=== PATIENT | male | born 1935 | race Caucasian/White ===

== ENCOUNTER → 2016-10-04 | Outpatient (CLI) | payer MEDICARE, BC ==
[~2016-10-04] MED LIST: ALDACTONE25 MG PO; AMARYL1 MG PO; AMARYL2 MG PO; AMITRIPTYLINE H25 MG PO; BICALUTAMIDE50 MG PO; CARDIZEM CD (T120 MG PO; CARDIZEM CD)(T180 MG PO; CHERATUSSIN AC236 ML PO; CLEOCIN HCL300 MG PO; COUMADIN ** IA3 MG PO; CPAP INH; DECADRON4 MG PO; DELTASONE20 MG; DULCOLAX10 MG R; ELAVIL25 MG PO; ELIQUIS5 MG PO; FLAGYL500 MG PO; FLOMAX0.4 MG PO; FLONASE 50 MCG/16 GM NOSE; GLUCERNA237 ML PO; HYZAAR 100-12.1 EACH PO; IPRAT-ALBUT 0.5-3 ML INH; KEPPRA500 MG PO; LASIX20 MG PO; LEVEMIR FL100 UNIT/1 SUB-Q; LEVEMIR100 UNIT/1 SUB-Q; LIPITOR40 MG PO; MAXIPIME2 G1 IV; MILK OF MA400 MG/5 M PO; MIRALAX17 GM PO; MULTAQ400 MG PO; NEURONTIN300 MG PO; NOVOLOG100 UNIT/M SUB-Q; OCEAN NASAL) (A44 ML NS; OXYGEN M-15 INH; PROAIR HFA8.5 GM INH; PROTONIX40 MG PO; SINGULAIR10 MG PO; SYMBICORT 16010.2 GM INH; TYLENOL325 MG PO
== END | disposition disaster alternative care site (69) ==
LOC: GRAD 14:46
DX: R47.01 Aphasia (principal); G31.9 Degenerative disease of nervous system, unspecified
CPT/HCPCS: G0424

== ENCOUNTER → 2016-10-04 | Outpatient (CLI) | payer MEDICARE, BC ==
[2016-10-04 14:15] LABS: CPK 47 IU/L (35-332)
== END | disposition disaster alternative care site (69) ==
LOC: LFPA 13:18
PROVIDERS: Family Medicine
DX: I48.91 Unspecified atrial fibrillation (principal)

== ENCOUNTER 2016-10-05 08:42 | Inpatient (IN) | payer MEDICARE, BC ==
[~2016-10-05] VITALS: Ht 180.3 cm; Wt 94.1 kg
--- NOTE | ~2016-10-05 | CON ---
PATIENT'S NAME: TIFFANIE MONTANEZ [facility] AGE: 81 Y [address] ROOM: [address] [address] LOCATION: [facility] ADMIT DATE: 10/05/2016 Consultation DISCHARGE DATE: FAMILY PHYSICIAN: Susanna Benjamin MD ATTENDING PHYSICIAN: REENA SALDANA PRIMARY CARE PHYSICIAN: Dr. Susanna Benjamin. 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 He was originally seen by Dr. Garcia on 08/27/2015, for a paraesophageal mass. On July 09, the CT scan revealed a paraesophageal mass that was 4.5 cm in dimension, but looking back to August 03, 2012, the patient had a mass in the same area that was 2 cm. He ended up having a biopsy that was nondiagnostic. Then, he was sent to [facility] in [place] for a repeat biopsy. 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 Dr. Garcia, after doing an evaluation of the patient, decided to not treat him at that time. The gastrointestinal stromal tumor only changes 2 cm in approximately 5 years. He thought it would be a reasonable thing just to kind of watch this lesion, especially with the patient's age and his other medical problems that he has been having recently. The patient was admitted to the hospital in July for cough and fevers. He was given Solu-Medrol, prednisone, antibiotics and did get some better. He was readmitted in August with exacerbation of his COPD, again given antibiotics, IV steroids, and prednisone as outpatient. The patient's daughter said after that discharge he had been feeling better than he has had in a couple of years. He has been thinking more clearly and feeling well. Approximately 24 to 36 hours ago, the patient started having problems with expressive aphasia and confusion. He did see Dr. Benjamin yesterday and she ordered a CT scan of his brain. CT scan at 2:00 p.m. yesterday revealed a left pulvinar-thalamic lesion, possibly an old infarct. Because of the patient's mental status had declined, the patient was brought to the emergency room this afternoon. A repeat CT scan of his brain showed increased size of his left thalamic- pulvinar lesion. Because of the patient's performance status was declining, he also did have an MRI scan done today. The MRI scan showed numerous ring- enhancing lesions throughout the cerebellum bilaterally, 8 on each side, along with 1 in his left thalamic-pulvinar region. They have an unusual appearance with striking surrounding edema with a rim of hemorrhage or hyperviscosity around each lesion. The differential included possible metastatic melanoma, lymphoma, or infection. PATIENT'S NAME: TIFFANIE MONTANEZ [facility] AGE: 81 Y [address] ROOM: [id number] [place], [place] [address] LOCATION: [facility] ADMIT DATE: 10/05/2016 Consultation DISCHARGE DATE: FAMILY PHYSICIAN: Susanna Benjamin MD ATTENDING PHYSICIAN: REENA SALDANA Because of the patient's clinical status has declined so rapidly, and he has had low-grade fevers off and on since July, and he has lymphocytosis, Dr. Saldana has raised the possibility of toxoplasmosis. The patient does have an old cat that has a swollen face and has been incontinent of stool around their house recently. His is the main caregiver of the cat, although the cat does have free reign at the house, but is not able to get up on the countertop. The patient does have a history of prostate cancer and he is on budesonide and has had orchiectomy in the past. OTHER PAST MEDICAL HISTORY: COPD, adult onset diabetes, hypertension, prostate cancer, depression, obstructive sleep apnea, platelet clumping, atrial fibrillation, and peripheral neuropathy. SOCIAL HISTORY: He is a nonsmoker. He used to drink years ago, but he has not been drinking for years. He is , has 2 daughters and 1 son, they live here in [place]. FAMILY HISTORY: Father had an MO, mother in her 80s, brother had colon cancer and at age 62, another brother at age 48 of an MO, another brother had coronary artery disease, and his son with follicular lymphoma. REVIEW OF SYSTEMS: Really unobtainable because the patient is really not responding verbally and he will move. PHYSICAL EXAMINATION: GENERAL: The patient is sleeping well, moves to noxious stimulus, but is not answering questions or moving purposefully or to command. VITAL SIGNS: Temperature is 98.2, pulse is 93, respirations 22, blood pressure is 122/76, saturating 98% on room air. LABORATORY DATA: White count is 5.9, hemoglobin of 13.3, platelet count is 129,000. BUN 20, creatinine is 1.3. PTT was elevated at 39, although the patient is on Eliquis. INR is 1.1. (The patient's states that he is not taking any of his medications for the past 2 to 3 days). IMPRESSION AND PLAN: 1. Gastrointestinal stromal tumor, diagnosed on 08/19/2016, with atypical PATIENT'S NAME: TIFFANIE MONTANEZ [facility] AGE: 81 Y [address] ROOM: [place] [address] LOCATION: [facility] ADMIT DATE: 10/05/2016 Consultation DISCHARGE DATE: FAMILY PHYSICIAN: Susanna Benjamin MD ATTENDING PHYSICIAN: REENA SALDANA cells associated with this, currently on no therapy; however, on CT scan that was performed today showed increase in size of his paraesophageal mass compared to July 09, 2016, it was 5.1 x 4.7 cm, currently it is 6.4 x 4.8 cm. This is a little unusual for gastrointestinal stromal tumors to change significantly in size, especially since it has been there since 2011 and only had grown approximately 2 to 3 cm in that time. 2. Lesions in his brain that are relatively very unusual for metastatic disease. Gastrointestinal stromal tumors generally are fairly low grade and it would be very unusual for them to present with these ring- enhancing lesions. Because this is fairly unusual for the gastrointestinal stromal tumors and the radiologist thinks this could have an unusual appearance, possibly infection, I would suggest if the patient does not respond to other treatments that the hospitalist is going to be doing, I would suggest doing a brain biopsy to prove this is a malignant process. 3. Mental status changes with significant decline in a very short period of time along with his fevers and a classic picture on his MRI scan, this could very well be toxoplasmosis, especially with a cat that has been in their house and been sick and the patient's immunosuppression over the past several months with his steroids. RECOMMENDATIONS: 1. I would suggest treating the patient for an infection. Dr. Saldana is evaluating the patient for toxoplasmosis and treating him empirically according to chart and he did consult Infectious Disease. I do agree that if the Infectious Disease reasonable it would help if this is metastatic disease causing his surrounding edema. 2. If the patient does not improve with antibiotic therapy and treatment targeted towards the toxoplasmosis, I would recommend a brain biopsy to prove that these lesions are before recommending radiation therapy. 3. Regarding his gastrointestinal stromal tumor, it has changed in size about 1.5 cm over the past 4 months, which is again unusual. It would be worthwhile in the near future repeating a CT scan after he is treated with antibiotics to see if things improved; if not, we definitely would need to consider starting him on tyrosine kinase inhibitor and . ALEX GIBBONS MD CML/modl PATIENT'S NAME: TIFFANIE MONTANEZ [facility] AGE: 81 Y [address] ROOM: [place] [address] LOCATION: [facility] ADMIT DATE: 10/05/2016 Consultation DISCHARGE DATE: FAMILY PHYSICIAN: Susanna Benjamin MD ATTENDING PHYSICIAN: REENA SALDANA /[id number] d: 10/06/16 0042 t: 10/24/16 1721, CONSULTATION REPORT
--- NOTE | ~2016-10-05 | CON ---
PATIENT'S NAME: TIFFANIE MONTANEZ [facility] AGE: 81 Y [address] ROOM: [place] [address] LOCATION: [facility] ADMIT DATE: 10/05/2016 Consultation DISCHARGE DATE: FAMILY PHYSICIAN: Susanna Benjamin MD ATTENDING PHYSICIAN: KYLE SALDANA DATE OF CONSULTATION: 10/09/2016 INFECTIOUS DISEASE CONSULTATION CONSULTATION REQUESTED BY: Dr. Kyle Saldana. REASON FOR CONSULTATION: Ring-enhancing brain lesions. SUBJECTIVE: I am asked by Dr. Saldana to see this pleasant 81-year-old male for multiple ring- enhancing brain lesions and possible infection. He was admitted on 10/05/2016 with confusion, slurred speech, and inappropriate behavior for several days. According to his family, he has had "spells" with memory and speech problems going back for 3 months. He had a low-grade fever prior to this admission, but otherwise, he has not had any fevers, chills, or sweats. An MRI obtained this admission showed multiple ring-enhancing lesions. The patient did consult with Neurosurgery, but declined a biopsy. He has a history of prostate cancer, that is reportedly dating back many years ago, for which, he takes hormonal therapy. Reportedly, this is quiescent. 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 He was known to have a tumor in that area 4 years ago, and this has apparently grown very slowly over the years. It reportedly does not have a high malignant potential. Active treatment of this was not strongly recommended, and he opted for expectant management. He has not had any known complications from this to date. 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 He has always lived in the area. PAST MEDICAL HISTORY: Significant for COPD, asthma, obstructive sleep apnea, type 2 diabetes, hypertension, paroxysmal atrial fibrillation, on anticoagulation. ALLERGIES: ASPIRIN - CAUSES SHORTNESS OF BREATH. PATIENT'S NAME: TIFFANIE MONTANEZ [facility] AGE: 81 Y [address] ROOM: [place] [address] LOCATION: [facility] ADMIT DATE: 10/05/2016 Consultation DISCHARGE DATE: FAMILY PHYSICIAN: Susanna Benjamin MD ATTENDING PHYSICIAN: KYLE SALDANA CURRENT MEDICATIONS: See the MAR for complete listing. His current antibiotics are vancomycin, ceftriaxone, and Bactrim. SOCIAL HISTORY: He has a very distant history of tobacco abuse, no history of alcohol abuse to my knowledge. FAMILY HISTORY: Significant for heart disease and colon cancer. REVIEW OF SYSTEMS: A complete review of systems was carried out and was remarkable only as noted. Please refer to the admission history and physical for complete details. OBJECTIVE: GENERAL: He appeared pleasant and comfortable and was in no distress. He appeared alert and oriented. VITAL SIGNS: Temperature is 36.3, blood pressure 113/56, pulse 80. HEENT: Posterior pharynx clear, no adenopathy or thyromegaly. He was edentulous. Cranial nerves were intact. NECK: Supple. CHEST: Clear to auscultation. CARDIOVASCULAR: Regular rate and rhythm without S3, S4, or murmur, ABDOMEN: Soft, nontender, without hepatosplenomegaly or masses. EXTREMITIES: Unremarkable. NEUROLOGIC: Strength and sensation grossly intact. PSYCHIATRIC: Behavior and affect appropriate. LABORATORY DATA: Creatinine 1.1. Liver function tests normal. White count 8.6. The CD4 count is 247. Toxoplasma antibodies for both IgG and IgM were negative. MICROBIOLOGY DATA: Blood cultures on 10/05/2016 show no growth to date. Urine culture on 10/05/2016 shows no growth. RADIOLOGY DATA: MRI finding is as noted above. CT of the chest on 10/05/2016 shows increased esophageal tumor size, measuring 6.4 x 4.8 cm. IMPRESSION: Multiple ring-enhancing lesions of the brain - the etiology of these is obscure, and the differential is broad. The appearance is perhaps more suggestive of metastatic disease than any other diagnosis. In particular, the PATIENT'S NAME: TIFFANIE MONTANEZ [facility] AGE: 81 Y [address] ROOM: [place] [address] LOCATION: [facility] ADMIT DATE: 10/05/2016 Consultation DISCHARGE DATE: FAMILY PHYSICIAN: Susanna Benjamin MD ATTENDING PHYSICIAN: KYLE SALDANA possibility of melanoma is considered. He has a spindle-cell carcinoma, which reportedly has a low metastatic potential, but this has grown in size, and there is the possibility that these do represent metastases from this tumor. It is unlikely to be prostate cancer if his PSA is "close to zero," as he claims. Lymphoma would be another possibility. Regarding infection, there is again a broad differential, including bacteria, fungi, and mycobacterial diseases. Statistically, the most likely possibility would be multifocal embolic abscesses due to a bloodstream infection, such as Streptococcus viridans, Streptococcus milleri, Streptococcus anginosus, etc. He has not been known to have a bloodstream infection, but this can often happen in an occult fashion. Toxoplasma would be extremely unlikely without IgM or IgG antibodies indicating recent or prior exposure. Histoplasma or other fungal organisms are possibilities, also consider Nocardia (especially given his farm exposures) and mycobacterial infection. Unfortunately, without biopsy and cultures, it would be very difficult to assess for these possibilities. PLAN: As he has improved since admission, whether due to the steroids or the antibiotics, I feel we can continue to treat for possible typical bacterial brain abscesses. I would recommend ongoing treatment with cefepime and Flagyl to cover typical bacterial organisms as well as anaerobes. We can obtain serial imaging to see if the lesions are improving. I would recommend tapering off Decadron as rapidly as possible, so it is not to interfere with the assessment of the brain lesions. If he is not clearly proving both symptomatically and radiographically, then I do feel we should try to get him to agree to a biopsy. I did discuss this with him and his family in some detail. Thank you for this consultation. I have ordered the above antibiotics and a PICC line. We can work on outpatient antibiotic arrangements, and we will plan on seeing him in the clinic in 2 weeks. I am available to answer any questions at [phone]. MD YANET RAMIREZ/evanl /[id number] PATIENT'S NAME: TIFFANIE MONTANEZ [facility] AGE: 81 Y [address] ROOM: [place] [address] LOCATION: [facility] ADMIT DATE: 10/05/2016 Consultation DISCHARGE DATE: FAMILY PHYSICIAN: Susanna Benjamin MD ATTENDING PHYSICIAN: KYLE SALDANA CC: Kyle Saldana MD d: 10/09/16 2142 t: 10/10/16 0815, CONSULTATION REPORT
--- NOTE | ~2016-10-05 | ER ---
PATIENT'S NAME: TIFFANIE MONTANEZ [facility] AGE: 81 Y [address] ROOM: [place] [address] LOCATION: [facility] ADMIT DATE: 10/05/2016 ER/Outpatient Report DISCHARGE DATE: FAMILY PHYSICIAN: Susanna Benjamin MD ATTENDING PHYSICIAN: REENA SALDANA Time of Arrival: 0840 hours. Time of Evaluation: 0845 hours. CHIEF COMPLAINT: Mental status changes. HISTORY OF PRESENT ILLNESS: The patient is an 81-year-old male who presents to the emergency department today with a chief complaint of mental status changes. He reports this started 2 days prior to arrival. He is accompanied by his and family. They report that patient was seen yesterday by Dr. Susanna Benjamin, primary care, had underwent CT scanning after some slurred speech at that time that has improved at home. The patient had a fever of 100.5 this morning. He has had some difficulties talking, difficulties walking, and getting up last night. He has been having some odd behaviors last night. He was acting oddly per his . No chills. No nausea or vomiting. No diarrhea or constipation. PAST MEDICAL HISTORY: 1. CHF. 2. Uap-aceidru-kkovnwjar diabetes. 3. COPD. 4. Hypertension. 5. Atrial fibrillation. 6. GI stromal tumor. 7. Dyslipidemia. 8. Obstructive sleep apnea. 9. Prostate cancer. 10. Thrombocytopenia. PAST SURGICAL HISTORY: 1. Shoulder surgery. 2. Prostatectomy. SOCIAL HISTORY: The patient quit smoking. Denies any alcohol or illicit drug use. ALLERGIES: ASPIRIN WHICH CAUSES A RASH. PATIENT'S NAME: TIFFANIE MONTANEZ [facility] AGE: 81 Y [address] ROOM: [place] [address] LOCATION: [facility] ADMIT DATE: 10/05/2016 ER/Outpatient Report DISCHARGE DATE: FAMILY PHYSICIAN: Susanna Benjamin MD ATTENDING PHYSICIAN: REENA SALDANA MEDICATIONS: Please see list. PRIMARY CARE DOCTOR: Susanna Benjamin MD REVIEW OF SYSTEMS: All systems are reviewed by myself and are negative with the exception of those discussed in the HPI and past medical history. PHYSICAL EXAMINATION: VITAL SIGNS: Weight 90.1 kg, blood pressure 138/75, pulse 98, respiratory rate 20, temperature 100.0, and oxygen saturation 93% on room air. GENERAL: The patient is an 81-year-old male, who appears his stated age. He is alert. He is oriented to person, not place, not time, and not President. HEENT: Normocephalic and atraumatic. Pupils are equal, round, and reactive to light and accommodation. Extraocular motions are intact. Nares are patent bilaterally. TMs are clear. Oropharynx is clear. NECK: Supple. There is no nuchal rigidity. CARDIOVASCULAR: Regular rate and rhythm. No murmurs, rubs, or gallops. LUNGS: Diminished diffusely. No wheezes, rales, or rhonchi. ABDOMEN: Soft, nontender, and nondistended. No rebound, rigidity, or guarding. MUSCULOSKELETAL: The patient moves all 4 extremities. NEUROLOGICAL: GCS of 15. Alert. He is oriented to person only. He has decreased dlypfg-vc-guxg, equal talent acquisition consultant strength bilaterally. No pronator drift. No "cold" toes bilaterally. No clonus. 2/4 reflexes in the upper and lower extremities. SKIN: Warm and dry. There are no rashes or lesions noted. LABORATORY DATA AND IMAGING STUDIES: Labs and X-rays: Lactate is normal. EKG shows sinus rhythm with a rate of 94, normal axis, and normal interval. No ST elevation, ST depression, or T- wave inversions. CBC is normal except for a white blood cell count of 15.9, platelets are 129,000. Free T4 and TSH are normal. BNP is 498. CMP is normal. LFTs are normal. CK is normal. Troponin is normal. Coags are normal. D-dimer is normal. Urinalysis shows 15 protein, 50 blood, otherwise, unremarkable. A CT scan of the brain; questionable increase in the lacunar infarct comparing to yesterday's CT scan. Procalcitonin is less than 0.05. MRI of the brain does reveal multiple lesions throughout the brain with the differential including metastatic melanoma versus infectious versus other sources of metastatic disease. IMPRESSION: PATIENT'S NAME: TIFFANIE MONTANEZ [facility] AGE: 81 Y [address] ROOM: [place] [address] LOCATION: [facility] ADMIT DATE: 10/05/2016 ER/Outpatient Report DISCHARGE DATE: FAMILY PHYSICIAN: Susanna Benjamin MD ATTENDING PHYSICIAN: REENA SALDANA 1. Multiple brain lesions. 2. Acute febrile illness with leukocytosis. 3. Altered mental status. 4. Initial visit. EMERGENCY DEPARTMENT COURSE: The patient was brought back to the examination room. Seen and evaluated by myself. IV is established. Laboratory analysis and imaging are obtained as described above. The patient does undergo the evaluation. I have discussed results with the patient and his family. I have contacted Dr. Saldana with the Hospitalist Service. He has seen and evaluated the patient down here in the emergency department. The patient will need further workup and evaluation of these multiple lesions in the brain. DISPOSITION: The patient is admitted under the care of the Hospitalist Service from Dr. Saldana in stable condition. DO SLIME LOCKETT/modl /[id number] d: 10/05/161936 t: 10/09/161901, OUTPATIENT REPORT
--- NOTE | ~2016-10-05 | DS ---
PATIENT'S NAME: TIFFANIE MONTANEZ [facility] AGE: 81 Y [address] ROOM: [address] [address] LOCATION: [facility] ADMIT DATE: 10/05/2016 Discharge Summary DISCHARGE DATE: 10/10/2016 FAMILY PHYSICIAN: Susanna Benjamin MD ATTENDING PHYSICIAN: Kyle Lin PRIMARY DIAGNOSES: 1. 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 2. Severe sepsis. 3. Acute encephalopathy. 4. Diabetes type 2 with hypoglycemia. 5. Acute kidney injury. 6. Essential hypertension. 7. Thrombocytopenia. PRINCIPAL PROCEDURES: The patient had a PICC line placement. LABORATORY DATA: On admission, lactic acid was 1.0; prior to discharge was 1.7. Troponin x2 sets was less than 0.040. WBC on admission was 15.9, prior to discharge was 9.0. H and H on admission were 13.3/40.2, prior to discharge were 10.9/33.3. Platelet on admission was 129, prior to discharge was 144. Creatinine on admission was 1.2, prior to discharge was stable at 1.1. Sodium on admission was 141, prior to discharge was 137. Potassium on admission was 4.3, prior to discharge was 4.6. Chloride on admission was 104, prior to discharge 105. CO2 was stable on admission was 31, prior to discharge was 24. Calcium on admission was 8.9, prior to discharge 7.9. BUN on admission was stable at 18. Glucose on admission was 97, prior to discharge on chemistry was 247. Magnesium was stable at 2.6. ESR 34. INR 1.1. UA on admission; leukocytes negative, nitrite negative, wbc's high, bacteria negative. CRP on admission was 6.4. Procalcitonin on admission was less than 0.05, including the repeat. CD4 level: CD4 absolute is 0.5, which is low; CD4 percentage 49%; absolute CD4 of 247. Toxo antibody IgG and IgM were negative. Microbiology; blood culture x2 sets no growth after 5 days. HIV 1 and 2 nonreactive. Urine culture, no growth at 2 days. RADIOLOGY: Chest x-ray, negative chest, no change. CAT scan of the head showed stable moderate senescent changes, change in appearance of hypodensity in the left thalamic pulvinar. This may indicate evolving acute or subacute infarct in this location consider MRI warranted clinically. No hemorrhage. MRI of the brain is reported as approximately 8 scattered ring-enhancing lesions in the cerebral hemispheres including one in the left thalamic pulvinar. Each lesion shows fairly striking surrounding edema. See differential considerations above. CTA for PE protocol, no PE or esophageal tumor. PATIENT'S NAME: TIFFANIE MONTANEZ [facility] AGE: 81 Y [address] ROOM: [place] [address] LOCATION: [facility] ADMIT DATE: 10/05/2016 Discharge Summary DISCHARGE DATE: 10/10/2016 FAMILY PHYSICIAN: Susanna Benjamin MD ATTENDING PHYSICIAN: Kyle Lin [facility] COURSE: For history of present illness, please take a look at the H and P, which was done by Dr. Lin. The patient was admitted to Neurotrauma Unit, was managed for acute encephalopathy. 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 So, given the wide differential, the patient was started empirically on IV Bactrim and also was started empirically on IV Rocephin, ceftriaxone, Vancomycin, Flagyl, and also Bactrim and Decadron. Given the Decadron, he was also put on Levemir and also aggressive sliding scale. By the next day of his hospital stay, the patient's mentation had remarkably improved, almost at baseline; he was alert and oriented x3; he was ambulating on the hallway; and his line of management was continued awaiting the results of his pending blood work. By the first day of his hospital stay, he did develop some mild respiratory distress, not required oxygen; however, he did have some wheezing, so he was given IV Lasix, which helped to improve his breathing, and also some breathing treatment as well. At this point, he was restarted on his home dose of Lasix and his Aldactone. His mentation continued to remain stable until it was returned to baseline. He continued to ambulate with Physical Therapy, requiring a walker. Eventually, the day prior to discharge, his pending labs such as his Toxo was available, which was negative both for IgG and IgM titers; and on this date, the patient was reviewed by the Infectious Disease doctors, who felt that given the fact that his titers will low, possibility of Toxo was not there. However, they suspected possibly this may be brain abscesses and so they discontinued the Bactrim and tailor down on the patient's antibiotics to cefepime and Flagyl for a total of 4 weeks and they also recommended for the Decadron to be aggressively taper down, which was started already prior to their consult. web content manager helped in setting up outpatient infusion. Also, please note, on admission, the patient also did get a neurosurgical consult at that point in time for a possible brain biopsy to help to evaluate the etiology of the MRI finding in the brain, however, the patient's family declined to brain biopsy to be done and also declined to a lumbar puncture being done as well given the risk of bleeding and the risk associated with the procedure. He did also get Hematology/Oncology consult as well given his prior history of gastrointestinal stromal tumor as well as his prostate cancer. Hematology and Oncology team felt that the MRI findings may not be due to mets from this 2 tumors as they really metastasize to the brain. However, they continued to follow up with the patient during his hospital stay. His diabetes became out of control during the hospital stay secondary to the Decadron, which the patient was on. However, he did require aggressive sliding scale of NovoLog as well as Levemir. He was started on Decadron taper a day prior to discharge and also on a rapid taper. On the day of discharge, the patient was in his stable clinical condition and vital signs were stable, his mentation was at baseline. Please also note that when the patient was seen by the Infectious Disease doctors, they ordered some antifungal workup, PATIENT'S NAME: TIFFANIE MONTANEZ [facility] AGE: 81 Y [address] ROOM: [place] [address] LOCATION: [facility] ADMIT DATE: 10/05/2016 Discharge Summary DISCHARGE DATE: 10/10/2016 FAMILY PHYSICIAN: Susanna Benjamin MD ATTENDING PHYSICIAN: Kyle Lin which were also pending as at the time of discharge. On the day of discharge, I did touch base with Dr. Knowles as regarding whether to restart the Eliquis or not as this was held on the day of admission. After discussing with Dr. Knowles, he recommended that the patient can be restarted on his Eliquis despite the MRI findings. DISCHARGE INSTRUCTIONS: The patient is to follow up with his family doctor, Dr. Benjamin, in the next 3 to 4 days. The patient is to restart his normal home dose of Amaryl, which is 1 mg daily p.o. after he completes his Decadron taper. Also, the patient is to stop taking insulin 1 day after completion of his Decadron taper. MEDICATIONS ON DISCHARGE: 1. Lipitor 40 mg p.o. daily. 2. Cardizem 120 mg p.o. daily. 3. Cefepime 2 grams daily. 4. Multaq 400 mg p.o. twice daily with meals. 5. Lasix 20 mg q.48 hours. 6. Neurontin 600 mg p.o. 3 times daily. 7. Amaryl 2 mg p.o. daily, this is a dose change while on Decadron. 8. Insulin sliding scale FlexPen, new medication, which is to be stopped one day after completing Decadron. 9. Levemir FlexPen 5 units subcu q.p.m., which is to be stopped one day after completion of the Decadron. 10. Keppra 500 mg p.o. twice daily. 11. Flagyl 500 mg p.o. 3 times daily for 4 weeks. 12. Pantoprazole 40 mg p.o. daily. 13. Aldactone 12.5 mg p.o. daily. 14. Flomax 0.4 mg p.o. q.h.s. 15. ProAir 2 puffs INH twice daily p.r.n. 16. Symbicort 1 puff twice daily. 17. Eliquis 5 mg p.o. twice daily. 18. Decadron 4 mg b.i.d. p.o. for 1 day, then Decadron 4 mg p.o. daily for one day, then stop. Then, Amaryl 1 mg daily p.o. which is to be started after completion of the Decadron. Discharge time spent on this patient is approximately 35 minutes, which included discussing case with the patient's PCP. HIMANSHU CALIXTO MD PATIENT'S NAME: TIFFANIE MONTANEZ [facility] AGE: 81 Y [address] ROOM: [place] [address] LOCATION: [facility] ADMIT DATE: 10/05/2016 Discharge Summary DISCHARGE DATE: 10/10/2016 FAMILY PHYSICIAN: Susanna Benjamin MD ATTENDING PHYSICIAN: Kyle Lin /[id number] d: 10/11/16 0106 t: 10/12/16 2224, DISCHARGE SUMMARY
--- NOTE | ~2016-10-05 | CON ---
PATIENT'S NAME: TIFFANIE MONTANEZ [facility] AGE: 81 Y [address] ROOM: [address] [place] [id number] LOCATION: [facility] ADMIT DATE: 10/05/2016 Consultation DISCHARGE DATE: FAMILY PHYSICIAN: Susanna Benjamin MD ATTENDING PHYSICIAN: REENA SALDANA DATE OF CONSULTATION: 10/05/2016 The patient was seen on neurologic consultation on 10/05/2016 and followed up on 10/06/2016. HISTORY OF PRESENT ILLNESS: I was asked by Dr. Saldana from the Hospitalist Service to give an opinion about Mr. Montanez. He is an 81-year-old male patient, who has a distant history of prostate cancer, but he has been on chronic androgen therapy. According to the record, he had prostatectomy back into the . There was a question whether he had some metastatic bone lesions seen on nuclear bone scan back in 1996. The patient otherwise has been doing quite well. He did have an admission back in July for acute respiratory compromise, thought to be associated with chronic issues of COPD. He does use a CPAP at home. His admission in July was uneventful, but it was associated with an event of rapid atrial fibrillation where he was placed on amiodarone as well as started on anticoagulation medication, Eliquis, which has been held presently. According to the family, the patient is very high functioning and does not have any memory deficits. In general, he never had any true neurologic problems until about 3 days prior to admission when he started to have strange behavior. He would not put on clothes, which would be extremely odd for him since he is very prideful, became much more confused and even had some slurring of his speech and difficulty with word finding. In answering questions, he would often substitute words very typical for an aphasia. The family was having close advisement fairly regularly with their primary medical doctor, Dr. Benjamin, who did an initial CAT scan of the brain. The CAT scan showed possibility of a small stroke in the left thalamus. Due to the fact that he was having worsening of his mental status, along with new aphasia, it was directed that the patient should come to the hospital for further evaluation. On the workup concerning the CAT scan finding, the MRI was much more descriptive. What the MRI found that was not necessarily picked up on the CAT scan with multiple regions of ring-enhancing lesions, at least 8 of them, that were seen scattered in both hemispheres. The hypodensity seen on CAT scan in the thalamus was clearly not associated with the stroke but was associated with this ring-enhancing lesion, that was fairly large with some area of edema around it. The area of edema did produce some mass effect and some minor shift of the brain parenchyma towards the left frontal horn. Other areas of these ring-enhancing lesions did show some circumscribed edema but significant edema was lacking. MRI did show a very typical pattern, PATIENT'S NAME: TIFFANIE MONTANEZ [facility] AGE: 81 Y [address] ROOM: [address] [address] LOCATION: [facility] ADMIT DATE: 10/05/2016 Consultation DISCHARGE DATE: FAMILY PHYSICIAN: Susanna Benjamin MD ATTENDING PHYSICIAN: REENA SALDANA consistent with a concentric target sign, whereby there would be an area of hyperintensity and an area of hypointensity. They thought that these multifocal ring-enhancing lesions with this target sign would be consistent with a central nervous system toxoplasmosis prompted the Hospitalist Service to quite appropriately call Infectious Disease. 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 In addition, dexamethasone was also started due to the aspect of the nature of the ring-enhancing lesions, edema, most specifically in the left thalamus/basal ganglia (it should be noted that a person may have presentation of aphasia with a left thalamic lesion). In addition, Flagyl 500 mg IV q.6 hours as well as ceftriaxone 2 g IV twice a day have been added to the regimen. The medication Eliquis due to the paroxysmal atrial fibrillation has been held temporarily but may be likely be restarted. Today, the patient has made a remarkable recovery over the course of the past 12 to 24 hours. He actually is improved with his language ability. He does not have slurring of his speech or word-finding deficits, though he is not exacting as to date, he knows the months, the year, and he is alert to situation. Furthermore, he participated very distinctly in the physical exam, following all commands, and cross-body commands done appropriately. He did not display any focal weakness or sensory complaints, and his gait was normal. 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 FAMILY HISTORY: His father of an [place] at age 61, his mother of colon cancer. SOCIAL HISTORY: He is retired. He does not smoke presently but smoked heavily in the past up to around 10 years ago. He does not drink alcohol. He has 8 children. ALLERGIES: HE HAS AN ALLERGY TO ASPIRIN, SUPPOSEDLY CAUSES SHORTNESS OF BREATH. CURRENT MEDICATIONS: PATIENT'S NAME: TIFFANIE MONTANEZ [facility] AGE: 81 Y [address] ROOM: [id number] [place] [address] LOCATION: [facility] ADMIT DATE: 10/05/2016 Consultation DISCHARGE DATE: FAMILY PHYSICIAN: Susanna Benjamin MD ATTENDING PHYSICIAN: REENA SALDANA 1. Flagyl 500 mg IV q.6 hours. 2. Dexamethasone 4 mg p.o. q.6 hours. 3. Keppra 500 mg twice a day. 4. Tamsulosin 0.4 mg p.o. daily. 5. Ceftriaxone 2 mg IV twice a day. 6. Dronedarone 400 mg twice a day. 7. Pantoprazole 40 mg p.o. daily. 8. Eliquis 5 mg p.o. twice a day, has been held past 24 hours. 9. Bactrim IV 5 mg/kg twice a day. REVIEW OF SYSTEMS: NEUROLOGIC: The patient experienced a mental status change with acting out confusion and inappropriate behavior. He also develops slurring of speech and inappropriate word use, difficulty with word finding, and word substitution. This is consistent with acute aphasia. On an MRI, the patient was found to have a fairly large lesion in the left thalamus, causing some mass effect into the left frontal horn. Other ring-enhancing lesions were found, scattered and multiple throughout the bilateral hemispheres. Does not appear to be evidence of any hydrocephalus. Scattered lesions did not produce any significant mass effect, but they are associated with some minor amounts of edema. The patient has received IV steroids, and he has been started on anti-toxoplasmosis treatment. Multiple laboratories have been sent including IgG for evidence for toxoplasmosis titers. RESPIRATORY: The patient is stable. In July 2016, he had respiratory events associated with worsening COPD. He was found to have rapid atrial fibrillation and was started on amiodarone as well as anti-coagulation for paroxysmal atrial fibrillation. He currently appears to be in sinus rhythm, but occasional APCs are seen on the rhythm strip. ONCOLOGICAL: The patient has a distant history of prostate cancer, possibly metastatic to bone, relating to a workup in 1996, which included a bone scan. He has been maintained on long-standing anti-androgen therapy. 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 This is currently being in surveillance. No plans for surgery. Rest of the review of systems is essentially stable presently. PHYSICAL EXAMINATION: GENERAL: The patient is alert and oriented. He is sitting up in a chair. He answers all questions appropriately. He follows all commands including cross- body commands. NEUROLOGIC: He participated in the full neurologic exam all appropriately. I did not appreciate any aphasia. He was alert and oriented to months but had difficulty remembering the date. He was conversational but a bit diminished in his conversation output. However, I did not appreciate any paraphasic errors or slurring of his speech or use of neologisms. He was able to name PATIENT'S NAME: TIFFANIE MONTANEZ [facility] AGE: 81 Y [address] ROOM: [id number] [place], [place] [address] LOCATION: [facility] ADMIT DATE: 10/05/2016 Consultation DISCHARGE DATE: FAMILY PHYSICIAN: Susanna Benjamin MD ATTENDING PHYSICIAN: REENA SALDANA objects and parts of objects completely correct and read normally. VITAL SIGNS: Revealed a pulse of 68 and irregular, respiration rate 12, blood pressure 148/68, temperature is 37. CRANIAL NERVES: 2 through 12 was intact. There were normal visual roberts. There was normal facial symmetry. Normal facial sensation. His neck was supple on flexion and extension. There was no evidence of any pronator drift on motor testing. There was full power in the upper and lower extremities proximally and distally at 5/5 grade power. Rapid alternating hand movements were normal. [id number] revealed no evidence of dysmetria or tremor. Reflexes were symmetric and +1 at the biceps, triceps, brachioradialis, patellar. Ankle jerks were absent. His gait was normal, narrow based. Negative Romberg. IMPRESSION: Mr. Montanez presented with new onset of aphasia with a change in his behavior and mental status. This, I believe is clearly related to the largest lesion seen on MRI, that is being a left thalamic basal ganglia lesion with mass effect into the left frontal horn. He has made a remarkable recovery, and I do believe that it is largely due to the effects of the steroids taking down some of the swelling. There was no evidence of any stroke seen on diffusion- weighted imaging. These multifocal lesions seen are all showing DWI core increase in signal. 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 Based upon the findings of #1: The largest lesion seen involves the basal ganglia thalamus region with mass effect. It is known that toxoplasmosis does have a propensity to go to the basal ganglia. Multifocal nature of the lesions does suggest a toxoplasmosis based upon the ring- enhancing propensity as well as the hyperintense and hypointense type of concentric target sign, that is seen on MRI. BRIM MOLDER lymphoma would tend to usually be not as concentric in their sizes as well as unlikely to be multifocal. Pyogenic abscess could certainly be a possibility here. Even though the patient does not look particularly toxic, what would point to a pyogenic abscess is would be the presence of diffusion-weighted imaging being positive in the core of these lesions. Diffusion-weighted imaging tends to be diminished in toxoplasmosis. Nonetheless, the findings on brain imaging as mentioned before do point more strongly to toxoplasmosis of the BRIM MOLDER. Thus, the patient has been appropriately started on Bactrim. Anti-infective agents, such as pyrimethamine is currently being sought, and it is not on formulary here. We will await the titers for toxoplasmosis IgG, which should come back in a matter of a few days. I agree on continuing the dexamethasone as dosed as well as continuing at least the Bactrim therapy with Flagyl. Certainly, Ceftriaxone would also continued as we can not be sure to rule out a pyogenic type of abscess. Discussions with the family and nonspecifically with the patient at this time, there is an understanding that he is rejecting any type of interventional surgery, such as a biopsy of the brain to better assess the nature of these multifocal findings. Infection as well as metastatic lesions PATIENT'S NAME: TIFFANIE MONTANEZ [facility] AGE: 81 Y [address] ROOM: [place] [address] LOCATION: [facility] ADMIT DATE: 10/05/2016 Consultation DISCHARGE DATE: FAMILY PHYSICIAN: Susanna Benjamin MD ATTENDING PHYSICIAN: REENA SALDANA were certainly be the leading issue here with infection being higher priority and more of a likelihood. The patient has been put on Keppra 500 mg twice a day as an empiric treatment for prophylactic seizures simply because of the multifocal nature of these lesions, and the chance that a seizure could occur within the next year or two. The issue of the Eliquis for paroxysmal atrial fibrillation is to be re-evaluated. I do think that the anticoagulant is less likely to cause intracranial hemorrhage, and the risk for atrial fibrillation related stroke is certainly probably higher. Nonetheless, risk for intracranial bleed currently is taken into consideration. Thus, the medication has been held. We will continue to follow along on this very interesting case. SHANNAN MILLER MD JRM/modl /[id number] d: 10/06/16 2254 t: 10/15/16 1544, CONSULTATION REPORT
--- NOTE | ~2016-10-05 | HP ---
PATIENT'S NAME: TIFFANIE MONTANEZ [facility] AGE: 81 Y [address] ROOM: [address] [address] LOCATION: [facility] ADMIT DATE: 10/05/2016 History & Physical DISCHARGE DATE: FAMILY PHYSICIAN: Susanna Benjamin MD ATTENDING PHYSICIAN: REENA SALDANA DATE OF SERVICE: CHIEF COMPLAINT: Confusion, slurred speech, and inappropriate behavior since 3 days ago. HISTORY OF PRESENT ILLNESS: This is an 81-year-old male who is currently confused therefore, the story is directly obtained from the patient's family members. The patient's daughter says that since 3 days ago the patient has been becoming confused where she describes as unable to speak properly with slurred speech. There is no facial droop or saliva drooling. The patient was also behaving inappropriately than his usual self, inappropriately such as he would get naked at home where he usually never does that before. Because of this inappropriate behavior and slurred speech and confusion, the patient went to see his primary care physician yesterday on Tuesday, October 04, 2016. At the primary care physician's office, a CT scan of the brain was ordered and it was read as no acute hemorrhage, chronic atrophy, and senescent white matter changes. There is an old small hypodense focus in the left thalamic pulvinar consistent with an old lacunar infarct. The result was told over the phone by the radiologist, Dr. Zee, to the patient's primary care physician, Dr. Benjamin. Given that the finding was showing old lacunar infarct, the patient was sent home without further intervention. When the patient went home, his symptoms persisted, became more confused, more difficulty getting the words out of the mouth, so the patient came here to the ER today for evaluation. Here in the ER, the patient was found to have a low-grade temperature at 100. At home, the patient's daughter says that the patient was also running a little bit of a temperature, but they never took the temperature. Here, a CT of the brain was performed again and showed stable moderate senescent changes, changing appearance of hypodensity in the left thalamic pulvinar, this may indicate evolving acute or subacute infarct in this location and consider an MRI for better imaging. No hemorrhage. Therefore, an MRI was performed of the head without contrast and that showed approximately 8 scattered ring- enhancing lesions in the cerebral hemisphere including 1 in the left thalamic pulvinar. Each lesion shows fairly striking surrounding edema, blood work was remarkable for leukocytosis with white blood cells of 15.9, and negative urinalysis for UTI. CRP 6.4. Procalcitonin less than 0.05. Influenza screen negative. D-dimer was mildly elevated at 0.55. Therefore, a CT pulmonary angiogram was performed and it showed no pulmonary emboli. 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 ROOM: [address] [address] LOCATION: [facility] ADMIT DATE: 10/05/2016 History & Physical DISCHARGE DATE: FAMILY PHYSICIAN: Susanna Benjamin MD ATTENDING PHYSICIAN: REENA SALDANA July 09, 2016. I was contacted by the ER for admission. Looking at the MRI imaging with multiple ring-enhancing lesions, in the setting of low-grade fever and confusion, I highly suspect that this might be [place] toxoplasmosis. Lymphoma less likely given the lymphoma usually is a single lesion. Brain metastasis could be another possibility from the paraesophageal tumor. Brain abscess is another differential, but unlikely to be so many scattered all over the brain. A brain biopsy will be the best way to diagnose the lesion in the brain, but because it is invasive, family members and the patient do not want to proceed with such invasive diagnostic procedure. I cannot get much history out of the patient given that he is confused and disoriented x3. No further history could be obtained from the patient. REVIEW OF SYSTEMS: As mentioned in the history of present illness. All other systems reviewed and negative except those mentioned in the history of present illness. PAST MEDICAL HISTORY.: 1. Recent admission here earlier this year for fever secondary to right lung consolidation and small right pleural effusion. 2. COPD, not on home oxygen. 3. Asthma. 4. Obstructive sleep apnea, on home CPAP at night, 10 cm per water pressure. 5. History of prostate cancer many years ago, status post prostatectomy according to the patient's daughter. This happened many years ago. Never received chemotherapy. Still on the anti-androgen medication (bicalutamide). 6. 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 7. Diabetes type 2. 8. Hypertension. 9. History of paroxysmal atrial fibrillation, on Eliquis. ALLERGY TO: Aspirin which causes shortness of breath. HOME MEDICATIONS: 1. Albuterol 2-puff inhalation twice daily p.r.n. for shortness of breath and wheezing. 2. Eliquis 5 mg p.o. b.i.d. 3. Lipitor 40 mg p.o. every night at bedtime. 4. Bicalutamide 50 mg p.o. daily. 5. Symbicort 1 puff inhalation twice daily. PATIENT'S NAME: TIFFANIE MONTANEZ [facility] AGE: 81 Y [address] ROOM: [address] [place] [id number] LOCATION: [facility] ADMIT DATE: 10/05/2016 History & Physical DISCHARGE DATE: FAMILY PHYSICIAN: Susanna Benjamin MD ATTENDING PHYSICIAN: REENA SALDANA 6. Cardizem 120 mg p.o. daily. 7. Dronedarone 400 mg p.o. b.i.d. 8. Lasix 20 mg p.o. every 48 hours. 9. Gabapentin 600 mg p.o. t.i.d. 10. Glimepiride 1 mg p.o. daily. 11. Protonix 40 mg p.o. daily. 12. Sodium chloride 1 spray each nose daily p.r.n. in each nostril. 13. Aldactone 12.5 mg p.o. daily. 14. Flomax 0.4 mg p.o. every night at bedtime. SOCIAL HISTORY: The patient was a former cigarette smoker, only for a few years, not sure how many packs per day given the patient is confused, cannot really get a clear history. This is obtained from the patient's family member. The patient's family remember says that the patient does not drink any alcohol or use any illegal drugs in the past or present. FAMILY HISTORY: Father from myocardial infarction at age of 61. Mother from colon cancer at an advanced age. PAST SURGICAL HISTORY: Status post prostatectomy for prostate cancer many years ago. PHYSICAL EXAMINATION: VITAL SIGNS: At the time of my dictation, temperature 98.2, heart rate 93, respirations 22, blood pressure 122/26, and saturation 93% on 1 L nasal cannula. Pain 0/10. GENERAL APPEARANCE: The patient looks frail and elderly, not in acute distress. Alert but disoriented x3. HEENT: Pupils are equally round and reactive to light. 4 mm bilaterally. Extraocular muscles are intact. Anicteric sclerae. Nasal turbinates are normal bilaterally. Moist oral mucosa. No oral thrush. NECK: No JVD. No cervical stiffness. No cervical lymphadenopathy. Brudzinski sign negative. CARDIOVASCULAR: Regular rate and rhythm. Normal S1, S2. No murmur. No rubs. No gallops. RESPIRATORY: Clear. Chest wall nontender to palpation. ABDOMEN: Obese, soft, nontender, nondistended, normal bowel sounds, no hepatosplenomegaly. EXTREMITIES: No edema in upper or lower extremities. NEUROLOGIC: The patient is alert but disoriented x3. Cannot perform a full neurological exam given that the patient does not follow commands and is confused. No obvious facial droop. Pronator drift negative bilaterally. No tongue deviation upon protrusion. Sensation intact in all 4 extremities. PATIENT'S NAME: TIFFANIE MONTANEZ [facility] AGE: 81 Y [address] ROOM: [place] [address] LOCATION: [facility] ADMIT DATE: 10/05/2016 History & Physical DISCHARGE DATE: FAMILY PHYSICIAN: Susanna Benjamin MD ATTENDING PHYSICIAN: REENA SALDANA Muscle strength intact in both upper extremities, 5/5. The patient could not follow commands therefore, I could not assess lower extremity strength. Proprioception and vibration cannot be obtained given that the patient does not follow commands and does not really answer my questions. Ncgg-jn-ktps and qsmukr-ml-qplg could not be performed given the patient does not follow commands due to confusion. Gait not assessed due to fall risks. Deep tendon reflexes +2 bilaterally and symmetrical at the knees and also on the biceps area. Babinski negative bilaterally. SKIN: No ulcer, no rash, no cyanosis. MUSCULOSKELETAL: No joint pain. No muscle pain. Range of motion cannot be assessed given the patient does not follow commands. LABORATORY DATA: Lactic acid 1.0. Troponin less than 0.04. CPK 54. ProBNP 498. White blood cells 15.9, hemoglobin 13.3, hematocrit 40.2, MCV 91.4, and platelet 129. Glucose 146, BUN 16, creatinine 1.0, sodium 139, potassium 4.1, chloride 104, CO2 27, and calcium 8.3. Total protein 7.4, albumin 3.4, AST 16, ALT 24, alkaline phosphatase 56, and total bilirubin 1.1. GFR more than 60. Anion gap 12.1. ESR 34. INR 1.1. PTT 39. Urinalysis negative for UTI. CRP 6.4. Free T4 1.3, TSH 1.85. CK-MB less than 0.5. Procalcitonin less than 0.05. Influenza screen negative. D-dimer 0.55. IMAGING STUDIES: As mentioned in the history of present illness. ASSESSMENT AND PLAN: 1. Acute encephalopathy: My first differential would be toxoplasmosis due to the multiple ring-enhancing lesions on the MRI of the brain. He did have recent exposure to his cat who recently has been having a lot of diarrhea, and the patient is very close to the cat. The patient has a history of paraesophageal cancer and also prior history of prostate cancer, currently taking anti-androgen, bicalutamide. Given that the patient has active paraesophageal cancer, the patient could be considered as an immunosuppressed patient. Therefore, he could be at risk of having toxoplasmosis. My plan for him will be treating with classical regimen for the toxoplasma empirically with pyrimethamine and sulfadiazine and leucovorin. However, when called the pharmacy, we do not have the pyrimethamine, we also do not have sulfadiazine. [facility] was already contacted and they also do not have it. It could be requested from the outside, but it would take few days to come back. Therefore, I am going to treat him with a 2nd line choice which is the Bactrim. He will be getting IV Bactrim 5 mg/kg twice a day. I will also do serology study with IgG and IgM for the Toxoplasma gondii serology. I already called the Microbiology Lab and I was told that this is a sent out sample and which we expect the report to come back sometime next PATIENT'S NAME: TIFFANIE MONTANEZ [facility] AGE: 81 Y [address] ROOM: [place] [address] LOCATION: [facility] ADMIT DATE: 10/05/2016 History & Physical DISCHARGE DATE: FAMILY PHYSICIAN: Susanna Benjamin MD ATTENDING PHYSICIAN: REENA SALDANA Friday. I have also consulted Neurosurgery, Dr. Knowles, who already has seen the patient and answered all of the patient and the patient's family members' questions. The reason for the consultation for Neurosurgery was to see the possibility for a brain biopsy to make a definitive diagnosis. However, the patient and the patient's family members do not want to proceed with a brain biopsy given that it is invasive. Therefore, no brain biopsy for now. My 2nd differential for this finding on the MRI of the brain could be metastasis. The primary source is not clear. He does have a history of paraesophageal tumor, that could be the source. He also had a history of prior prostate cancer many years ago, that could also be a cause. I will consult Hematology/Oncology to see if brain radiation would be necessary if there is a concern for metastasis. For the local edema effect, I am going to start him with Decadron 10 mg right now IV followed by 4 mg q.6 hours IV. After I did all these, I also called Infectious Disease for further recommendation. Infectious Disease also suggested to cover additional coverage for possible brain abscess, possibly less likely, because he has 8 spots on the brain, less likely is abscess, but in the setting that he is septic with leukocytosis and fever, we are going to cover him empirically for brain abscess with IV vancomycin and IV ceftriaxone and IV Flagyl. I also offered an option for lumbar puncture to test for toxoplsma CSF studies, I spoke to the anesthesiologist, but given the local edema effect of the 8 ring- enhancing lesions on the MRI and given that he was recently took Eliquis, therefore the risk is more than the benefit. I explained all these risks and benefits to the patient and the patient's family members and they do not want to proceed with the lumbar puncture. I will also consult Neurology for further recommendation. For now, this will be my plan. I have explained in detail my plan of care with the patient and the patient's family members and everybody is in agreement and I have already addressed all the questions and concerns from everybody in the family. He will also be getting IV Keppra 1 g loading dose right now and then 500 mg b.i.d. for seizure prevention. He will be ordered diabetic diet, but if he cannot eat, I will get a Speech and Swallow if necessary. IV fluids for hydration at maintenance rate. Further plan depends on clinical course. 2. Diabetes: He will be getting insulin aspart low dose a.c. and h.s. and insulin Levemir for nighttime coverage. Titrate as necessary. 3. Chronic obstructive pulmonary disease: He will get nebulization here p.r.n. I will give him Xopenex plus Atrovent p.r.n. and also the Atrovent p.r.n. 4. Agitation: I will give him IV Ativan low dose 0.5 mg t.i.d. p.r.n. 5. Obstructive sleep apnea: Currently, the patient is confused, is a contraindication for CPAP. I will keep him on oxygen nasal cannula for now. 6. Asthma: Continue nebulization p.r.n. as ordered. PATIENT'S NAME: TIFFANIE MONTANEZ [facility] AGE: 81 Y [address] ROOM: [place] [address] LOCATION: [facility] ADMIT DATE: 10/05/2016 History & Physical DISCHARGE DATE: FAMILY PHYSICIAN: Susanna Benjamin MD ATTENDING PHYSICIAN: REENA SALDANA 7. Paraesophageal mass, that was diagnosed on biopsy to be stromal tumor with atypical spindle cells: Consult Hematology/Oncology to see if this could be a possibility of the primary tumor that may be causing metastasis to the brain and if radiation of the brain will be an option. 8. Hypertension: Hold blood pressure medication in the setting of sepsis. Resume the blood pressure medication when necessary. 9. History of paroxysmal atrial fibrillation: I will not continue Eliquis in the setting of the brain mass to avoid any hemorrhage in the brain. Currently, he is in sinus rhythm. 10. DVT prophylaxis: He is on compression devices. CODE STATUS: He is a DNR/DNI. Time spent in care on the day of admission 120 minutes including several family meetings and I went over the plan of care with each family member and also examining and interviewing the patient. I also went over the plan of care with nurses and the patient and the patient's family members and also addressed all of their questions and concerns. MD YA STERLING/evanl /[id number] D: [id number] T: [id number] HISTORY & PHYSICAL
--- NOTE | ~2016-10-05 | CON ---
PATIENT'S NAME: TIFFANIE MONTANEZ [facility] AGE: 81 Y [address] ROOM: [address] [place] [id number] LOCATION: [facility] ADMIT DATE: 10/05/2016 Consultation DISCHARGE DATE: FAMILY PHYSICIAN: Susanna Benjamin MD ATTENDING PHYSICIAN: REENA SALDANA HISTORY OF PRESENT ILLNESS: I saw this 81-year-old male in the hospital today. He was admitted primarily with a primary complaint of aphasia that started on . The indicated that he was having difficulties speaking and communicating. Prior to that, he was okay; and then the following day, he developed a personality change, became restless, and was behaving in an unusual manner trying to take off his clothes; and so consequent to that, he saw the family doctor; and at that time, there was a question of he really had a fever and the thought was that this was primarily an infection and CT scan that was initially done without contrast was from the 's history, did not show any abnormality, the thought then was that maybe this was an early phase of a stroke. He was eventually transferred here today after he had a repeat CT scan and MRI of the brain. The MRI of the brain showed multiple lesions in both hemispheres at least 8 lesions in the brain. There was no lesion in the posterior fossa and there was not any massive edema, but there was slight edema surrounding each lesion. The relevant portion of his past medical history is that he had a history of CA of the prostate that was treated from what the said with orchiectomy about 19 years ago; and in addition, he had a biopsy of a paraesophageal lesion this past August and the report just showed that this was a spindle cell neoplasm; and he had a chest x-ray done, this chest x-ray did not show any lesions in the lung. PAST MEDICAL HISTORY: He has a history of COPD, he is diabetic, type 2 diabetes, he just recently had atrial fibrillation, which was diagnosed at the last hospital visit, he has a spindle cell neoplasm in the esophagus, and he has had a history of CA of the prostate, he is hypertensive, and has a history of depression. He also had a right rotator cuff repair. SOCIAL HISTORY: He does not smoke or drink alcohol. FAMILY HISTORY: He has a brother who has cancer of the colon and an another who had myocardial infarction. ALLERGIES: ALLERGIC TO ASPIRIN. MEDICATIONS: PATIENT'S NAME: TIFFANIE MONTANEZ [facility] AGE: 81 Y [address] ROOM: [address] [place], [place] [address] LOCATION: [facility] ADMIT DATE: 10/05/2016 Consultation DISCHARGE DATE: FAMILY PHYSICIAN: Susanna Benjamin MD ATTENDING PHYSICIAN: REENA SALDANA See the admitting list. PHYSICAL EXAMINATION: GENERAL: On examination in the hospital, this is an 81-year-old male, who did not appear to be in any acute distress. He was however restless in bed. VITAL SIGNS: He is 5 feet, 7 inches tall, 53.1 kg in weight. Blood pressure was 128/68, the pulse was 92 and was regular, respirations were 12, and temperature is 99.2. HEENT: Grossly appeared to be normocephalic. NECK: There was no tenderness on palpating the cervical spinous processes. There was no restriction of movement of the cervical spine. CHEST: Was clear. HEART: The heart rate was regular. NEUROLOGICAL: Examination was difficult primarily because I could get him to follow instructions; however, he did motor examination, moved his upper and lower extremities quite well, was able to ambulate with minimal help to the bathroom. The reflexes were normal and symmetrical. Toes were downgoing. IMPRESSION: Multiple brain lesions of unknown etiology. PLAN: I discussed at length with the and daughter and basically he had indicated that he did not want anything done. With regards to the esophageal lesion, he said he did not want any chemotherapy, did not want any radiation therapy, and did not want any intervention and so we talked at length as to what to do with regards to the intracranial lesions and I specifically emphasized that there was really no way one could be certain what is present intracranially without any biopsy; and however, since they did not seem to want to that the only thing that one is afraid of is could this be an infective process or some form of infection and if these were malignant lesions then in light of his not want anything done then there would be really no need to do any biopsy and the biggest fear however is this an infective process could be treated with medications and one would miss this opportunity. My recommendation is that Dr. Saldana should get in touch with ID and see what they will recommend. One of the thing this could be could be one of the opportunistic infection in the brain itself especially as he has been on steroids course. MD JANNETTE OSPINA/marilu PATIENT'S NAME: TIFFANIE MONTANEZ [facility] AGE: 81 Y [address] ROOM: [place] [address] LOCATION: [facility] ADMIT DATE: 10/05/2016 Consultation DISCHARGE DATE: FAMILY PHYSICIAN: Susanna Benjamin MD ATTENDING PHYSICIAN: REENA SALDANA /[id number] d: 10/05/166 t: 10/07/16 1432, CONSULTATION REPORT
[~2016-10-05 08:42] MED LIST changes: -AMARYL2 MG PO; -BICALUTAMIDE50 MG PO; -CLEOCIN HCL300 MG PO; -COUMADIN ** IA3 MG PO; -CPAP INH; -DECADRON4 MG PO; -DULCOLAX10 MG R; -ELAVIL25 MG PO; -FLAGYL500 MG PO; -GLUCERNA237 ML PO; -KEPPRA500 MG PO; -LEVEMIR FL100 UNIT/1 SUB-Q; -LEVEMIR100 UNIT/1 SUB-Q; -MAXIPIME2 G1 IV; -MILK OF MA400 MG/5 M PO; -MIRALAX17 GM PO; -NOVOLOG100 UNIT/M SUB-Q; -OCEAN NASAL) (A44 ML NS; -OXYGEN M-15 INH; -TYLENOL325 MG PO
[2016-10-05 09:10] LABS: BASOPHIL # 0.1 K/uL (0.0-0.2); BASOPHIL % 0.3 %; EOSINOPHIL % 0.1 %; HEMATOCRIT 40.2 % (33.0-50.0); HEMOGLOBIN 13.3 g/dL (11.0-16.0); IMMATURE GRANULOCYTE # 0.1 K/uL (0.0-0.3); IMMATURE GRANULOCYTE % 0.4 %; LYMPHOCYTE # 2.4 K/uL (0.8-4.0); LYMPHOCYTE % 15.2 %; MCH 30.2 pg (27.0-34.0); MCHC 33.1 gm/dL (32.0-36.5); MCV 91.4 fl (83.0-98.0); MONOCYTE # 1.5 K/uL (0.0-1.0); MONOCYTE % 9.4 %; MPV 11.3 fl (9.4-12.4); NEUTROPHIL # (ANC) 11.8 K/uL (1.4-9.0); NEUTROPHIL % 74.6 %; NRBC % 0 /100WBC (0-0.00); RDW-CV 13.6 % (11.9-14.6); WBC 15.9 K/uL (4.0-11.0)
[2016-10-05 09:24] LABS: PLATELET COUNT 129 K/uL (150-450)
[2016-10-05 09:31] LABS: ALBUMIN 3.4 gm/dL (3.5-5.0); ALK PHOS 56 IU/L (33-138); ALT 24 IU/L (12-78); ANION GAP 12.1 (10.0-19.0); AST 16 IU/L (10-40); BLOOD UREA NITROGEN 20 mg/dL (6-24); CALCIUM 8.4 mg/dL (8.5-10.5); CHLORIDE 104 mMol/L (96-110); CO2 28 mMol/L (22-32); CPK 54 IU/L (35-332); CREATININE 1.3 mg/dL (0.6-1.3); ESTIMATED GFR (MDRD EQUATION) 53; POTASSIUM 4.1 mMol/L (3.7-5.1); SODIUM 140 mMol/L (135-145); TOTAL BILIRUBIN 1.1 mg/dL (0.0-1.5); TOTAL PROTEIN 7.4 g/dL (6.0-8.4)
[2016-10-05 09:38] LABS: INR - (THERAPEUTIC) 1.1 (0.9-1.1); PROTIME 12.1 SECONDS (9.6-11.1)
[2016-10-05 09:42] LABS: PTT 39 SECONDS (25-32)
[2016-10-05 10:04] LABS: BILIRUBIN URINE NEGATIVE (NEGATIVE); BLOOD URINE 50 /UL (NEGATIVE); COLOR URINE YELLOW (YELLOW); GLUCOSE URINE NEGATIVE (NEGATIVE); KETONE URINE NEGATIVE (NEGATIVE); LEUKOCYTES URINE NEGATIVE /UL (NEGATIVE); NITRITE URINE NEGATIVE (NEGATIVE); PROTEIN URINE 15 mg/dL (NEGATIVE); SPEC GRAVITY URINE 1.015 (1.003-1.035); TURBIDITY URINE CLEAR (CLEAR); UROBILINOGEN URINE 4 mg/dL (NORMAL)
[2016-10-05 10:11] LABS: BACTERIA URINE NEGATIVE (NEGATIVE); EPITHELIAL URINE NEGATIVE #/HPF (NEGATIVE); RBC URINE 0-2 #/HPF (NEGATIVE); WBC URINE RARE #/HPF (NEGATIVE)
[2016-10-05] MEDS ORDERED: AMARYL1 MG PO (14:55)
--- NOTE | 2016-10-05 15:53 | NUR ---
Patient arrives from ED by cart. Ambulates to bed 1 assist with gaitbelt, fairly steady. Able to state first name and city. Slow to respond, trouble getting words out. Drowsy. Follows some commands and moves all extremities spontaneously. Equal strength bilaterally. Denies headache/numbness/tingling. Hx of COPD, HTN, Type II Diabetes controlled with oral meds, hx of prostate cancer and "tumor near esophagus." August 2016 hospitalization for pneumonia/CHF/Afib. Wears CPAP at night. Fever off and on recently with trouble talking over the last couple days. Seen by Dr. 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 MRI done today shows 8 lesions, metastatic CA vs parasitic infection. Allergy to Aspirin. NSR 80-90's, afebrile, on 1 L O2.
--- NOTE | 2016-10-05 19:18 | NUR ---
Significant Event: Patient alert. Follows some commands. Up with 1 assist to bathroom. Family at bedside helping with cares. Has rested off and on since being on floor. IV infusing at 75mL/hr. Groins are reddened, cream ordered. Pleasant with cares. Follow up:
[2016-10-05 19:34] LABS: ANION GAP 12.1 (10.0-19.0); BLOOD UREA NITROGEN 16 mg/dL (6-24); CALCIUM 8.3 mg/dL (8.5-10.5); CHLORIDE 104 mMol/L (96-110); CO2 27 mMol/L (22-32); ESTIMATED GFR (MDRD EQUATION) > 60; POTASSIUM 4.1 mMol/L (3.7-5.1); SODIUM 139 mMol/L (135-145)
[2016-10-06 05:18] LABS: HEMATOCRIT 39.6 % (33.0-50.0); HEMOGLOBIN 13.1 g/dL (11.0-16.0); MCHC 33.1 gm/dL (32.0-36.5); MCV 90.6 fl (83.0-98.0); MPV 12.5 fl (9.4-12.4); RBC 4.37 M/uL (3.50-5.50); RDW-CV 13.3 % (11.9-14.6)
--- NOTE | 2016-10-06 05:20 | NUR ---
Significant Event: Patient is alert and responds to name. Has not answered orientation questions this shift but has progressively gotten better as the shift goes on. At the beginning of the shift patient was very drowsy and was just resting quietly in bed with eyes closed. Around 1999 patient got very SOB, wheezing, restless. Pulling at lines and wanting to get up. LS clear and diminished. RR 30s. Call to Dr. Lin and he ordered a pillai catheter and 40 mg of IVP Lasix as well as Haldol IVP. Ativan substituted for Haldol. Patient had over 3 liters of urine out this shift. Urine is yellow and sample sent down for culture. Moves spontaneously and follows commands. 2+ pulses. Denies pain, numbness, or tingling. Tachycardic at times in the low 100s. VSS. Afebrile. On 2L O2 via NC. Bowel sounds active. No BM this shift. Family remains at bedside. IV to right wrist and left anterior forearm both SL with no complications and good blood return. Intermittent antibiotics. Groin is red. Obtained hi lo bed this shift. Alarms at all times. ACHS accucheks with mild SSI. Follow up: monitor neuro status, [facility] accchcks
[2016-10-06 05:21] LABS: WBC 9.8 K/uL (4.0-11.0)
[2016-10-06 05:32] LABS: ANION GAP 13.9 (10.0-19.0); CALCIUM 8.4 mg/dL (8.5-10.5); CREATININE 1.2 mg/dL (0.6-1.3); POTASSIUM 3.9 mMol/L (3.7-5.1)
--- NOTE | 2016-10-06 15:12 | NUR ---
Significant Event: Alert but drowsy at times. Oriented to person, place, and occasionally time. Conversing much more today but still makes confused statements. Ambulated to BR one assist. 525 output from pillai. Large loose BM. SBP 100-130, NSR 80-90's, afebrile, room air. Pleasant & cooperative with cares. Family present throughout the day.
--- NOTE | 2016-10-07 04:37 | NUR ---
Significant Event: Patient is alert and oriented x 3. A little forgetful on third assessment. Denies pain, numbness, or tingling. Moves spontaneously and follows commands. Strong and equal strengths. PERRL. VSS. Afebrile. 2+ pulses. On room air. Lungs clear and diminished. Carranza catheter removed this shift. 700 mL out-is over 1 L positive this shift. Yellow urine. Hi lo bed. Alarms at all times. Has not used call light appropriately this shift. Bowel sounds active. No BM this shift. IV to right wrist and left anterior forearm both SL with no complications and good blood return. Intermittent antibiotics. Groin is red. A[facility]S accucheks changed to aggressive SSI. BG was 408. Dr. Corey ordered 16 units of Novolog to be given. 1 one hour BG was 360. Follow up: monitor neuro status, ACHS accucheks, consider probiotic?, monitor for fluid overload, ID to see Friday, alarms at all times
[2016-10-07 05:06] LABS: BASOPHIL % 0.1 %; HEMATOCRIT 37.6 % (33.0-50.0); HEMOGLOBIN 12.3 g/dL (11.0-16.0); IMMATURE GRANULOCYTE # 0.1 K/uL (0.0-0.3); IMMATURE GRANULOCYTE % 0.7 %; LYMPHOCYTE # 0.5 K/uL (0.8-4.0); LYMPHOCYTE % 3.5 %; MCH 29.9 pg (27.0-34.0); MCHC 32.7 gm/dL (32.0-36.5); MCV 91.3 fl (83.0-98.0); MONOCYTE # 0.6 K/uL (0.0-1.0); MONOCYTE % 3.9 %; MPV 11.3 fl (9.4-12.4); NEUTROPHIL % 91.8 %; NRBC % 0 /100WBC (0-0.00); RBC 4.12 M/uL (3.50-5.50); RDW-CV 13.2 % (11.9-14.6)
[2016-10-07 05:07] LABS: PLATELET COUNT 156 K/uL (150-450)
[2016-10-07 05:23] LABS: ANION GAP 12.8 (10.0-19.0); BLOOD UREA NITROGEN 24 mg/dL (6-24); CALCIUM 8.1 mg/dL (8.5-10.5); CHLORIDE 104 mMol/L (96-110); CO2 26 mMol/L (22-32); CREATININE 1.1 mg/dL (0.6-1.3); ESTIMATED GFR (MDRD EQUATION) > 60; POTASSIUM 3.8 mMol/L (3.7-5.1); SODIUM 139 mMol/L (135-145)
--- NOTE | 2016-10-07 12:10 | NUR ---
Introduced self and care management services to patient and at bedside along with daughter at bedside. Their plan is for patient to go home on discharge, denies concerns. Would like him to have follow for awhile, has had [facility] in the past. Looking into [facility] setting up his meds for him so they keep track of that better. Will start referral to [facility] and put face to face sheet on chart. ID physician will see pt on Friday and will see what his antibx needs will be.
--- NOTE | 2016-10-07 16:37 | NUR ---
Significant Event: Alert & oriented. VSS, afebrile, sats mid 90's on room air, dyspnea on exertion, wheezing at times. Trace edema. 1 void after pillai removal. No BM. 2 peripheral IV saline locked with intermittent Abx. Follow up: [facility]. Monitor respiratory status. Awaiting Infectious Disease doctor to see Friday.
[2016-10-08 04:37] LABS: HEMATOCRIT 33.9 % (33.0-50.0); HEMOGLOBIN 11.3 g/dL (11.0-16.0); MCHC 33.3 gm/dL (32.0-36.5); MCV 89.9 fl (83.0-98.0); MPV 12.4 fl (9.4-12.4); RBC 3.77 M/uL (3.50-5.50); RDW-CV 13.3 % (11.9-14.6)
--- NOTE | 2016-10-08 04:37 | NUR ---
Significant Event: Patient is alert and oriented x 3. Talkative. A little forgetful. Denies pain, numbness, or tingling. Moves spontaneously and follows commands. Strong and equal strengths. PERRL. VSS. Afebrile. 2+ pulses. On room air. Lungs clear and diminished. Generalized edema. Wheezing at times. Yellow urine. Received order for hi lo bed and she is a Hi lo bed. Alarms at all times. Has not used call light appropriately this shift. Bowel sounds active. No BM this shift. IV to right wrist and left anterior forearm both SL with no complications and good blood return. Intermittent antibiotics. Groin is red. Patient started to get a little more SOB/wheezy while IV antibiotics started to resume. Neb treatment done. Aggreezive SSI. Follow up: monitor neuro status, ACHS accucheks, monitor for fluid overload, ID to see Friday, alarms at all times
[2016-10-08 04:40] LABS: PLATELET COUNT 143 K/uL (150-450)
[2016-10-08 04:47] LABS: ANION GAP 14.9 (10.0-19.0); CREATININE 1.2 mg/dL (0.6-1.3); POTASSIUM 3.9 mMol/L (3.7-5.1)
--- NOTE | 2016-10-08 05:13 | NUR ---
Significant Event: Patient is alert and oriented x 3. Talkative. A little forgetful. Denies pain, numbness, or tingling. Moves spontaneously and follows commands. Strong and equal strengths. PERRL. VSS. Afebrile. 2+ pulses. On room air. Lungs clear and diminished. Generalized edema. Wheezing at times and appears SOB at times. Yellow urine. Hi lo bed and alarms at all times. Has not used call light appropriately this shift. Bowel sounds active. No BM this shift. IV to right wrist and left anterior forearm both SL with no complications and good blood return. Intermittent antibiotics. Groin is red. Patient started to get a little more SOB/wheezy while IV antibiotics started to resume. Neb treatment done. Aggressive SSI. Did receive 40 mg IVP Lasix x 1 with good results. Follow up: monitor neuro status, ACHS accucheks, monitor for fluid overload, ID to see Friday, alarms at all times
[2016-10-08 05:27] LABS: ABSOLUTE NEUTROPHIL CT (ANC) 12.5 K/uL (1.4-9.0); BANDED NEUTROPHIL # 0.4 K/uL (0.0-0.1); BANDED NEUTROPHILS % 3 %; LYMPHOCYTE # 0.4 K/uL (0.8-4.0); LYMPHOCYTE % 3 %; MONOCYTE # 0.1 K/uL (0.0-1.0); SEGMENTED NEUTROPHIL # 12.1 K/uL (1.4-9.0); SEGMENTED NEUTROPHIL % 93 %
--- NOTE | 2016-10-08 17:13 | NUR ---
[phone] Amairani Thrasher, student nurse provided cares. Charting has been reviewed. MUKUND Carrillo Investment Associate
--- NOTE | 2016-10-08 17:29 | NUR ---
Significant Event: Patient A/O X3. Follows commands. Equal strength throughout. Denies N/T. VSS. Afebrile. Room air with sats in the mid 90s. LS clear and diminished. Voids per urinal. BS active X4. Accuchecks ACHS with SSI. Groin red. Scab to R) Morel. PIV X3. Infusing intermittent ABX. SBA using gaitbelt and walker. Denies pain. Pleasant and cooperative with cares. Home tomorrow tentively tomorrow after seen by infectios disease. Follow up:
--- NOTE | 2016-10-09 03:27 | NUR ---
Significant Event: Patient is alert and oriented x 3. Talkative. A little forgetful. Denies pain, numbness, or tingling. Moves spontaneously and follows commands. Strong and equal strengths. PERRL. VSS. Afebrile. 2+ pulses. On room air. Lungs clear and diminished. CPAP at night with 2L O2 bled in. Generalized edema. Wheezing at times and appears SOB at times. Occasional non-productive cough. Yellow rine. Hi lo bed and alarms at all times. Did use call light this shift. Bowel sounds active. No BM this shift. IV to right wrist, right anterior forearm, and left anterior forearm SL with no complications. Intermittent antibiotics. Groin is red. ACHS accucheks, aggreesive SSI. Follow up: monitor neuro status, CACHORRO accjesus, ID to see Friday, alarms at all times, possibly home today
[2016-10-09 04:22] LABS: HEMATOCRIT 33.5 % (33.0-50.0); MCHC 32.8 gm/dL (32.0-36.5); MCV 91.3 fl (83.0-98.0); MPV 11.3 fl (9.4-12.4); RBC 3.67 M/uL (3.50-5.50); RDW-CV 13.5 % (11.9-14.6); WBC 8.6 K/uL (4.0-11.0)
[2016-10-09 04:34] LABS: PLATELET COUNT 138 K/uL (150-450)
[2016-10-09 04:49] LABS: ANION GAP 12.4 (10.0-19.0); BLOOD UREA NITROGEN 21 mg/dL (6-24); CALCIUM 7.9 mg/dL (8.5-10.5); CHLORIDE 107 mMol/L (96-110); CO2 24 mMol/L (22-32); CREATININE 1.1 mg/dL (0.6-1.3); ESTIMATED GFR (MDRD EQUATION) > 60; POTASSIUM 4.4 mMol/L (3.7-5.1); SODIUM 139 mMol/L (135-145)
[2016-10-09 05:11] LABS: ABSOLUTE NEUTROPHIL CT (ANC) 8.3 K/uL (1.4-9.0); LYMPHOCYTE # 0.3 K/uL (0.8-4.0); LYMPHOCYTE % 3 %; MONOCYTE # 0.1 K/uL (0.0-1.0); SEGMENTED NEUTROPHIL # 8.3 K/uL (1.4-9.0); SEGMENTED NEUTROPHIL % 96 %
--- NOTE | 2016-10-09 13:53 | NUR ---
Significant Event: A/O X3. Denies N/T. Follows commands. Equal strength throughout. VSS. Afebrile. Room air with sats in the mid 90s. LS clear and diminished. Voids per toilet. BS active X4. Large BM this shift. No apaprent skin issues. R) wrist SLL. R) AC SLL. SBA using gaitbelt and walker. Accuchecks ACHS with SSI. Coverage given. Denies pain. Patient to get PICC access this afternoon. Patient has a fair appetite. Takes pills whole with no complications. Family at bedside. Follow up: Home today or tomorrow
--- NOTE | 2016-10-09 15:55 | NUR ---
Social visit with Jhonathan and his family that was at bedside. Let them know that ID doctors had rounded and they recommended that he go home on Q12 IV Abxs. I went over the options of HHC/HIP vs outpatient therapies. After they talked it over, it was decided that he wanted to do outpatient IV Abxs here at the hospital rather than HHC/HIP. Called and updated Ebony at [facility] to this. Jhonathan is getting his PICC line placed tonight and then will get his IV Abxs in the morning and follow up as an outpatient tomorrow night. No other questions needs or concerns at this time. Will continue to follow and assist.
--- NOTE | 2016-10-09 17:27 | NUR ---
[id number] Den, student nurse provided cares. Charting has been reviewed. MUKUND Carrillo Embosser Apprentice
[2016-10-10 03:40] LABS: ANION GAP 12.6 (10.0-19.0); BLOOD UREA NITROGEN 22 mg/dL (6-24); CALCIUM 7.9 mg/dL (8.5-10.5); CHLORIDE 105 mMol/L (96-110); CO2 24 mMol/L (22-32); CREATININE 1.1 mg/dL (0.6-1.3); ESTIMATED GFR (MDRD EQUATION) > 60; MAGNESIUM 2.6 mg/dL (1.3-2.6); POTASSIUM 4.6 mMol/L (3.7-5.1); SODIUM 137 mMol/L (135-145)
[2016-10-10 03:42] LABS: HEMATOCRIT 33.3 % (33.0-50.0); HEMOGLOBIN 10.9 g/dL (11.0-16.0); MCH 30.2 pg (27.0-34.0); MCHC 32.7 gm/dL (32.0-36.5); MCV 92.2 fl (83.0-98.0); MPV 11.3 fl (9.4-12.4); RBC 3.61 M/uL (3.50-5.50); RDW-CV 13.6 % (11.9-14.6)
[2016-10-10 03:46] LABS: PLATELET COUNT 144 K/uL (150-450)
--- NOTE | 2016-10-10 04:19 | NUR ---
Significant Event: The patient is Alert and Oriented x3. Denies Numbness and Tingling. Moves all extremities spontaneously and to command. Up with 1 assist, Gaitbelt and walker. Denies pain. VSS. On 4L oxygen with his CPAP Currently. Accu checks ACHS. PICC to the Right arm saline locked. Follow up:
[2016-10-10 05:21] LABS: ABSOLUTE NEUTROPHIL CT (ANC) 7.7 K/uL (1.4-9.0); LYMPHOCYTE # 0.7 K/uL (0.8-4.0); LYMPHOCYTE % 8 %; MONOCYTE # 0.5 K/uL (0.0-1.0); SEGMENTED NEUTROPHIL # 7.7 K/uL (1.4-9.0); SEGMENTED NEUTROPHIL % 86 %
--- NOTE | 2016-10-10 11:15 | NUR ---
Stopped by to talk with Jhonathan and his family. I let them know that he was all set up for outpatient IV Abxs starting tonight here at [facility]. Let them know where they would need to go to check in and told them to be there at 1845 for his 1900 appointment time. No other questions, needs or concerns. Will continue to follow and assist. Faxed down discharge orders, PICC line placement order, and facesheet to [facility] prior to his dismissal.
--- NOTE | 2016-10-10 12:30 | NUR ---
Diabetes consult: Patient is being discharged to home today. Patient has been requiring insulin due to steroid therapy and will be discharged on Levemir and Novolog. The patient will not be doing his own injections. Reports his or daughter will help give injections. Education was provided with the family present on the use of the insulin pen device. The patient's demonstrated use of the device. The patient was given a print out of the insulin doses including Novolog aggressive correction and Levemir 5 units everyday. Pictures of the pens were provided. The patient's and his daughter were able to verbalize the correct amount of insulin that needed to be given when provided with blood sugar scenarios. Storage of insulin, rotation of injection sites and disposal of needles were reviewed. Sick day guidelines, as well as hypoglycemia guidelines were discussed. The family reports having refills of testing supplies on file at the pharmacy and will not require an additional script for testing supplies. Family voices understanding of instructions and has no further questions.
[2016-10-10] MEDS ORDERED: MAXIPIME2 G1 IV (13:47)
[2016-10-10] MEDS ORDERED: AMARYL2 MG PO (13:53)
[2016-10-10] MEDS ORDERED: NOVOLOG100 UNIT/M SUB-Q (13:55)
[2016-10-10] MEDS ORDERED: LEVEMIR FL100 UNIT/1 SUB-Q (14:03)
[2016-10-10] MEDS ORDERED: KEPPRA500 MG PO (14:04)
[2016-10-10] MEDS ORDERED: FLAGYL500 MG PO (14:05)
[2016-10-10] MEDS ORDERED: DECADRON4 MG PO ×2 (14:10→14:13)
== END 2016-10-10 15:00 | disposition disaster alternative care site (69) | DRG 871 ==
LOC: GMED 08:42 → GNTU 12:11
PROVIDERS: Emergency Medicine; Hospitalist; Internal Medicine Infectious Disease; Nurse Practitioner Family; ADMIT Internal Medicine
PROC: 02HV33Z Insertion of Infusion Device into Superior Vena Cava, Percutaneous Approach (ICD-10-PCS; principal; 2016-10-09)
DX: A41.9 Sepsis, unspecified organism (principal); G93.40 Encephalopathy, unspecified; G93.6 Cerebral edema; G06.0 Intracranial abscess and granuloma; N17.9 Acute kidney failure, unspecified; C79.89 Secondary malignant neoplasm of other specified sites; J96.11 Chronic respiratory failure with hypoxia; E11.649 Type 2 diabetes mellitus with hypoglycemia without coma; D69.6 Thrombocytopenia, unspecified; I48.0 Paroxysmal atrial fibrillation; R65.20 Severe sepsis without septic shock; Z79.01 Long term (current) use of anticoagulants; Z66 Do not resuscitate; K22.9 Disease of esophagus, unspecified; J44.9 Chronic obstructive pulmonary disease, unspecified; G47.33 Obstructive sleep apnea (adult) (pediatric); J45.909 Unspecified asthma, uncomplicated; Z87.891 Personal history of nicotine dependence; Z99.81 Dependence on supplemental oxygen; Z85.46 Personal history of malignant neoplasm of prostate; I12.9 Hypertensive chronic kidney disease with stage 1 through stage 4 chronic kidney disease, or unspecified chronic kidney disease; N18.3 Chronic kidney disease, stage 3 (moderate)
CPT/HCPCS: C1751; G0424; J0692; J0696; J1100; J1940; J1953; J2060; J3370; J7030; J7040; J7050; J7060; J7612

== ENCOUNTER 2016-10-21 21:05 | Inpatient (IN) | payer MEDICARE, BC ==
[~2016-10-21] VITALS: Ht 180.3 cm; Wt 89.7 kg
--- NOTE | ~2016-10-21 | DS ---
PATIENT'S NAME: TIFFANIE MONTANEZ [facility] AGE: 81 Y [address] ROOM: [address] [address] [place] [facility] [place]: 10[place]21[place]2016 Discharge Summary DISCHARGE DATE: 10/23/2016 FAMILY PHYSICIAN: Susanna Benjamin MD ATTENDING PHYSICIAN: Kyle Lin FINAL DIAGNOSES: 1. Acute encephalopathy. 2. 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 3. Cerebral edema. 4. Paroxysmal atrial fibrillation. 5. Diabetes mellitus. CONSULTANTS ON THE CASE: Dr. Marvin, Dr. Dorantes, and Dr. Fowler of Infectious Disease. HOSPITAL COURSE: Please see details of admission and H and P by Dr. Lin. Briefly, the patient was admitted with acute encephalopathy. He had recently discontinued his Decadron at home and the family had noticed significant change in mental status. He had distractibility, confusion, and was found to get quite angry quickly. The patient had no homicidal threats or thoughts. He was brought to the emergency room and evaluated. He did undergo a CT scan and MRI of the brain, which showed advanced progression of the lesions noticed on his last hospitalization. The Decadron was resumed IV. This showed significant improvement. The patient was seen and evaluated by Dr. Marvin, who felt that the patient should undergo a brain biopsy; however, the patient is on Eliquis for paroxysmal atrial fibrillation and would require a washout. Prior to proceeding with this, it was also discussed with the family that the patient's images would be pushed to [facility]. Dr. Marvin did visit with Dr. Mireles at [facility] about such images and came to the same conclusion that it was possible tumor versus abscess and biopsy was definitely warranted. The patient was covered with sliding scale insulin throughout his stay for his diabetes mellitus. We did use SCDs for DVT prophylaxis at this time. Dr. Fowler did see the patient on 10/23 and felt that the antibiotics could be discontinued at this time to ensure an adequate biopsy result was obtained without a cue from antibiotics. The patient's family were agreeable with this. The patient was found to be stable for discharge on 10/23 and he was discharged to his family at that time. DIAGNOSTICS: On radiology exams, chest x-ray on 10/22/2015 shows no vascular congestion or any parenchymal infiltrate. Head CT without contrast on 10/22/2015 shows vasogenic edema surrounding multifocal brain lesions increased since previous exam on 10/05/2016. 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 ROOM: [place] [address] [place] [facility] [place]: 10/21/2016 Discharge Summary DISCHARGE DATE: 10/23/2016 FAMILY PHYSICIAN: Susanna Benjamin MD ATTENDING PHYSICIAN: Kyle Lin the differential. LABORATORY DATA: Blood sugars range from 149 and 258. Lactate on the was 1.7 down to 1.4 on the . On admission, sodium was 139, potassium 3.8, chloride 105, bicarb 25, glucose 165, BUN 14, creatinine 1.0. Cardiac enzymes were within normal. Free T4 was 1.3, TSH was 2.96. ProBNP 177. Chemistries remained stable throughout his stay. White blood cell count was 8.4. Hemoglobin 12.6, hematocrit 38.3, platelets 58. INR is 1.2. On the day of discharge, white blood cell count is 6.6, hemoglobin 12.5, hematocrit 38.5, platelets 59. INR 1.1. Procalcitonin was negative throughout his stay. Blood cultures on 10/21 showed no growth to date. DISCHARGE INSTRUCTIONS: The patient is discharged home. They will resume Home Health for strengthening. His diet is diabetic. Activity is as tolerated. Follow up with Dr. Marvin on 10/28/2016 at 10:[address] Benjamin in 1 week. The patient was able to verbalize understanding of these discharge instructions. MEDICATIONS: 1. Lipitor 40 mg at bedtime. 2. Symbicort 160/4.5, one puff twice daily. 3. Cardizem 120 mg daily. 4. Multaq 400 mg twice daily. 5. Neurontin 600 mg 3 times daily. 6. Humalog sliding scale as directed. 7. Levemir 8 units subcu at bedtime. 8. Keppra 500 mg twice daily. 9. Protonix 40 mg daily. 10. Flomax 0.4 mg at bedtime. 11. ProAir two puffs twice daily p.r.n. 12. Eliquis will be on hold until after the biopsy. 13. Lasix 20 mg on Friday, Friday, and Friday. 14. Prolactin 12.5 mg daily. 15. Amaryl 1 mg. 16. CPAP as directed. 17. Decadron 4 mg p.o. q.8 hours. We do appreciate participating in this patient's care, and thank you very much for the ability to serve him while hospitalized at [facility]. Time spent coordinating details of discharge was 40 minutes of which was spent coordinating with consultants and care management, completion of medication reconciliation, and education to the patient and family on the above-mentioned PATIENT'S NAME: TIFFANIE MONTANEZ [facility] AGE: 81 Y [address] ROOM: [place] [address] [place] [facility] [place]: 10/21/2016 Discharge Summary DISCHARGE DATE: 10/23/2016 FAMILY PHYSICIAN: Susanna Benjamin MD ATTENDING PHYSICIAN: Kyle Lin diagnoses. MAHESH MENDOZA FOR JUAN DUFFY MD SHAKEEL/modl /[id number] CC: Susanna Benjamin MD d: 10/24/16 0333 t: 10/30/16 1643, DISCHARGE SUMMARY
--- NOTE | ~2016-10-21 | CON ---
PATIENT'S NAME: TIFFANIE MONTANEZ [facility] AGE: 81 Y [address] ROOM: [place] [address] [place]: [facility] [place] ADMIT DATE: 10/21/2016 Consultation DISCHARGE DATE: FAMILY PHYSICIAN: Susanna Benjamin MD ATTENDING PHYSICIAN: REENA SALDANA DATE OF CONSULTATION: 10/23/2016 REASON FOR CONSULTATION: Multiple ring-enhancing brain lesions. HISTORY: Mr. 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 Evaluation revealed multiple ring-enhancing lesions in his brain. The etiology of these is not certain. At that time, he was not consenting to a brain biopsy and thus underwent empiric treatment with antibiotics to see if this might help and also got steroids. With probably the steroids, he significantly improved and these were weaned down and he took his last dose on about 10/12. After that, he kind of was stable, but over the last about 4-5 days, started decreasing in his ability to speak again, in his confusion, as well as his behavior. On the day of admission, he could not find words at all, thus he ended up presenting and was readmitted. MRI showed that the lesions actually had increased a little bit in size and had significant surrounding edema. He has been admitted, they continued on cefepime and Flagyl and back on steroids. The patient and his family are now considering a brain biopsy and discussing whether to do this in [place] or in [place]. ID was asked to see about the antibiotics. PAST MEDICAL HISTORY: Significant for diabetes, COPD, heart failure, atrial fibrillation, GI spindle tumor, hyperlipidemia, sleep apnea, prostate cancer apparently with a low PSA, and thrombocytopenia. PAST SURGICAL HISTORY: He has had shoulder surgery and prostatectomy. SOCIAL HISTORY: He is a prior smoker, but has quit. No alcohol or illicit drug use. ALLERGIES: LISTED TO ASPIRIN. MEDICATIONS: PATIENT'S NAME: TIFFANIE MONTANEZ [facility] AGE: 81 Y [address] ROOM: [place] [address] LOCATION: [facility] [place] ADMIT DATE: 10/21/2016 Consultation DISCHARGE DATE: FAMILY PHYSICIAN: Susanna Benjamin MD ATTENDING PHYSICIAN: REENA SALDANA He is on the cefepime since 10/09 and the metronidazole since 10/05. REVIEW OF SYSTEMS: Really not obtainable from the patient, but per the family, all systems reviewed and are negative otherwise with the exception of the pertinent positives and negatives in the HPI. PHYSICAL EXAMINATION: GENERAL: He is not in any acute distress. Awake, alert. He knows that he is at the hospital, but cannot really recall why he was here, he believed he was out fishing prior to coming here. VITAL SIGNS: He has been afebrile with a T-max of 98.3, blood pressure 98/53, pulse 82, and respirations 16. HEENT: NC/AT. EOMI. PERRLA. NECK: Supple. LUNGS: Clear. HEART: Regular. ABDOMEN: Soft and nontender. EXTREMITIES: No cyanosis, clubbing, edema. His PICC site is okay. SKIN: Without rash. NEURO: Appears to move all his extremities without problem. DATA: MRI as noted. White count 6.6, hemoglobin 12.5, platelet count is 59. His creatinine is 0.9. Albumin is 2.9. AST is 41. A1c was 6.6% in August. His CD4 count was only 247 interestingly. His Fungitell was negative. Toxoplasma IgG was negative. Had a procalcitonin of less than 0.05. Back when he presented in September, he had multiple sets of blood cultures that were negative and an HIV that was negative. His blood cultures from 10/21, that have no growth to date. ASSESSMENT AND PLAN: Multiple ring-enhancing brain lesions. Differential diagnosis is broad here. Abscess is possible, but he has larger lesions now despite antibiotic treatment. It is possible a missed pathogen, but the antibiotics he is currently on do not seem to be doing much. An atypical infection is possible here, but we would need tissue for diagnosis and we would send off cultures for AFB fungus and Nocardia if he gets a biopsy. Malignancy is obviously possible as well here and he will get pathology to get the biopsy. We will stop his antibiotics for now. Discussed extensively with the patient and the family. He did agree that he needs a biopsy, this is only way we are going to get to the bottom of this. Family is looking at transfer to [facility]. We can follow there if he goes. Please call with questions. PATIENT'S NAME: TIFFANIE MONTANEZ [facility] AGE: 81 Y [address] ROOM: [place] [address] LOCATION: [facility] [place] ADMIT DATE: 10/21/2016 Consultation DISCHARGE DATE: FAMILY PHYSICIAN: Susanna Benjamin MD ATTENDING PHYSICIAN: REENA SALDANA MD JORGE HUBER/modl /[id number] d: 10/23/16 1824 t: 10/29/16 1452, CONSULTATION REPORT
--- NOTE | ~2016-10-21 | ER ---
PATIENT'S NAME: TIFFANIE MONTANEZ [facility] AGE: 81 Y [address] ROOM: [address] [address] [place]: [facility] [place] ADMIT DATE: 10/21/2016 ER/Outpatient Report DISCHARGE DATE: FAMILY PHYSICIAN: Susanna Benjamin MD ATTENDING PHYSICIAN: REENA SALDANA Time of Arrival: 2105 hours. Time of Evaluation: 2110 hours. CHIEF COMPLAINT: Altered mental status. HISTORY OF PRESENT ILLNESS: The patient is an 81-year-old male, who presents to the emergency department today with a chief complaint of altered mental status. The patient was recently seen and evaluated by myself and was admitted to the hospital and was found to have ring-enhancing lesions in his brain. He has been on IV antibiotics. He reports he is accompanied by his and daughter. They do report that the patient began over the past day having aphasic episodes and having difficulties with thought process and trying to figure out what he is talking about. He is still able to ambulate. He denies any chest pain. Denies shortness of breath. No fevers, no chills. No nausea or vomiting. No diarrhea or constipation. He does have a PICC line in place. He has been receiving cefepime and Flagyl. PAST MEDICAL HISTORY: CHF, [id number] diabetes, COPD, hypertension, atrial fibrillation, GI stromal tumor, dyslipidemia, obstructive sleep apnea, prostate cancer, thrombocytopenia, and ring-enhancing lesions. PAST SURGICAL HISTORY: Shoulder surgery and prostatectomy. SOCIAL HISTORY: The patient quit smoking. Denies any alcohol or illicit drug use. ALLERGIES: ASPIRIN. MEDICATIONS: Please see list. REVIEW OF SYSTEMS: All systems are reviewed by myself and are negative with the exception of those discussed in the HPI and past medical history. PATIENT'S NAME: TIFFANIE MONTANEZ [facility] AGE: 81 Y [address] ROOM: [address] [address] LOCATION: [facility] [place] ADMIT DATE: 10/21/2016 ER/Outpatient Report DISCHARGE DATE: FAMILY PHYSICIAN: Susanna Benjamin MD ATTENDING PHYSICIAN: REENA SLADANA PHYSICAL EXAMINATION: VITAL SIGNS: Weight 89.7 kg, blood pressure 132/64, pulse 83, respiratory rate 16, temperature 98.0, oxygen saturation 97% on room air. GENERAL: The patient is an 81-year-old male, who appears his stated age, in no acute distress at this time. HEENT: Head: Normocephalic, atraumatic. Pupils are equal, round, and reactive to light and accommodation. Extraocular motions are intact. Nares are patent bilaterally. TMs are clear. Oropharynx is clear. NECK: Supple. There is no nuchal rigidity. CARDIOVASCULAR: Regular rate and rhythm. No murmurs, rubs, or gallops. LUNGS: Clear to auscultation bilaterally. No wheezes, rales, or rhonchi. ABDOMEN: Soft, nontender, and nondistended. No rebound, rigidity, or guarding. NEUROLOGICAL: The patient is alert. He is oriented to person, place, and president, not time. He does have episodes where he is having difficulties with thought process and speech. He has equal stripper black and white strength bilaterally. No pronator drift. Difficulties with gkthty-[id number]. Normal rapid hand movement. Normal muscle strength of bilateral upper and lower extremities. SKIN: Warm and dry. There are no rashes or lesions noted. LABORATORY DATA AND X-RAYS: EKG shows sinus rhythm, rate of 75, normal axis, normal interval. No ST elevation, ST depression, or T-wave inversions. Lactate is 1.7. PTT is normal, PT is 12.3, INR is 1.2. Cardiac enzymes are normal. CBC is normal. CMP is normal. AST is 45, ALT is normal. CRP is 0.64. Free T4 is normal. TSH is normal. BNP is normal. Procalcitonin is less than 0.05. Urinalysis shows 25 leukocyte esterase, 15 protein, 25 blood. IMPRESSION: 1. Multiple ring-enhancing lesions on brain MRI. 2. Altered mental status. 3. Aphasia. 4. Initial visit. EMERGENCY DEPARTMENT COURSE: The patient was brought back to the examination room. Seen and evaluated by myself. An IV is established. Laboratory analysis and imaging are obtained as described above. A CT scan of the brain was obtained. There are findings with new asymmetric areas of white matter hypoattenuation, concerning for acute or subacute areas of ischemia, infectious, or malignant process are not excluded as well, recommended an MRI evaluation. MRI is pending at the time of dictation and will be followed up with the Hospitalist Service, Dr. Saldana. I have contacted the Hospitalist Service with Dr. Saldana. He does agree to accept the patient for further evaluation, treatment, and management and PATIENT'S NAME: TIFFANIE MONTANEZ [facility] AGE: 81 Y [address] ROOM: [place] [address] LOCATION: [facility] [place] ADMIT DATE: 10/21/2016 ER/Outpatient Report DISCHARGE DATE: FAMILY PHYSICIAN: Susanna Benjamin MD ATTENDING PHYSICIAN: REENA SALDANA follow up on the MRI. I have discussed results with the patient and the patient's family. Their questions are answered. They are without further questions at this time. DISPOSITION: The patient is admitted under the care of the Hospitalist Service, Dr. Saldana, in stable condition. DO SLIME LOCKETT/evanl /[id number] d: 10/22/16 0318 t: 10/23/16 1333, OUTPATIENT REPORT
--- NOTE | ~2016-10-21 | HP ---
PATIENT'S NAME: TIFFANIE MONTANEZ [facility] AGE: 81 Y [address] ROOM: [address] [address] LOCATION: [facility] [place] ADMIT DATE: 10/21/2016 History & Physical DISCHARGE DATE: FAMILY PHYSICIAN: Susanna Benjamin MD ATTENDING PHYSICIAN: REENA SALDANA DATE OF SERVICE: CHIEF COMPLAINT: Worsening confusion and word-finding difficulty in the last few days. HISTORY OF PRESENT ILLNESS: This is an 81-year-old male, who was recently discharged from our hospital for multiple small ring-enhancing lesions in the brain, probably abscess; however, could not rule out brain metastasis, given that at that time, the patient and the family member refused brain biopsy, which was offered by the Neurosurgery. At that time, the patient and the family member refused a brain biopsy because they said that the procedure sounds very invasive, and due to his multiple comorbidities and advanced age, they did not want to take the chance of undergoing such invasive procedure. At that time, the patient was seen by Neurology, Neurosurgery, Infectious Disease, Hematology/Oncology, and Hospitalist team, and at that time, the differential were brain metastases probably from the paraesophageal tumor or from metastatic melanoma as mentioned by the radiologist, and the Hematology/Oncology could not do radiation, given that the diagnosis of the brain metastasis was not ever confirmed due to the lack of brain biopsy. Initially, Infectious Disease treated the patient for possible toxoplasmosis and brain abscess with IV Decadron and IV antibiotics, and the patient showed improvement. Neurology also suspected metastasis at that time. However, due to the lack of a brain biopsy, the brain metastasis diagnosis was never be able to be confirmed without a brain biopsy. Therefore, the patient was treated with broad-spectrum antibiotics. Eventually, he was discharged with IV cefepime and IV Flagyl, and the tapering dose of p.o. Decadron. His oral Decadron was finished on last Friday, on October 18, 2016. That is when the daughter noticed that his condition was becoming progressively worse in terms of confusion. When the patient was discharged, the patient's daughter told me that his condition was about 80% back to the usual baseline. However, for the last few days, his condition has gotten worse with the same presentation as last time including word-finding difficulty and confusion, just feeling very weak and tired, and not acting his usual himself. That is how the patient came back PATIENT'S NAME: TIFFANIE MONTANEZ [facility] AGE: 81 Y [address] ROOM: [address] [address] LOCATION: [facility] [place] ADMIT DATE: 10/21/2016 History & Physical DISCHARGE DATE: FAMILY PHYSICIAN: Susanna Benjamin MD ATTENDING PHYSICIAN: REENA SALDANA here again. At this time, CT of the brain and MRI of the brain on admission showed increased size of the several ring-enhancing lesions throughout the brain. Vasogenic edema has also increased. Abscess and infection, as well as metastatic melanoma are on the top differential. No acute ischemia. The patient never had a fever. The highest temperature which he had was 99.8 at home taken last Friday on October 18, 2016. The patient denies any headaches or any nausea or vomiting or any other complaints. Only thing he complains to me is that he feels tired. The patient is somewhat confused. He is oriented only to people and time, but not to place. According to the patient's daughter, last time he took Eliquis was on Friday night, on October 20, 2016. REVIEW OF SYSTEMS: As mentioned in the history of present illness. All other systems reviewed were negative except those mentioned in the history of the present illness. PAST MEDICAL HISTORY: 1. COPD, chronic obstructive pulmonary disease, not on home oxygen. 2. Asthma. 3. BEVERLEY obstructive sleep apnea, on home CPAP at night. 4. History of prostate cancer many years ago, status post prostatectomy in remission. No evidence of metastasis according to the patient's daughter. 5. 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 6. Type 2 diabetes. 7. Hypertension. 8. History of paroxysmal atrial fibrillation, on Eliquis. 9. Recently discharged from our hospital on October 10, 2016 with a diagnosis of multiple small ring-enhancing lesion on the brain, likely secondary to brain abscess versus metastatic melanoma (never had the brain biopsy since the patient and family member declined. Therefore, brain metastasis was never able to be pursued). PAST SURGICAL HISTORY: Status post prostatectomy for prostate cancer many years ago. ALLERGIES: ASPIRIN, WHICH CAUSES SHORTNESS OF BREATH. PATIENT'S NAME: TIFFANIE MONTANEZ [facility] AGE: 81 Y [address] ROOM: [address] [address] LOCATION: [facility] [place] ADMIT DATE: 10/21/2016 History & Physical DISCHARGE DATE: FAMILY PHYSICIAN: Susanna Benjamin MD ATTENDING PHYSICIAN: REENA SALDANA [place] MEDICATIONS: Currently is being reconciled. SOCIAL HISTORY: Former cigarette smoker for only a few years. Not sure how much pack per day, given that the patient is confused, and family member could not give a very good history. He denies any alcohol or illegal drug use, confirmed with the patient's daughter at the bedside. FAMILY HISTORY: Father from myocardial infarction at age 61. Mother from colon cancer at advanced age. PHYSICAL EXAMINATION: VITAL SIGNS: At the time of my dictation, temperature was 97.4, heart rate was 73, respirations were 24, blood pressure was 114/58, and saturation was 94% on room air. Pain is 0/10. GENERAL APPEARANCE: Alert, but disoriented to people and time currently. Not in acute distress. The patient looks frail and elderly, and chronically ill and deconditioned. HEENT: Eyes: Pupils were equally round and reactive to light. Extraocular muscles are intact. Nose: Nasal turbinates are normal bilaterally. Mouth: Dry oral mucosa. No oral thrush. NECK: No JVD jugular venous distention. No neck stiffness. No cervical lymphadenopathy. CARDIOVASCULAR: Regular rate and rhythm. Normal S1 and S2. No murmur. No rubs. No gallops. RESPIRATORY: Clear. ABDOMEN: Soft, nontender, and nondistended. Normal bowel sounds. No hepatosplenomegaly. EXTREMITIES: No edema in upper or lower extremities. NEUROLOGICAL: Alert and disoriented to people and time, but not to place currently. Sensation was intact. Muscle strength was intact. No facial droop. Pronator drift was negative. No slurred speech. Babinski was negative bilaterally. Visual roberts, all four quadrants were intact. No tongue deviation upon protrusion. Cranial nerves II through XII were grossly intact. Odfulo-kx-nxph was intact. Idkv-kr-kbqm was intact. The patient is slow in response, but can still follow most of my commands. Gait: Not assessed due to fall risk. Vibration and sensation were intact. Proprioception was also intact. SKIN: No ulcer. No rash. No cyanosis. MUSCULOSKELETAL: No joint pain. No muscle pain. Range of motion was intact. LABORATORY DATA: PATIENT'S NAME: TIFFANIE MONTANEZ [facility] AGE: 81 Y [address] ROOM: [address] [address] LOCATION: [facility] [place] ADMIT DATE: 10/21/2016 History & Physical DISCHARGE DATE: FAMILY PHYSICIAN: Susanna Benjamin MD ATTENDING PHYSICIAN: REENA SALDANA Lactic acid is 1.7. Troponin was less than 0.04. ProBNP is 177. CPK creatine phosphokinase of 40. White blood cells were 8.4, hemoglobin was 12.6, hematocrit was 38.3, MCV was 91.8, and platelets were 58. Glucose of 165, BUN of 14, creatinine of 1.0, sodium of 139, potassium of 3.8, chloride of 105, CO2 of 25, calcium of 7.9, total protein of 6.2, albumin of 2.9, AST of 48, ALT of 59, alkaline phosphatase of 72, total bilirubin of 0.5, GFR glomerular filtration rate of more than 60, and anion gap of 12.8. INR is 1.2 and PTT is 32. Urinalysis: 25 leukocytes, 2 to 5 white blood cells, negative bacteria, and negative nitrite. CK-MB is less than 0.5. CRP C-reactive protein is 0.64. TSH thyroid-stimulating hormone was 2.9 and free T4 was 1.3. Procalcitonin of less than 0.05. IMAGING STUDIES: EKG on admission showed sinus rhythm at heart rate of 75 beats per minute, QRS of 96, QTc of 423, and AL of 174. No acute ischemic findings. CT of the head without contrast on admission showed new symmetric areas of white matter hypoattenuation as described concerning for acute or subacute areas of ischemia. Infectious or malignant process are not excluded. Recommend MRI. MRI of the head with and without IV contrast on admission showed increased size of several ring-enhancing lesions throughout the brain. Adjacent vasogenic edema has also increased. Given diffusion restriction in the central fluid portion, the abscess and infection are a top consideration, as well as the metastatic melanoma. No acute ischemia. The CT and the MRI of the head are preliminary reports. Please follow up with official report in the morning. PATIENT'S NAME: TIFFANIE MONTANEZ [facility] AGE: 81 Y [address] ROOM: [address] [place] [id number] LOCATION: [facility] [place] ADMIT DATE: 10/21/2016 History & Physical DISCHARGE DATE: FAMILY PHYSICIAN: Susanna Benjamin MD ATTENDING PHYSICIAN: REENA SALDANA ASSESSMENT AND PLAN: 1. Multiple ring-enhancing lesions in the brain with vasogenic edema: His condition worsened since his Decadron was stopped last Friday, and despite on IV cefepime and IV Flagyl for the presumed brain abscesses, his condition worsened. The MRI and the CT of the brain at this time showed increased size of the multiple ring-enhancing lesions, as well as increased size in the vasogenic edema. Therefore, my differentials here still will be the metastases in the brain, possibly from the primary paraesophageal tumor. Last time, this diagnosis was not able to be made, given that last time the patient and the patient's family members refused brain biopsy. At this time, I have explained to the patient and patient's family member that the brain biopsy might be necessary at this time to really confirm the diagnosis because if it is actually a brain metastasis, antibiotics will not provide benefit exterminator helper. The patient could actually benefit from radiation depending on the brain biopsy report if it is really a metastasis. For now, I will consult Neurosurgery tomorrow morning for possible brain biopsy. The patient and family members this time agree to go for brain biopsy, but they want to talk to the neurosurgeon first about the benefits and risks due to patient's multiple comorbidities and advanced age. I will continue everything the same with IV cefepime and IV Flagyl for the presumed brain abscess. However, clinically, the patient should be improving and not getting worse. Therefore, I doubt that the brain abscesses are the cause of multiple ring-enhancing lesions. Toxoplasmosis was already ruled out on last admission since serology IgG and IgM were both negative for toxoplasma. For the brain edema, I will give him IV Decadron 10 mg one dose right now followed by 4 mg q.6 hours to reduce the brain edema effect. The patient was very dry and dehydrated on examination. I will give him normal saline at a slow rate of 60 mL/hr for maintenance. Followup plan depends on clinical course. 2. Regarding his thrombocytopenia: I will check another CBC complete blood count tomorrow morning. The patient may require platelet transfusion if less than 50,000 in case the patient will undergo a brain biopsy as an invasive procedure. This thrombocytopenia has been on and off. The patient was as low as 60,000 at one time last admission, but when he left the hospital back on October 10, 2016, the patient's platelets were 144,000. Another thing to be considered is that last time the patient took the Eliquis according to the patient's daughter was on Friday night on October 20, 2016, but I am not sure how reliable this information is. 3. Regarding his diabetes type 2: The patient will be on sliding-scale insulin with subq regular insulin q.4 hours mild dose and titrate as necessary. Given that the patient will be on Decadron, I will expect his glycemia to go high. I will hold the home p.o. anti-diabetic medication while patient is n.p.o., and do the sliding scale. Also, I will be PATIENT'S NAME: TIFFAINE MONTANEZ [facility] AGE: 81 Y [address] ROOM: [address] [address] LOCATION: [facility] [place] ADMIT DATE: 10/21/2016 History & Physical DISCHARGE DATE: FAMILY PHYSICIAN: Susanna Benjamin MD ATTENDING PHYSICIAN: REENA SALDANA adding the Levemir subq 5 units every night and titrate as necessary. N.p.o. for now after midnight in anticipation for the possible brain biopsy. 4. Regarding his paraesophageal tumor: Hematology/Oncology was already following as outpatient. For now, I am not going to consult Hematology/Oncology until a brain biopsy could be performed, and have a diagnosis confirmed of the brain metastasis. At that time, I will call in Hematology/Oncology, and eventually Radiation Oncology if necessary to proceed with the radiation therapy, but first of course, we must have a diagnosis of the brain metastasis through the brain biopsy. 5. Regarding his asthma and chronic obstructive pulmonary disease: Not in exacerbation. Lungs are clear. Saturation is normal at room air 94%. Continue CPAP at night and the inhalers and home medications. 6. History of prostate cancer, status post total prostatectomy many years ago: Unlikely this is the cause of the brain metastases, given that the cancer was many years ago, and the patient was already cured. According to the patient's daughter, the patient never required radiation or chemotherapy, and the prostate cancer was totally removed with the radical prostatectomy. 7. Regarding hypertension: Continue home medications with holding parameter. 8. History of paroxysmal atrial fibrillation, on Eliquis and Cardizem: Continue Cardizem with holding parameter, but I will hold Eliquis for now in anticipation for a possible brain biopsy. CODE STATUS: The patient is DNI do not intubate, but not DNR do not resuscitate. This was confirmed with the patient and with the patient's daughter at the bedside, five times with the patient. The nurse was also in the room as a witness. Time spent on the day of admission, 50 minutes including chart review, talking to the patient and examining the patient, addressing all the questions and concerns that the patient and the patient's daughter had at the bedside, and going over the plan of care with the patient and the patient's daughter and the nurse. REENA SALDANA MD CC/marilu /[id number] D: [id number] T: [id number] HISTORY & PHYSICAL
--- NOTE | ~2016-10-21 | CON ---
PATIENT'S NAME: JHONATHAN MONTANEZ [facility] AGE: 81 Y [address] ROOM: [place] [address] LOCATION: [facility] [place] ADMIT DATE: 10/21/2016 Consultation DISCHARGE DATE: FAMILY PHYSICIAN: Susanna Benjamin MD ATTENDING PHYSICIAN: REENA SALDANA DATE OF CONSULTATION: 10/22/2016 CONSULT REQUESTED BY: Hospitalist. REASON FOR CONSULTATION: Intracranial lesions. PATIENT IDENTIFICATION: Jhonathan Montanez is an 81-year-old male. PRESENTING COMPLAINT: Altered mental status. HISTORY OF PRESENT ILLNESS: The patient was recently hospitalized some time about 2 weeks ago with altered mental status. He was found to have multiple intracranial lesions. The differential diagnosis was infection versus metastasis. The patient was commenced on antibiotics. He also took some steroids. He generally improved initially, but on this admission, it appears his mental status change has worsened again. I was therefore consulted to see the patient to see if the family would agree to a biopsy, they had declined the 1st time. I saw the patient this afternoon with family members to discuss this matter. PAST MEDICAL HISTORY: The patient has CHF, non-insulin dependent diabetes, COPD, atrial fibrillation, hypertension, dyslipidemia, and obstructive sleep apnea. The patient also has a history of prostate cancer and a GI stromal tumor. He has thrombocytopenia. The patient has had previous shoulder surgery and previous prostatectomy. CURRENT MEDICATIONS: Please see list. ALLERGIES: ASPIRIN. PATIENT'S NAME: JHONATHAN MONTANEZ [facility] AGE: 81 Y [address] ROOM: [place] [address] LOCATION: [facility] [place] ADMIT DATE: 10/21/2016 Consultation DISCHARGE DATE: FAMILY PHYSICIAN: Susanna Benjamin MD ATTENDING PHYSICIAN: REENA SALDANA SOCIAL HISTORY: The patient is . He has a very supportive family. FAMILY HISTORY: There is no family history relevant to present problems. REVIEW OF SYSTEMS: A 10-point review of systems was carried out. The only abnormal finding is described in the history of present illness, i.e., altered mental status. PHYSICAL EXAMINATION: GENERAL: The patient is a healthy-looking gentleman who was alert and cooperative through the examination. VITAL SIGNS: Blood pressure from the chart 132/64, pulse rate 83. NEUROLOGIC: The patient is lucid. His speech is intact. Cranial nerves, no deficits seen. Motor examination: The patient has grossly normal strength in his upper and lower extremities bilaterally. Gait not tested. CARDIOVASCULAR: Heart sounds are present. RESPIRATORY: The patient is not short of breath at bedside. EXTREMITIES: No cyanosis or clubbing. SKIN: No skin rashes or skin masses. REVIEW OF IMAGING STUDIES: The patient has had a brain MRI performed. The MRI shows multiple rim- enhancing lesions, the largest one is in the left thalamus, but there are masses in the temporal regions bilaterally as well as on the right frontal and left parietal areas. There is a small amount of associated edema. ASSESSMENT: An 81-year-old male with multiple intracranial rim-enhancing lesions. Differential diagnosis is metastasis versus multiple abscesses. MEDICAL DECISION MAKING: I discussed the situation with the family members and explained what a biopsy would entail if we got to doing one. I answered their questions and explained the risks of the procedure to them as well. The patient and family are thinking about the recommendation for biopsy and they will let me know when the patient is ready to have the procedure done. The patient is currently taking Eliquis and will need a few days of the medication to be able to have his biopsy safely. I will be available to discuss with the family tomorrow to get a final plan going. I have also sent the patient's [facility] to see whether there is any way of deciding what the patient has short of performing a biopsy. If the patient is released from hospital before and he PATIENT'S NAME: JHONATHAN MONTANEZ [facility] AGE: 81 Y [address] ROOM: [place] [address] LOCATION: [facility] ADMIT DATE: 10/21/2016 Consultation DISCHARGE DATE: FAMILY PHYSICIAN: Susanna Benjamin MD ATTENDING PHYSICIAN: REENA SALDANA is ready for the biopsy, I will be happy to see him again in the outpatient clinic to finalize the plans at that time. MD HIREN DE LA CRUZ/marilu /[id number] CC: MD Joe Torres MD d: 10/22/16 2228 t: 10/30/16 1542, CONSULTATION REPORT
[~2016-10-21 21:05] MED LIST changes: +AMARYL2 MG PO; +DECADRON4 MG PO; +FLAGYL500 MG PO; +KEPPRA500 MG PO; +LEVEMIR FL100 UNIT/1 SUB-Q; +MAXIPIME2 G1 IV; +NOVOLOG100 UNIT/M SUB-Q
[2016-10-21 21:59] LABS: HEMATOCRIT 38.3 % (33.0-50.0); HEMOGLOBIN 12.6 g/dL (11.0-16.0); MCH 30.2 pg (27.0-34.0); MCHC 32.9 gm/dL (32.0-36.5); MCV 91.8 fl (83.0-98.0); MPV 12.3 fl (9.4-12.4); RBC 4.17 M/uL (3.50-5.50); RDW-CV 14.6 % (11.9-14.6); WBC 8.4 K/uL (4.0-11.0)
[2016-10-21 22:10] LABS: INR - (THERAPEUTIC) 1.2 (0.9-1.1); PROTIME 12.3 SECONDS (9.6-11.1); PTT 32 SECONDS (25-32)
[2016-10-21 22:36] LABS: ALBUMIN 2.9 gm/dL (3.5-5.0); ALK PHOS 72 IU/L (33-138); ALT 59 IU/L (12-78); ANION GAP 12.8 (10.0-19.0); AST 48 IU/L (10-40); BLOOD UREA NITROGEN 14 mg/dL (6-24); CALCIUM 7.9 mg/dL (8.5-10.5); CHLORIDE 105 mMol/L (96-110); CO2 25 mMol/L (22-32); CPK 40 IU/L (35-332); ESTIMATED GFR (MDRD EQUATION) > 60; POTASSIUM 3.8 mMol/L (3.7-5.1); SODIUM 139 mMol/L (135-145); TOTAL PROTEIN 6.2 g/dL (6.0-8.4)
[2016-10-21 22:37] LABS: TOTAL BILIRUBIN 0.5 mg/dL (0.0-1.5)
[2016-10-21 22:58] LABS: BILIRUBIN URINE NEGATIVE (NEGATIVE); BLOOD URINE 25 /UL (NEGATIVE); GLUCOSE URINE NEGATIVE (NEGATIVE); KETONE URINE NEGATIVE (NEGATIVE); LEUKOCYTES URINE 25 /UL (NEGATIVE); NITRITE URINE NEGATIVE (NEGATIVE); PROTEIN URINE 15 mg/dL (NEGATIVE); UROBILINOGEN URINE NORMAL (NORMAL)
[2016-10-21 22:59] LABS: COLOR URINE YELLOW (YELLOW); TURBIDITY URINE CLEAR (CLEAR)
[2016-10-21 23:07] LABS: PLATELET COUNT 58 K/uL (150-450)
[2016-10-21 23:19] LABS: ABSOLUTE NEUTROPHIL CT (ANC) 6.2 K/uL (1.4-9.0); BANDED NEUTROPHIL # 1.1 K/uL (0.0-0.1); BANDED NEUTROPHILS % 13 %; LYMPHOCYTE # 1.6 K/uL (0.8-4.0); LYMPHOCYTE % 19 %; MONOCYTE # 0.5 K/uL (0.0-1.0); SEGMENTED NEUTROPHIL # 5.1 K/uL (1.4-9.0); SEGMENTED NEUTROPHIL % 61 %
[2016-10-21 23:24] LABS: BACTERIA URINE NEGATIVE (NEGATIVE); EPITHELIAL URINE 0-2 #/HPF (NEGATIVE); HYALINE CAST URINE RARE #/LPF (NEGATIVE); MUCUS URINE 1+ (NEGATIVE); RBC URINE 0-2 #/HPF (NEGATIVE)
[2016-10-22] MEDS ORDERED: CPAP INH (01:18)
[2016-10-22 05:17] LABS: BASOPHIL % 0.3 %; EOSINOPHIL % 0.5 %; HEMATOCRIT 38.5 % (33.0-50.0); HEMOGLOBIN 12.5 g/dL (11.0-16.0); IMMATURE GRANULOCYTE # 0.1 K/uL (0.0-0.3); IMMATURE GRANULOCYTE % 0.9 %; LYMPHOCYTE # 0.6 K/uL (0.8-4.0); LYMPHOCYTE % 9.6 %; MCH 29.7 pg (27.0-34.0); MCHC 32.5 gm/dL (32.0-36.5); MCV 91.4 fl (83.0-98.0); MONOCYTE # 0.1 K/uL (0.0-1.0); MONOCYTE % 2.1 %; NEUTROPHIL # (ANC) 5.7 K/uL (1.4-9.0); NEUTROPHIL % 86.6 %; NRBC % 0 /100WBC (0-0.00); RBC 4.21 M/uL (3.50-5.50); RDW-CV 14.4 % (11.9-14.6); WBC 6.6 K/uL (4.0-11.0)
[2016-10-22 05:24] LABS: PLATELET COUNT 59 K/uL (150-450)
[2016-10-22 05:35] LABS: ALBUMIN 2.9 gm/dL (3.5-5.0); ALK PHOS 66 IU/L (33-138); ALT 59 IU/L (12-78); ANION GAP 12.5 (10.0-19.0); AST 41 IU/L (10-40); BLOOD UREA NITROGEN 11 mg/dL (6-24); CALCIUM 8.2 mg/dL (8.5-10.5); CHLORIDE 107 mMol/L (96-110); CO2 27 mMol/L (22-32); CREATININE 0.9 mg/dL (0.6-1.3); ESTIMATED GFR (MDRD EQUATION) > 60; MAGNESIUM 2.2 mg/dL (1.3-2.6); PHOSPHORUS 3.5 mg/dL (2.5-4.9); POTASSIUM 4.5 mMol/L (3.7-5.1); SODIUM 142 mMol/L (135-145); TOTAL BILIRUBIN 0.5 mg/dL (0.0-1.5); TOTAL PROTEIN 6.1 g/dL (6.0-8.4)
[2016-10-22 05:41] LABS: INR - (THERAPEUTIC) 1.1 (0.9-1.1); PROTIME 11.7 SECONDS (9.6-11.1); PTT 30 SECONDS (25-32)
--- NOTE | 2016-10-22 07:14 | NUR ---
THIS IS A 81 YEAR OLD MALE ADMITTED FOR ASPHASIA AND INCREASED CONFUSSION R/T BRAIN LESSIONS WHICH PER CT/MRI HAVE INCREASED IN SIZE. PT PREVIOUSLY REFUSED BRAIN BIOPSY, NEUROSURGERY TO CONSULT POSSIBLE BRAIN BIOPSY TODAY OR LOOK AT ALTERNATIVES IF PT REFUSES THAT ROUTE. PT IS A 1 ASSIST W/ WALKER AND GAIT BELT. NEED UA. PT DAUGHTER WOULD LIKE A CALL WHEN NEUROSURGERY COMES TO TALK W/ PT ABOUT TREATMENT OPTIONS. ACCUCHECKS Q 4HR R/T DIABETIES BUT ALSO RECIEVING STEROIDS. PISS TO R UPPER ARM WAS INSERTED EARLIER THIS MONTH DURING PRIOR HOSPITAL STAY. NEED TO REFERENCE PT PAST MED RECORDS TO DETERMINE EXACT INSERTION DATE. PT HAS UNUSUAL CLOTTING FACTOR, NEED TO DRAW A BLUE TUBE ALONG W/ PURPLE TUBE WHEN CBC IS ORDERED..
--- NOTE | 2016-10-22 14:29 | NUR ---
Significant Event: Pt denies pain. Forgetful. Asphasic at times, improving as the day moves forward. up with 1 assist. PT/OT consult. Ambulated to doorway with 1 assist. Lots of family at bedside. Dr. Marvin consulted, will pursue a brain biopsy in the future. ADA diet. PICC line to right arm. Follow up:
--- NOTE | 2016-10-23 03:42 | NUR ---
Significant Event: Pt is alert but somewhat forgetful. More Aphasic as the night went on. VSS on RA. PICC to the R)upper arm IVF and intermittent antibiotics running. No complaints of pain or nausea. Ambulates by 1 assist gaitbelt/walker. ACHS accuchecks. Follow Up: Possible discharge today. Continue to monitor.
--- NOTE | 2016-10-23 14:30 | NUR ---
SPOKE TO PATIENT AND HIS FAMILY AT THE BEDSIDE, INTRODUCED CM AND OUR ROLE. PATIENT AND HIS FAMILY DO NOT ANTICPATE THAT TIFFANIE WILL HAVE ANY DISCHARGE NEEDS HE IS PLANNING ON RETURNING HOME ONCE HE IS READY FOR DISCHARGE. HE ANTICIPATES HE WILL GO HOME LATER TODAY.
[2016-10-23] MEDS ORDERED: LEVEMIR100 UNIT/1 SUB-Q (17:00)
[2016-10-23] MEDS ORDERED: OCEAN NASAL) (A44 ML NS (17:03)
[2016-10-23] MEDS ORDERED: BICALUTAMIDE50 MG PO (17:03)
[2016-10-23] MEDS ORDERED: DECADRON4 MG PO (17:03)
--- NOTE | 2016-10-23 18:00 | NUR ---
Significant Event: Patient up in chair and doing well. Some confusion but has not had problems with aphasia. Infectious disease doctor in and stopped IV antibiotics. As family proceeding with biopsy of brain lesion, decision made by Dr. Pérez and agreed upon by family to leave PICC line in until biopsy results are in hand. Family has already been caring for PICC and patient to also have home health resume following him. Dismissal papers and orders reviewed by Nika Joaquin RN, Virtual Nurse.
--- NOTE | 2016-10-23 18:13 | NUR ---
RECEIVED REFERRRAL THAT PATIENT IS BEING DISCHARGE HOME AND THAT HHC IS TO RESUME. PATIENT GETS HHC THROUGH [facility]. I SPOKE TO LEELEE WITH [id number] AND UPDATED HER THAT PATIENT IS BEING DISCHARGED THIS PM AND HE WILL CONT TO HAVE THE PICC. SHE REPORTS THAT THEY WILL PLAN ON SEEING PATIENT TOMORROW. FAXED ORDERS TO [phone]
--- NOTE | 2016-10-23 18:14 | NUR ---
DISCHARGE: Pt., and daughter were explained discharge instructions, instructed on PICC d/c instructions, new medications, and mild sliding scale. Verbalized understanding, no questions or concerns. Will have home health at home. PICC is in place. Tele removed by primary nurse. Will call tomorrow to schedule appointment with PCP. Taken to front door by aide and driven home by family.
== END 2016-10-23 18:15 | disposition home health service (06) | DRG 94 ==
LOC: GMED 21:05 → GMSU 23:10
PROVIDERS: Emergency Medicine; ADMIT Internal Medicine
DX: G06.0 Intracranial abscess and granuloma (principal); G93.40 Encephalopathy, unspecified; G93.6 Cerebral edema; I48.0 Paroxysmal atrial fibrillation; D69.6 Thrombocytopenia, unspecified; E86.0 Dehydration; D49.6 Neoplasm of unspecified behavior of brain; J44.9 Chronic obstructive pulmonary disease, unspecified; I10 Essential (primary) hypertension; C49.A1 Gastrointestinal stromal tumor of esophagus; G93.9 Disorder of brain, unspecified; G47.33 Obstructive sleep apnea (adult) (pediatric); Z85.46 Personal history of malignant neoplasm of prostate; E11.9 Type 2 diabetes mellitus without complications; Z79.01 Long term (current) use of anticoagulants; Z87.891 Personal history of nicotine dependence; Z79.4 Long term (current) use of insulin; N40.0 Benign prostatic hyperplasia without lower urinary tract symptoms
CPT/HCPCS: A9577; J0692; J1100; J7030; J7040

== ENCOUNTER 2016-10-29 10:00 | Inpatient (IN) | payer MEDICARE, BC ==
[~2016-10-29] VITALS: Ht 180.3 cm; Wt 85.0 kg
--- NOTE | ~2016-10-29 | DS ---
PATIENT'S NAME: TIFFANIE MONTANEZ [facility] AGE: 81 Y [address] ROOM: [address] [address] LOCATION: [facility] ADMIT DATE: 10/31/2016 Discharge Summary DISCHARGE DATE: 11/04/2016 FAMILY PHYSICIAN: Susanna Benjamin MD ATTENDING PHYSICIAN: Nora Marvin REASON FOR ADMISSION: The patient was a scheduled admission for an elective procedure. COURSE IN HOSPITAL: The patient presented with multiple rim enhancing brain lesions and the biopsy was indicated to confirm the nature of the rim enhancing lesions and help with treatment planning. On the day of admission, the patient was taken to the operating room and underwent image-guided craniotomy and biopsy of one of the rim enhancing lesions. The biopsied lesion was one of the ones in the right frontal lobe. Postoperatively, the patient had no setbacks. He remained stable and was observed for a couple of days in the hospital. The hospitalists were involved in his care as far as treating his diabetes. The patient was well enough to be discharged home on 11/04/2016 and went home that day. He will be followed up in the outpatient clinic to continue his treatment. FINAL DIAGNOSIS: Multiple intracranial rim enhancing lesions consistent with either infection or metastatic tumor, status post biopsy for confirmation. NORA MARVIN MD CNO/modl /[id number] CC: Susanna Benjamin MD d: 11/19/1614 t: 11/29/16 0901, DISCHARGE SUMMARY
--- NOTE | ~2016-10-29 | OR ---
PATIENT'S NAME: TIFFANIE MONTANEZ [facility] AGE: 81 Y [address] ROOM: [place] [address] LOCATION: [facility] ADMIT DATE: 10/31/2016 OR/Procedure Report DISCHARGE DATE: 11/04/2016 FAMILY PHYSICIAN: Susanna Benjamin MD ATTENDING PHYSICIAN: Nora Villavicencio SURGEON: Nora Villavicencio MD SPORTS SPECIALIST: Rachael Jones CST. DATE OF PROCEDURE: 10/31/2016 PREOPERATIVE DIAGNOSIS: Multiple brain lesions. POSTOPERATIVE DIAGNOSIS: Multiple brain lesions. PROCEDURES PERFORMED: 1. Right frontal craniotomy and open biopsy of intracranial lesion. 2. Use of intraoperative ultrasound for localization. 3. Use of frameless stereotaxy for intraoperative visualization. ANESTHESIA: General. ANESTHESIA PROVIDER: Rubens Kat M.D. HISTORY: This patient is an 81-year-old male, who presented with confusion and some right-sided weakness. Imaging studies showed multiple rim enhancing lesions involving most areas of his brain. The nature of these lesions was unclear, and the differential diagnosis included metastases versus abscess. Biopsy was needed to confirm diagnosis and to help with treatment planning. The above procedure was discussed with the patient's family. The decision to use an open biopsy was based on the fact that the lesions were fairly small and we wanted to obtain sufficient sample to make a conclusive diagnosis and avoid the need for possible subsequent biopsy in the event of an inconclusive diagnosis. After consent was obtained, the patient was brought to the operating room for his surgery. PROCEDURE IN DETAIL: In the operating room, the patient was placed in a supine position. Anesthesia was induced. He was intubated and appropriate support lines were placed. The patient's head was then placed in a 3-pin Perez nailhead puncher. The hair on the right side of his head was clipped. The incision line was marked out in the right frontal area behind the hairline. The Stealth frameless stereotactic equipment was used to confirm the surface marking of the most accessible tumor in the right frontal lobe. PATIENT'S NAME: TIFFANIE MONTANEZ [facility] AGE: 81 Y [address] ROOM: [place] [address] LOCATION: [facility] ADMIT DATE: 10/31/2016 OR/Procedure Report DISCHARGE DATE: 11/04/2016 FAMILY PHYSICIAN: Susanna Benjamin MD ATTENDING PHYSICIAN: oNra Villavicencio The whole area was then prepped and draped in a sterile fashion. Local anesthesia was infiltrated along the incision line. The incision was made behind the hairline and the scalp flap was peeled forward. A small right frontal craniotomy was made. The Stealth System was again used to confirm the location of the tumor that were about to biopsy. The dura was opened. Ultrasound was brought in again to assist with tumor localization. The ultrasound picture was not very clear. We then went back to the Stealth System and under Stealth guidance, the right frontal mass was approached. The bipolar was used to bipolar the small area of cortex. The corticectomy was deepened until we were in the area that the Stealth had showed the lesion to be. Biopsy was taken and sent for frozen section. The frozen section report came back indicating nondiagnostic tissue. Several more biopsies were taken. The frozen section came back with possible small area of lymphocytic infiltration, but nothing definitive. Few more biopsies were taken again confirming the location with the Stealth frameless stereotactic system. I felt we had obtained enough tissue that a diagnosis should be possible on the permanent sections. Final hemostasis was achieved. The dura was closed. The bone flap was reattached to the craniotomy edge. A series of holes were drilled around the edge of the bone flap and matching holes were drilled around the edge of the craniotomy. The sutures were used to connect these holes together securing the bone flap back to the craniotomy edge. The scalp was then closed in layers using appropriate suture materials. Nylon was used to close the skin. A sterile dressing was applied. The patient's head was taken out of the Perez nailhead puncher. His anesthesia was reversed. He was extubated and taken to the recovery room to complete his recovery. I was present and performed every aspect of this procedure, assisted at some stages by the operating room nurses. There were no apparent intraoperative complications. Swabs, needles, and instruments were all accounted for at the end of the case. Estimated blood loss was less than 100 mL and there was no reason for blood transfusion. I expect us to be able to get a result from the biopsies taken. Further treatment will depend on the biopsy report. NORA VILLAVICENCIO MD PATIENT'S NAME: TIFFNAIE MONTANEZ [facility] AGE: 81 Y [address] ROOM: [place] [address] LOCATION: [facility] ADMIT DATE: 10/31/2016 OR/Procedure Report DISCHARGE DATE: 11/04/2016 FAMILY PHYSICIAN: Susanna Benjamin MD ATTENDING PHYSICIAN: Nora Villavicencio/marilu /[id number] d: 11/05/16 0945 t: 11/07/16 1203, OPERATIVE SUMMARY
--- NOTE | ~2016-10-29 | CON ---
PATIENT'S NAME: TIFFANIE MONTANEZ [facility] AGE: 81 Y [address] ROOM: [place] [address] LOCATION: [facility] ADMIT DATE: 10/31/2016 Consultation DISCHARGE DATE: FAMILY PHYSICIAN: Susanna Benjamin MD ATTENDING PHYSICIAN: Nora Marvin DATE OF CONSULTATION: 11/03/2016 REQUESTING PHYSICIAN: Darrin Knowles MD REASON FOR CONSULTATION: Hyperglycemia. HISTORY OF PRESENT ILLNESS: The patient is an 81-year-old male who has an extensive past medical history, but most pertinent for a recent finding of multiple masses intracranially. The patient had undergone an elective biopsy of these masses 3 days ago. He has been on Decadron for cerebral edema since then. Today, his Accu-Cheks were noted to be in the 400s, and a hospitalist consult was requested. At this point, aside from hyperglycemia, the patient volunteers no complaints. REVIEW OF SYSTEMS: All systems have been reviewed and are negative aside from pertinent positives mentioned above. PAST MEDICAL HISTORY: Significant for COPD, with no oxygen dependence; asthma; obstructive sleep apnea, on CPAP; distant prostate cancer; gastrointestinal stromal tumor; type 2 diabetes; paroxysmal atrial fibrillation, currently anticoagulation is on hold; and multiple, small, ring-enhancing lesions. CURRENT MEDICATIONS: 1. Decadron 10 mg every 8. 2. Diphenhydramine. 3. Furosemide. 4. Diltiazem. 5. Pantoprazole. 6. Keppra. 7. Detemir 8. 8. Atorvastatin 40. 9. Tamsulosin. 10. Mometasone/formoterol. 11. Albuterol. PATIENT'S NAME: TIFFANIE MONTANEZ [facility] AGE: 81 Y [address] ROOM: [place] [address] LOCATION: [facility] ADMIT DATE: 10/31/2016 Consultation DISCHARGE DATE: FAMILY PHYSICIAN: Susanna Benjamin MD ATTENDING PHYSICIAN: Nora Marvin 12. Dronedarone. 13. Regular sliding scale. 14. Aldactone. 15. Glimepiride. 16. Gabapentin. 17. Glucagon. 18. Dextrose. 19. [place]. 20. Morphine. SOCIAL HISTORY: Significant for distant history of tobacco use. FAMILY HISTORY: Reviewed and is noncontributory. PHYSICAL EXAMINATION: VITAL SIGNS: Temperature 98.0, pulse is 75, blood pressure 102/58, and saturating 96% on room air. GENERAL: Appears as a well-developed, well-nourished, elderly male in no acute distress. NEUROLOGIC: Nonfocal. SKIN: A bandage over his high forehead. EYES: Pupils are equal and reactive to light. LYMPHATIC: No cervical lymphadenopathy. ENDOCRINE: No thyromegaly. LUNGS: Clear to auscultation. HEART: Rate is irregular. ABDOMEN: Soft, nontender, and nondistended. GENITOURINARY: No costovertebral angle tenderness. VASCULAR: 2+ pedal pulses. MUSCULOSKELETAL: No muscle or joint abnormalities. PSYCHIATRIC: Appropriate mood, cognition, and affect. LABORATORY DATA: Review of studies so far reveals Accu-Cheks which have been running high 300s to over 400s, the rest are not available. The pathology studies from recent brain biopsy are still pending. IMPRESSION AND RECOMMENDATIONS: This is an 81-year-old male with: 1. Diabetes/steroid-induced hyperglycemia. We will upgrade the patient's Decadron as well as escalate his sliding scale. At this point, I do not believe he will benefit at all from glimepiride, and we will discontinue this medicine. We will consider checking labs in case hyperglycemia has PATIENT'S NAME: TIFFANIE MONTANEZ [facility] AGE: 81 Y [address] ROOM: [place] [address] LOCATION: [facility] ADMIT DATE: 10/31/2016 Consultation DISCHARGE DATE: FAMILY PHYSICIAN: Susanna Benjamin MD ATTENDING PHYSICIAN: Nora Marvin caused some metabolic abnormalities. 2. Paroxysmal atrial fibrillation. He is currently on dronedarone. We will reinitiate anticoagulation when okay with Neurosurgery. 3. Chronic obstructive pulmonary disease, non-oxygen dependent. This appears to be stable. We will continue him on his inhaled steroids and long-acting beta-2 agonist. 4. Pain control. This is adequate with the current regimen. We will add a bowel regimen. 5. Deep venous thrombosis prophylaxis. As per Primary Service given recent brain biopsy. 6. Essential hypertension. This appears to be well controlled. May have to actually decrease some of the medicines that he is on. 7. Additional management will depend on clinical course. Time dedicated to patient encounter is 25 minutes. MD JUNAID AREVALO/marilu /[id number] d: 11/03/16 1526 t: 11/05/16 1303, CONSULTATION REPORT
[~2016-10-29 10:00] MED LIST changes: +BICALUTAMIDE50 MG PO; +CPAP INH; +LEVEMIR100 UNIT/1 SUB-Q; +OCEAN NASAL) (A44 ML NS
[2016-10-29] MEDS ORDERED: OXYGEN M-15 INH (13:05)
--- NOTE | 2016-10-31 16:56 | NUR ---
Significant Event:PT IS AAOX3. CASANDRA. BILLIE. NO DOUBLE OR BLURRED VISION. NO NUMBNESS OR TINGLING. FELICIANO DRAINING YELLOW URINE. CLEAR LUNG SOUNDS ON 2L. WEARS CPAP AT NIGHT AT HOME. ACTIVE BS. PICC IN R) UPPER ARM RUNNING. NEURO AND VS Q2H. BEDREST WITH HOB UP TO 30 DEGREES. NORCO AND MORPHINE GIVEN FOR PAIN WITH RELIEF NOTED. PT HAD A STEALTH GUIDED CRANI BIOPSY DONE Follow up:MONITOR NEURO
--- NOTE | 2016-11-01 06:58 | NUR ---
Significant Event: Pt is alert and orineted x3. Pupils are equal and reactive. Moves all extremities spontaneously and to command. Dressing to the his head is dry and intact. Pt has complained of a slight headache at times. On 2L of O2 via NC. Carranza in place with good urine output. No BM this shift PICC in place in the R) upper arm. Follow up: Continue to monitor Neuro status.
--- NOTE | 2016-11-01 10:54 | NUR ---
1045 Introduced self and CM role to patient with daughter and at bedside. Plan is to return back to home in [place] when medically cleared and resume home health with [facility]. Denies any current needs or concerns about discharge at this time. Wrote KEVEN Bautista's name on markerboard and told them to contact us if any concerns arise. CM Marketing Operations Analyst TH.
--- NOTE | 2016-11-01 16:18 | NUR ---
Significant Event: A/O X 3. Pain from urinary catheter. denies headache. denies numbness/tingling. denies blurred/double vision. equal strength throughout. DSG to front of head C/D/I from surgery. Patient is POD #1. tele with NSR. on 2 liters of oxygen until 1615 then on room air. Bedrest until 1615 then orders for OOB. Ambulates with walker/gait belt and one assist. Does use walker at home. PICC to right upper arm saline locked at 1615. Pillai cath discontinued with third assessment. Monitor for post pillai DC void. takes meds whole. accuchecks ac/hs. ADA diet. PT and OT orders to start tomorrow. Q 2 Hours neuros/vital signs changed to Q 4 hours neuros/vital signs.
--- NOTE | 2016-11-02 05:39 | NUR ---
Significant Event: PATIENT IS ALERT AND ORIENTED X3. VSS. DENIES PAIN, N/T, WALLACE. 1A WALKER/GB. 1L OF 02 [address]IGHT [address] PLACE OF CPAP. SR. RIGHT FA TO RIGHT HAND HAS 3+ DEPENDENT EDEMA- IT HAS INCREASED OVER THE SHIFT. PICC IN RIGHT UPPER ARM SL'D. DIABETIC DIET-ACCU CHECKS ACHS. VOIDING APPROPRIATELY AFTER FELICIANO REMOVAL. PATIENT IS ON DECADRON-BS MAY BE HIGHER. Follow up: MONITOR BS. ALARMS ON AT ALL TIMES.
--- NOTE | 2016-11-02 19:18 | NUR ---
Significant Event: a/o x 3. no pain. dsg to front of head surgical site changed. sutures to site with no redness/drainage. equal strength throughout. NSR. room air. ambulates with walker and gait belt. uses walker at home. PICC to right upper arm saline locked- flushes with good blood return. generalized edema to right arm that dr. nava is aware of and patient's says is not new. possible discharge to home tomorrow.
--- NOTE | 2016-11-03 07:06 | NUR ---
Significant Event: PATIENT IS ALERT AND ORIENTED X3. VSS. FOLLOWS COMMANDS. DENIES WALLACE/N/T-PAIN. SINUS RHYTHM. RIGHT HAND EDEMATOUS. ROOM AIR. ADA DIET-ACCU CHECKS ACHS. 1A GAIT BELT WALKER. PICC RIGHT UPPER ARM-SL'D. DRESSING TO FOREHEAD C/D/I. Follow up: POSSIBLE D/C TO HOME TODAY.
--- NOTE | 2016-11-03 19:17 | NUR ---
Significant Event: Patient A/O x3. VS stable on RA. 1 assist transfer with gaitbelt and walker. Patient denies numbness or tingling to extremities. Equal strength. No complains of pain this shift. Patient on ACHS accuchecks. Critical value reported this shift. Dr. Knowles called, order to consult hospitalist. Orders given by hospitalist. Patient voids per toilet. No BM this shift, Colace given. Family supporitve at bedside. Follow up:
--- NOTE | 2016-11-04 04:51 | NUR ---
Significant Event: PATIENT IS ALERT AND ORIENTED X3. VSS. FOLLOWS COMMANDS. DENIES PAIN. DENIES WALLACE. DENIES BLURRED VISION. DENIES N/T. PERRLA. EQUAL STRENGTH THROUGHOUT. SINUS RHYTHM. EDEMA TO THE RIGHT FA AND HAND. ROOM AIR. TAKES PILLS WHOLE WITH WATER. DIABETIC-ACCU CHECKS ACHS. LAST BM 11/01-ACTIVE X4- PATIENT REQUESTED MOM- GIVEN AT 2100 LAST NIGHT-NO RESULTS. 1A GB/WALKER. SINGLE LUMEN RIGHT UPPER ARM PICC-SL'D-FLUSHES WELL. Follow up: MONITOR BS.
--- NOTE | 2016-11-04 11:41 | NUR ---
After rounds this morning, it sounds like Jhonathan will be able to dismiss to home today. He was not dismissed over the weekend due to BP issues. Those have since been controlle so they think that he will be able to go home today. I let them know from CM standpoint, he would be cleared to go home, we would just need to make sure the orders were faxed to [facility] when they were completed. Resource, Kaycee on U was going to make sure that orders were faxed when they were completed.
[2016-11-04] MEDS ORDERED: DECADRON4 MG PO (13:49)
--- NOTE | 2016-11-04 14:24 | NUR ---
Significant Event: a/o x 3. denies pain. tele with sinus tadeo. dsg to frontal head surgical site removed by dr. duggan. Sutures intact with skin approximated and no redness/drainage noted to surgical site. IV to left forearm saline locked. ambulates with walker and SBA. accuchecks ac/hs. Orders to discharge to home today.
== END 2016-11-04 14:42 | disposition home health service (06) | DRG 25 ==
LOC: GNTU 10-31 05:53
PROVIDERS: ADMIT Neurological Surgery
PROC: 00B00ZX Excision of Brain, Open Approach, Diagnostic (ICD-10-PCS; principal; 2016-10-31)
DX: G93.9 Disorder of brain, unspecified (principal); G93.6 Cerebral edema; J96.10 Chronic respiratory failure, unspecified whether with hypoxia or hypercapnia; I48.0 Paroxysmal atrial fibrillation; G47.33 Obstructive sleep apnea (adult) (pediatric); J44.9 Chronic obstructive pulmonary disease, unspecified; I10 Essential (primary) hypertension; E09.9 Drug or chemical induced diabetes mellitus without complications
CPT/HCPCS: A9577; C1763; J0690; J1100; J2001; J2270; J2405; J3010; J7030

== ENCOUNTER → 2016-10-30 | Outpatient (CLI) | payer MEDICARE, BC ==
[~2016-10-30] MED LIST changes: +CLEOCIN HCL300 MG PO; +COUMADIN ** IA3 MG PO; +DULCOLAX10 MG R; +ELAVIL25 MG PO; +GLUCERNA237 ML PO; +MILK OF MA400 MG/5 M PO; +MIRALAX17 GM PO; +OXYGEN M-15 INH; +TYLENOL325 MG PO
== END | disposition disaster alternative care site (69) ==
LOC: GRAD 07:13
DX: D49.6 Neoplasm of unspecified behavior of brain (principal); G93.89 Other specified disorders of brain
CPT/HCPCS: A9577

== ENCOUNTER 2016-11-05 11:26 | Emergency (ER) | payer MEDICARE, BC ==
--- NOTE | ~2016-11-05 | ER ---
PATIENT'S NAME: TIFFANIE MONTANEZ [facility] AGE: 81 Y [address] ROOM: [place] [address] LOCATION: [facility] ADMIT DATE: 11/05/2016 ER/Outpatient Report DISCHARGE DATE: 11/05/2016 FAMILY PHYSICIAN: Susanna Benjamin MD ATTENDING PHYSICIAN: Peggy Williamson TIME OF ARRIVAL: 11:26. TIME SEEN: 11:30. IDENTIFICATION: An 81-year-old male. CHIEF COMPLAINT: Weakness. HISTORY OF PRESENT ILLNESS: The patient is an 81-year-old male, who was just discharged from the hospital yesterday. He was admitted for multiple admissions recently, and underwent a brain biopsy for multiple brain lesions per Dr. Marvin. He had a right frontal craniotomy and open biopsy of the intracranial lesion. The patient has had confusion and right-sided weakness. Imaging showed multiple rim-enhancing lesions involving most areas of his brain. He was treated with antibiotics for a while according to his family. He has a history of prostate cancer, as well as spindle cell tumor of the esophagus, and was admitted on October 05, and then again in October, I believe on October 21. He had a consultation with Dr. Fowler, Infectious Disease, for the larger lesion despite antibiotics, and brain biopsy was performed. Those results are still pending at this time today. The patient went home yesterday. He got along with a walker before leaving. He got along with the walker at home last night. This morning, he felt all right as usual when he got up, but then he got into the chair this morning, and he could not get out due to weakness in his legs. He was unable to stand or hold his weight on his legs. He has no numbness or tingling. He has no upper extremities weakness. He has no headache. No other problems or concerns. He has his usual right-sided weakness. ALLERGIES: TO ASPIRIN. CURRENT MEDICATIONS: PATIENT'S NAME: TIFFANIE MONTANEZ [facility] AGE: 81 Y [address] ROOM: [place] [address] LOCATION: [facility] ADMIT DATE: 11/05/2016 ER/Outpatient Report DISCHARGE DATE: 11/05/2016 FAMILY PHYSICIAN: Susanna Benjamin MD ATTENDING PHYSICIAN: Peggy Williamson 1. Gabapentin 300 mg/600 mg three times daily. 2. Albuterol two puffs twice daily as needed. 3. Symbicort 160/4.5, one puff b.i.d. 4. Pantoprazole 40 mg daily. 5. Tamsulosin 0.4 mg at bedtime. 6. Atorvastatin 40 mg at bedtime. 7. Diltiazem 120 mg daily. 8. Dronedarone 400 mg b.i.d. 9. Furosemide 20 mg on Friday, Friday, and Friday. 10. Spironolactone 12.5 mg daily. 11. Glimepiride 1 mg daily. 12. Insulin lispro four times daily sliding scale before meals and at bedtime. 13. Levetiracetam 500 mg b.i.d. 14. CPAP at bedtime. 15. Levemir insulin 20 units at bedtime. 16. Dexamethasone 4 mg half a tablet twice daily. 17. O2 at bedtime. MEDICAL PROBLEMS: 1. CHF (congestive heart failure). 2. Diabetes mellitus, insulin requiring. 3. COPD (chronic obstructive pulmonary disease). 4. Atrial fibrillation. 5. Hypertension. 6. Dyslipidemia. 7. Obstructive sleep apnea, on CPAP and O2 at bedtime. 8. Prostate cancer. 9. Thrombocytopenia. 10. 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 11. Asthma. 12. Ring-enhancing lesions on the brain of uncertain etiology. Biopsy is pending. PRIOR SURGERIES: 1. Prostatectomy. 2. Recent open brain biopsy. SOCIAL HISTORY: Marital Status: The patient lives at home with his here in [place]. Occupational History: He is retired. Habits: Tobacco use, none currently; he smoked in the remote past. Alcohol PATIENT'S NAME: TIFFANIE MONTANEZ [facility] AGE: 81 Y [address] ROOM: [place] [address] LOCATION: [facility] ADMIT DATE: 11/05/2016 ER/Outpatient Report DISCHARGE DATE: 11/05/2016 FAMILY PHYSICIAN: Susanna Benjamin MD ATTENDING PHYSICIAN: Peggy Williamson use, rare. Drug use, he denies. FAMILY HISTORY: Father secondary to myocardial infarction at age 61. Mother secondary to colon cancer later in life. REVIEW OF SYSTEMS: All systems were reviewed and are negative other than what is noted in the HPI (history of present illness). PHYSICAL EXAMINATION: VITAL SIGNS: Weight is 83.9 kg. Pulse was 67, respiratory rate was 22, temperature was 97.5, and saturations were 98%. GENERAL: An 81-year-old male, in no acute distress. HEENT: Head: Normocephalic and atraumatic. Ears: TMs (tympanic membranes) are translucent both ears. Eyes: Pupils were equal and reactive to light and accommodation. Extraocular movements were intact. Nose: Mucosa was pink. No lesions. Mouth: No lesions. Pharynx was benign. NECK: Supple. No lymphadenopathy. No thyromegaly. No jugular venous distention. No nuchal rigidity. The patient does have an incision over his right frontoparietal scalp, clean and dry and intact with audi. No erythema or drainage. LUNGS: Clear to auscultation. No rhonchi, wheezes, or rales. HEART: Regular rate and rhythm. No murmur, rub, or gallop. ABDOMEN: Bowel sounds were present. Soft, nondistended, and nontender. SKIN: Yaak, warm, and dry. NEUROLOGICAL: The patient is alert and oriented. Cranial nerves II through XII were grossly intact. Motor strength in upper extremities was 5/5 throughout and lower extremities was 3/5. Sensation was intact to light touch. LABORATORY DATA AND DIAGNOSTIC STUDIES: Lab work was obtained to include EKG: Normal sinus rhythm at 61 beats per minute. No acute ST elevation or depression. Hemoglobin was 14.3, hematocrit was 43, platelets were 101; most recent platelet count was 59 on October 22, and white blood cell count was 14.6; up from 6.6 on October 22. White blood cell differential with 86% segs and 3% bands. Sodium is 137, potassium is 4.8, chloride is 97, CO2 is 30, BUN is 27, creatinine is 0.6, blood sugar is 140, and albumin is low at 2.7. PATIENT'S NAME: TIFFANIE MONTANEZ [facility] AGE: 81 Y [address] ROOM: [place] [address] LOCATION: [facility] ADMIT DATE: 11/05/2016 ER/Outpatient Report DISCHARGE DATE: 11/05/2016 FAMILY PHYSICIAN: Susanna Benjamin MD ATTENDING PHYSICIAN: Peggy Williamson Lumbar spine MRI was negative for acute findings per Dr. Brito, radiologist. EMERGENCY ROOM COURSE: After he came back from MRI, he was re-evaluated. The patient felt like the weakness was improving. He was able to lift his legs off the cot without any drift, which he was unable to do when he arrived. He was able to ambulate behind the wheelchair, and felt much stronger. Dr. Marvin also evaluated the patient in the Emergency Room, and Care Management discussed the options for increasing their home care at home. IMPRESSION: 1. Weakness. 2. Ring-enhancing brain lesions. Biopsy is pending. 3. Atrial fibrillation, currently in sinus rhythm. PLAN: Home with family. Continue current medications. Follow up with Dr. Marvin as scheduled. Follow up with Dr. Fowler as scheduled. Follow up with Dr. Benjamin as scheduled. Care Management is to give resources regarding assistance at home. PEGGY WILLIAMSON MD CAR/modl /[id number] d: 11/05/16 2307 t: 11/07/16 1704, OUTPATIENT REPORT
[~2016-11-05 11:26] MED LIST changes: -CLEOCIN HCL300 MG PO; -COUMADIN ** IA3 MG PO; -DULCOLAX10 MG R; -ELAVIL25 MG PO; -GLUCERNA237 ML PO; -MILK OF MA400 MG/5 M PO; -MIRALAX17 GM PO; -TYLENOL325 MG PO
[2016-11-05 11:56] LABS: HEMOGLOBIN 14.3 g/dL (11.0-16.0); MCH 30.2 pg (27.0-34.0); MCHC 33.3 gm/dL (32.0-36.5); MCV 90.9 fl (83.0-98.0); MPV 11.2 fl (9.4-12.4); RBC 4.73 M/uL (3.50-5.50); RDW-CV 14.8 % (11.9-14.6); WBC 14.6 K/uL (4.0-11.0)
[2016-11-05 12:00] LABS: PLATELET COUNT 101 K/uL (150-450)
[2016-11-05 12:09] LABS: PROTIME 10.8 SECONDS (9.6-11.1); PTT 24 SECONDS (25-32)
[2016-11-05 12:17] LABS: ALBUMIN 2.7 gm/dL (3.5-5.0); ALK PHOS 79 IU/L (33-138); ALT 65 IU/L (12-78); ANION GAP 14.8 (10.0-19.0); AST 18 IU/L (10-40); BLOOD UREA NITROGEN 27 mg/dL (6-24); CALCIUM 8.1 mg/dL (8.5-10.5); CHLORIDE 97 mMol/L (96-110); CO2 30 mMol/L (22-32); CPK 46 IU/L (35-332); CREATININE 0.6 mg/dL (0.6-1.3); ESTIMATED GFR (MDRD EQUATION) > 60; POTASSIUM 4.8 mMol/L (3.7-5.1); SODIUM 137 mMol/L (135-145); TOTAL PROTEIN 5.6 g/dL (6.0-8.4)
[2016-11-05 12:18] LABS: TOTAL BILIRUBIN 0.8 mg/dL (0.0-1.5)
[2016-11-05 12:31] LABS: LYMPHOCYTE # 0.9 K/uL (0.8-4.0); LYMPHOCYTE % 6 %; MONOCYTE # 0.7 K/uL (0.0-1.0); SEGMENTED NEUTROPHIL # 12.6 K/uL (1.4-9.0); SEGMENTED NEUTROPHIL % 86 %
[2016-11-05 12:32] LABS: BANDED NEUTROPHIL # 0.4 K/uL (0.0-0.1); BANDED NEUTROPHILS % 3 %
== END 2016-11-05 14:48 | disposition disaster alternative care site (69) ==
LOC: GACC 11:26
PROVIDERS: Family Medicine
DX: R53.1 Weakness (principal); G93.9 Disorder of brain, unspecified; I48.91 Unspecified atrial fibrillation; I11.0 Hypertensive heart disease with heart failure; I50.9 Heart failure, unspecified; E11.9 Type 2 diabetes mellitus without complications; E78.5 Hyperlipidemia, unspecified; G47.33 Obstructive sleep apnea (adult) (pediatric); D69.6 Thrombocytopenia, unspecified; Z88.6 Allergy status to analgesic agent; Z79.899 Other long term (current) drug therapy; Z79.4 Long term (current) use of insulin; Z85.46 Personal history of malignant neoplasm of prostate; Z90.79 Acquired absence of other genital organ(s); Z98.890 Other specified postprocedural states
CPT/HCPCS: A9577

== ENCOUNTER → 2016-11-05 | Outpatient (CLI) | payer MEDICARE, BC | END | disposition disaster alternative care site (69) | LOC: GAMB 11:14 | DX: R53.1 Weakness (principal); R29.6 Repeated falls | CPT/HCPCS: A0425; A0427 ==

== ENCOUNTER 2016-11-13 11:37 | Inpatient (IN) | payer MEDICARE, BC ==
[~2016-11-13] VITALS: Ht 180.3 cm; Wt 84.4 kg
--- NOTE | ~2016-11-13 | DS ---
PATIENT'S NAME: TIFFANIE MONTANEZ [facility] AGE: 81 Y [address] ROOM: [address] [place], [place] [address] LOCATION: GPCU ADMIT DATE: 11/13/2016 Discharge Summary DISCHARGE DATE: 11/18/2016 FAMILY PHYSICIAN: Susanna Benjamin MD ATTENDING PHYSICIAN: Nora Marvin REASON FOR ADMISSION: The patient is an 81-year-old male who was seen in the Neurosurgery Clinic for followup. The patient had undergone right frontal craniotomy and biopsy of brain lesions. The result of the biopsy is still inconclusive. The patient, however, developed swelling of his right arm and imaging studies confirmed deep vein thrombosis. He was therefore admitted from the clinic to the hospital for anticoagulation for his deep vein thrombosis. TREATMENT RENDERED: The patient was jointly cared for by Neurosurgery, Oncology and hospitalist. He was started on heparin per pharmacy protocol. He was gradually converted to Coumadin. His INR was monitored. By the 11/18/2016, the patient was well enough to go home. He was discharged with warfarin for a month. The patient also has thrombocytopenia, but this was felt to be a long-standing problem and was not actively treated. CONDITION ON DISCHARGE: Stable. DISCHARGE PLANNING: The patient has been referred to the [facility] [place] for further consultation regarding the rim enhancing lesions in his brain. I will follow him up locally here as needed. At the time of discharge, the patient was up and walking with walker. His incision looked good. His INR was 2.3. FINAL DIAGNOSES: 1. Brain lesions. 2. Right upper extremity deep vein thrombosis. 3. Thrombocytopenia. NORA MARVIN MD CNO/modl /[id number] d: 12/02/16819 t: 12/04/16 2151, DISCHARGE SUMMARY
--- NOTE | ~2016-11-13 | CON ---
PATIENT'S NAME: TIFFANIE MONTANEZ [facility] AGE: 81 Y [address] ROOM: [facility] [place] [address] LOCATION: G3 ADMIT DATE: 11/13/2016 Consultation DISCHARGE DATE: FAMILY PHYSICIAN: Susanna Benjamin MD ATTENDING PHYSICIAN: Nora Marvin REFERRING PHYSICIAN: Lazara Jones MD Consult for Dr. Marvin. This pleasant 81-year-old gentleman is referred for rehab evaluation, but possible GIRP admission. He was admitted on 11/13/2016 with right upper extremity edema, proved to have DVT. At the present time, he feels better. He is status post craniotomy and biopsy of brain tumor on 10/31/2016, details on record. He has the swelling started in the right arm on 11/08/2016. Right upper extremity was warm and reddish and painful a little bit. He is at the present time on treatment and is resting. He has history of following besides history of his brain tumor with some right- sided weakness: 1. COPD and on oxygen. 2. Asthma. 3. Gastrointestinal tumor. 4. Diabetes type 2. 5. Atrial fibrillation. 6. Hypertension. 7. CA prostate. 8. Dyslipidemia. 9. Neuropathy, most probably secondary to diabetes. 10. Macular degeneration. 11. Left eye cataract. 12. History of CA, skin, excised. Medication reviewed and on chart. At the present time, he is alert, oriented. VITAL SIGNS: Blood pressure 106/40, temperature 98.0, pulse 87, respirations 16. He is 5 feet 11 inches and weighs 82.6 kg. He can now move his right upper extremity without much difficulty. Muscle strength seems to be coming back. At this time, it is 3+ to 4- with some discomfort. PATIENT'S NAME: TIFFANIE MONTANEZ [facility] AGE: 81 Y [address] ROOM: [facility] [place], [place] [address] LOCATION: [facility] ADMIT DATE: 11/13/2016 Consultation DISCHARGE DATE: FAMILY PHYSICIAN: Susanna Benjamin MD ATTENDING PHYSICIAN: Nora Marvin He is at the present time able to move all four, slightly weaker on the right side, can ambulate up to 70 feet x1 with front-wheeled walker and standby assistance. I feel that this gentleman has done well. At the present time, we have no opening in rehab. However, I feel that he can go on an outpatient basis and be followed. I would be happy to follow him in one week after discharge. However, I have advised him not to drive until he is re-evaluated. All the above was explained to him in detail including the plan of care. He verbalized understanding and in agreement with. Thank you for this referral. I would be following alongside with you while here. MD LOGAN MALONE/evanl /[id number] P d: 11/15/16 1946 t: 11/16/16 0914, CONSULTATION REPORT
--- NOTE | ~2016-11-13 | CON ---
PATIENT'S NAME: TIFFANIE MONTANEZ [facility] AGE: 81 Y [address] ROOM: [id number] [place], [place] [address] LOCATION: G3N ADMIT DATE: 11/13/2016 Consultation DISCHARGE DATE: FAMILY PHYSICIAN: Susanna Benjamin MD ATTENDING PHYSICIAN: Nora Marvin DATE OF CONSULTATION: 11/13/2016 REFERRING PHYSICIAN: Lazara Jones MD REFERRING PHYSICIAN: Dr. Marvin. REASON FOR CONSULTATION: Right upper extremity DVT, medical management. HISTORY OF PRESENT ILLNESS: This is an 81-year-old male with past medical history of brain lesions, status post craniotomy and biopsy on 10/31/[address] Marvin. He was discharged home with a PICC line, which he had had previously for IV antibiotics. His PICC line was discontinued in Dr. Benjamin's office on 11/08/2016. There was noted to be some swelling, which started approximately 11/04/2016 and has gradually gotten worse. The patient has noticed that the right upper extremity was warm and swollen. He was seen in Dr. Marvin's office today for a routine check. Ultrasound of the right upper extremity was performed, which by verbal report from Dr. Marvin states that the right upper extremity was positive for a subclavian DVT. Dr. Marvin has admitted him to the hospital and placed him on heparin drip. We have been asked to consult for medical management. The patient has a history of COPD and obstructive sleep apnea. He does wear 2 L of oxygen at night. He is diabetic. He has had low blood sugars recently, last night 96, fasting this morning one-teens. His Levemir was held last night by his family. Dr. Benjamin recently discontinued his Lipitor secondary to his bilateral leg weakness. He had a temperature of 99.5 last evening. He denies chills. He has had recent weight loss of 18 pounds in the last month, however he has been watching his diet secondary to his diabetes. He denies any chest pain, cough, shortness of breath, or wheezing. He denies any hematuria, dysuria, urgency, or frequency. He has had some urinary incontinence since his last hospitalization. He states that he feels as though his legs are weak. He has had some right-sided weakness since these brain lesions were found. He denies any numbness or tingling except for chronic numbness and tingling in his hands, which is intermittent bilaterally. He denies any blurred vision or double vision. Denies any abdominal pain, nausea, or vomiting. He has had recent constipation, for which he has been taking MiraLAX, which does help. He is on steroids for the brain lesions. He did have a recent MRI performed today, which does show the brain lesions were decreased in size, compatible with PATIENT'S NAME: TIFFANIE MONTANEZ [facility] AGE: 81 Y [address] ROOM: [place] [address] LOCATION: [facility] ADMIT DATE: 11/13/2016 Consultation DISCHARGE DATE: FAMILY PHYSICIAN: Susanna Benjamin MD ATTENDING PHYSICIAN: Nora Marvin treatment response. The patient does have a history of atrial fibrillation. His Eliquis has been on hold since his craniotomy. PAST MEDICAL HISTORY: 1. Chronic obstructive lung disease. 2. Obstructive sleep apnea. 3. Nocturnal oxygen at 2 L. 4. Asthma. 5. Stromal gastrointestinal tumor. 6. Diabetes mellitus type 2. 7. Paroxysmal atrial fibrillation. 8. History of prostate cancer. 9. Hypertension. 10. Hyperlipidemia. 11. Constipation. 12. Neuropathy, bilateral feet. 13. Macular degeneration. 14. Left eye cataract. 15. History of skin cancer removal from his nose. SOCIAL HISTORY: The patient is . He has 8 children. He has a [id number] history. He stopped smoking approximately 50 years ago. Uses alcohol rarely. FAMILY HISTORY: Father with coronary artery disease, of an SD at 61. Mom, colon cancer. Daughter, rheumatoid arthritis. ALLERGIES: ASPIRIN. HOME MEDICATIONS: 1. ProAir inhaler 2 puffs twice daily p.r.n. shortness of breath. 2. Symbicort 160/4.5 two puffs twice daily. 3. CPAP. 4. Decadron 2 mg p.o. daily. 5. Cardizem 120 mg p.o. daily. 6. Multaq 400 mg p.o. twice a day. 7. Lasix 20 mg p.o. Friday, Friday, Friday. 8. Neurontin 600 mg p.o. 3 times a day. 9. Amaryl 1 mg p.o. daily. 10. Levemir 20 units subcu q.h.s. 11. Insulin lispro sliding scale. 12. Keppra 500 mg p.o. twice a day. 13. Oxygen 2 L at night. PATIENT'S NAME: TIFFANIE MONTANEZ [facility] AGE: 81 Y [address] ROOM: [address] [address] LOCATION: [facility] ADMIT DATE: 11/13/2016 Consultation DISCHARGE DATE: FAMILY PHYSICIAN: Susanna Benjamin MD ATTENDING PHYSICIAN: Nora Marvin 14. Protonix 40 mg daily. 15. Spironolactone 12.5 mg p.o. daily. 16. Flomax 0.4 mg p.o. q.h.s. 17. MiraLAX 17 g p.o. q.h.s. REVIEW OF SYSTEMS: A 10-point review of systems was performed. Please refer to HPI for pertinent positives. PHYSICAL EXAMINATION: VITAL SIGNS: Blood pressure 105/49, heart rate 89, respirations 16, temperature 97.9, 96% on room air. BMI 25.9. GENERAL: This is an 81-year-old male, in no acute distress. He is awake, alert, and oriented x3, except for month. HEENT: Head is normocephalic. He does have an incision on the right side of his head, which does have dried scabs from his recent craniotomy. Pupils equal, round, reactive to light. Oral mucosa is moist without erythema. SKIN: Warm and dry without lesions or rashes. NECK: Supple. No thyromegaly. RESPIRATIONS: Clear throughout auscultation bilaterally. No rales, crackles, or wheezes. No labored breathing. CARDIAC: Regular rhythm and rate. No murmurs or extra sounds. ABDOMEN: Soft, nontender to palpation. Bowel sounds are positive. No organomegaly noted. MUSCULOSKELETAL: Normal muscle tone. EXTREMITIES: Bilateral lower extremities: No edema, no calf tenderness. Right upper extremity: 2+ edema. Radial pulse 2+. The upper arm has mild erythema and warmth. NEURO: Cranial nerves II through XII grossly intact. Sensation intact to extremities. Does have 5-/5 strength on his right upper and lower extremities, left 5/5. Gait not observed. DIAGNOSTIC STUDIES: Pathology from recent brain lesion biopsy shows mild hypercellularity and gliosis. Not supportive of specific diagnosis. Hemoglobin 14.3, hematocrit 42.3, platelets 33, WBCs 10.2. INR 1.0. Ultrasound of the right upper extremity, official report is pending. However, per Dr. Marvin, it did show a right subclavian DVT. IMPRESSION AND PLAN: 1. Right upper extremity deep venous thrombosis, subclavian: he has been placed on a heparin drip as per Dr. Marvin. 2. Chronic hypoxic/hypercapnic respiratory failure secondary to chronic obstructive pulmonary disease, asthma, obstructive sleep apnea. We will PATIENT'S NAME: TIFFANIE MONTANEZ [facility] AGE: 81 Y [address] ROOM: [address] [address] LOCATION: [facility] ADMIT DATE: 11/13/2016 Consultation DISCHARGE DATE: FAMILY PHYSICIAN: Susanna Benjamin MD ATTENDING PHYSICIAN: Nora Marvin continue the patient's home CPAP settings and 2 L of oxygen when asleep. He is currently on room air 96%. Continue home Symbicort and Albuterol. 3. Diabetes mellitus type 2. As per report of his daughter, his blood sugar at bedtime last night was 96. We will place his Levemir on hold. We will monitor his blood sugars a.c. and h.s. and place him on a mild sliding scale with NovoLog. He will be on a diabetic diet. Will adjust medication as needed based on the trend. 4. Paroxysmal atrial fibrillation. The patient is currently on Multaq and Cardizem. His rates are stable. We will monitor on telemetry for now. His Eliquis is currently on hold secondary to his recent craniotomy. He is currently on a heparin drip for his right arm deep venous thrombosis. 5. Thrombocytopenia. His platelets are currently 33. Etiology is currently unknown. It was discussed with Dr. Marvin. We will ask Hematology- Oncology to follow along with the patient. We will monitor his platelets closely. 6. Hyperlipidemia. He recently discontinued his Lipitor secondary to his bilateral leg weakness per his primary care provider. We will continue to hold that for now. 7. Constipation. Continue home MiraLAX. 8. Diabetic neuropathy. Continue Neurontin. 9. Generalized weakness. We will ask for PT and OT to evaluate and treat. He has been using a walker at home. Continue restorative cares. 10. Essential hypertension. Blood pressure is stable at 105/49. We will place parameter on his Lasix and spironolactone and monitor closely. 11. Gastroesophageal reflux disease. Continue Protonix. 12. History of prostate cancer. We will continue his home Flomax. 13. Brain lesions, status post recent craniotomy with biopsy. His pathology is currently inconclusive. He is on Keppra for seizure prophylaxis. Continue as per Neurosurgery. The patient's care is being conducted in consultation with Dr. Gimenze. Thank you for allowing us to participate in the care of this patient as he has been hospitalized at [facility]. PAPO OGLESBY APRN FOR MD LORRIE GERARDO/marilu /[id number] d: 11/13/16 2344 t: 12/04/16 1033, CONSULTATION REPORT
--- NOTE | ~2016-11-13 | CON ---
PATIENT'S NAME: JHONATHAN MONTANEZ [facility] AGE: 81 Y [address] ROOM: [address] [place], [place] [address] LOCATION: GPCU ADMIT DATE: 11/13/2016 Consultation DISCHARGE DATE: FAMILY PHYSICIAN: Susanna Benjamin MD ATTENDING PHYSICIAN: Nora Marvin REFERRING PHYSICIAN: Lazara Jones MD Consult to Skylar Sylvester APRN. REASON FOR CONSULTATION: Jhonathan Montanez is an 81-year-old man with deep venous thrombosis of the right arm and thrombocytopenia. HISTORY OF PRESENT ILLNESS: The history of present illness is obtained from Mr. Montanez, whose history is of somewhat dubious veracity; Mrs. Montanez; the rest of the family who are very helpful; review of his [facility] records; and the current and old [facility] records. For approximately 1 week the patient has noticed progressive swelling and discomfort in his right arm. The possibility of deep venous thrombosis related to a peripherally inserted central catheter in the right arm was considered. Because the patient had needed parenteral antibiotics, it was felt reasonable to leave the catheter in, and no anticoagulants were initiated. On 11/08/2016, Mr. Montanez saw his physician, Dr. Susanna Benjamin, who removed the peripherally inserted central catheter in the office. On 11/13/2016, the patient saw Dr. Marvin and followed up for multiple uncharacterized brain lesions. The patient grumbled about the continued swelling and discomfort in the right upper extremity. The patient had progressive erythema. Dr. Marvin obtained an ultrasound of the right arm, which revealed deep venous thrombosis in the right subclavian vein. Dr. Marvin admitted the patient to the hospital and initiated a heparin drip and involved the hospitalists in the management of his anticoagulation. Upon admission to [facility], the white count was 10,200 with 78% neutrophils and 12% lymphocytes, the hemoglobin was 14.3 g/dL, the MCV 89, and the platelets 33,000, the INR was 1, the PTT was 27. The patient has longstanding intermittent thrombocytopenia and has well- characterized pseudothrombocytopenia. On 11/05/2016, the platelets were 101,000. On 10/22/2016, they were 59,000. On 10/10/2016, they were 144,000. The patient also had a transient period from 07/26/2016 through 08/27/2016 when his platelet counts were always less than 100,000, once as low as 37,000. However, the patient did not bleed. PATIENT'S NAME: JHONATHAN MONTANEZ [facility] AGE: 81 Y [address] ROOM: [place] [address] [facility] ADMIT DATE: 11/13/2016 Consultation DISCHARGE DATE: FAMILY PHYSICIAN: Susanna Benjamin MD ATTENDING PHYSICIAN: Nora Marvin As early as 2003, the patient had documented thrombocytopenia. The patient saw Dr. Mel Jack, for evaluation of the thrombocytopenia. A bone marrow aspiration and biopsy was obtained. Platelet clumping was noted on the peripheral smear when the platelet count was assessed in a standard tube with EDTA. However, the platelet count was repeated using sodium citrate as the anticoagulant in the tube and the platelet count normalized. The patient has never experienced clinically significant bleeding over the years. The patient has had multiple complicated hospitalizations since July of 2016. He has been on heparin, ceftriaxone, morphine, enoxaparin, and cefazolin, which specifically are sometimes associated with thrombocytopenia, but there has been no clear pattern associated with any of these medicines setting off thrombocytopenia. He denies any herbals, multivitamins, or over- the-counter alternative medications. He is not taking quinine and denies use of tonic water. Dr. Jack has hypothesized the patient might have a component of ITP in addition to the pseudothrombocytopenia. The patient has never been treated for ITP in the 13 years the intermittent thrombocytopenia has been identified. The patient has multiple uncharacterized brain nodules, which were symptomatic in late September 2016 with an acute encephalopathy. The patient was placed on empiric intravenous antibiotics. He did not respond as well to antibiotics as he had to oral dexamethasone. Therefore, eventually, Dr. Marvin performed a needle biopsy of one of the brain lesions. The biopsy performed on 10/31/2016 was nondiagnostic. The pathologist reported it revealed alanis and white matter with mild hypercellularity and gliosis. 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 No therapy has been prescribed and the patient is under surveillance by Dr. Yony Garcia. ACTIVE MEDICAL PROBLEMS (CHRONIC AND DIAGNOSED): 1. Chronic obstructive pulmonary disease. 2. Obstructive sleep apnea. 3. Type 2 diabetes mellitus. 4. Essential arterial hypertension. 5. Adenocarcinoma of the prostate, early, under good control. 6. Paroxysmal atrial fibrillation, on apixaban. MEDICATIONS: Upon admission: 1. Albuterol. 2. Atorvastatin. 3. Budesonide and formoterol. 4. Dexamethasone 4 mg p.o. b.i.d. 5. Diltiazem. PATIENT'S NAME: JHONATHAN MONTANEZ [facility] AGE: 81 Y [address] ROOM: [place] [address] LOCATION: GPCU ADMIT DATE: 11/13/2016 Consultation DISCHARGE DATE: FAMILY PHYSICIAN: Susanna Benjamin MD ATTENDING PHYSICIAN: Nora Marvin 6. Dronedarone. 7. Furosemide. 8. Gabapentin. 9. Glimepiride. 10. Insulin detemir. 11. Insulin lispro. 12. Levetiracetam. 13. Pantoprazole. 14. Spironolactone. 15. Tamsulosin. ADVERSE REACTIONS TO MEDICATIONS, TRANSFUSIONS, ALLERGIES: 1. No known allergies. 2. No transfusions. TOBACCO: The patient has abstained from tobacco for few years. He was unable to characterize his pack-year history. ALCOHOL: None. FAMILY HISTORY: Mother from colon cancer at an advanced age. SOCIAL HISTORY: The patient currently lives in [place], [place], with his . He is retired. REVIEW OF SYSTEMS: Entirely negative other than those noted in the history of present illness. PHYSICAL EXAMINATION: VITAL SIGNS: Pulse 80 and regular, blood pressure 105/50, respiratory rate 16, temperature 97.9, height 71 inches, weight 82.6 kg (182 pounds), BMI 25.4 kg/M2. GENERAL: A well-developed, slightly minimally overweight, 81-year-old male, in no acute distress. HEENT: Unremarkable. LYMPH NODES: None palpable. NECK: Without JVD or carotid bruits. CHEST: Clear anteriorly. CV: Regular rhythm. No murmurs, bruits, or adventitious sounds. ABDOMEN: No masses, shunts, or megaly. EXTREMITIES: The patient has pronounced right upper extremity edema. The PATIENT'S NAME: JHONATHAN MONTANEZ [facility] AGE: 81 Y [address] ROOM: [address] [place] [address] [facility] ADMIT DATE: 11/13/2016 Consultation DISCHARGE DATE: FAMILY PHYSICIAN: Susanna Benjamin MD ATTENDING PHYSICIAN: Nora Marvin patient has ecchymoses on both ventral forearms. The pulses are not palpable at the right antecubital area or at the right wrist. NEUROLOGIC: The patient is conversant and awake. A full neurologic examination was not performed. IMPRESSION: 1. 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 The bone marrow was normal in 2002. 2. That being said, it is concerning the sodium citrate results were consistent with true thrombocytopenia, and when I reviewed the peripheral smear, I saw very little platelets and no platelet clumping. Idiopathic thrombocytopenic purpura has been hypothesized over the years. The patient may be at increased risk of bleeding with the current heparin infusion and the platelets of 33,000. 3. All things considered, the patient's prospects are probably better with full anticoagulation. 4. Since the patient's right upper extremity deep venous thrombosis was clearly related to the PICC line and that has been removed, it is probably reasonable to fully anticoagulate him for short period of time perhaps a month, not necessarily 3 months. 5. Because he has brain lesions that are uncharacterized, it is probably reasonable to treat him with warfarin anticoagulation instead of a direct oral anticoagulant because warfarin bleeding can be more easily reversed. Low- molecular-weight heparin at therapeutic doses subcutaneously daily every 12 hours for a month would also be reasonable, but the patient is concerned about the expense. RECOMMEND: DIAGNOSTIC: No further tests. TREATMENT: Anticoagulation with warfarin for a month following initiation of anticoagulation. If his right arm swelling has resolved at that point, discontinuing warfarin altogether is reasonable. PATIENT EDUCATION: Discussed these recommendations. MD PERCY PAYAN/marilu PATIENT'S NAME: JHONATHAN MONTANEZ [facility] AGE: 81 Y [address] ROOM: [place] [address] [facility] ADMIT DATE: 11/13/2016 Consultation DISCHARGE DATE: FAMILY PHYSICIAN: Susanna Benjamin MD ATTENDING PHYSICIAN: Nora Marvin /[id number] CC: MD Nora Kohli MD Richard C Starlin, MD Anwaar Khan, MD d: 11/15/16 2332 t: 11/19/16 1437, CONSULTATION REPORT
[~2016-11-13 11:37] MED LIST changes: -CLEOCIN HCL300 MG PO; -COUMADIN ** IA3 MG PO; -DULCOLAX10 MG R; -ELAVIL25 MG PO; -GLUCERNA237 ML PO; -MILK OF MA400 MG/5 M PO; -MIRALAX17 GM PO; -TYLENOL325 MG PO
[2016-11-13 13:11] LABS: BASOPHIL % 0.3 %; EOSINOPHIL % 0.2 %; HEMATOCRIT 42.3 % (33.0-50.0); HEMOGLOBIN 14.3 g/dL (11.0-16.0); IMMATURE GRANULOCYTE # 0.2 K/uL (0.0-0.3); IMMATURE GRANULOCYTE % 1.9 %; LYMPHOCYTE # 1.2 K/uL (0.8-4.0); LYMPHOCYTE % 11.9 %; MCH 30.1 pg (27.0-34.0); MCHC 33.8 gm/dL (32.0-36.5); MCV 89.1 fl (83.0-98.0); MONOCYTE # 0.8 K/uL (0.0-1.0); MONOCYTE % 7.6 %; MPV 12.4 fl (9.4-12.4); NEUTROPHIL % 78.1 %; NRBC % 0 /100WBC (0-0.00); RBC 4.75 M/uL (3.50-5.50); RDW-CV 15.3 % (11.9-14.6); WBC 10.2 K/uL (4.0-11.0)
[2016-11-13 13:28] LABS: PLATELET COUNT 33 K/uL (150-450)
[2016-11-13 13:45] LABS: PROTIME 10.8 SECONDS (9.6-11.1)
--- NOTE | 2016-11-13 14:21 | NUR ---
81 Y/O MALE ADMITTED FOR DVT IN RT ARM. PT IS A&OX3 BUT VERY TIRED. PT SON & ARE IN ROOM AND HELP ME WITH PT HISTORY. PT HAS HISTORY OF 7 ADMISSIONS TO THE HOSPITAL OVER THE PAST SEVERAL MONTHS. MOST RECENTLY 10/31/16 FOR A BRAIN MASS BIOPSY, WHICH THE SON INFORMED ME THAT RETURNED INCONCLUSSIVE. PT HAS LOST A SIGNIFICANT AMT OF WT OVER THE PAST SEVERAL MONTHS. SINCE July,-STROMAL TUMOR OF ESOPHOGUS, AUG- PNEUMONIA, PT HAS BEEN ON STEROIDS FOR THE BRAIN TUMOR PER SONS REPORT WHEN PT IS ON STEROIDS HIS SPEECH IS FINE BUT WHEN HE GOIS OFF OF THE STEROIDS HIS SPEECH GOES DOWN HILL AND BECOMES MUCH WORSE. PT HAS HAD A PICC LINE INPLACE PRIOR TO HIS LAST HOSPITAL ADMISSION ON 10/31/16 AND THIS PICC LINE WAS JUST REMOVED WITH IN THE LAST WEEK. PT SON STATES THAT HE NOTICED HIS FATHERS RT ARM WAS SWOLLEN PRIOR TO HIS FATHERS DISMISSAL, BUT ONCE THE PICC LINE WAS REMOVED THE SWELLING HAS BECOME A LOT WORSE. PT HAS NOT BEEN ON HIS ELIQUIS SINCE PRIOR TO HIS BRAIN BIOPSY. MEDICAL & SURGICAL HISTORY - RT SHOULDER ROTATOR CUFF, LT CATARACT W/ IOLI, PROSTATE SURGERY WITH BILAT TESTICULAR REMOVAL, BRAIN BIOPSY, ING HERNIA REPAIR. CHF, A FIB, HTN HIGH CHOL, COPD, PNEUMONIA, SLEEP APNEA WITH 2L O2 AT NOC WITH C-PAP, DMII- INSULIN, MAC DEGEN, STROKE IN PAST, N/T IN BILAT FEET, PROSTATE CA, RECENT UTI 10/2016, HX LOW PLATELETS, ASTHMA, PT FORMER SMOKER BUT QUIT YRS AGO. LESIONS ON BRAIN THAT WERE BIOPSIED. ALLERGIES - ASPIRIN - RASH & SOB REPORT GIVEN TO PT PRIMARY CARE NURSE BIANKA DUVAL ADM EDUCATION ALREADY FAMILILAR WITH
--- NOTE | 2016-11-13 17:10 | NUR ---
Significant Event: Pt is a/o. Cooperative with cares. Was admitted @ 1200 with DVT R) arm. Limb alert on. Heparin protocal started. Next PTTHP due @ 1945. Is running @ 1200 u/hr. Up to commode with 1-2 assist, gait belt and walker. Not strong enough to walk to BR. ac/hs accuchecks. R) arm red, warm, edematous. Healing incision to head, had bx last week. Follow up:
[2016-11-13 20:11] LABS: ALBUMIN 2.4 gm/dL (3.5-5.0); ALK PHOS 105 IU/L (33-138); ALT 52 IU/L (12-78); ANION GAP 12.3 (10.0-19.0); AST 25 IU/L (10-40); BLOOD UREA NITROGEN 19 mg/dL (6-24); CALCIUM 7.6 mg/dL (8.5-10.5); CHLORIDE 99 mMol/L (96-110); CO2 28 mMol/L (22-32); ESTIMATED GFR (MDRD EQUATION) > 60; POTASSIUM 4.3 mMol/L (3.7-5.1); SODIUM 135 mMol/L (135-145); TOTAL BILIRUBIN 0.8 mg/dL (0.0-1.5); TOTAL PROTEIN 5.2 g/dL (6.0-8.4)
[2016-11-14 02:29] LABS: BASOPHIL % 0.1 %; EOSINOPHIL % 0.3 %; HEMATOCRIT 34.3 % (33.0-50.0); HEMOGLOBIN 11.7 g/dL (11.0-16.0); IMMATURE GRANULOCYTE # 0.1 K/uL (0.0-0.3); IMMATURE GRANULOCYTE % 1.8 %; LYMPHOCYTE # 0.8 K/uL (0.8-4.0); LYMPHOCYTE % 10.3 %; MCH 30.2 pg (27.0-34.0); MCHC 34.1 gm/dL (32.0-36.5); MCV 88.4 fl (83.0-98.0); MONOCYTE # 0.5 K/uL (0.0-1.0); MONOCYTE % 6.3 %; MPV 10.6 fl (9.4-12.4); NEUTROPHIL # (ANC) 6.3 K/uL (1.4-9.0); NEUTROPHIL % 81.2 %; NRBC % 0 /100WBC (0-0.00); RBC 3.88 M/uL (3.50-5.50); RDW-CV 15.2 % (11.9-14.6); WBC 7.7 K/uL (4.0-11.0)
[2016-11-14 02:33] LABS: PLATELET COUNT 31 K/uL (150-450)
[2016-11-14 02:45] LABS: ANION GAP 13.4 (10.0-19.0); BLOOD UREA NITROGEN 20 mg/dL (6-24); CALCIUM 7.8 mg/dL (8.5-10.5); CHLORIDE 103 mMol/L (96-110); CO2 26 mMol/L (22-32); CREATININE 0.7 mg/dL (0.6-1.3); ESTIMATED GFR (MDRD EQUATION) > 60; POTASSIUM 4.4 mMol/L (3.7-5.1); SODIUM 138 mMol/L (135-145)
--- NOTE | 2016-11-14 04:08 | NUR ---
ADMITED 4/ FOR HETAL DVT R/T OLD PICC LINE THAT WAS REMOVED RECENTLY, RUE IS VERY RED AND SWOLLLEN BUT NOT PITTING, ENCOURAGED PATIENT TO ELEVATE EXTREMITY. PATIENT ON HEPARIN PROTOCOL, HEPARIN RUNNING 1100UNITS = 22ML/HR THRU LEFT WRIST PIV AND NEXT PTTHP SCHEDULED @09. PATIENTS PLATELETS ARE CRITICAL LOW AND DOWN FROM 33 YESTERDAY TO 31 TODAY. PATIENT UP W/1-2 W/FWW/GAIT BELT [facility]UE TO SEVERE DEBILITATION FROM NUMEROUS MEDICAL ISSUES OVER THE LAST YEAR. PATIENT IS VERY IMPULSIVE AND NEEDS TABS/BED ALARM AT ALL TIMES AND CAN BE FORGETFUL AT TIMES DUE TO BRAIN LESIONS THAT WERE BX'D LAST WEEK. ONLY C/O OF PAIN WERE TO HIS BACK AND THIS WAS CONTROLLED WITH TYLENOL LD@2114 WITH GOOD RESULTS. VS WNL BUT WAS PLACED ON O2 PER NC OVER NIGHT HE HAS SLEEP APENA AND FAMILY WILL BRING CPAP IN TODAY. ADEQUATE PO INTAKE, GOOD OUTPUT, BLOOD SUGARS AC/HS AND @2100 WAS 270 AND RECEIVED 4UNITS OF SS INSULIN, BE AWARE THAT THE PATIENT IS TALKING DECADRON PO AND THIS IS CAUSING SEVERE FLUCTUATIONS IN BLOOD SUGARS. SPOKE WITH FAMILY AT LENGTH LAST NIGHT ABOUT NEEDS FOR PLACEMENT AND THEY WOULD LIKE THE NET WE[employer] DEVELOPER TO SPEAK WITH THEM TODAY IF AVAILABLE.
--- NOTE | 2016-11-14 07:57 | NUR ---
[id number] Supervised [facility] Mission Analyst.
--- NOTE | 2016-11-14 09:20 | NUR ---
Introduced self/role to patient and his Komal. They had mentioned wanted to go to rehab possibly. stated yes, upstairs. I told them TCU was no longer an option as they were closing. Named off the SNF's in [place] and patient immediately started to shack his head no. Will no go to a correction, wants to go home. was in agreement. They have C thru [facility]. Asked if they wanted a list of private care providers and other help agencies in [place], Yes. Provided this to . Hitesh Beck with [facility] called to make sure I knew they were under their care.
--- NOTE | 2016-11-14 17:05 | NUR ---
Significant Event: Alert, forgetful at times. Incision approximated to head. Heparin running at 1100 units/hr. Next PTTHP at 2230. Last PTTHP was 65. Rt arm redness and edema. Telemetry. Accuchecks 227,249. Up to chair/BR with walker and one assist. Ambulated in rock with PT. Coocyx reddened. Follow up:
--- NOTE | 2016-11-15 04:38 | NUR ---
PATIENT A&OX3 THIS SHIFT BUT STILL REQUIRES TABS/BED ALARM DUE TO SOME IMPULISIVENESS, UP WITH SBA/FWW/GAIT BELT TO BATHROOM AND DID VERY WELL, SLEPT WELL OVERNIGHT ALSO AND WAS PLACED ON 2L PER NC PATIENT CHOSE TO NOT WEAR CPAP OVERNIGHT. TELE IN PLACE AND NO CALLS FROM PCU THIS SHIFT. HEAD INCISION CLOSED W/SCABS, RUE SHOWED DECREASED EDEMA AND REDNESS FROM PREVIOUS NIGHT AND NO PAIN PER PATIENT REPORT, HEPARIN DRIP RUNNING @1100UNITS THRU LEFT HAND PIV AND NEXT PTT SCHEDULE @0900. GOOD PO INTAKE/OUTPUT, LARGE BM THIS SHIFT, BLOOD SUGAR @2100 WAS 353 AND RECIEVED 8UNITS SS INSULIN ALONG WITH SCHEDULED LEVIMIR. DR VIRAMONTES C/S AND WILL EVALUATE PATIENT TODAY.
[2016-11-15 05:56] LABS: BASOPHIL % 0.1 %; EOSINOPHIL % 0.1 %; HEMOGLOBIN 13.5 g/dL (11.0-16.0); IMMATURE GRANULOCYTE # 0.1 K/uL (0.0-0.3); IMMATURE GRANULOCYTE % 1.2 %; LYMPHOCYTE % 10.3 %; MCH 29.5 pg (27.0-34.0); MCV 90.2 fl (83.0-98.0); MONOCYTE # 0.5 K/uL (0.0-1.0); MONOCYTE % 4.5 %; NEUTROPHIL # (ANC) 8.5 K/uL (1.4-9.0); NEUTROPHIL % 83.8 %; NRBC % 0 /100WBC (0-0.00); RBC 4.58 M/uL (3.50-5.50); WBC 10.1 K/uL (4.0-11.0)
[2016-11-15 06:00] LABS: PROTIME 10.5 SECONDS (9.8-11.4)
[2016-11-15 06:43] LABS: HEMATOCRIT 41.3 % (33.0-50.0); MCHC 32.7 gm/dL (32.0-36.5)
[2016-11-15 06:46] LABS: PLATELET COUNT 42 K/uL (150-450)
--- NOTE | 2016-11-15 09:10 | NUR ---
Daughter Tania Quintero stopped by care management office after I had already left for the day on 11/14. 11/15 0910 called and left a message on her phone #[phone]. 1045 Followed up with patient and his . Unsure what daughter wanted. They do want to continue with C. Aware that [facility] has not open beds at this time so would be going home at some point. Placed a note on the chart to call [facility] and fax orders if discharges over the weekend. P# [phone] and F# [phone] [id number] Called Ebony with C to give a heads up.
--- NOTE | 2016-11-15 16:56 | NUR ---
Significant Event:Alert and oriented. Forgetful at times. Rt arm edematous and light red. Telemetry. Accucheck ac and HS. Heparin running at 1300 units/h. Next PTTHP at 1915. Up to chair/BR/rock with walker and one assist. Follow up:
[2016-11-16 02:13] LABS: BASOPHIL % 0.1 %; EOSINOPHIL % 0.2 %; HEMATOCRIT 36.5 % (33.0-50.0); HEMOGLOBIN 12.1 g/dL (11.0-16.0); IMMATURE GRANULOCYTE # 0.1 K/uL (0.0-0.3); IMMATURE GRANULOCYTE % 1.2 %; LYMPHOCYTE % 11.8 %; MCH 29.7 pg (27.0-34.0); MCHC 33.2 gm/dL (32.0-36.5); MCV 89.5 fl (83.0-98.0); MONOCYTE # 0.5 K/uL (0.0-1.0); MONOCYTE % 6.7 %; NEUTROPHIL # (ANC) 6.4 K/uL (1.4-9.0); NRBC % 0 /100WBC (0-0.00); RBC 4.08 M/uL (3.50-5.50)
[2016-11-16 02:16] LABS: PLATELET COUNT 50 K/uL (150-450)
[2016-11-16 02:28] LABS: ANION GAP 12.4 (10.0-19.0); BLOOD UREA NITROGEN 17 mg/dL (6-24); CALCIUM 7.8 mg/dL (8.5-10.5); CHLORIDE 103 mMol/L (96-110); CO2 28 mMol/L (22-32); CREATININE 0.7 mg/dL (0.6-1.3); ESTIMATED GFR (MDRD EQUATION) > 60; POTASSIUM 4.4 mMol/L (3.7-5.1); SODIUM 139 mMol/L (135-145)
[2016-11-16 02:34] LABS: INR - (THERAPEUTIC) 1.14 (0.92-1.07)
--- NOTE | 2016-11-16 04:29 | NUR ---
Pt vitals stable throughout shift. Patient on 2L O2 at bedtime for sleep apnea. Pt reports numbness and tingling on upper and lower extremities at 1900 and 2300, then normal sensation at 0300. Patient moves without difficulty. BS 348 at 2100 and given 6units insulin. Blood draw at 1900 & 0200, aPTT 53 and 71 respectively. Next draw at 0800. Pt has surgical incision on right side of forehead, healing well. Edema 2+ on right arm/hand.
--- NOTE | 2016-11-16 06:09 | NUR ---
I have reviewed SN Marciano from [facility]'s charting on this patient and I agree with it.
--- NOTE | 2016-11-16 13:04 | NUR ---
Significant Event: AOx3. VSS. CSM WNL. R) arm edemetous and elevated on pillow. AC&HS accuchecks. BS was 378 at 1100. 15 units given. Patient is on sliding scale and carb count. PTTHP was 70 at 0800. No change to heparin. Running at 14units. Next PTTHP will be at 2000. 2L/O2 at night. Up with 1 assist with walker. No problems voiding. Yesterday INR was 1. Starting Coumadin today at 1600. Follow up:
--- NOTE | 2016-11-16 17:18 | NUR ---
Significant Event: TX FROM 3N AT 1350. VSS AND RA. DENIES PAIN, AFEBRILE. HEPARIN GTT CONTINUES PER PROTOCOL AT 1400 UNITS/HR TO LT)WRIST PIV-NEXT PTTHP AT 1999. 7.5 MG COUMADIN GIVEN. NO OTHER C/O. Follow up: CONTINUE PLAN OF CARE.
[2016-11-17 02:53] LABS: BASOPHIL % 0.1 %; EOSINOPHIL % 0.3 %; HEMATOCRIT 37.4 % (33.0-50.0); HEMOGLOBIN 12.4 g/dL (11.0-16.0); IMMATURE GRANULOCYTE # 0.1 K/uL (0.0-0.3); IMMATURE GRANULOCYTE % 1.7 %; LYMPHOCYTE # 1.1 K/uL (0.8-4.0); LYMPHOCYTE % 14.1 %; MCH 29.9 pg (27.0-34.0); MCHC 33.2 gm/dL (32.0-36.5); MCV 90.1 fl (83.0-98.0); MONOCYTE # 0.7 K/uL (0.0-1.0); MONOCYTE % 8.7 %; NEUTROPHIL # (ANC) 5.9 K/uL (1.4-9.0); NEUTROPHIL % 75.1 %; NRBC % 0.3 /100WBC (0-0.00); RBC 4.15 M/uL (3.50-5.50); RDW-CV 15.5 % (11.9-14.6); WBC 7.8 K/uL (4.0-11.0)
[2016-11-17 02:54] LABS: PLATELET COUNT 59 K/uL (150-450)
[2016-11-17 03:02] LABS: ANION GAP 14.9 (10.0-19.0); BLOOD UREA NITROGEN 14 mg/dL (6-24); CALCIUM 8.1 mg/dL (8.5-10.5); CHLORIDE 103 mMol/L (96-110); CO2 27 mMol/L (22-32); CREATININE 0.8 mg/dL (0.6-1.3); ESTIMATED GFR (MDRD EQUATION) > 60; POTASSIUM 4.9 mMol/L (3.7-5.1); SODIUM 140 mMol/L (135-145)
[2016-11-17 03:14] LABS: INR - (THERAPEUTIC) 1.68 (0.92-1.07); PROTIME 17.7 SECONDS (9.8-11.4)
--- NOTE | 2016-11-17 04:25 | NUR ---
Significant Event: A/O, SBP 100s/50s, RA while awake, 2L at hs, afebrile, denies pain, Heparin gtt at 1300 units/hr, next check at 0915, BS 225 at hs, SBA to bathroom Follow up: continue plan of care
--- NOTE | 2016-11-17 16:24 | NUR ---
Significant Event: VSS AND RA. DENIES PAIN. HEPARIN CONTINUES AT 1100 UNITS/HR-NEXT PTTHP AT 1700. COUMADIN 6 MG GIVEN FOR INR OF 1.6. AMBULATES SIMON WITH PT. UP TO RECLINER MOST OF DAY, FAMILY IN TO VISIT. VOIDS WITH ADEQUATE UOP, 2 MOD BMS. Follow up: CONTINUE PLAN OF CARE; ? D/C TMRW PENDING INR.
--- NOTE | 2016-11-18 04:40 | NUR ---
Significant Event: A/O, SBP 90-100s, RA throughout night, denies pain, R)arm red but edema is improving, Heparin gtt continues at 1100 units/hr, next check at 0530, SBA transfers Follow up: possibly home today, pending INR
[2016-11-18 05:57] LABS: BASOPHIL % 0.1 %; EOSINOPHIL % 0.1 %; HEMATOCRIT 35.7 % (33.0-50.0); HEMOGLOBIN 11.8 g/dL (11.0-16.0); IMMATURE GRANULOCYTE # 0.2 K/uL (0.0-0.3); IMMATURE GRANULOCYTE % 2.1 %; LYMPHOCYTE % 12.3 %; MCH 30.1 pg (27.0-34.0); MCHC 33.1 gm/dL (32.0-36.5); MCV 91.1 fl (83.0-98.0); MONOCYTE # 0.5 K/uL (0.0-1.0); MONOCYTE % 6.6 %; MPV 10.9 fl (9.4-12.4); NEUTROPHIL # (ANC) 6.1 K/uL (1.4-9.0); NEUTROPHIL % 78.8 %; NRBC % 0 /100WBC (0-0.00); PLATELET COUNT 66 K/uL (150-450); RBC 3.92 M/uL (3.50-5.50); RDW-CV 15.6 % (11.9-14.6); WBC 7.7 K/uL (4.0-11.0)
[2016-11-18 06:05] LABS: ANION GAP 11.6 (10.0-19.0); BLOOD UREA NITROGEN 19 mg/dL (6-24); CALCIUM 7.9 mg/dL (8.5-10.5); CHLORIDE 103 mMol/L (96-110); CO2 28 mMol/L (22-32); CREATININE 0.6 mg/dL (0.6-1.3); ESTIMATED GFR (MDRD EQUATION) > 60; POTASSIUM 4.6 mMol/L (3.7-5.1); SODIUM 138 mMol/L (135-145)
[2016-11-18 07:04] LABS: INR - (THERAPEUTIC) 2.36 (0.92-1.07)
--- NOTE | 2016-11-18 11:10 | NUR ---
[employer] called and patient has orders for discharge. [phone] Faxed orders and meds to [phone]. [phone] Ebony needs H&P also. [phone] Faxed H&P, labs, nursing notes.
[2016-11-18] MEDS ORDERED: MIRALAX17 GM PO (12:41)
[2016-11-18] MEDS ORDERED: COUMADIN ** IA3 MG PO (12:48)
[2016-11-18] MEDS ORDERED: GLUCERNA237 ML PO (12:51)
--- NOTE | 2016-11-18 15:15 | NUR ---
d-dr gem greer i-nurse did teaching on all meds with 3 new ones explained, pt knows coumadin, few changes in meds to hold keppra and decadron, appts set up and dr duggan will call pt to set up appt in [facility] for friday to get 2nd opinion, iv dcd, bg 311 insulin given, home health to see pt at home, r-pt and have no more questions p-dc per intraoperative neuro tech by wc
--- NOTE | 2016-11-18 15:51 | NUR ---
Introduced self and purpose of heart healthy education and care transitions. at bedside. Calendar given, information reviewed, verbalized understanding.
== END 2016-11-18 14:30 | disposition disaster alternative care site (69) | DRG 300 ==
LOC: G3N 11:37 → GPCU 11-16 13:49
PROVIDERS: Internal Medicine; Nurse Practitioner Family; ADMIT Neurological Surgery
DX: I82.621 Acute embolism and thrombosis of deep veins of right upper extremity (principal); E44.0 Moderate protein-calorie malnutrition; J96.11 Chronic respiratory failure with hypoxia; D69.6 Thrombocytopenia, unspecified; E11.40 Type 2 diabetes mellitus with diabetic neuropathy, unspecified; J44.9 Chronic obstructive pulmonary disease, unspecified; I48.0 Paroxysmal atrial fibrillation; I10 Essential (primary) hypertension; E78.5 Hyperlipidemia, unspecified; G47.33 Obstructive sleep apnea (adult) (pediatric); K21.9 Gastro-esophageal reflux disease without esophagitis
CPT/HCPCS: A9577; J1644

== ENCOUNTER → 2016-11-13 | Outpatient (CLI) | payer MEDICARE, BC ==
[~2016-11-13] MED LIST changes: +CLEOCIN HCL300 MG PO; +COUMADIN ** IA3 MG PO; +DULCOLAX10 MG R; +ELAVIL25 MG PO; +GLUCERNA237 ML PO; +MILK OF MA400 MG/5 M PO; +MIRALAX17 GM PO; +TYLENOL325 MG PO
== END | disposition disaster alternative care site (69) ==
LOC: GRAD 07:06
DX: D49.6 Neoplasm of unspecified behavior of brain (principal); Z98.890 Other specified postprocedural states

== ENCOUNTER → 2016-12-10 | Outpatient (CLI) | payer MEDICARE, BC ==
[~2016-12-10] MED LIST changes: +CLEOCIN HCL300 MG PO; +COUMADIN ** IA3 MG PO; +DULCOLAX10 MG R; +ELAVIL25 MG PO; +GLUCERNA237 ML PO; +MILK OF MA400 MG/5 M PO; +MIRALAX17 GM PO; +TYLENOL325 MG PO
== END | disposition disaster alternative care site (69) ==
LOC: GLAB 13:30 → GRAD 14:30
DX: D49.6 Neoplasm of unspecified behavior of brain (principal); R90.89 Other abnormal findings on diagnostic imaging of central nervous system; I62.00 Nontraumatic subdural hemorrhage, unspecified

== ENCOUNTER 2016-12-11 14:18 | Inpatient (IN) | payer MEDICARE, BC ==
[~2016-12-11] VITALS: Ht 170.2 cm; Wt 83.1 kg
--- NOTE | ~2016-12-11 | NDGEN ---
PATIENT'S NAME: TIFFANIE MONTANEZ [facility] AGE: 81 Y [address] ROOM: [place] [address] LOCATION: GICU ADMIT DATE: 12/11/2016 Neurodiagnostics DISCHARGE DATE: FAMILY PHYSICIAN: Susanna Benjamin MD ATTENDING PHYSICIAN: Nora Marvin PROCEDURE: ELECTROENCEPHALOGRAM DATE OF PROCEDURE: 12/18/2016 TIME: 8:14 a.m. This study was compared to a study done on 12/16/2016 to rule out seizures. HISTORY: This is an 81-year-old male patient who had a recent subdural hematoma which was evacuated. He had significant swelling of his right brain with some minor shift to the left, this seems to be improved; however, the patient is unresponsive and not moving his limbs. He was placed on antiseizure medication based upon a speculation that he was having some focal upper extremity jerking as well as eye forced deviation. It is not noted that the patient has this ongoing clinical seizures presently. He is currently on fosphenytoin 100 mg 3 times a day. DESCRIPTION OF PROCEDURE: The general background rhythm was consistent with a near alpha rhythm of around 8-10 hertz with a normal amplitude of 25-30 microvolts. This background rhythm remained stable throughout while the patient was unresponsive and obtunded and sleeping. Photic stimulation did not produce any photic drive response. There was no asymmetry seen in the background rhythm even though the patient had a known recent evacuation of a hematoma. There were no clear epileptiform features seen and no seizures were recorded. IMPRESSION: The background rhythm was similar to the electroencephalogram on 12/16 with a near normal background rhythm of approaching 9-10 hertz which would be appropriate for the patient's age. This background rhythm did not produce any asymmetry and there were no epileptiform features seen and no seizures were recorded. PATIENT'S NAME: TIFFANIE MONTANEZ [facility] AGE: 81 Y [address] ROOM: [place] [address] LOCATION: GICU ADMIT DATE: 12/11/2016 Neurodiagnostics DISCHARGE DATE: FAMILY PHYSICIAN: Susanna Benjamin MD ATTENDING PHYSICIAN: Nora Marvin MD JRM/marilu /[id number] dtt: 12/22/16 2230 , SHANNAN MILLER dtd: 12/18/16 1825
--- NOTE | ~2016-12-11 | CON ---
PATIENT'S NAME: TIFFANIE MONTANEZ [facility] AGE: 81 Y [address] ROOM: [place] [address] LOCATION: GICU ADMIT DATE: 12/11/2016 Consultation DISCHARGE DATE: FAMILY PHYSICIAN: Susanna Benjamin MD ATTENDING PHYSICIAN: Nora Marvin DATE OF CONSULTATION: 12/11/2016 REFERRING PHYSICIAN: Nora Marvin MD CONSULTING DOCTOR: Dr. Corey. REASON FOR CONSULTATION: Medical management. HISTORY OF PRESENT ILLNESS: The patient is an 81-year-old male well-known to our service. He has a complicated past medical history, but most significant for atrial fibrillation, on anticoagulation, as well as a recent workup for multiple intracranial lesions. That workup included a craniotomy with biopsy and indeterminant results. The patient was found altered in a Jail [facility] earlier today. He also had a large hematoma on his right frontotemporal region as well as over his orbit. CAT scan revealed a new subdural bleeding in the right frontal cranial fossa with extension into interhemispheric sulcus and also new fresh hemorrhage into the subgaleal on the opposite side of the craniotomy site. There was increased compression of right frontal lobe with displacement and compression of the right horn as well as a midline shift. The patient was seen by Dr. Marvin and was found to have an INR of 11. He since then has received Kcentra and are normalized. He is now being monitored in the Intensive Care Unit. At this point, he is still quite altered and volunteers no complaints. REVIEW OF SYSTEMS: Cannot be obtained due to altered mental status/encephalopathy. PAST MEDICAL HISTORY: As extracted from our medical records are significant for: 1. COPD with no oxygen dependence. 2. Asthma. 3. Obstructive sleep apnea, on CPAP. 4. Distant prostate cancer. 5. History of gastrointestinal stromal tumor. PATIENT'S NAME: TIFFANIE MONTANEZ [facility] AGE: 81 Y [address] ROOM: [place] [address] LOCATION: GICU ADMIT DATE: 12/11/2016 Consultation DISCHARGE DATE: FAMILY PHYSICIAN: Susanna Benjamin MD ATTENDING PHYSICIAN: Nora Marvin 6. Type 2 diabetes. 7. Paroxysmal atrial fibrillation, on anticoagulation. 8. Small ring-enhancing lesions in his head for which a workup is yet indeterminate. CURRENT MEDICATIONS: Unavailable and will be obtained soon. SOCIAL HISTORY: The patient has a distant history of tobacco abuse. FAMILY HISTORY: Reviewed and is noncontributory. PHYSICAL EXAMINATION: VITAL SIGNS: At this point, his vital signs are temperature 98.7, pulse is 108, blood pressure is 150/77, and satting 88% on room air. GENERAL: Appears as a chronically ill, elderly male, in no acute distress. NEUROLOGIC: Exam is significant the patient is A and O x1. There is 2/5 weakness over the left-side of his body. LUNGS: Significant for crackles in bilateral bases, approximately 1/[address] up bilaterally. HEART: Rate is tachycardic and regular. ABDOMEN: Soft, nontender, nondistended. : No costovertebral angle tenderness. VASCULAR: Exam reveals 2+ pitting bilateral lower extremity edema. SKIN: Warm and dry. PSYCHIATRIC: Exam cannot be conducted due to encephalopathy. MUSCULOSKELETAL: Exam appears unremarkable. LABORATORY DATA: Studies from the ER are significant for a lactate of 2.7, glucose of 261. White count is 27.5, hemoglobin 13.1, and platelets of 41. His initial INR was 12 and now corrected to 1.06. He has 9% bands. There is also toxic granulation present in his lymphocytes on the differential. IMAGING STUDIES: As above. IMPRESSION/RECOMMENDATIONS: This is an 81-year-old male admitted with a right subdural hematoma and likely mechanical fall in the setting of elevated INR. Individual problems to be managed: 1. Right subdural hematoma. We will defer this to Neurosurgery. 2. Intermittent hypertensive episodes. We will treat those with labetalol. PATIENT'S NAME: TIFFANIE MONTANEZ [facility] AGE: 81 Y [address] ROOM: [place] [address] LOCATION: [facility] ADMIT DATE: 12/11/2016 Consultation DISCHARGE DATE: FAMILY PHYSICIAN: Susanna Benjamin MD ATTENDING PHYSICIAN: Nora Marvin 3. Atrial fibrillation. We will try and restart the patient on his oral medications as his swallow function allows. If not, we have the option of putting him on intravenous danish blockers. 4. Encephalopathy due to subdural hematoma, pressure affect. We will order a Speech and Swallow evaluation. 5. Leukocytosis with borderline bandemia. Given the patient was down for quite sometime and also has a toxic granulation as well as crackles and hypoxia bilaterally, I am concerned about potential infectious process. 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 We will also try and obtain sputum culture if he is able to produce. 6. Acute hypoxic respiratory failure. The patient does appear volume overloaded and he does have history of stage II diastolic dysfunction on previous echocardiograms. We will trial him on gentle doses of Lasix. 7. Recent high steroid therapy for his intracranial lesions. We will monitor for development of adrenal insufficiency and treat him with stress-dose steroids as needed. 8. Insulin-dependent diabetes. We will put the patient on a q.6 sliding scale while he is n.p.o. and hold off on his bolus insulin. 9. History of benign prostatic hypertrophy. Continue tamsulosin. 10. Long-term use of anticoagulants. At this point, I do not think that the patient should be continued on anticoagulation, but this decision can be made later. Additional management will depend on his clinical course. We will follow the patient with you. Thank you very much for allowing us to participate in the care of this patient. Time dedicated to this patient's consult is 35 minutes. MD JUNAID AREVALO/marilu /[id number] d: 12/12/16 0307 t: 12/27/16 0020, CONSULTATION REPORT
--- NOTE | ~2016-12-11 | NDGEN ---
PATIENT'S NAME: JHONATHAN MONTANEZ [facility] AGE: 81 Y [address] ROOM: [address] [address] LOCATION: [facility] ADMIT DATE: 12/11/2016 Neurodiagnostics DISCHARGE DATE: FAMILY PHYSICIAN: Susanna Benjamin MD ATTENDING PHYSICIAN: Nora Marvin PROCEDURE: ELECTROENCEPHALOGRAM TO RULE OUT SEIZURES DATE OF PROCEDURE: 12/16/2016 TIME: 8:42 a.m. DESCRIPTION OF PROCEDURE: Mr. Jhonathan Montanez is an 81-year-old male patient, who had a bur hole procedure associated with a subdural hematoma in the right hemisphere. He had a shift of the brain on the right side with some secondary edema. He was essentially unresponsive during the study, but he withdraw to pain using his right upper extremity. This EEG was a 20-lead EEG, which was done with photic stimulation. It should be noted that the patient is on Keppra 1000 mg twice a day for noted potential seizure activity. A general background rhythm revealed a 7-8 hertz theta rhythm, which did not appear to show any asymmetry. This theta rhythm was slightly slow rhythm that normal blood was essentially surprisingly not particularly slow for the patient's state of consciousness. There was normal amplitudes between 30-60 microvolts seen. In the left temporal region, there was rare spike signal that was seen but this was nonsustained. There was no evidence of any seizure activity, however. IMPRESSION: A slightly slow background rhythm that appeared to be symmetrical and not consistent with the patient being completely encephalopathic. There was occasional brief spikes seen in the left temporal region that was not sustained. There was no evidence of any seizure activity. MD JUAN MANUEL PORTILLO/marilu /[id number] dtt: 12/22/16 2222 , SHANNAN MILLER dtd: 12/17/16 0220
--- NOTE | ~2016-12-11 | OR ---
PATIENT'S NAME: TIFFANIE MONTANEZ [facility] AGE: 81 Y [address] ROOM: [address] [address] LOCATION: GICU ADMIT DATE: 12/11/2016 OR/Procedure Report DISCHARGE DATE: FAMILY PHYSICIAN: Susanna Benjamin MD ATTENDING PHYSICIAN: Nora Villavicencio SURGEON: Nora Villavicencio MD BOATHOUSE KEEPER: Beni Fuller CST. 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 POSTOPERATIVE DIAGNOSIS: Acute on chronic right subdural hematoma. PROCEDURES PERFORMED: Right frontotemporal craniotomy and evacuation of subdural hematoma. ANESTHESIA: General. ANESTHESIA PROVIDER: Damir Hui MD. HISTORY: The patient is an 81-year-old male, who came to the Emergency Room in the afternoon of December 11, 2016. The staff at the [facility] where he [facility] indicated that the patient had been unresponsive and was very confused. CT scan of the head showed a large acute on chronic right subdural hematoma with mass effect. The patient's INR was 11. He is on Coumadin for DVT. The patient was initially stable, but during the course of the evening, became less responsive. He was given mannitol, and he woke up some. I recommended craniotomy and evacuation of the subdural hematoma. I spoke with the patient's daughter, who was at the bedside, and with her consent, the patient was taken to the Operating Room for surgery. PROCEDURE IN DETAIL: In the Operating Room, the patient was placed in a supine position. Anesthesia was induced and he was intubated. Appropriate support lines were placed. The patient's head was placed on a gel donut facing the left side. A roll was placed under his shoulder. The hair was clipped over the right frontotemporal area. A horseshoe-shaped incision was marked out. The whole area was prepped and draped in a sterile fashion. Local anesthesia was infiltrated. A #10-blade was used to open the incision and deepen it to the scalp. The scalp was peeled back, and the scalp flap was held back with Vicryl sutures. A leela hole was placed, and using the leela hole, a craniotomy flap was turned. The dura was bulging appreciably as a result of the underlying subdural hematoma. PATIENT'S NAME: TIFFANIE MONTANEZ [facility] AGE: 81 Y [address] ROOM: [address] [address] LOCATION: [facility] ADMIT DATE: 12/11/2016 OR/Procedure Report DISCHARGE DATE: FAMILY PHYSICIAN: Susanna Benjamin MD ATTENDING PHYSICIAN: Nora Villavicencio The dura was opened, and almost immediately, the subdural blood came out. It was under a fair bit of pressure. Some of it was liquid as a typical chronic subdural hematoma. Some of it was thicker and more subacute. Working very carefully, all visible blood clots were removed. Irrigation was used to wash the epidural space. The irrigation continued until the returns were clear. The dura was then closed with Nurolon sutures. Tack-up sutures were used to hold up the dura, to close the epidural space. A series of holes were then drilled around the craniotomy. Bone flap and matching holes were drilled around the craniotomy defect. Using these series of holes, the bone flap was reattached. The scalp was then closed. The skin was closed with nylon sutures. A sterile dressing was applied. The patient was brought back to the ICU still intubated to continue his recovery. ATTESTATION: I was present at and performed every aspect of this procedure, assisted at some stages by the Operating Room nurses. COMPLICATIONS: There were no apparent intraoperative complications. COUNT RESULTS: Swabs, needles, and instruments were all accounted for at the end of the case. ESTIMATED BLOOD LOSS: 400 mL. There was no reason for blood transfusion. POSTOPERATIVE CONDITION: The patient's prognosis is still uncertain at this time, given his significant comorbid conditions as well as his coagulopathy. His platelets are less than 50, although hopefully, we will be able to get him through his subdural hematoma. I should mention that the patient had had prior right frontal craniotomy and biopsy of rim enhancing lesions. He presented to the Clinic on December 10 with an area of wound dehiscence. This wound dehiscence was closed, and he was started on antibiotics. The cultures had grown Staph. There was, however, no evidence of infection during this craniotomy. We will continue the patient's antibiotics as well. NORA VILLAVICENCIO MD PATIENT'S NAME: TIFFANIE MONTANEZ [facility] AGE: 81 Y [address] ROOM: [place] [address] LOCATION: GICU ADMIT DATE: 12/11/2016 OR/Procedure Report DISCHARGE DATE: FAMILY PHYSICIAN: Susanna Benjamin MD ATTENDING PHYSICIAN: Nora Villavicencio/marilu /[id number] d: 12/12/162225 t: 12/14/162031, OPERATIVE SUMMARY
--- NOTE | ~2016-12-11 | CON ---
PATIENT'S NAME: TIFFANIE MONTANEZ [facility] AGE: 81 Y [address] ROOM: [place] [address] LOCATION: GICU ADMIT DATE: 12/11/2016 Consultation DISCHARGE DATE: FAMILY PHYSICIAN: Susanna Benjamin MD ATTENDING PHYSICIAN: Nora Marvin REFERRING PHYSICIAN: SHANNAN MILLER MD REQUESTING PHYSICIAN: Dr. Marvin for his mild GI bleeding. HISTORY OF PRESENT ILLNESS: This is an 81-year-old gentleman. Mr. Montanez was admitted with multiple problems, most pressing problem being his intracranial hemorrhage and hematomas for which he had craniotomy and biopsy of the intracranial lesions. His recent admission mitigated with INR of 11 which was controlled by Kcentra and now he is having brownish stool which is recurrent with drop of hemoglobin to [address] scan on this admission showed subdural bleeding with right frontal cranial fossa extension into the interhemispheric sulcus and also new fresh hemorrhage into the subgaleal on the opposite side of the craniotomy site. He has increased compression of the right frontal lobe and displacement and compression of the right horn as well as the midline shift. Dr. Marvin consulted for evaluation and treatment of his lower GI bleeding. PAST MEDICAL HISTORY: Extracted from medical record as the patient is noncommunicative. 1. COPD. 2. Obstructive sleep apnea. 3. Asthma. 4. Prostate cancer. 5. Gastrointestinal stromal tumor. 6. Type 2 diabetes mellitus. 7. Paroxysmal atrial fibrillation, on anticoagulation. 8. Small ring enhancing lesions of the head of which biopsy was done. SOCIAL HISTORY: The patient has a history of distant smoking. FAMILY HISTORY: Noncontributory. PHYSICAL EXAMINATION: GENERAL: Reveals an elderly gentleman, who is responsive only to open the eyes, but not communicative. At present has BiPAP. VITAL SIGNS: Blood pressure is 116/55, fluctuating up to 158/57; pulse 103 per minute, which is also associated between 99 to 103; temperature 99.3 degrees Fahrenheit to 97.9 degrees Fahrenheit. PATIENT'S NAME: TIFFANIE MONTANEZ [facility] AGE: 81 Y [address] ROOM: [place] [address] LOCATION: GICU ADMIT DATE: 12/11/2016 Consultation DISCHARGE DATE: FAMILY PHYSICIAN: Susanna Benjamin MD ATTENDING PHYSICIAN: Nora Marvin HEENT: Examination of head, postoperative from craniotomy. Eyes, PERRLA. CHEST: Clear to palpation, percussion, and auscultation. He is not taking deep breath on command. CARDIAC: Tachycardia. Heart rate is 103 per minute. No abnormal heart sounds. No murmur. ABDOMEN: Soft, is nontender. There is no hepatosplenomegaly. There is a PEG tube. There is no ascites. MUSCULOSKELETAL: Cannot be performed because of the patient's condition unable to move. NEUROLOGICAL: Cannot be completed. LABORATORY DATA: Shows his hemoglobin is 8.3 at present, had dropped down to 7.1 on January 01, 2017. He had been given blood transfusions. Platelet count is 212. INR is 1.24, prothrombin time is 13.1. His pH is 7.48, pCO2 is 39, pO2 is 64. Chloride is 103, potassium is 4.1, sodium is 143, glucose is 190, calcium is 7.8, BUN is 14, creatinine 0.6, albumin is 2.6. Total bilirubin is 1. Alkaline phosphatase is 97, AST is 63, and ALT is 28. CT scan report as stated above. There is moderate pleural effusion on the right more than left. He is positive for small PE. ASSESSMENT: This elderly gentleman has multiple problems as stated above includin. Intracranial lesion, biopsy undetermined. 2. Intracranial hematoma secondary to anticoagulation. His INR was 11 on admission, reason for possible hematomas and also for gastrointestinal bleeding which has been corrected since. 3. Brownish stools, most likely lower gastrointestinal bleeding, however, upper gastrointestinal bleeding cannot be ruled out which may be antegrade, although PEG tube return is negative for obvious blood. RECOMMENDATION: Evaluation of source of bleeding by EGD and colonoscopy and hemostasis if possible by hemoclip application, heater probe, or epinephrine injections. We will discuss with the family in the morning and discuss the risks and benefits of these procedures and proceed further. We will go ahead and prepare him for colonoscopy tonight through the NG tube. We appreciate sharing care of this patient. RANDY BREWER MD PATIENT'S NAME: TIFFANIE MONTANEZ [facility] AGE: 81 Y [address] ROOM: [place] [address] LOCATION: [facility] ADMIT DATE: 12/11/2016 Consultation DISCHARGE DATE: FAMILY PHYSICIAN: Susanna Benjamin MD ATTENDING PHYSICIAN: Nora Marvin /[id number] CC: Nora Marvin MD d: 01/05/17 0208 t: 01/07/17 1514, CONSULTATION REPORT
--- NOTE | ~2016-12-11 | DS ---
PATIENT'S NAME: TIFFANIE MONTANEZ [facility] AGE: 82 Y [address] ROOM: [place] [address] LOCATION: GPCU ADMIT DATE: 12/11/2016 Discharge Summary DISCHARGE DATE: 01/10/2017 FAMILY PHYSICIAN: Susanna Benjamin MD ATTENDING PHYSICIAN: Nora Marvin REASON FOR ADMISSION: The patient is an 81-year-old gentleman, who presented with decreased responsiveness. Imaging studies showed a large acute right subdural hematoma. TREATMENT RENDERED: The patient was taken to the operating room and underwent craniotomy for evacuation of his subdural hematoma. His INR was very high before the surgery, as high as 11. This INR was reversed before craniotomy. The following day, the patient had a recurrence of his subdural hematoma requiring return to the operating room for repeat evacuation of the subdural hematoma as well as placement of a ventriculostomy. The patient's postoperative course was rather stormy, and he took a long time before he started to showed any type of response at all. During this time, he had a PEG tube placed for feeding. The patient also had GI bleed and underwent colonoscopy to identify the source of his bleed. He also had a PEG tube placed on December 26, 2016. After discussions with the family, arrangements were made to transfer the patient to [facility] for long-term care. He was transferred on January 10, 2017. At the time of transfer, the patient was starting to follow commands and verbalize one or two words. He still had the feeding tube, and he was not ambulatory. Prior to his subdural hematomas, the patient had been diagnosed with rim- enhancing lesions in his brain, and it was not clear whether these were infections or tumor. The biopsy was inconclusive. MRI scan, however, showed that these lesions were subsiding perhaps because of the antibiotics the patient had received. He will need to be followed up with subsequent MRI scans to determine the progress of these intracranial lesions. FINAL DIAGNOSES: 1. Acute subdural hematoma, status post craniotomy. 2. Placement of PEG tube for feeding. 3. Multiple intracranial lesions of unclear etiology. PATIENT'S NAME: TIFFANIE MONTANEZ [facility] AGE: 82 Y [address] ROOM: [place] [id number] LOCATION: GPCU ADMIT DATE: 12/11/2016 Discharge Summary DISCHARGE DATE: 01/10/2017 FAMILY PHYSICIAN: Susanna Benjamin MD ATTENDING PHYSICIAN: Nora Marvin NORA MARVIN MD CNO/modl /[id number] d: 02/04/172003 t: 02/10/17 1043, DISCHARGE SUMMARY
--- NOTE | ~2016-12-11 | CON ---
PATIENT'S NAME: JHONATHAN MONTANEZ [facility] AGE: 81 Y [address] ROOM: [place] [address] LOCATION: GICU ADMIT DATE: 12/11/2016 Consultation DISCHARGE DATE: FAMILY PHYSICIAN: Susanna Benjamin MD ATTENDING PHYSICIAN: Nora Marvin REFERRING PHYSICIAN: SHANNAN MILLER MD HISTORY OF PRESENT ILLNESS: Jhonathan Montanez is an 81-year-old man with thrombocytopenia complicating a subdural hematoma. The patient's past medical history and the history of the present illness through 11/15/2016 are well documented on the Oncology consultation on the [facility] record, and will not be repeated. Following dictation of the consult, the patient's right arm edema improved a great deal on heparin anticoagulation. The patient was placed on warfarin anticoagulation as well. At the time of discharge from that hospitalization, the INR was 2.36. The patient was transferred home. On 11/28/2016, the INR was 2.84. The family does not recall an INR check subsequently. The patient did well at home until two weeks prior to this admission. The patient was off dexamethasone. Two weeks prior to admission, the patient developed gradually progressive loss of strength in his left leg. On December, Dr. Marvin saw the patient, examined the wound, and drained some material. On 12/11/2016, the nursing staff at the [facility] became concerned when the patient developed progressive fatigue and confusion. They also noted ecchymoses around the right eye and ear, and transported the patient to the [facility] Emergency Room. Dr. Wolff examined Mr. Montanez, and confirmed the Skilled Nursing observations. The INR was 11.98. The white count was 27,500, the hemoglobin was 13.1 g/dL, the MCV was 89, and the platelets were 41,000. The patient had 84 segs and 9 bands. The PTT was 68. The CMS revealed that the glucose was 261 mg/dL. The albumin was 2.2 g/dL. The CMS was otherwise unremarkable. The C-reactive protein was 14.8 mg/dL, the haptoglobin was 366 mg/dL, and the LDH was 361 mg/dL. The glycosylated hemoglobin was 9.4%. The proBNP was 1045 pg/mL. The CAT scan of the head without contrast revealed a right-sided subdural effusion at the convexity of the right hemisphere. This was chronic. However, there was fresh hemorrhage in the anterior right subdural space over the frontal lobe with bleeding into the subgaleal space on the opposite side of the operative site, with a large subgaleal hematoma forming. The bleeding extended into the anterior interhemispheric sulcus. There was an increased compression of the right lateral ventricle, especially at the right frontal horn. It should be noted prior to the Emergency Room visit, on 12/10/2016, an MRI revealed a right subdural effusion larger than that on 11/13/2016 with a thickness of 2.5- cm at the posterior parietal location as compared to about 0.95 cm previously. There was increased right hemisphere compression and mid-bowing of the midline PATIENT'S NAME: JHONATHAN MONTANEZ [facility] AGE: 81 Y [address] ROOM: [place] [address] LOCATION: [facility] ADMIT DATE: 12/11/2016 Consultation DISCHARGE DATE: FAMILY PHYSICIAN: Susanna Benjamin MD ATTENDING PHYSICIAN: Nora Marvin to the left. 4-factor prothrombin concentrate was administered, and the INR improved to 1.06. Two units of platelets were administered, and the platelets madyson from 37,000 to 134,000, but then fell to 74,000. Dexamethasone 40 mg was administered by vein prior to the transfusion of the platelets. As noted, the patient was discharged doing reasonably well, with improvement in the right upper extremity deep venous thrombosis following removal of his PICC line. His warfarin was regulated satisfactorily upon his discharge. A subsequent INR on December 07 was also satisfactory. We planned to administer warfarin for one month and then discontinue warfarin since the deep venous thrombosis had been in the upper extremity and the patient's central line had been removed from the right arm. 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 Since the patient's discharge and prior to this admission, he was seen at [facility]. At that time, dexamethasone was reinstated because of some weakness. The MRI scans were not available to the consultants at [facility]. There were no recommendations for further workup to characterize the multiple ring-enhancing lesions. The patient has otherwise had no complaints, the family notes. MEDICATIONS: Upon admission, 1. APAP. 2. Albuterol sulfate. 3. Amitriptyline 25 mg p.o. daily at bedtime. 4. Atorvastatin 40 mg p.o. at bedtime. 5. Bisacodyl 10 mg p.r.n. constipation. 6. Budesonide/formoterol fumarate one puff inhaled b.i.d. 7. Clindamycin 300 mg p.o. every six hours. 8. Dexamethasone 4 mg p.o. t.i.d. 9. Diltiazem 120 mg p.o. daily. 10. Dronedarone 400 mg p.o. b.i.d. 11. Furosemide 20 mg p.o. t.i.d. 12. Gabapentin 900 mg p.o. t.i.d. 13. Glimepiride 1 mg p.o. daily. 14. Insulin detemir 30 units subq at bedtime. 15. Insulin aspart subq on a sliding scale. 16. Magnesium hydroxide 30 mL p.o. every 24 hours p.r.n. constipation. 17. Pantoprazole 40 mg p.o. every 24 hours. 18. Polyethylene glycol 17 g p.o. q.48 hours. 19. Spironolactone 25 mg p.o. q.24 hours. 20. Tamsulosin 0.4 mg p.o. at bedtime. 21. Warfarin 7.5 mg p.o. t.i.d. and 6 mg p.o. four times a week. PATIENT'S NAME: JHONATHAN MONTANEZ [facility] AGE: 81 Y [address] ROOM: [place] [address] LOCATION: [facility] ADMIT DATE: 12/11/2016 Consultation DISCHARGE DATE: FAMILY PHYSICIAN: Susanna Benjamin MD ATTENDING PHYSICIAN: Nora Marvin REVIEW OF SYMPTOMS: Negative other than those already noted. PHYSICAL EXAMINATION: GENERAL: Well developed, obese, 81-year-old male, in no distress. The patient is currently arousable, but not conversant and there is clear evidence of ecchymoses on the head. HEENT: Ecchymosis in the right orbit and right frontal temporal area, where the incision was made. Lymph nodes were not palpable. NECK: Without JVD or carotid bruits. CHEST: Clear anteriorly. CARDIOVASCULAR: Regular rhythm. No murmurs, bruits, or adventitious sounds. ABDOMEN: No masses, tenderness, or organomegaly. GENITALIA AND RECTAL: Carranza catheter is in place. EXTREMITIES: Resolution of the pronounced right upper extremity ecchymoses on both ventral forearms. Pulses are palpable throughout. NEUROLOGIC: The patient is arousable, but not conversant. IMPRESSION: 1. 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 The patient was predisposed to this due to his markedly prolonged INR, which is an iatric complication of his warfarin. The patient's thrombocytopenia may also be a predisposing factor here. He does not have profound thrombocytopenia. 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 That being said, he did have a marked fall in his platelet count, following the platelet transfusion, though he had a marked rise initially. 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 2. Given his critical illness, treating him aggressively and empirically for immune thrombocytopenia is reasonable. RECOMMENDATIONS: Diagnostic 1. CBC and a tube with EDTA as an anticoagulant, as well as sodium citrate anticoagulant. 2. Follow INR and platelets closely. Treatment 1. Continue dexamethasone 40 mg for four days. 2. Human immunoglobulin 400 mg/kg IV daily for five days in this critical situation is reasonable. PATIENT EDUCATION: 1. Discussed this approach with the patient's family. PATIENT'S NAME: JHONATHAN MONTANEZ [facility] AGE: 81 Y [address] ROOM: [place] [address] LOCATION: [facility] ADMIT DATE: 12/11/2016 Consultation DISCHARGE DATE: FAMILY PHYSICIAN: Susanna Benjamin MD ATTENDING PHYSICIAN: Nora Marvin 2. Discussed this approach with the patient's physicians. MD PERCY PAYAN/marilu /[id number] CC: MD Susanna Nicholas MD Alexander V Kaganas, MD d: 12/13/165 t: 12/16/16 1220, CONSULTATION REPORT
--- NOTE | ~2016-12-11 | CON ---
PATIENT'S NAME: TIFFANIE MONTANEZ [facility] AGE: 81 Y [address] ROOM: [address] [address] LOCATION: GICU ADMIT DATE: 12/11/2016 Consultation DISCHARGE DATE: FAMILY PHYSICIAN: Susanna Benjamin MD ATTENDING PHYSICIAN: Nora Marvin DATE OF CONSULTATION: 12/15/2016 REFERRING PHYSICIAN: SHANNAN MILLER MD The patient was seen on neurologic consultation on 12/15/2016. HISTORY OF PRESENT ILLNESS: Mr. Montanez is known to me from a prior admission here back on October 05, 2016, when he presented with confusion, slurred speech, and inappropriate behavior ongoing at that time. He had a CAT scan of the brain followed by MRIs, which showed ring-enhancing lesions involving multiple portions of his brain including the left thalamic pulvinar regions and other areas, what thought to be possibly infectious related. He briefly received treatment for presumed toxoplasmosis; however, the laboratories consistent with IgG and IgM for toxoplasmosis were negative. Therefore, the workup turned to treating him as possible multiple abscesses, for which the etiology is unclear. 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 The issue with this paraesophageal mass was unknown as well and not thought to be associated with the multiple ring- enhancing lesions. He received antibiotics as well as steroids for some perilesional edema and it appeared that the patient had made some good progress. He even went to [facility] for further workup and treatment. By history, the patient had been doing fairly well until late September when he started to have confusion. He does have a history of paroxysmal atrial fibrillation, for which he was being treated with Eliquis; also history of diabetes type 2 and hypertension. He had a stable prostate cancer history, status post prostatectomy; COPD and asthma; he had admission for right lung consolidation back before the beginning of the year. Unfortunately, he started to go downhill back in November of 2016 when he started to have more confusion again until he had made a fairly good improvement with his treatment here in the hospital the prior month, what happened back in November was he started to become weak and tired, not acting like his usual self, much like his presentation back in late September, but he did have some near fevers of around 100 Fahrenheit on October 18. The patient was able to be compliant and answer questions appropriately. At times, he was a bit confused, but he was oriented to persons, place, time, and situation. An MRI of the head done without IV contrast showed some increase in size of the ring- enhancing lesions that was seen back in late September, so noted was some vasogenic edema. It seemed as though Decadron had been stopped 1 week prior to that and there had been no improvement of these lesions on IV cefepime and PATIENT'S NAME: TIFFANIE MONTANEZ [facility] AGE: 81 Y [address] ROOM: [place] [address] LOCATION: [facility] ADMIT DATE: 12/11/2016 Consultation DISCHARGE DATE: FAMILY PHYSICIAN: Susanna Benjamin MD ATTENDING PHYSICIAN: Nora Marvin IV. At the time of initial diagnosis, it was offered that the patient should have a biopsy of the brain, but the patient and his family were refusing a brain biopsy at that time. His antibiotics were instituted throughout his early stay. 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 Thus far, ITP in his case is unknown. Eliquis had to be stopped due to the patient having a possible brain biopsy. Risks and benefits were considered. He continued to do poorly until late November and into beginning of December. He is still continuing to have low-grade fevers up to 100.5 and difficulty with talking and walking, but yet his behavior would sometimes be odd, yet he would answer questions appropriately and seemed to be either making some slight improvement or remaining about the same. He was briefly in the hospital but re-presented back to the hospital back on December 11, with again altered mental status, weakness, and now a right- sided headache. He had recently been placed on antibiotics which likely pushed up his INR, associated with him being placed on Coumadin instead of the Eliquis, in case the Coumadin was being used for DVT of his right upper extremity. This admission, he presented with a fairly large subdural hematoma which required a right frontal craniotomy. INR on presentation was 11.98 [place] [address]. The INR was reversed with vitamin K. In addition to this, thrombocytopenia was present at 41,000. The subdural hematoma with his presentation most recently was associated with compression of the right frontal lobe with surrounding hollow hemispheric swelling in the right hemisphere. There was also a displacement of the right brain to the left missing the right frontal horn. The shift to the left seemed to be fairly minor to moderate and did not result in compression of the brainstem, nor hydrocephalus. In finding out a little bit more about why he may be had this subdural bleed in addition to the platelets being low and the INR elevated, it is likely he experienced a possible fall at the intermediate where he had been moved to. Based upon this subdural bleed and brain shift, the patient underwent decompressive subdural drainage on December 14 with a right frontoparietal craniotomy, it was reported to be decreased volume of the subdural overlying blood in the high right parietal lobe region. Subdural air was in place and it was into the skull post surgery. The subarachnoid blood that was seen seemed to be stable and some adjacent subdural blood was seen in the falx level. Still noted mass effect with effacement of the right side cortical sulci and a midline shift that did not appear to be worsened since the initial CAT scans upon his admission on December 11 and . Unfortunately, the patient has not been doing well. He has not had any improvement since this craniotomy procedure to drain the subdural. He has received IVIG to stabilize the platelets. We have been unable to see him having any meaningful recovery. Two days prior to this note, I saw the patient was withdrawing on his right upper extremity to pain on a sternal rub, but this has eliminated in the past 24-48 hours. It was thought that he may have had some subclinical seizures as he would have some jerking of his eyes to the left field with PATIENT'S NAME: TIFFANIE MONTANEZ [facility] AGE: 81 Y [address] ROOM: [place] [address] LOCATION: [facility] ADMIT DATE: 12/11/2016 Consultation DISCHARGE DATE: FAMILY PHYSICIAN: Susanna Benjamin MD ATTENDING PHYSICIAN: Nora Marvin forced deviation as well as some jerking of his left upper extremity. When I did the EEG, I did not find any activity suggestive of seizures and in fact that his background rhythm was only slightly slow with no epileptiform features seen. In the past 24 hours, I have changed his IV antiepileptic medications around in case the Keppra was causing some sedation. He is currently on Dilantin with the levels being checked at this point. I had a big discussion with the family members along with Dr. Marvin yesterday. The main issues on the discussion included as to why the patient has not had an expected improvement even though he had a significant subdural hematoma with a dramatic edema to the right hemisphere, his shift was somewhat mild to the left and did not involve a dramatic injury to the left brain per se, his brain seems to be stabilizing a bit with some improvement in the cortical sulci; yet, he has not made any improvement over the course of the time since the craniotomy. We do not think that there are active seizures going on at this moment. His laboratory results do seem to be stable. In fact, he does reveal good parameters on the ventilator with only a minimal need for oxygen on the ventilator, and cranial nerve exam remains intact suggesting there has been no injury to the brain stem itself. PRIOR MEDICAL HISTORY: Briefly again, COPD; asthma; obstructive sleep apnea; prostate cancer history; diabetes type 2; hypertension; paroxysmal atrial fibrillation, recently on anticoagulation, now discontinued; and a recent history of a right upper extremity DVT. ALLERGIES: HE HAS ALLERGIES TO ASPIRIN WHICH CAUSED HIM SHORTNESS OF BREATH. CURRENT MEDICATIONS: In the hospital include: 1. Fluconazole 100 mL daily IV. 2. Fosphenytoin 100 PE q.8 hours IV. 3. Vancomycin 0.2 g IV q.8 hours. 4. Pantoprazole 40 mg IV daily. FAMILY HISTORY: His father of a myocardial infarction at 61. His mother of colon cancer. SOCIAL HISTORY: He is a former cigarette smoker for many years, but had not been actively smoking up until the late portion of 2016. There is no history of alcohol abuse or illegal drug use. REVIEW OF SYSTEMS: PATIENT'S NAME: TIFFANIE MONTANEZ [facility] AGE: 81 Y [address] ROOM: [id number] [place], [place] [address] LOCATION: [facility] ADMIT DATE: 12/11/2016 Consultation DISCHARGE DATE: FAMILY PHYSICIAN: Susanna Benjamin MD ATTENDING PHYSICIAN: Nora Marvin The patient is unresponsive to sternal rub, is not withdrawing to pain in his bilateral upper and lower extremities. He does not open his eyes. Not had any improvement over the course of the last 5 days. PHYSICAL EXAMINATION: VITAL SIGNS: Pulse of 91, respirations rate 16, blood pressure 38/58, temperature is afebrile. GENERAL: The patient is unresponsive, intubated, not on sedation. NEUROLOGIC: Pupils are sluggishly reactive at 3 mm bilaterally. There is a strong aversion to my touching his eyelids and corneal reflexes are briskly intact. He does cough with a deep tug on the ET tube. Oculocephalic reflex appears to be intact. There is no spontaneous movement of his limbs. Tone is slightly increased in the upper extremities. Reflexes are blunt. IMPRESSION: The patient has not had an improvement since the major subdural bleed with evacuation of this hematoma back around 4 days ago. I have kept a good touch with the family and though I was hopeful that he would be making some recovery here since the patient is otherwise doing fairly well on other parameters such as organ issues with kidney function intact and liver function intact, he has been maintaining his blood pressure normal, and his respiratory profile seems to be also quite good. Unfortunately, this neurologic event of a right brain edema with a left shift is likely associated with the patient having some bilateral dysfunction though it is definitely unclear as to why he has not made any improvement at this point even by moving either of his upper extremities though there is no aspect of sedative medications on board. It is hard to remain hopeful since we have not seen any improvement over the course of the past 4 days at least. A repeat CAT scan of the brain does not indicate that the patient has had any rebleed that would be needing for evacuation by Neuro Surgery. His intrathecal pressures have remained stable throughout and there is no sign of hydrocephalus by the imaging. Again, I have tried to be as best hopeful because there has been some improvement in his laboratory results as well as he is maintaining good respiratory parameters, but with the patient not having any improvement with deep sternal rub or withdrawing to pain, he continues to have a poor prognosis at this time. I will continue to look very closely to see if there is anything in the background such as seizures that are ongoing here and we will repeat his EEG in the morning; however, the initial EEG was actually fairly good not indicating any background seizure activity. We will continue to follow with the Hospitalist Service on Mr. Montanez's progress. SHANNAN MILLER MD PATIENT'S NAME: TIFFANIE MONTANEZ [facility] AGE: 81 Y [address] ROOM: [place] [address] LOCATION: [facility] ADMIT DATE: 12/11/2016 Consultation DISCHARGE DATE: FAMILY PHYSICIAN: Susanna Benjamin MD ATTENDING PHYSICIAN: Nora Marvin /[id number] d: 12/18/16 0326 t: 12/22/16 2225, CONSULTATION REPORT
--- NOTE | ~2016-12-11 | OR ---
PATIENT'S NAME: TIFFANIE MONTANEZ [facility] AGE: 81 Y [address] ROOM: [address] [address] LOCATION: GICU ADMIT DATE: 12/11/2016 OR/Procedure Report DISCHARGE DATE: FAMILY PHYSICIAN: Susanna Benjamin MD ATTENDING PHYSICIAN: Nora Villavicencio SURGEON: Nora Villavicencio MD SANITARY ENGINEER: Danny Mata. DATE OF PROCEDURE: 12/12/2016 PREOPERATIVE DIAGNOSIS: Recurrent acute right subdural hematoma. POSTOPERATIVE DIAGNOSIS: Recurrent acute right subdural hematoma. PROCEDURES PERFORMED: 1. Reopening of right craniotomy and evacuation of subdural hematoma. 2. Placement of left-sided ventriculostomy for management of intracranial pressure. ANESTHESIA: General. ANESTHESIA PROVIDER: Gabriel Hutchison MD. HISTORY: The patient is an 81-year-old male who had craniotomy and evacuation of subdural hematoma earlier in the day on December 12, 2016. Unfortunately, he had a recurrence of the subdural hematoma. The patient has low platelets and was also on warfarin; although, his INR had been corrected prior to the initial surgery. With a recurrence of his subdural hematoma, it was necessary to take him back to the operating room for repeat evacuation and also to place a ventriculostomy for monitoring his ICP. The procedure, benefits, and risks were discussed with the family members. With their consent, the patient was brought to the operating room for surgery. PROCEDURE IN DETAIL: In the operating room, the patient was placed in a supine position. He was already intubated and anesthesia was induced. The area for the ventriculostomy was marked out at 12.5 cm behind the nasion and 3- cm off from the midline taking into account the patient's midline shift. The area was prepped and draped in a sterile fashion. Local anesthesia was infiltrated. Twist drill was used to drill a hole through the skull. Dura was coagulated and the ventriculostomy catheter was tunneled through the scalp and brought out of the entry point. Initial attempts at cannulating the ventricle were unsuccessful. We therefore decided to do the redo craniotomy and come back to the ventriculostomy. The patient was repositioned. The site of the craniotomy was prepped and draped. The craniotomy was reopened. The PATIENT'S NAME: TIFFANIE MONTANEZ [facility] AGE: 81 Y [address] ROOM: [place] [address] LOCATION: [facility] ADMIT DATE: 12/11/2016 OR/Procedure Report DISCHARGE DATE: FAMILY PHYSICIAN: Susanna Benjamin MD ATTENDING PHYSICIAN: Nora Villavicencio bone flap was removed. We encountered both epidural as well as subdural blood. The hemorrhage was evacuated until there was no obvious hemorrhage left. The dura was closed back. The bone flap was replaced. The skin was closed. The patient's head was turned back 1 more time to access the ventriculostomy site. The incision was reopened. A fresh catheter was tunneled under the skin. At this time, the ventricle was accessed promptly. The ventricular catheter was hooked up to the drainage chamber. The catheter was anchored to the scalp. The opening incision was closed. The patient's head was then wrapped in a sterile bandage covering both the craniotomy as well as ventriculostomy sites. He was kept intubated and taken back to the recovery room to complete his recovery. I was present at and performed every aspect of this procedure, assisted at some stages by the operating room nurses. There were no apparent intraoperative complications. Swabs, needles, and instruments were all accounted for end of the case. Estimated blood loss was 500 mL. The patient did receive 2 units of blood. His prognosis is uncertain at this time given the fact that he is prone to bleeding, but if we are able to keep the bleeding under control and control his intracranial pressure, he may still make a reasonable recovery from this situation especially with the hemorrhage being all on the right-hand side of the brain. NORA VILLAVICENCIO MD CNO/modl /[id number] CC: Susanna Benjamin MD d: 12/15/16 0042 t: 12/15/162000, OPERATIVE SUMMARY
--- NOTE | ~2016-12-11 | ER ---
PATIENT'S NAME: TIFFANIE MONTANEZ [facility] AGE: 81 Y [address] ROOM: [address] [address] LOCATION: [facility] ADMIT DATE: 12/11/2016 ER/Outpatient Report DISCHARGE DATE: FAMILY PHYSICIAN: Susanna Benjamin MD ATTENDING PHYSICIAN: Nora Marvin Admission date and time documented on the medical record. I saw the patient at 1430 hours. CHIEF COMPLAINT: Altered mental status, fatigue, weakness, right-sided headache. HISTORY OF PRESENT ILLNESS: The patient is an 81-year-old male who was brought to the emergency room by paramedics via ambulance from the intermediate. The patient recently underwent craniotomy for subdural hematoma, chronic and acute, per Dr. Marvin, neurosurgeon. Dr. Marvin then went in to do clean-out of the area again and recently got out of the hospital. Had onset of altered mental status at home today accompanied with fatigue, generalized weakness, and the right-sided headache and was brought in. The patient denies any chest pain, shortness of breath, abdominal pain. He has some nausea with one episode of vomiting. No diarrhea. No urinary symptoms. No incontinence. No joint or muscle swelling, redness, or pain. No skin eruptions or rash. No eyes, ears, nose, throat, neck, or spine pain. Questionable fall, no trauma. No recent cold, coughs, flus, fever, chills, or sweats. Lightheaded but no syncope that we know of. There was no witnessed fall. No witnessed syncopal episode. The patient had on his last hospitalization had a DVT in his right arm and was placed on chronic anticoagulation using Coumadin. He has non-insulin- dependent diabetes mellitus type 2. No endocrine problems. Has had a brain bleed. HOME MEDICATIONS: See attached medication list. ALLERGIES: ASPIRIN. SOCIAL HISTORY: Nonsmoker. Occasional intake of alcohol. SIGNIFICANT PAST MEDICAL HISTORY: COPD, obstructive sleep apnea, nocturnal hypoxemia, right arm DVT, chronic anticoagulation with Coumadin, thrombocytopenia, brain lesion, brain bleed, paroxysmal atrial fibrillation, asthma, GI stromal tumor, non-insulin- dependent diabetes mellitus type 2, prostate cancer, hypertension, PATIENT'S NAME: TIFFANIE MONTANEZ [facility] AGE: 81 Y [address] ROOM: [id number] [place], [place] [address] LOCATION: [facility] ADMIT DATE: 12/11/2016 ER/Outpatient Report DISCHARGE DATE: FAMILY PHYSICIAN: Susanna Benjamin MD ATTENDING PHYSICIAN: Nora Marvin dyslipidemia, constipation, peripheral neuropathy, macular degeneration, skin cancer, remote tobacco abuse. OPERATIONS: Right frontal craniotomy. REVIEW OF SYSTEMS: All systems reviewed by me are negative with exception of those discussed in the history of present illness. PHYSICAL EXAMINATION: VITAL SIGNS: Temperature 98.6, tympanic; pulse 102; respirations 20; blood pressure 110/57; O2 saturation on room air is 93%. HEENT: Head, normocephalic. The patient has some swelling, some little bit of bleeding on his craniotomy incision on the right temporoparietal area. Eyes, extraocular muscles intact. PERRL. Ears, clear TMs bilaterally. Nose and throat, clear. Mucous membranes moist. Teeth, jaw intact. NECK: No nuchal rigidity. No thyromegaly or cervical adenopathy. No tenderness. SPINE: Negative, nontender. LUNGS: Clear. Good air flow. No rales, rhonchi, or wheezes. HEART: Regular. Pulses are palpable. ABDOMEN: Soft, nondistended, nontender. Good bowel tones. No organomegaly or abnormal masses palpable. EXTREMITIES: Without peripheral edema, cyanosis, or deformity. NEURO: The patient is awake, cooperative. Does follow some commands. Little disoriented. Moves all 4 extremities. Sensorimotor appears to be intact. Has a right-sided headache. His mentation is decreased and is not his norm. VASCULAR: Intact. SKIN: Clear. No active bleeding anywhere. LABORATORY DATA AND X-RAYS: White count is 27,500 with a differential of 84 segs, 9 bands, 1 lymph, 6 monos. Hemoglobin is 13.1 with hematocrit 39.3, platelets were low at 41,000. PTT was elevated at 68, protime was elevated at 129 with an elevated INR of 11.98. Procalcitonin was 0.32. Lactate was 2.7. CMS was normal except for an elevated glucose of 261 and low calcium of 7.6, elevated BUN of 29 with greater than 60 GFR. Magnesium 2.3. CPK was 70. Point of care cardiac enzymes were normal. CRP was 14.80. ProBNP was 1045. EKG showed sinus arrhythmia; no acute ST elevation, ischemic change, or arrhythmia. Chest x- ray showed no acute infiltrate or changes. CT scan of the head showed a right- sided subdural effusion, but stable at the convexity of the right hemisphere, but there is fresh hemorrhage in the anterior right subdural space over the frontal lobe and there is bleeding to the subgaleal space on the opposite side of the operated site. There is a large subgaleal hematoma forming. This PATIENT'S NAME: TIFFANIE MONTANEZ [facility] AGE: 81 Y [address] ROOM: [place] [address] LOCATION: GICU ADMIT DATE: 12/11/2016 ER/Outpatient Report DISCHARGE DATE: FAMILY PHYSICIAN: Susanna Benjamin MD ATTENDING PHYSICIAN: Nora Marvin bleed is extending to the anterior interhemispheric sulcus, has a prior compression of the right lateral ventricle. CT scan was read by Radiology, see dictated transcribed report. EMERGENCY DEPARTMENT COURSE: I did discuss this with Dr. Marvin, neurosurgeon. Dr. Marvin is coming to the emergency room to evaluate the patient. We will proceed on their recommendations. In view of the elevated INR, he will need to have that brought down to a normal range with fresh frozen plasma possibly. The patient may need to be taken back to operation. IMPRESSION: 1. Altered mental status secondary to fresh hemorrhage in the subdural space over the frontal lobe. See the radiologist's dictation and described extent of the fresh bleed. The patient does have a history of old subdural hematoma also. 2. Recent anticoagulation with Coumadin because of a deep venous thrombosis in his right arm. He is hypercoagulated with an elevated protime of 129 and an elevated INR of 11.98. 3. Thrombocytopenia with a platelet count of 41,000. 4. Leukocytosis with a white count of 27,500, differential of 84 segs, 9 bands, 1 lymph, 6 monos. He had an elevated procalcitonin of 0.32 and elevated lactate of 2.7. No fever. 5. Hypocalcemia with a calcium of 7.6. 6. Hyperglycemia with a glucose of 261 and a history of non-insulin- dependent diabetes mellitus type 2. 7. Chronic obstructive pulmonary disease with obstructive sleep apnea and nocturnal hypoxemia. 8. History of hypertension. 9. History of dyslipidemia. 10. History of prostate cancer. 11. Remote tobacco abuse. PLAN: The patient will be admitted to the hospital per Dr. Marvin. Discussion ensued with the family and the patient regarding my findings and recommendations. The patient will need therapy to bring his INR down to a normal level. The patient may need to have operation. These will be determined by Dr. Marvin, neurosurgeon. Accumulated critical care time 30 minutes. PATIENT'S NAME: TIFFANIE MONTANEZ [facility] AGE: 81 Y [address] ROOM: [address] [address] LOCATION: [facility] ADMIT DATE: 12/11/2016 ER/Outpatient Report DISCHARGE DATE: FAMILY PHYSICIAN: Susanna Benjamin MD ATTENDING PHYSICIAN: Nora Marvin MD SDS/modl /[id number] d: 12/12/16 0051 t: 12/12/16 0618, OUTPATIENT REPORT
--- NOTE | ~2016-12-11 | PUL ---
PATIENT'S NAME: TIFFANIE MONTANEZ [facility] AGE: 81 Y [address] ROOM: [address] [address] LOCATION: GPCU ADMIT DATE: 12/11/2016 Pulmonary DISCHARGE DATE: 01/10/2017 FAMILY PHYSICIAN: Susanna Benjamin MD ATTENDING PHYSICIAN: Nora Marvin NAME OF PROCEDURE: Nighttime Oximetry DATE OF PROCEDURE: January 09 to January 10, 2017 REASON FOR EXAM: Nocturnal hypoxemia RESULTS: The recording time was 6 hours, 38 minutes, 24 seconds, total valid sampling time was 6 hours, 38 minutes, and 24 seconds. The highest pulse was 107 beats per minute, the lowest pulse was 78 beats per minute, and mean pulse was 92 beats per minute. The highest SpO2 was 100%, the lowest SpO2 was 90%, with mean SpO2 of 95.9%. The patient did not spend any time below 90%. There was no event desaturation. PHYSICIAN INTERPRETATION: This is a normal nighttime oximetry the patient does not qualify for nighttime oxygen. Thank you for allowing to participate in care of this patient. MD ALICE SOMMER/jeri /[id number] dtt: 01/20/17 1052 , Joe Alexis. dtd: 01/14/17 1306
--- NOTE | ~2016-12-11 | HP ---
PATIENT'S NAME: JHONATHAN MONTANEZ [facility] AGE: 81 Y [address] ROOM: [place] [address] LOCATION: GICU ADMIT DATE: 12/11/2016 History & Physical DISCHARGE DATE: FAMILY PHYSICIAN: Susanna Benjamin MD ATTENDING PHYSICIAN: Nora Villavicencio DATE OF SERVICE: 12/11/2016 REASON FOR REFERRAL: Subdural collection. PATIENT IDENTIFICATION: Jhonathan Montanez is an 81-year-old male. PRESENTING COMPLAINT: Decreased responsiveness. HISTORY OF PRESENT ILLNESS: The patient resides at [facility]. This morning, the staff noted that the patient was very confused and unable to walk well. He also had a bruise around his right eye and ear and was very tired and confused. They brought the patient to the emergency room here at [facility] for the above reasons. 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 I was therefore consulted to see the patient. The patient was seen in my office just yesterday. He had partial wound dehiscence for previous craniotomy on the right side of his head. See below. The incision was closed. Cultures were taken. The patient was released back to the halfway. At that time, he was doing fine. PAST MEDICAL HISTORY: The patient was admitted in September with multiple rim-enhancing brain lesions. The differential diagnosis was abscess versus tumour. One of the lesions was biopsied and the biopsy was inconclusive. The patient has since that time been on steroids. He is also on warfarin because he developed a right upper extremity DVT. Prior to the warfarin, he was on Xarelto. Other past medical history includes diabetes with diabetic neuropathy, hyperlipidemia, malignant neoplasm of esophagus, and depressive disorder. CURRENT MEDICATIONS: 1. Amaryl. 2. Amitriptyline. 3. Atorvastatin. 4. Diltiazem. PATIENT'S NAME: JHONATHAN MONTANEZ [facility] AGE: 81 Y [address] ROOM: [place] [address] LOCATION: CU ADMIT DATE: 12/11/2016 History & Physical DISCHARGE DATE: FAMILY PHYSICIAN: Susanna Benjamin MD ATTENDING PHYSICIAN: Nora Villavicencio 5. Lasix. 6. Levemir. 7. Decadron. ALLERGIES: PLEASE SEE CHART. SOCIAL HISTORY: The patient is . He lives in a halfway. REVIEW OF SYSTEMS: A 10-point review of systems was carried out. The only abnormal finding is as described in the history of present illness. PHYSICAL EXAMINATION: GENERAL: The patient is a frail looking elderly gentleman who was on a gurney. He was drowsy, but would arouse for short periods of time. He followed commands. His speech was coherent, but he could not say very much. HEENT: Head: There is a bruise around his right eye. There is also a right frontal scar from a craniotomy he had before. The craniotomy was for biopsy of one of his intracranial lesions. VITAL SIGNS: Blood pressure is 110/57, pulse rate is 102, temperature 98.6. NEURO: He is drowsy, but arousable. He does follow commands. Cranial nerves unable to assess in detail, but no gross deficits seen. Motor examination: The patient moves all extremities, but he has had some left leg weakness. EXTREMITIES: The patient has peripheral edema in his lower extremities. ABDOMEN: There is bruising on his abdomen from insulin injections. He also has bruising in other areas of his body. REVIEW OF IMAGING STUDIES: The patient has had a head CT scan done. The head CT scan shows a right-sided subdural effusion. There is some fresh hemorrhage on the anterior right subdural space with bleeding in the subgaleal space, where he had his incision closed yesterday. There is some increase in compression of the right lateral ventricle, especially the right frontal horn. There is also some worsening midline shift compared to previous imaging. ASSESSMENT: An 81-year-old gentleman with altered level of consciousness. CT scan shows a right subdural collection. MEDICAL DECISION MAKING: The patient is being admitted to the hospital for workup. He will be given IV fluids and his INR will be corrected. He may need bur hole evacuation of the subdural collections when his INR is corrected. Hospitalist will also be PATIENT'S NAME: LISSETH, JHONATHAN Cespedes [facility] AGE: 81 Y [address] ROOM: [place] [address] LOCATION: [facility] ADMIT DATE: 12/11/2016 History & Physical DISCHARGE DATE: FAMILY PHYSICIAN: Susanna Benjamin MD ATTENDING PHYSICIAN: Nora Villavicencio consulted to help with managing the patient's diabetes and other medical problems. NORA VILLAVICENCIO MD CNO/modl /[id number] CC: Susanna Benjamin MD D: [id number] T: [id number] HISTORY & PHYSICAL
--- NOTE | ~2016-12-11 | OR ---
PATIENT'S NAME: JHONATHAN MONTANEZ [facility] AGE: 81 Y [address] ROOM: [place] [address] LOCATION: GICU ADMIT DATE: 12/11/2016 OR/Procedure Report DISCHARGE DATE: FAMILY PHYSICIAN: Susanna Benjamin MD ATTENDING PHYSICIAN: oNra Marvin SURGEON: Damir Hui MD LEAD NUCLEAR MEDICINE TECHNOLOGIST: DATE OF PROCEDURE: 12/11/2016 PROCEDURE: The following lines placed during the patient's craniotomy and evacuation of subdural hematoma. INDICATIONS: Jhonathan Montanez is an 81-year-old gentleman with a history of COPD, asthma, atrial fibrillation, congestive heart failure on anticoagulation, he has a history of a brain abscess, and in addition to all of this he now has hematoma subdurally located on the right side of his head with mass effect. It is becoming progressively less oriented and conscious over the evening. Here at about 1:30, we are going to evacuate the hematoma. He will require a central line because he does have a poor IV stick and will require vasoactive and blood perhaps. Additionally, an arterial line will be provided for postop ventilation and management of gases. Detailed discussion of risks and benefits are undertaken with the patient's family as he was in no condition to discuss this. They agreed to the plan as stated. He was taken to OR #3 where he underwent uneventful induction of general anesthesia and intubation with an 8-0 high volume and low pressure cuffed tube. With the airway secured, procedure #[address] DESCRIPTION OF PROCEDURE: 1. The patient was placed in Trendelenburg position. His head rotated to the right path of the internal jugular vein. It was mapped using ultrasound on the left. 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 So, we tried to stay as far way from that as we could. Additionally, he was having a right-sided surgeries, the left seem like nothing to do. His platelet count was 32, supposedly a pseudothrombocytopenia according to Dr. Dorantes's notes. However, I do not really wants to push it, so we will go with a left IJ. Anyhow, his neck was prepped with chlorhexidine while I gloved and gowned. After washing hands. Maximal sterile barrier was placed. The IJ was cannulated with an 18-gauge needle by passing it through the marked area on his neck. The wire threaded without difficulty with brief nonsustained ectopy indicating intracardiac placement. The dilator was passed without a skin laz due to bleeding concerns and 20 cm quad lumen was threaded in to 19 cm over the wire and the wire was withdrawn. This was sutured in place with 2-0 silk and all lumens flushed and rasheeda PATIENT'S NAME: JHONATHAN MONTANEZ [facility] AGE: 81 Y [address] ROOM: [address] [address] LOCATION: GICU ADMIT DATE: 12/11/2016 OR/Procedure Report DISCHARGE DATE: FAMILY PHYSICIAN: Susanna Benjamin MD ATTENDING PHYSICIAN: Nora Marvin. CVP was 3 on transduction. At that point, the bed was turned 90 degrees. 2. Placement of arterial line. The patient's head rotated 90 degrees. His left arm was presented to me. I extended and dorsiflexed the wrist and sterilely prepped with chlorhexidine. After 2 attempts, his radial artery was cannulated and a wire was passed and then the catheter threaded off the wire. The artery itself was quite calcific and difficult to compress. This was then connected to sterile saline-filled tubing with the pressure transducer good arterial waveform was observed and the catheter itself was then taped to the patient's wrist using sterile Tegaderm tape. Thank you very much for allowing me to participate in Mr. Montanez's care. If you have any questions regarding these lines, please do not hesitate to call us. DAMIR MD NAHOMY NASH/marilu /[id number] d: 12/12/1607 t: 12/16/16 1240, OPERATIVE SUMMARY
--- NOTE | ~2016-12-11 | OR ---
PATIENT'S NAME: TIFFANIE MONTANEZ [facility] AGE: 81 Y [address] ROOM: [place] [address] LOCATION: GICU ADMIT DATE: 12/11/2016 OR/Procedure Report DISCHARGE DATE: FAMILY PHYSICIAN: Susanna Benjamin MD ATTENDING PHYSICIAN: Nora Marvin SURGEON: Prabhu Muniz MD THREAD SEPARATOR: None. DATE OF PROCEDURE: 12/21/2016 PROCEDURE: Right internal jugular 8.5-St Lucian quad lumen central line placement. INDICATIONS FOR PROCEDURE: Need for central venous access secondary to administration of vasopressors and inotropes in light of patient's septic shock as well as intravenous administration of medications with poor peripheral venous access. PREOPERATIVE DIAGNOSES: 1. Septic shock, unknown etiology. 2. Subdural hematoma. 3. Intracranial hypertension. 4. Seizure disorder. 5. Steroid-induced hyperglycemia. 6. Acute respiratory failure. 7. Methicillin-susceptible Staphylococcus aureus bacteremia. 8. Idiopathic thrombocytopenic purpura. POSTOPERATIVE DIAGNOSES: 1. Septic shock, unknown etiology. 2. Subdural hematoma. 3. Intracranial hypertension. 4. Seizure disorder. 5. Steroid-induced hyperglycemia. 6. Acute respiratory failure. 7. Methicillin-susceptible Staphylococcus aureus bacteremia. 8. Idiopathic thrombocytopenic purpura. COMPLICATIONS: None noted. CONSENT: Informed consent was obtained from the patient's spouse prior to proceeding via phone. Ms. Montanez stated her understanding of the risks, benefits, alternatives, and agreed for me to proceed. DESCRIPTION OF PROCEDURE: Patient in the ICU, in supine position. Sterile prep with ChloraPrep x2 to the right neck. Sterile full-body drape, sterile PATIENT'S NAME: TIFFANIE MONTANEZ [facility] AGE: 81 Y [address] ROOM: [place] [address] LOCATION: GICU ADMIT DATE: 12/11/2016 OR/Procedure Report DISCHARGE DATE: FAMILY PHYSICIAN: Susanna Benjamin MD ATTENDING PHYSICIAN: Nora Marvin gown, and sterile gloves were used. Surgical mask and cap worn at all times. Utilizing sterile ultrasound guidance, a 16-gauge needle was used to cannulate the right internal jugular vein in the first attempt under direct ultrasound visualization without difficulty. Nonpulsatile blood flow. Dark blood aspirated. Over a wire, an 8.5-St Lucian quad lumen central line was inserted to 17 cm without difficulty. Wire and needle were removed intact. Catheter was sutured in place. Sterile occlusive Tegaderm dressing applied. Very minimal bleeding in spite of patient's idiopathic thrombocytopenic purpura. Post procedure x-ray does reveal tip in the distal SVC. No pneumothoraces identified. The patient tolerated the procedure well. This central line was placed outside any critical care time previously noted in the chart. ESTIMATED BLOOD LOSS: Minimal. PRABHU MUNIZ MD RRS/modl /[id number] d: 12/22/16 2159 t: 12/23/16 1100, OPERATIVE SUMMARY
--- NOTE | ~2016-12-11 | CON ---
PATIENT'S NAME: TIFFANIE MONTANEZ [facility] AGE: 81 Y [address] ROOM: [address] [address] LOCATION: GICU ADMIT DATE: 12/11/2016 Consultation DISCHARGE DATE: FAMILY PHYSICIAN: Susanna Benjamin MD ATTENDING PHYSICIAN: Nora Marvin DATE OF CONSULTATION: 12/18/2016 REFERRING PHYSICIAN: SHANNAN MILLER MD REASON FOR EVALUATION: Fever, MSSA in blood. CHIEF COMPLAINT: The patient not able to verbalize the chief complaint. Note, history is obtained via chart review as the patient is intubated and noninteractive for me at this time. HISTORY OF PRESENT ILLNESS: Mr. Montanez is an 81-year-old man who has had an event for several months. He developed some brain lesions, which were symptomatic. The etiology of these were not clear. He declined a brain biopsy. He was treated with empiric antibiotics and steroids. He has some clinical improvement. After the steroids were stopped, however, he had clinical worsening. He was readmitted to the hospital. He underwent a craniotomy with biopsy. Apparently, this was nondiagnostic. I am uncertain if he was still on antibiotic at that time, but it appears he was dismissed with a PICC line and developed a DVT. He was started on anticoagulation for this. He was maintained on his steroids. Unfortunately, he showed in clinic the day prior to his admission here and there was evidence of some dehiscence and infection at the surgical site. Cultures were obtained. The area was closed. He went back to nursing facility. He apparently had a fall and decreased level of consciousness. He had a subdural hematoma and a very large INR. He was admitted to the hospital. He underwent a craniotomy for subdural evacuation. His initial blood cultures were positive. He was started on broad-spectrum antibiotics. He received some IVIG for possible ITP. His antibiotics were weaned to nafcillin and then changed to vancomycin when he had some fever. He continues to have fever. I am asked to evaluate. PAST MEDICAL HISTORY: Significant for the brain lesions, the recent DVT, paroxysmal atrial fibrillation, diabetes mellitus, and history of esophageal cancer. MEDICATIONS: Current antibiotics include vancomycin. Current steroids include none. He PATIENT'S NAME: TIFFANIE MONTANEZ [facility] AGE: 81 Y [address] ROOM: [place] [id number] LOCATION: GICU ADMIT DATE: 12/11/2016 Consultation DISCHARGE DATE: FAMILY PHYSICIAN: Susanna Benjamin MD ATTENDING PHYSICIAN: Nora Marvin received his last dose of dexamethasone on the . FAMILY HISTORY: I cannot elicit from the patient at this time. Per what I can find in the chart seems noncontributory. SOCIAL HISTORY: I cannot elicit from the patient at this time. REVIEW OF SYSTEMS: The patient is intubated, not interactive, cannot participate. PHYSICAL EXAMINATION: GENERAL: The patient is lying in bed, not interactive for me. HEENT: The patient is anicteric. ET tube is in place. CARDIOVASCULAR: Heart sounds fairly regular on my visit. RESPIRATORY: Breathing with fair air movement bilaterally. He is on ventilator. GASTROINTESTINAL: Abdomen is soft. Bowel sounds are present. Does not react to examination. GENITOURINARY: There is a catheter in place. NEUROLOGIC: The patient is noninteractive for me. LYMPHATICS: No cervical lymphadenopathy. MUSCULOSKELETAL: No effusions of fingers, wrists, elbows, shoulders, or knees. INTEGUMENTARY: The patient's central line site in the left neck appears to be okay. He has no rash. LABORATORY STUDIES: Are reviewed in the electronic medical record. ASSESSMENT AND RECOMMENDATIONS: 1. Methicillin-sensitive Staphylococcus aureus septicemia, wound infection. 2. Fevers. 3. Brain lesions. PLAN: I still do not know the etiology of the brain lesions. He continues to have poor mental status despite evacuation of his subdural hematoma. I do have concern about MSSA in his blood. Per the operative note, there was no evidence of purulence at the time of surgery. However, he was actively bacteremic with MSSA and this is the same blood that was in his head, therefore easily could be some infection there. I will place him back on nafcillin for this. I suspect the fevers could be central or adrenal in origin. It appears although I am uncertain as his jail sheets are PATIENT'S NAME: TIFFANIE MONTANEZ [facility] AGE: 81 Y [address] ROOM: [address] [address] LOCATION: GICU ADMIT DATE: 12/11/2016 Consultation DISCHARGE DATE: FAMILY PHYSICIAN: Susanna Benjamin MD ATTENDING PHYSICIAN: Nora Marvin frankly quite confusing to me, but I suspect he has been on steroids for quite some time. It appears that his last dose of dexamethasone was given on the and he has received no steroids since. Since that time, he has had fevers. Perhaps he has some adrenal insufficiency?, I will place him on hydrocortisone 50 mg IV q.8 hours to treat adrenal insufficiency. We will have to treat this Staphylococcus bacteria and possible infected hematoma (cultures were negative and no evidence of purulence at the time of surgery) with parenteral antibiotics for some time. However, his overall limiting factor here is his neurologic status. Should this not improve shortly, may need to consider comfort measures. Thank you for allowing me to participate in the care of Mr. Montanez. MD NANDINI NOLAN/modl /[id number] d: 12/18/16 1840 t: 12/19/16 0910, CONSULTATION REPORT
--- NOTE | ~2016-12-11 | ECHO ---
Transthoracic Echocardiography Report (TTE) Demographics Patient Name TIFFANIE MONTANEZ SR Date of Study 12/13/2016 Patient Number [id number] Visit Number [id number] Date of 1935 Room Number G6205 Gender Male Number Age 81 year(s) Referring Foster Hernandez Public Speaking Teacher Rosenda Coffman, Physician RT,RVT,RDCS Physician Interpreting You Vasques Master Electrician Physician MD Supervising Ordering Foster Hernandez MD, MD/MLP Physician Nurse Stress Waste Baler Conclusions Summary Limited echo to evaluate for valvular vegetations. Moderate degenerative changes of the MV and AV with thickening and calcific changes. Can not exclude vegetation. Clinical correlation recommended. CHATA if clinically indicated. Grossly normal LV/RV size and systolic function. Procedure Type of Study TTE procedure:Echo Limited w/o Contrast. Procedure Date Date: 12/13/2016 Start: 02:31 PM Study Location: Inpatient Portable Technical Quality: Fair Indications:Endocarditis. Additional Indications:infection. Appropriate Use Criteria: 9 Patient Status: Routine HR: 92 bpm BP: 123/59 mmHg Findings Mitral Valve MV is thickened, mild mitral annular calcification. Aortic Valve Moderate AV sclerosis. Tricuspid Valve TV is not very well visualized. Pulmonic Valve PV is not very well seen. Signature dtt: SHANTI AGUIRRE dtd: 12/13/16 9191 Physician Self Edit
[~2016-12-11 14:18] MED LIST changes: -CLEOCIN HCL300 MG PO; -DULCOLAX10 MG R; -ELAVIL25 MG PO; -MILK OF MA400 MG/5 M PO; -TYLENOL325 MG PO
[2016-12-11 14:53] LABS: HEMATOCRIT 39.3 % (33.0-50.0); HEMOGLOBIN 13.1 g/dL (11.0-16.0); MCH 29.8 pg (27.0-34.0); MCHC 33.3 gm/dL (32.0-36.5); MCV 89.5 fl (83.0-98.0); MPV 11.1 fl (9.4-12.4); RBC 4.39 M/uL (3.50-5.50); RDW-CV 16.5 % (11.9-14.6)
[2016-12-11 14:54] LABS: WBC 27.5 K/uL (4.0-11.0)
[2016-12-11 14:59] LABS: PLATELET COUNT 41 K/uL (150-450)
[2016-12-11 15:12] LABS: PTT 68 SECONDS (25-32)
[2016-12-11 15:14] LABS: ALBUMIN 2.2 gm/dL (3.5-5.0); ALK PHOS 92 IU/L (33-138); ALT 61 IU/L (12-78); ANION GAP 11.6 (10.0-19.0); AST 24 IU/L (10-40); BLOOD UREA NITROGEN 29 mg/dL (6-24); CALCIUM 7.6 mg/dL (8.5-10.5); CHLORIDE 102 mMol/L (96-110); CO2 28 mMol/L (22-32); CPK 70 IU/L (35-332); ESTIMATED GFR (MDRD EQUATION) > 60; INR - (THERAPEUTIC) 11.98 (0.92-1.07); MAGNESIUM 2.3 mg/dL (1.8-2.6); POTASSIUM 4.6 mMol/L (3.7-5.1); SODIUM 137 mMol/L (135-145); TOTAL BILIRUBIN 0.7 mg/dL (0.0-1.5)
[2016-12-11 15:16] LABS: TOTAL PROTEIN 4.9 g/dL (6.0-8.4)
[2016-12-11 15:30] LABS: ABSOLUTE NEUTROPHIL CT (ANC) 25.6 K/uL (1.4-9.0); BANDED NEUTROPHIL # 2.5 K/uL (0.0-0.1); BANDED NEUTROPHILS % 9 %; LYMPHOCYTE # 0.3 K/uL (0.8-4.0); LYMPHOCYTE % 1 %; MONOCYTE # 1.7 K/uL (0.0-1.0); SEGMENTED NEUTROPHIL # 23.1 K/uL (1.4-9.0); SEGMENTED NEUTROPHIL % 84 %
--- NOTE | 2016-12-11 18:19 | NUR ---
Significant Event: PT ADMITTED TO THE FLOOR AT 1730 FROM ER PER CART. PT LIVES AT [facility]. PT HAS BEEN MORE LETHARGIC SINCE LAST NIGHT AND NOT ACTING LIKE HIMSELF. PT WAS DROWSY UPON ADMISSION, BUT RESPONDS TO VERBAL/TACTILE STIMULI. VITAL SIGNS STABLE; TACHYCARDIA WITH RATES IN THE LOW 100'S. NUMEROUS SKIN ISSUES NOTED. FAMILY HAS BEEN AT BEDSIDE SINCE ARRIVAL TO THE FLOOR. Follow up: PLAN TO TRANSFER TO ICU DUE TO INR 11.8.
[2016-12-11 20:11] LABS: INR - (THERAPEUTIC) 1.06 (0.92-1.07); PROTIME 11.1 SECONDS (9.8-11.4)
[2016-12-11 22:10] LABS: BASOPHIL % 0.1 %; HEMATOCRIT 38.1 % (33.0-50.0); HEMOGLOBIN 12.7 g/dL (11.0-16.0); IMMATURE GRANULOCYTE # 0.4 K/uL (0.0-0.3); IMMATURE GRANULOCYTE % 1.6 %; LYMPHOCYTE # 0.8 K/uL (0.8-4.0); LYMPHOCYTE % 3.2 %; MCH 29.9 pg (27.0-34.0); MCHC 33.3 gm/dL (32.0-36.5); MCV 89.6 fl (83.0-98.0); MONOCYTE # 1.2 K/uL (0.0-1.0); MONOCYTE % 4.8 %; MPV 13.7 fl (9.4-12.4); NEUTROPHIL # (ANC) 21.9 K/uL (1.4-9.0); NEUTROPHIL % 90.3 %; NRBC % 0 /100WBC (0-0.00); RBC 4.25 M/uL (3.50-5.50); RDW-CV 16.8 % (11.9-14.6)
[2016-12-11 22:12] LABS: PLATELET COUNT 32 K/uL (150-450); WBC 24.3 K/uL (4.0-11.0)
[2016-12-12 04:51] LABS: BASOPHIL % 0.1 %; HEMATOCRIT 32.8 % (33.0-50.0); HEMOGLOBIN 11.2 g/dL (11.0-16.0); IMMATURE GRANULOCYTE # 0.5 K/uL (0.0-0.3); IMMATURE GRANULOCYTE % 2.4 %; LYMPHOCYTE # 0.8 K/uL (0.8-4.0); LYMPHOCYTE % 3.6 %; MCH 30.1 pg (27.0-34.0); MCHC 34.1 gm/dL (32.0-36.5); MCV 88.2 fl (83.0-98.0); MONOCYTE # 1.2 K/uL (0.0-1.0); MONOCYTE % 5.3 %; MPV 13.2 fl (9.4-12.4); NEUTROPHIL # (ANC) 19.1 K/uL (1.4-9.0); NEUTROPHIL % 88.6 %; NRBC % 0 /100WBC (0-0.00); RBC 3.72 M/uL (3.50-5.50); RDW-CV 16.6 % (11.9-14.6)
[2016-12-12 04:52] LABS: BICARBONATE 31.2 mmol/L (18.0-23.0); PCO2 41 mmHg (35-45)
[2016-12-12 04:53] LABS: PLATELET COUNT 36 K/uL (150-450); WBC 21.5 K/uL (4.0-11.0)
[2016-12-12 04:56] LABS: PO2 419 mmHg (80-90)
[2016-12-12 05:07] LABS: ANION GAP 12.3 (10.0-19.0); BLOOD UREA NITROGEN 23 mg/dL (6-24); CALCIUM 7.5 mg/dL (8.5-10.5); CHLORIDE 103 mMol/L (96-110); CO2 27 mMol/L (22-32); CREATININE 0.6 mg/dL (0.6-1.3); ESTIMATED GFR (MDRD EQUATION) > 60; POTASSIUM 4.3 mMol/L (3.7-5.1); SODIUM 138 mMol/L (135-145)
--- NOTE | 2016-12-12 05:29 | NUR ---
Pt taken down to OR this AM around 0100 for R Crani. Arrived back on floor around 0340 intubated with 8.0 ETT, secured at 22cm at the lip. EtCO2 35 upon arrival. Vent settings of SIMV, RR 14, Vt 500, Peep 5, PS 10. FiO2 weaned to 60%. Awaiting for patient to wake up more for extubation. Placed in CPAP/PS for a few minutes this AM and still had apnea episodes with EtCO2 rising to mid 40s, RR 7-8. Continue to work toward extubation.
--- NOTE | 2016-12-12 07:02 | NUR ---
Significant Event: Pt transfered from NTU at 1845. He was alert and orineted to self and year. INR was 11.98. Kcentra and Vit K were given. Pt started to have some more decrease in LOC and MD was notified. Pt went to surgery at 0058, and had a Crani with evacuation . Pt returned from surgery at 0341. He was intubated in SIMV. He follows commands. Pupils are equal and reactive. Dressing to head is C/D/I. Carranza cath inserted this shift, with good urine output. No BM this shift. L) IJ quad lumen, L) AC PIV, and L) radial art line. Follow up: Serg ross
[2016-12-12] MEDS ORDERED: ELAVIL25 MG PO (08:11)
[2016-12-12] MEDS ORDERED: COUMADIN ** IA3 MG PO (08:17)
[2016-12-12] MEDS ORDERED: DECADRON4 MG PO (08:19)
[2016-12-12] MEDS ORDERED: CLEOCIN HCL300 MG PO (08:21)
[2016-12-12] MEDS ORDERED: TYLENOL325 MG PO (08:25)
[2016-12-12] MEDS ORDERED: DULCOLAX10 MG R (08:25)
[2016-12-12] MEDS ORDERED: MILK OF MA400 MG/5 M PO (08:26)
[2016-12-12 13:24] LABS: BICARBONATE 29.2 mmol/L (18.0-23.0); PCO2 35 mmHg (35-45)
[2016-12-12 13:25] LABS: PO2 192 mmHg (80-90)
--- NOTE | 2016-12-12 13:42 | NUR ---
Speech Tx Note: Orders received; Chart reviewed; Pt was extubated this afternoon but was not alert enough to fully participate in speech/swallowing evaluation. Will follow up with pt tomorrow and initiate evaluation as indicated. Discussed with pt's RN with good understanding and agreement. Whitley Cast M.A. LAUREN-SOLE LEVELING MACHINE OPERATOR
[2016-12-12 16:19] LABS: HEMOGLOBIN 10.9 g/dL (11.0-16.0); MCH 29.8 pg (27.0-34.0); MCHC 34.1 gm/dL (32.0-36.5); MCV 87.4 fl (83.0-98.0); MPV 11.9 fl (9.4-12.4); RBC 3.66 M/uL (3.50-5.50); RDW-CV 16.2 % (11.9-14.6)
[2016-12-12 16:23] LABS: PLATELET COUNT 37 K/uL (150-450)
[2016-12-12 16:48] LABS: ABSOLUTE NEUTROPHIL CT (ANC) 20.6 K/uL (1.4-9.0); BANDED NEUTROPHIL # 0.4 K/uL (0.0-0.1); BANDED NEUTROPHILS % 2 %; LYMPHOCYTE % 0 %; MONOCYTE # 0.4 K/uL (0.0-1.0); SEGMENTED NEUTROPHIL # 20.2 K/uL (1.4-9.0); SEGMENTED NEUTROPHIL % 96 %
[2016-12-12 17:06] LABS: PROTIME 10.5 SECONDS (9.8-11.4)
[2016-12-12 17:09] LABS: PTT 28 SECONDS (25-32)
--- NOTE | 2016-12-12 18:55 | NUR ---
Significant Event: Patient deteriorated neurologically post extubation. CT of head at 1500 showed rebleed. Down to OR for evacuation and ICP/ventric placement at 1715. Prior to extubation, at best, patient awoke to verbal stimuli, followed commands, and nodded appropriately. Equal overlay operator strength. Weaker in LLE compared with RLE. Prior to OR patient was obtunded, mimimally responsive to repeated verbal and painful stimuli. Hypertensive. Gave labetalol x3 and vasotec x1 with only temporary drop in BP. 1L NC with slightly coarse and diminished lung sounds. Distended abdomen with active bowel sounds. Carranza drained adequate yellow urine. Gauze wrap to incision site intact with small amount of bloody drainage present. Morphine 1mg given x1 for restlessness. Insulin gtt running at 2 units/hr. Follow up: post op care and f/u
[2016-12-12 19:56] LABS: BICARBONATE 27.7 mmol/L (18.0-23.0); PCO2 37 mmHg (35-45); PO2 322 mmHg (80-90)
[2016-12-12 19:57] LABS: POTASSIUM 3.1 mEq/L (3.7-5.1); SODIUM 137 mEq/L (135-145)
[2016-12-12 20:56] LABS: HEMATOCRIT 30.4 % (33.0-50.0); HEMOGLOBIN 10.2 g/dL (11.0-16.0); MCH 29.4 pg (27.0-34.0); MCHC 33.6 gm/dL (32.0-36.5); MCV 87.6 fl (83.0-98.0); MPV 9.7 fl (9.4-12.4); RBC 3.47 M/uL (3.50-5.50); RDW-CV 16.5 % (11.9-14.6); WBC 12.5 K/uL (4.0-11.0)
[2016-12-12 21:15] LABS: PLATELET COUNT 74 K/uL (150-450)
[2016-12-12 21:42] LABS: ABSOLUTE NEUTROPHIL CT (ANC) 12.1 K/uL (1.4-9.0); BANDED NEUTROPHIL # 0.8 K/uL (0.0-0.1); BANDED NEUTROPHILS % 6 %; LYMPHOCYTE # 0.1 K/uL (0.8-4.0); LYMPHOCYTE % 1 %; MONOCYTE # 0.3 K/uL (0.0-1.0); SEGMENTED NEUTROPHIL # 11.4 K/uL (1.4-9.0); SEGMENTED NEUTROPHIL % 91 %
[2016-12-12 22:41] LABS: PCO2 39 mmHg (35-45); PO2 141 mmHg (80-90)
[2016-12-13 05:22] LABS: BICARBONATE 29.8 mmol/L (18.0-23.0); PCO2 40 mmHg (35-45); PO2 88 mmHg (80-90)
[2016-12-13 05:23] LABS: BASOPHIL % 0.1 %; HEMATOCRIT 28.5 % (33.0-50.0); HEMOGLOBIN 9.6 g/dL (11.0-16.0); IMMATURE GRANULOCYTE # 0.2 K/uL (0.0-0.3); IMMATURE GRANULOCYTE % 1.5 %; LYMPHOCYTE # 0.6 K/uL (0.8-4.0); LYMPHOCYTE % 4.1 %; MCH 29.3 pg (27.0-34.0); MCHC 33.7 gm/dL (32.0-36.5); MCV 86.9 fl (83.0-98.0); MONOCYTE # 0.9 K/uL (0.0-1.0); MONOCYTE % 6.3 %; MPV 10.3 fl (9.4-12.4); NEUTROPHIL # (ANC) 12.6 K/uL (1.4-9.0); NRBC % 0 /100WBC (0-0.00); PLATELET COUNT 104 K/uL (150-450); RBC 3.28 M/uL (3.50-5.50); RDW-CV 16.7 % (11.9-14.6); WBC 14.3 K/uL (4.0-11.0)
[2016-12-13 05:39] LABS: INR - (THERAPEUTIC) 0.99 (0.92-1.07); PROTIME 10.4 SECONDS (9.8-11.4)
[2016-12-13 05:44] LABS: ALK PHOS 54 IU/L (33-138); ALT 41 IU/L (12-78); AST 22 IU/L (10-40); BLOOD UREA NITROGEN 14 mg/dL (6-24); CALCIUM 7.5 mg/dL (8.5-10.5); CHLORIDE 105 mMol/L (96-110); CO2 27 mMol/L (22-32); CREATININE 0.4 mg/dL (0.6-1.3); ESTIMATED GFR (MDRD EQUATION) > 60; MAGNESIUM 2.1 mg/dL (1.8-2.6); SODIUM 137 mMol/L (135-145); TOTAL PROTEIN 5.8 g/dL (6.0-8.4)
[2016-12-13 05:47] LABS: ALBUMIN 1.9 gm/dL (3.5-5.0); ANION GAP 9.7 (10.0-19.0); PHOSPHORUS 1.9 mg/dL (2.5-4.9); POTASSIUM 4.7 mMol/L (3.7-5.1)
--- NOTE | 2016-12-13 07:13 | NUR ---
Significant Event: No sedation. Pupils equal and reactive, 4/brisk. Opens eyes with some cares. Moves RUE spontaneously and withdraws. LUE withdraws. BLEs withdraw to stimulation. ICP/ventric in place. ICP 2-30, opened x2, blood-tinged/cloudy csf drained. Sinus arrhythmia, 70-90s. Labetolol given x2 for initial HTN post surgery. Everton currently infusing for CPP 65-100 and SBP<150, currently at 0.2mcg/kg/min. A/C on vent, Lung sounds clear and diminished, small amounts of cream colored secretions with ETT suctioning. Bowel sounds hypoactive, OG to LIS, no bm this shift. Carranza intact, adequate UOP. Surgical incision covered, drainage noted. Tmax 101. Everton, insulin, and NS infusing. Follow up: Continue. Monitor platelet count q8h.
--- NOTE | 2016-12-13 16:25 | NUR ---
PATIENT VENTED ON 30% SATS 96-100%, BREATH SOUNDS CLEAR AND DIMINISHED WHILE SLIGHTLY COARSE AT TIMES, SXN A SMALL AMOUNT OF CREAMY WHITE SPUTUM, ETCO2 32-36 MOST OF THE DAY, WILL CONTINUE TO MONITOR UNTIL FURTHER NOTICE
--- NOTE | 2016-12-13 19:02 | NUR ---
Significant Event: Patient remains intubated without sedation. Patient moves RUE and RLE spontaneously. Does not follow command. NO spontaneous movement to LUE or LLE. Eyes deviated up and to the right, keppra IV started. Open ventric x2 for ICP >20. Drain total of 45ml CSF. SR to SA with HR 60-70s. Everton gtt currently at .2mcg/k/min. to keep CPP 65-100. CVP 5-10. Lungs slightly course to clear. Etco2 low to mid 30s. Carranza patent, 100-350ml/hr. Scheduled Lasix given x2. Active bowel sounds, No bm. Started Promote at 20ml/hr to goal of 80ml/hr. Max temp 100.9. Scheduled pain meds given, no prn given. Replaced 3grams mag sulfate and 30mmol K phos. Continues on IV insulin with Q1hr accu check. Follow up: Recheck plt at 2100. Recehck phos 1hr after k phos finshed.
--- NOTE | 2016-12-14 05:43 | NUR ---
PT LOCALIZING IN R) UPPER EXTREMITIY. SPONTANEOUS MOVMENTMENTS NOTED IN ALL EXTREMITIES WITH EXCEPTION TO L) UPPER EXTREMITY. OPENS EYES SPONTANEOUSLY, DOES NOT TRACK. DOES NOT FOLLOW COMMANDS. EXHIBITS PALMAR GRASP REFLEX. PERRL BRISKLY AT 4 MM. ONE EPISODE OF QUESTIONABLE SEIZURE-LIKE ACTIVITY; DR. VILLAVICENCIO MADE AWARE, NO NEW ORDERS RECEIVED. ON BRIDGER GTT, RATE RANGING FROM 0.1 MCG/KG/MIN TO 0.5 MCG/KG/MIN TO MAINTAIN CPP >65 AND SBP <150. AFEBRILE. TOLERATING TF WELL, RATE TITRATED UP TO GOAL OF 80 ML/HR. NO BM THIS SHIFT. UOP APPROPRIATE. VENTRIC OPENED X1 THIS SHIFT FOR A TOTAL OF 16 ML CLEAR/LIGHT YELLOW CSF DRAINED. SHIVA CALDERON RN
[2016-12-14 05:56] LABS: HEMOGLOBIN 8.5 g/dL (11.0-16.0); MCH 29.3 pg (27.0-34.0); MCV 86.2 fl (83.0-98.0); MPV 10.6 fl (9.4-12.4); RDW-CV 16.6 % (11.9-14.6); WBC 10.5 K/uL (4.0-11.0)
[2016-12-14 05:59] LABS: PLATELET COUNT 72 K/uL (150-450)
[2016-12-14 06:02] LABS: ALK PHOS 52 IU/L (33-138); ALT 34 IU/L (12-78); AST 21 IU/L (10-40); BLOOD UREA NITROGEN 16 mg/dL (6-24); CHLORIDE 101 mMol/L (96-110); CO2 26 mMol/L (22-32); CREATININE 0.3 mg/dL (0.6-1.3); ESTIMATED GFR (MDRD EQUATION) > 60; MAGNESIUM 2.4 mg/dL (1.8-2.6); SODIUM 136 mMol/L (135-145); TOTAL PROTEIN 6.2 g/dL (6.0-8.4)
[2016-12-14 06:04] LABS: ALBUMIN 1.6 gm/dL (3.5-5.0); ANION GAP 12.7 (10.0-19.0); CALCIUM 7.1 mg/dL (8.5-10.5); POTASSIUM 3.7 mMol/L (3.7-5.1); TOTAL BILIRUBIN 0.6 mg/dL (0.0-1.5)
[2016-12-14 06:12] LABS: INR - (THERAPEUTIC) 0.95 (0.92-1.07)
[2016-12-14 06:23] LABS: ABSOLUTE NEUTROPHIL CT (ANC) 9.2 K/uL (1.4-9.0); LYMPHOCYTE # 0.5 K/uL (0.8-4.0); LYMPHOCYTE % 5 %; MONOCYTE # 0.7 K/uL (0.0-1.0); SEGMENTED NEUTROPHIL # 9.2 K/uL (1.4-9.0); SEGMENTED NEUTROPHIL % 88 %
--- NOTE | 2016-12-14 12:31 | NUR ---
ST went to see Pt for therapy. Pt remains unresponsive. Will check back with nursing when Pt is responsive.
--- NOTE | 2016-12-14 17:56 | NUR ---
Significant Event: Patient remains intubated with no sedation. Minimal sponateous movement of RUE. Withdraws x4. Seizures noted, Dr. Hutchison notified. Increased Keppra to 1000mg BID. Ativan 4mg IVP given x1. consulted, no new orders. ICP 5-18, have not open on this shift. CPP 70s-80s. Everton gtt at 0.2mcg/kg/min. CVP 2-7. Afibrile. Lungs have been slightly course to clear. Patient occasionally overbreathes the vent. ETco2 have been mid to low 30s. Active to hypoactive bowel sounds, no BM. Promote at 80ml/hr with minimal residuals. Lasix has been D/C. Platlets given x1. Continue IV insulin, Accu check Q1hr. Replaced 2g mag and 30mmol K phos. Follow up: Continue to monitor.
[2016-12-15 04:25] LABS: BICARBONATE 29.7 mmol/L (18.0-23.0); LACTATE 1.7 mEq/L (0.50-1.60); PCO2 39 mmHg (35-45)
[2016-12-15 04:27] LABS: PO2 139 mmHg (80-90)
[2016-12-15 04:45] LABS: ALK PHOS 59 IU/L (33-138); ALT 34 IU/L (12-78); ANION GAP 10.9 (10.0-19.0); AST 20 IU/L (10-40); BLOOD UREA NITROGEN 16 mg/dL (6-24); CHLORIDE 102 mMol/L (96-110); CO2 27 mMol/L (22-32); CREATININE 0.4 mg/dL (0.6-1.3); ESTIMATED GFR (MDRD EQUATION) > 60; MAGNESIUM 2.5 mg/dL (1.8-2.6); POTASSIUM 3.9 mMol/L (3.7-5.1); SODIUM 136 mMol/L (135-145); TOTAL PROTEIN 6.6 g/dL (6.0-8.4)
[2016-12-15 04:46] LABS: ALBUMIN 1.6 gm/dL (3.5-5.0); CALCIUM 7.3 mg/dL (8.5-10.5); HEMATOCRIT 24.2 % (33.0-50.0); HEMOGLOBIN 8.3 g/dL (11.0-16.0); MCH 29.6 pg (27.0-34.0); MCHC 34.3 gm/dL (32.0-36.5); MCV 86.4 fl (83.0-98.0); MPV 10.7 fl (9.4-12.4); PHOSPHORUS 1.5 mg/dL (2.5-4.9); RDW-CV 16.1 % (11.9-14.6); TOTAL BILIRUBIN 0.4 mg/dL (0.0-1.5); WBC 10.3 K/uL (4.0-11.0)
[2016-12-15 04:49] LABS: PLATELET COUNT 84 K/uL (150-450)
[2016-12-15 05:00] LABS: INR - (THERAPEUTIC) 0.96 (0.92-1.07); PROTIME 10.1 SECONDS (9.8-11.4); PTT 27 SECONDS (25-32)
[2016-12-15 05:16] LABS: BANDED NEUTROPHIL # 0.9 K/uL (0.0-0.1); BANDED NEUTROPHILS % 9 %; LYMPHOCYTE # 0.8 K/uL (0.8-4.0); LYMPHOCYTE % 8 %; MONOCYTE # 0.5 K/uL (0.0-1.0); SEGMENTED NEUTROPHIL % 78 %
--- NOTE | 2016-12-15 05:21 | NUR ---
patient is obtanded unarousable.occasionally will open his eyes partialy when repositioned or called his name,does not follow simple commands,slightly will withdraw to deep stimuli,clear lungs sound on the upper diminished on the bases,thick creamy secrtions when suctioned small amount weak cough. tolerate t.f at 80ml/h no residuals. follow up:continue to monitor patient's neuro and hemodynamic status closely.
--- NOTE | 2016-12-15 17:45 | NUR ---
Significant Event: Patient remains intubated with no sedation. Withdraws x4. Minimal spontaneous movement in RUE and BLE. Seizure like activity noted x2, MD aware, no new orders. ICP 12-16, did not open ventric. CPP 70s-90s. Afibrile. SR with HRs 60s-70s. Everton gtt at .2mcg/kg/min. Lungs clear and diminished. Bowel sound active, with small smear. PRN milk of mag given. Tolerating TF well at goal of 80ml/hr, minimal residual. Adequate UOP. Right arm is weeping. Continue IV insulin Accu checks Q1hr. Replaced 15mmol K phos, 3grams mag sulfate. Last platlet at 64, Dr. Hutchison aware, no new orders. Follow up: EEG Saturday 12/16
[2016-12-16 04:24] LABS: BICARBONATE 33.3 mmol/L (18.0-23.0); PCO2 39 mmHg (35-45); PO2 128 mmHg (80-90)
--- NOTE | 2016-12-16 04:33 | NUR ---
D: SUBDURAL HEMATOMA I: VENT, MDI R: PT. ON VENT WITH 30% FIO2 AND SATS 98-100%. ETCO2 36-40. BrSs CLEAR AND DIMINISHED T/O. SUCTIONED A SMALL AMOUNT OF THICK CREAMY SECRETIONS. P: WILL CONTINUE TO MONITOR UNTIL FURTHER NOTICE
[2016-12-16 04:47] LABS: BASOPHIL % 0.1 %; HEMATOCRIT 26.2 % (33.0-50.0); HEMOGLOBIN 8.8 g/dL (11.0-16.0); IMMATURE GRANULOCYTE # 0.2 K/uL (0.0-0.3); IMMATURE GRANULOCYTE % 2.4 %; LYMPHOCYTE # 0.5 K/uL (0.8-4.0); LYMPHOCYTE % 5.2 %; MCH 29.2 pg (27.0-34.0); MCHC 33.6 gm/dL (32.0-36.5); MONOCYTE # 0.7 K/uL (0.0-1.0); MONOCYTE % 6.7 %; MPV 10.8 fl (9.4-12.4); NEUTROPHIL # (ANC) 8.3 K/uL (1.4-9.0); NEUTROPHIL % 85.6 %; NRBC % 0.7 /100WBC (0-0.00); RBC 3.01 M/uL (3.50-5.50); RDW-CV 16.1 % (11.9-14.6); WBC 9.7 K/uL (4.0-11.0)
[2016-12-16 04:48] LABS: ALK PHOS 69 IU/L (33-138); ALT 37 IU/L (12-78); ANION GAP 8.7 (10.0-19.0); AST 22 IU/L (10-40); BLOOD UREA NITROGEN 17 mg/dL (6-24); CHLORIDE 101 mMol/L (96-110); CO2 29 mMol/L (22-32); CREATININE 0.4 mg/dL (0.6-1.3); ESTIMATED GFR (MDRD EQUATION) > 60; MAGNESIUM 2.6 mg/dL (1.8-2.6); POTASSIUM 3.7 mMol/L (3.7-5.1); SODIUM 135 mMol/L (135-145); TOTAL PROTEIN 7.1 g/dL (6.0-8.4)
[2016-12-16 04:49] LABS: ALBUMIN 1.6 gm/dL (3.5-5.0); CALCIUM 7.2 mg/dL (8.5-10.5); PHOSPHORUS 1.5 mg/dL (2.5-4.9); TOTAL BILIRUBIN 0.7 mg/dL (0.0-1.5)
[2016-12-16 04:51] LABS: PLATELET COUNT 66 K/uL (150-450)
--- NOTE | 2016-12-16 05:29 | NUR ---
PATIENT CONTINUE TO BE UNAROUSABLE,DOES NOT FOLLOW SIMPLE COMMANDS WILL OCCASIONALLY, PARTIALLY WILL OPEN HIS EYES,WITHDRAW TO PARTIAL NAILBED PRESSURE,CLEAR UPPER LUNGS SOUND DIMINISHED ON THE BASES,THICK REAMY SECRTIONS WHEN SUCTIONED,A/C VENT MODE FIO2=30%,M5VLT=78%,TOLERATE T.F WITH NO PROBLEMD. FOLLOW UP:CONTINUE TO MONITORPATIENT'S HEMODYNAMIC AND NEUROLOGICAL STATUS CLOSELY,E.ParthG IS PLANNED FOR A.M
--- NOTE | 2016-12-16 08:42 | NUR ---
Diabetes consult: Blood sugars are well controlled with use of the insulin gtt. Will continue to trend blood sugars. Patient to have EEG today.
--- NOTE | 2016-12-16 11:55 | NUR ---
A - NUT F/U. VENT. EEG TODAY. ICP/VENTRIC. STAGE III PU L) BUTTOCK. 1-2+ EDEMA. LABS: ACCUCHECK WNL->200, GLU 110, BUN/CR 17/0.4, ALB 1.6, PHOS 1.5, HGB/HCT 8.8/26.2. MEDS: UNIPEN, KEPPRA, PROTONIX, INSULIN, NAUSEA. DIET: PROMOTE @ 80 ML/HR. MIN RESIDUALS. PROVIDES 1920 KCAL, 120 G PRO, 1611 ML FREE WATER. NEEDS: [id number] KCAL, 97-124 G PRO D - DIFFICULTY SWALLOWING R/T RESPIRATORY STATUS AEB VENT SUPPORT, NEED FOR ENTERAL NUTRITION. INCREASED PRO NEEDS R/T HEALING AEB STAGE III PU. I - GOAL FOR CONTINUED ENTERAL NUTRITION TOLERNACE. GOAL FOR IMPROVED SKIN INTEGRITY. M/E - WILL MONITOR POC, TF F/U IN 2-3 DAYS.
--- NOTE | 2016-12-16 16:33 | NUR ---
1020 Stopped by Jhonathan's room to talk with family, no one was in the room. Will try to see again tomorrow. Plan on return back to [place] if able to do so.
--- NOTE | 2016-12-16 16:34 | NUR ---
Significant Event: Patient remains intubated, no sedation. Withdraws to deep stimuli. Minimal spontaneous movement. seizure like activity noted x 4, in LUE and face. MD aware. increased Keppra to 1500mg twice daily. ICP 10-17, did not open this shift. CPP 70s-100. Temp of 99. SR-ST with HRs 70-115. Everton gtt at 0.6mcg/kg/min. Lungs clear and diminished. Bowel sounds active, small smear.PRN Mirlax was given. Tolerating TF well at goal of 80ml/hr, minimal residual. Adequate UOP. Right arm is weeping. Open area on coccyx, along with small fingertip spot on left. IV insulin d/c. Started Agressive sliding scale. Q6hr accu checks. Increased swelling on right arm, in comparison to yesterday 12/15, slightly cooler than left arm, cap refil<3. 1 unit platlets given. CVP d/c today. Activase to two ports, nunn/white. Follow up: Dr. Quezada and Dr. Marvin to talk with family this evening. Continue Q8hr platlets.
--- NOTE | 2016-12-16 17:16 | NUR ---
PT VENTED ON 30% SATS 94-98%, BREATH SOUNDS CLEAR AND DIMINISHED THROUGHOUT WHILE SLIGHTLY COARSE AT TIMES, SXN MODERATE AMOUNT OF CREAMY SPUTUM, ETCO2 32-36 MOST OF THE DAY, WILL CONTINUE TO MONITOR UNTIL FURTHER NOTICE
[2016-12-16 21:44] LABS: INR - (THERAPEUTIC) 1.08 (0.92-1.07); PROTIME 11.4 SECONDS (9.8-11.4)
[2016-12-16 22:09] LABS: BILIRUBIN URINE NEGATIVE (NEGATIVE); BLOOD URINE 250 /UL (NEGATIVE); COLOR URINE YELLOW (YELLOW); GLUCOSE URINE 1000 mg/dL (NEGATIVE); KETONE URINE NEGATIVE (NEGATIVE); LEUKOCYTES URINE NEGATIVE /UL (NEGATIVE); NITRITE URINE NEGATIVE (NEGATIVE); PROTEIN URINE NEGATIVE (NEGATIVE); TURBIDITY URINE CLEAR (CLEAR); UROBILINOGEN URINE 4 mg/dL (NORMAL)
[2016-12-16 22:19] LABS: EPITHELIAL URINE 0-2 #/HPF (NEGATIVE); RBC URINE PACKED FIELD #/HPF (NEGATIVE)
[2016-12-16 22:20] LABS: BACTERIA URINE FEW (NEGATIVE); MUCUS URINE 1+ (NEGATIVE); YEAST URINE MODERATE (NEGATIVE)
[2016-12-17 00:35] LABS: BLOOD UREA NITROGEN 23 mg/dL (6-24); CHLORIDE 101 mMol/L (96-110); CO2 27 mMol/L (22-32); CREATININE 0.5 mg/dL (0.6-1.3); ESTIMATED GFR (MDRD EQUATION) > 60; MAGNESIUM 2.3 mg/dL (1.8-2.6); SODIUM 137 mMol/L (135-145)
[2016-12-17 00:38] LABS: CALCIUM 7.3 mg/dL (8.5-10.5)
[2016-12-17 04:37] LABS: PCO2 42 mmHg (35-45); PO2 118 mmHg (80-90)
--- NOTE | 2016-12-17 04:48 | NUR ---
PT. ON VENT AT 30% FIO2 WITH SATS 97-100%. ETCO2 36-40. BREATH SOUNDS ARE SLIGHTLY COARSE IN THE UPPERS AT TIMES AND CLEAR WITH SUCTION. SUCTIONED A SMALL AMOUNT OF THICK CREAMY SECRETIONS. WILL CONTINUE TO MONITOR UNTIL FURTHER NOTICE.
[2016-12-17 04:53] LABS: ALK PHOS 69 IU/L (33-138); ALT 41 IU/L (12-78); ANION GAP 12.1 (10.0-19.0); AST 25 IU/L (10-40); BLOOD UREA NITROGEN 22 mg/dL (6-24); CHLORIDE 101 mMol/L (96-110); CO2 28 mMol/L (22-32); CREATININE 0.5 mg/dL (0.6-1.3); ESTIMATED GFR (MDRD EQUATION) > 60; PHOSPHORUS 2.7 mg/dL (2.5-4.9); POTASSIUM 4.1 mMol/L (3.7-5.1); SODIUM 137 mMol/L (135-145); TOTAL BILIRUBIN 0.6 mg/dL (0.0-1.5); TOTAL PROTEIN 7.4 g/dL (6.0-8.4)
[2016-12-17 05:00] LABS: ALBUMIN 1.5 gm/dL (3.5-5.0); CALCIUM 7.3 mg/dL (8.5-10.5)
[2016-12-17 05:06] LABS: BASOPHIL % 0.2 %; EOSINOPHIL % 0.2 %; HEMATOCRIT 28.9 % (33.0-50.0); HEMOGLOBIN 9.5 g/dL (11.0-16.0); IMMATURE GRANULOCYTE # 0.2 K/uL (0.0-0.3); IMMATURE GRANULOCYTE % 3.9 %; LYMPHOCYTE # 0.6 K/uL (0.8-4.0); LYMPHOCYTE % 9.7 %; MCH 29.1 pg (27.0-34.0); MCHC 32.9 gm/dL (32.0-36.5); MCV 88.7 fl (83.0-98.0); MONOCYTE # 0.5 K/uL (0.0-1.0); MONOCYTE % 7.5 %; MPV 11.7 fl (9.4-12.4); NEUTROPHIL # (ANC) 4.8 K/uL (1.4-9.0); NEUTROPHIL % 78.5 %; NRBC % 0.8 /100WBC (0-0.00); RBC 3.26 M/uL (3.50-5.50); RDW-CV 16.9 % (11.9-14.6); WBC 6.2 K/uL (4.0-11.0)
[2016-12-17 05:15] LABS: PLATELET COUNT 66 K/uL (150-450)
--- NOTE | 2016-12-17 06:49 | NUR ---
Significant Event: Patient obtunded. Pupils 4mm/brisk bilaterally. Seizure activity noted x1 at beginning of shift with MD present. Withdraws to painful stimuli x4 extremeties. No spontaneous movement noted. ICP 8-15, ventric closed throughout night. SR-ST-SA. 70-120s. BP stable with everton titrated for CPP 65-100. Everton bolus given x2, labetolol given x1. Pulses palpable throughout. Temp max 102.9, MDs aware, tylenol given, cooling blanket placed on patient. A/C on vent, lung sounds clear and diminished. Bowel sounds active, bm x1. Tolerating TF well. Pillai replaced this shift r/t urine culture needed and pillai in place for >72hrs. No skin changes. L)AC PIV d/c'd this shift. L)IJ intact. Everton infusing. Follow up: Continue.
--- NOTE | 2016-12-17 14:41 | NUR ---
Significant Event: Patient remains intubated without sedation. Spontaneous movement in RUE noted x1. Does not open eyes, track, or follow commands. Withdraws in all four extremities. ICP 8-15. CPP 70-90's, titrate Everton gtt up to 1mcg/kg/min. Lungs asculated clear/diminished, spo2 >99%. SR-ST HR 60-90's. Temp 100.2 max. PRN tylenol given x1. Active bowel sounds, BMx2, moderate. continues on Promote at 80l/h,goal. Max residual 50ml.Accuchecks changed to q4h. Right upper arm weeping and remains more swollen in comparison to the left, has 2+palpable pulse and <3sec cap refil.Last plt count 81. Follow up:Continue with q8h plt. Continue to monitor.
--- NOTE | 2016-12-18 04:36 | NUR ---
Significant Event: No significant neuro changes this shift. Some RUE spontaneous movement noted, withdraws in all extremeties. Pupils equal and reactive. L)pupil deviated right occasionally, MDs aware of neuro findings. No cardiac events, SR-ST-SA. Everton currently infusing at 0.6mcg/kg/min to keep CPP 65-100. A/C on vent. Bowel sounds active, BM x2 this shift, tolerating TF well. Carranza intact, adequate UOP. Head dressing changed this shift r/t loose. No other skin changes. Temp 100-101.7. Follow up: Continue. EEG today.
[2016-12-18 04:42] LABS: BICARBONATE 35.9 mmol/L (18.0-23.0); PCO2 46 mmHg (35-45); PO2 129 mmHg (80-90)
--- NOTE | 2016-12-18 04:57 | NUR ---
PT. ON VENT AT 30% WITH SATS 98-100%. ETCO2 38-42. BREATH SOUNDS ARE CLEAR AND DIMINISHED T/O. SUCTIONED A SMALL AMOUNT OF THICK CREAMY SECRETIONS. WILL CONTINUE TO MONITOR UNTIL FURTHER NOTICE.
[2016-12-18 05:08] LABS: ALK PHOS 60 IU/L (33-138); ALT 36 IU/L (12-78); ANION GAP 7.7 (10.0-19.0); AST 25 IU/L (10-40); BLOOD UREA NITROGEN 18 mg/dL (6-24); CHLORIDE 106 mMol/L (96-110); CO2 30 mMol/L (22-32); CREATININE 0.4 mg/dL (0.6-1.3); ESTIMATED GFR (MDRD EQUATION) > 60; MAGNESIUM 2.2 mg/dL (1.8-2.6); POTASSIUM 3.7 mMol/L (3.7-5.1); SODIUM 140 mMol/L (135-145); TOTAL BILIRUBIN 0.5 mg/dL (0.0-1.5); TOTAL PROTEIN 6.6 g/dL (6.0-8.4)
[2016-12-18 05:15] LABS: ALBUMIN 1.4 gm/dL (3.5-5.0); CALCIUM 7.4 mg/dL (8.5-10.5); PHOSPHORUS 1.9 mg/dL (2.5-4.9)
[2016-12-18 05:20] LABS: EOSINOPHIL % 0.7 %; HEMATOCRIT 26.7 % (33.0-50.0); HEMOGLOBIN 8.7 g/dL (11.0-16.0); IMMATURE GRANULOCYTE # 0.2 K/uL (0.0-0.3); IMMATURE GRANULOCYTE % 3.3 %; LYMPHOCYTE # 0.7 K/uL (0.8-4.0); LYMPHOCYTE % 13.2 %; MCH 29.4 pg (27.0-34.0); MCHC 32.6 gm/dL (32.0-36.5); MCV 90.2 fl (83.0-98.0); MONOCYTE # 0.3 K/uL (0.0-1.0); MONOCYTE % 5.4 %; NEUTROPHIL # (ANC) 4.3 K/uL (1.4-9.0); NEUTROPHIL % 77.4 %; NRBC % 0.5 /100WBC (0-0.00); RBC 2.96 M/uL (3.50-5.50); RDW-CV 17.1 % (11.9-14.6); WBC 5.5 K/uL (4.0-11.0)
[2016-12-18 05:22] LABS: PLATELET COUNT 62 K/uL (150-450)
--- NOTE | 2016-12-18 08:33 | NUR ---
A - NUT F/U. VENT. NO SEDATION. 1-2+ EDEMA. LABS: ACCUCHECK WNL->200, GLU 237, BUN/CR 18/0.4, ALB 1.4, PHOS 1.9, HGB/HCT 8.7/26.7. MEDS: SSI, LEVEMIR, VANCO, PROTONIX, BOWEL/NAUSEA. DIET: PROMOTE @80 ML/HR VIA OG. MIN RESIDUALS. PROVIDES 1920 KCAL, 120 G PRO, 1611 ML FREE WATER. NEEDS: [id number] KCAL, 97-124 G PRO D - DIFFICULTY SWALLOWING R/T RESPIRATORY STATUS AEB VENT SUPPORT, NEED FOR ENTERAL NUTRITION. I - GOAL FOR CONTINUED ENTERAL NUTRITION TOLERANCE. M/E - WILL MONITOR TF F/U IN 3-4 DAYS.
--- NOTE | 2016-12-18 13:59 | NUR ---
[facility] Center note: Trending blood sugars, since taken off insulin gtt on 12/17/16, blood sugars still remain in 200's +. Spoke to patient's primary care nurse Micky, and recommended that we contact that MD to ask to increase the Levemir dose from 40 units daily in evening to 45 units. Will continue to monitor.
--- NOTE | 2016-12-18 17:38 | NUR ---
Significant Event: Continues on vent without sedation. No significant change in neuro assessment. Does have occassional, slight, spontaneous movement in right arm and both feet. Family present intermittently throughout the day and updated by physicians. Follow up: continue
[2016-12-19 04:14] LABS: ALK PHOS 63 IU/L (33-138); ALT 40 IU/L (12-78); ANION GAP 8.6 (10.0-19.0); AST 29 IU/L (10-40); BLOOD UREA NITROGEN 19 mg/dL (6-24); CALCIUM 7.5 mg/dL (8.5-10.5); CHLORIDE 107 mMol/L (96-110); CO2 31 mMol/L (22-32); CREATININE 0.4 mg/dL (0.6-1.3); ESTIMATED GFR (MDRD EQUATION) > 60; MAGNESIUM 2.4 mg/dL (1.8-2.6); PHOSPHORUS 3.1 mg/dL (2.5-4.9); POTASSIUM 3.6 mMol/L (3.7-5.1); SODIUM 143 mMol/L (135-145); TOTAL BILIRUBIN 0.5 mg/dL (0.0-1.5); TOTAL PROTEIN 6.9 g/dL (6.0-8.4)
[2016-12-19 04:15] LABS: ALBUMIN 1.5 gm/dL (3.5-5.0)
[2016-12-19 04:22] LABS: MCV 88.9 fl (83.0-98.0); MPV 10.8 fl (9.4-12.4); RDW-CV 16.9 % (11.9-14.6)
[2016-12-19 04:23] LABS: HEMOGLOBIN 7.9 g/dL (11.0-16.0); MCH 29.3 pg (27.0-34.0); MCHC 32.9 gm/dL (32.0-36.5)
[2016-12-19 04:25] LABS: PLATELET COUNT 53 K/uL (150-450)
--- NOTE | 2016-12-19 04:33 | NUR ---
Significant Event: Pt opens eyes to stimulation at times. Pupils are equal and reactive, Some deviation to the R). Moves the L) lower and R) upper and lower extremities spontaneously at times. Withdraws in all four extremities. Does not follow any commands. ICP's have been between 3-11 this shift. CPP to be kept between 65-100. Everton gtt has been off and on this shift. Ventric closed all shift. On the vent in A/C. Lung sounds clear and diminished. Tube feed running at 80 ml/hr, which is goal. Residuals have been between 20 and 95 ml. Carranza cath in place with good urine output. 3 BM's this shift. L) IJ in place. L) radial art line in place. Follow up:
[2016-12-19 05:00] LABS: BICARBONATE 35.1 mmol/L (18.0-23.0); PCO2 41 mmHg (35-45); PO2 151 mmHg (80-90)
[2016-12-19 05:28] LABS: ABSOLUTE NEUTROPHIL CT (ANC) 3.4 K/uL (1.4-9.0); BANDED NEUTROPHILS % 1 %; LYMPHOCYTE # 0.6 K/uL (0.8-4.0); LYMPHOCYTE % 15 %; SEGMENTED NEUTROPHIL # 3.4 K/uL (1.4-9.0); SEGMENTED NEUTROPHIL % 84 %
--- NOTE | 2016-12-19 12:41 | NUR ---
Pt. cont's to be intubated at this time. Pt. intubated x5+ days. ST plan to D/C at this time with recommendation to re-assess if pt. extubated and when appropriate. Thank you!
--- NOTE | 2016-12-19 16:56 | NUR ---
Significant Event: Continues on vent without sedation. No eye opening this shift. Slight spontaneous movement in both legs and right arm. Does move head side to side with oral cares. Phenylephrine gtt off. Family present this afternoon. Follow up: continue
--- NOTE | 2016-12-20 04:04 | NUR ---
PATIENT REMAINS ON A VENTILATOR IN AC MODE WITH AN FIO2 OF 30%. AT THIS FIO2 SATS HAVE BEEN 96-100% THROUGH OUT THE SHIFT. ENDTIDAL HAS RAN 35-38. BREATH SOUNDS HAVE BEEN CLEAR AND DIMINISHED THROUGH OUT. SUCTIONING SMALL AMOUNTS OF THICK CREAM SECRETIONS. WILL CONTINUE TO MONITOR.
[2016-12-20 05:06] LABS: BICARBONATE 37.6 mmol/L (18.0-23.0); PCO2 45 mmHg (35-45); PO2 104 mmHg (80-90)
[2016-12-20 05:16] LABS: EOSINOPHIL % 0.6 %; HEMATOCRIT 22.5 % (33.0-50.0); IMMATURE GRANULOCYTE # 0.1 K/uL (0.0-0.3); LYMPHOCYTE # 0.7 K/uL (0.8-4.0); LYMPHOCYTE % 19.3 %; MCV 87.9 fl (83.0-98.0); MONOCYTE # 0.1 K/uL (0.0-1.0); MONOCYTE % 3.4 %; MPV 9.7 fl (9.4-12.4); NEUTROPHIL # (ANC) 2.6 K/uL (1.4-9.0); NEUTROPHIL % 72.7 %; RBC 2.56 M/uL (3.50-5.50); WBC 3.5 K/uL (4.0-11.0)
[2016-12-20 05:18] LABS: HEMOGLOBIN 7.4 g/dL (11.0-16.0); MCH 28.9 pg (27.0-34.0); MCHC 32.9 gm/dL (32.0-36.5); PLATELET COUNT 56 K/uL (150-450)
[2016-12-20 05:28] LABS: ALK PHOS 70 IU/L (33-138); ALT 56 IU/L (12-78); ANION GAP 9.1 (10.0-19.0); AST 46 IU/L (10-40); BLOOD UREA NITROGEN 19 mg/dL (6-24); CALCIUM 7.7 mg/dL (8.5-10.5); CHLORIDE 106 mMol/L (96-110); CO2 32 mMol/L (22-32); CREATININE 0.4 mg/dL (0.6-1.3); ESTIMATED GFR (MDRD EQUATION) > 60; MAGNESIUM 2.3 mg/dL (1.8-2.6); PHOSPHORUS 2.4 mg/dL (2.5-4.9); POTASSIUM 3.1 mMol/L (3.7-5.1); SODIUM 144 mMol/L (135-145); TOTAL BILIRUBIN 0.6 mg/dL (0.0-1.5); TOTAL PROTEIN 6.4 g/dL (6.0-8.4)
--- NOTE | 2016-12-20 05:28 | NUR ---
Significant Event: TREMOR TO R) ARM, SLIGHT. NOTIFIED DR. ABDI AND DR. MILLER. PER DR. MILLER THE PATIENT HAS HAD THE TREMOR. W/D TO PAIN. SLIGHT SPONTANEOUS MOVEMENTS OF FEET, R) ARM. W/D ONLY TO L) ARM. OPENS EYES TO NOXIOUS STIMULI. ICP 5-16. TMAX OF 100.7. GAVE TYLENOL X1, COOLING BLANKET ON WITH RELIEF. BP LABILE. CPP 120'S AT BEGINNING OF SHIFT. GAVE 10MG ICP LOBETALOL X1. ARTLINE DOES NOT CORRELATE WITH CUFF PRESSURE AT TIMES. CONTINUES ON VENT, A/C, 30%. MAX RESIDUAL AT 30ML. BM X1, SMALL. 1655ML UOP. BATH COMPLETE. TURNED Q2HR. Follow up: CONTINUE TO MONITOR.
[2016-12-20 05:29] LABS: ALBUMIN 1.5 gm/dL (3.5-5.0)
--- NOTE | 2016-12-20 12:51 | NUR ---
Power glide attempt to left upper arm. Unsuccessful attempt at threading catheter
--- NOTE | 2016-12-20 17:25 | NUR ---
Significant Events: Patient continues to not follow commands. Does open eyes to very noxious stimuli. Ventric remains closed, opened for patency. Dr Marvin & Dr Quezada at bedside to speak with family on their assessments. Family will discuss plans over the weekend and speak with Dr Marvin later. SR with PVCs & PACs, SBP stable. CPAP late afternoon. Ok to up get to chair. Follow up: Continue
[2016-12-20 21:44] LABS: BLOOD UREA NITROGEN 20 mg/dL (6-24); CHLORIDE 106 mMol/L (96-110); CO2 32 mMol/L (22-32); CREATININE 0.5 mg/dL (0.6-1.3); ESTIMATED GFR (MDRD EQUATION) > 60; POTASSIUM 3.6 mMol/L (3.7-5.1)
[2016-12-20 21:44] LABS: INR - (THERAPEUTIC) 0.96 (0.92-1.07); PROTIME 10.1 SECONDS (9.8-11.4)
[2016-12-20 21:46] LABS: ANION GAP 11.6 (10.0-19.0); CALCIUM 7.3 mg/dL (8.5-10.5); SODIUM 146 mMol/L (135-145)
--- NOTE | 2016-12-21 04:48 | NUR ---
CPAP trial ended at 1800 last night with EtCO2 increased and decreased Vts. BrSs clear with suctioning of moderate amounts of thick, cream secretions from ETT. LLL diminished. EtCO2 38-41. CPAP /8 again this AM, Vts 300-400, RR 20s. Will continue to monitor for increased RR/and decreased Vts in CPAP. Continue per plan of care.
[2016-12-21 05:48] LABS: ANION GAP 11.2 (10.0-19.0); BLOOD UREA NITROGEN 20 mg/dL (6-24); CALCIUM 7.6 mg/dL (8.5-10.5); CHLORIDE 106 mMol/L (96-110); CO2 34 mMol/L (22-32); CREATININE 0.3 mg/dL (0.6-1.3); ESTIMATED GFR (MDRD EQUATION) > 60; MAGNESIUM 2.7 mg/dL (1.8-2.6); PHOSPHORUS 3.3 mg/dL (2.5-4.9); POTASSIUM 3.2 mMol/L (3.7-5.1)
[2016-12-21 05:49] LABS: BASOPHIL % 0.2 %; EOSINOPHIL % 0.7 %; HEMATOCRIT 26.8 % (33.0-50.0); HEMOGLOBIN 8.6 g/dL (11.0-16.0); IMMATURE GRANULOCYTE # 0.2 K/uL (0.0-0.3); IMMATURE GRANULOCYTE % 3.4 %; LYMPHOCYTE # 0.7 K/uL (0.8-4.0); LYMPHOCYTE % 16.6 %; MCHC 32.1 gm/dL (32.0-36.5); MCV 90.2 fl (83.0-98.0); MONOCYTE # 0.2 K/uL (0.0-1.0); MONOCYTE % 5.5 %; MPV 11.3 fl (9.4-12.4); NEUTROPHIL # (ANC) 3.2 K/uL (1.4-9.0); NEUTROPHIL % 73.6 %; NRBC % 2.3 /100WBC (0-0.00); RBC 2.97 M/uL (3.50-5.50); RDW-CV 17.3 % (11.9-14.6); SODIUM 148 mMol/L (135-145); WBC 4.4 K/uL (4.0-11.0)
--- NOTE | 2016-12-21 05:50 | NUR ---
OPENS EYES SPONTANEOUSLY WHEN REPOSITIONING, OCCASIONALLY OPENS EYES TO VOICE. DOES NOT FOLLOW COMMANDS. OCCASIONAL LOCALIZING OF RUE NOTED. SPONTANEOUS MOVEMENT TO BLE OBSERVED. MINIMAL SPONTANEOUS MOVMENTS TO LUE. EYES CONTINUE TO DEVIATE TO THE RIGHT. VENTRIC NOT OPENED THIS SHIFT; ICP 4-14. CPPs LOW AT TIMES; DR. PRUITT AWARE. LABETALOL 10 MG IVP GIVEN X1 FOR SBP 160S-180S. TOLERATING TF WELL, MINIMAL RESIDUALS; BM X2 FOR THIS RN. UOP APPROPRIATE, >1L OUT AFTER LASIX. SHIVA CALDERON, RN
[2016-12-21 05:53] LABS: PLATELET COUNT 62 K/uL (150-450)
--- NOTE | 2016-12-21 09:12 | NUR ---
A - NUT F/U. VENT. ICP/VENTRIC. NOT FOLLOWING COMMANDS. 1-3+ EDEMA. LABS: ACCUCHECK REAS->200, NA 148, K+ 3.2, GLU 161, BUN/CR 20/0.3, ALB 1.5, HGB/HCT 8.6/26.8. MEDS: LEVEMIR, K2PO4, VIMPAT, UNIPEN, SSI, SOLUCORTEF, PROTONIX, BOWEL/NAUSEA. DIET: PROMOTE @ 80 ML/HR VIA OGT. MIN RESIDUALS. PROVIDES 1920 KCAL, 120 G PRO, 1611 ML FREE WATER. NEEDS: [id number] KCAL, 97-124 G PRO. D - DIFFICULTY SWALLOWING R/T RESPIRATORY STATUS, NEURO STATUS AEB VENT SUPPORT, NOT FOLLOWING COMMANDS, NEED FOR ENTERAL NUTRITION. I - GOAL FOR CONTINUED ENTERAL NUTRITION TOLERANCE. M/E - WILL MONITOR POC, TF F/U IN 3-4 DAYS.
--- NOTE | 2016-12-21 17:13 | NUR ---
Significant Event: Patient febrile most of the shift. Max temp 104.0. Tyenol every 4 hours and cooling blanket used throughout the day, temp now 99.7. Cultures of sputum, urine, blood, and CSF fluid all done. Central line changed to R) quad lumen this AM. L) central line discontinued. Carranza changed prior to obtaining culture. Presure dropped to 80/40s, levo started to keep CPPs over 65. Currently running at 0.04mcg/kg/min. Started on Vanco and levaquin. Obtunded most of the shift and unable to follow commands. On 1400 neuro assessment patient opened his eyes to painful stimuli, tracked staff in the room, wiggled toes, and squeezed with right hand. Has opened his eyes and followed commands on/off the rest of the shift. Increased spontaneous movements to bilateral lower extremities and right upper extremity also noted as the shift progressed. Turned every 2 hours. Open area to bottom noted, aloe vesta applied with turns and stooling. Follow up: Continue plan of care
--- NOTE | 2016-12-21 17:16 | NUR ---
D: ACUTE SUBDURAL BLEED I: VENT, MDI R: PT REMAINED ON 30% FIO2, BS SL COARSE T/O, SXNED OUT SMALL TO MOD THICK CREAMY SECRETIONS, SENT SPUTUM SAMPLE TO LAB, NO OTHER SIGNIFICANT CHANGES T/O DAY P: CONT.
--- NOTE | 2016-12-22 00:49 | NUR ---
Vent mode changed to AC at 2111 last night, with increased RR. Let rest over night and will place back in CPAP/PS 58 in the AM. BrSs clear and dim, diminished LLL. Suctioned small amounts of thick, yellow secretions tonight. Continue working toward weaning vent.
[2016-12-22 05:27] LABS: BLOOD UREA NITROGEN 16 mg/dL (6-24); CHLORIDE 109 mMol/L (96-110); CO2 31 mMol/L (22-32); CREATININE 0.3 mg/dL (0.6-1.3); ESTIMATED GFR (MDRD EQUATION) > 60; MAGNESIUM 2.2 mg/dL (1.8-2.6); PHOSPHORUS 2.4 mg/dL (2.5-4.9)
[2016-12-22 05:28] LABS: ANION GAP 11.9 (10.0-19.0); CALCIUM 7.2 mg/dL (8.5-10.5); POTASSIUM 2.9 mMol/L (3.7-5.1); SODIUM 149 mMol/L (135-145)
[2016-12-22 05:30] LABS: MCV 89.7 fl (83.0-98.0); MPV 10.8 fl (9.4-12.4); RBC 2.24 M/uL (3.50-5.50); WBC 4.1 K/uL (4.0-11.0)
--- NOTE | 2016-12-22 05:32 | NUR ---
PT CONTINUES ON LEVOPHED, DOSE RANGING FROM 0.02-0.06 MCG/KG/MIN. ICP 7-15, VENTRIC REMAINS CLOSED. OPENING EYES TO VOICE, FOLLOWING COMMANDS, TRACKING AT TIMES. SPONTANEOUS MOVEMENTS NOTED. TMAX 100.8, TREATED WITH APAP X1 DOSE. CONTINUED WITH IV ABX. DIFFICULTY MAINTAINING CPP THIS SHIFT DUE TO LOW MAPS, HIGH SBPS, AND INCREASING ICPS. SHIVA CALDERON RN
[2016-12-22 05:33] LABS: HEMATOCRIT 20.1 % (33.0-50.0); HEMOGLOBIN 6.5 g/dL (11.0-16.0); MCHC 32.3 gm/dL (32.0-36.5)
[2016-12-22 05:34] LABS: PLATELET COUNT 46 K/uL (150-450)
[2016-12-22 06:02] LABS: ABSOLUTE NEUTROPHIL CT (ANC) 2.8 K/uL (1.4-9.0); LYMPHOCYTE # 1.1 K/uL (0.8-4.0); LYMPHOCYTE % 26 %; MONOCYTE # 0.2 K/uL (0.0-1.0); SEGMENTED NEUTROPHIL # 2.8 K/uL (1.4-9.0); SEGMENTED NEUTROPHIL % 68 %
[2016-12-22 09:47] LABS: HEMOGLOBIN 6.9 g/dL (11.0-16.0)
[2016-12-22 15:54] LABS: EOSINOPHIL % 0.5 %; HEMATOCRIT 24.9 % (33.0-50.0); IMMATURE GRANULOCYTE # 0.1 K/uL (0.0-0.3); IMMATURE GRANULOCYTE % 2.3 %; LYMPHOCYTE # 0.6 K/uL (0.8-4.0); LYMPHOCYTE % 14.6 %; MCV 91.5 fl (83.0-98.0); MONOCYTE # 0.2 K/uL (0.0-1.0); MONOCYTE % 5.1 %; MPV 10.1 fl (9.4-12.4); NEUTROPHIL % 77.5 %; NRBC % 1.8 /100WBC (0-0.00); RBC 2.72 M/uL (3.50-5.50); RDW-CV 17.3 % (11.9-14.6); WBC 3.9 K/uL (4.0-11.0)
[2016-12-22 15:56] LABS: HEMOGLOBIN 7.9 g/dL (11.0-16.0); MCHC 31.7 gm/dL (32.0-36.5); PLATELET COUNT 80 K/uL (150-450)
[2016-12-22 16:03] LABS: ANION GAP 10.7 (10.0-19.0); POTASSIUM 3.7 mMol/L (3.7-5.1)
--- NOTE | 2016-12-22 17:15 | NUR ---
D: SUBDURAL HEMATOMA I: VENT, MDI R: PT REMAINED ON 30% FIO2, BS C&D IN UPPER LOBES & DIM IN BASES, SXNED OUT SCANT THICK CREAMY SECRETIONS, NO OTHER SIGNIFICANT CHANGES T/O DAY P: CONT.
--- NOTE | 2016-12-22 17:52 | NUR ---
Significant Event: Pt opens eyes and follows staff/family in room. Squeezes right hand consistantly. Occasionally wiggles toes. Some spontaneous movements to bilater upper extremities. Levophed weaned off. SBP 120-140. CPP 75-95. 1 unit platelets given. 1 unit PRBC for HGB 6.9, recheck 7.9. 30mmol of Kphos given IV. Up to the chair x 1. 2 moderate stools this shift. Orders to hemacult x 3. One completed. Pt remained on CPAP most of the shift. Follow up: continue plan of care.
--- NOTE | 2016-12-23 04:36 | NUR ---
PT OPENING EYES SPONTANEOUSLY, SQUEEZES WITH RUE, OCCASIONALLY FOLLOWS COMMANDS IN BLE. ATTEMPTING TO GRAB ETT THIS SHIFT; SOFT MITTEN RESTRAINT APPLIED TO R) HAND. ICP 8-17 THIS SHIFT, VENTRIC REMAINS EXCEPT TO CHECK PATENCY. TMAX 100.1, APAP ADMINISTERED X1 DOSE. GASTRIC RESIDUALS DECREASING SHIFT PROGRESSED (175/130/85). UOP APPROPRIATE THIS SHIFT. ATTEMPTS TO ASSIST WITH REPOSITIONING OF HEAD AT TIMES. SHIVA CALDERON RN
[2016-12-23 05:08] LABS: EOSINOPHIL % 0.6 %; IMMATURE GRANULOCYTE # 0.1 K/uL (0.0-0.3); IMMATURE GRANULOCYTE % 1.9 %; LYMPHOCYTE # 0.6 K/uL (0.8-4.0); LYMPHOCYTE % 20.5 %; MCV 91.3 fl (83.0-98.0); MONOCYTE # 0.2 K/uL (0.0-1.0); MONOCYTE % 4.8 %; MPV 9.9 fl (9.4-12.4); NEUTROPHIL # (ANC) 2.3 K/uL (1.4-9.0); NEUTROPHIL % 72.2 %; NRBC % 1.9 /100WBC (0-0.00); RBC 2.52 M/uL (3.50-5.50); RDW-CV 17.7 % (11.9-14.6); WBC 3.1 K/uL (4.0-11.0)
[2016-12-23 05:11] LABS: HEMOGLOBIN 7.4 g/dL (11.0-16.0); MCH 29.4 pg (27.0-34.0); MCHC 32.2 gm/dL (32.0-36.5)
[2016-12-23 05:12] LABS: PLATELET COUNT 63 K/uL (150-450)
[2016-12-23 05:27] LABS: BLOOD UREA NITROGEN 16 mg/dL (6-24); CHLORIDE 110 mMol/L (96-110); CO2 30 mMol/L (22-32); CREATININE 0.4 mg/dL (0.6-1.3); ESTIMATED GFR (MDRD EQUATION) > 60; MAGNESIUM 2.4 mg/dL (1.8-2.6); PHOSPHORUS 2.4 mg/dL (2.5-4.9)
--- NOTE | 2016-12-23 05:28 | NUR ---
Changed vent mode back to AC around 2029 last night to rest. He is now back in CPAP/PS 58 this AM. Continues on 30% FiO2. BrSs mostly clear and diminished. Suctioned small-moderate amounts of thick yellow/cream secretions from ETT. ETT repositioned from right to left Q2H last night, break down on lips trying to avoid these areas with the ETT. Continue with CPAP today, assess alertness.
[2016-12-23 05:29] LABS: ANION GAP 11.7 (10.0-19.0); CALCIUM 7.4 mg/dL (8.5-10.5); POTASSIUM 2.7 mMol/L (3.7-5.1); SODIUM 149 mMol/L (135-145)
--- NOTE | 2016-12-23 09:21 | NUR ---
Diabetes center note: 0900 Continue to trend blood sugars, since levemir 60 units was ordered on 12/20/16, blood sugars have improved. Last 1-2 days blood sugars ranging mostly 118-155 mg/dl. Will continue to follow
--- NOTE | 2016-12-23 13:12 | NUR ---
Call from KEVEN Yepez that family was in the room and wanted to meet with me re:Jhonathan's case. I did go down and talk with Mike' two daughters, his son and his who was all in the room. Family shares with me that they were told that Jhonathan might need a trach placed and they really aren't wanting that. I let them know that this was something that they needed to talk about with doctors. They also brought up pallative care and that someone had told them this might be a good route to go. I explained to them what pallative care nurses do and that they might be an extra layer of support, but I would have to see if MD would be willing to order them or not. Explained to them that if Jhonathan remained on the vent, then we might have to look at [facility] or [facility] for further care as no SNFs in this area could handle that sort of thing. Family shares with me that the think that Jhonathan might be taken off the vent later today and then if that was the case, he could potentially go back to the SNF if they were ok with accepting back. I told them that we would see what doctors say about that and then go from there. They did ask if they would have him get the trach, if he could stay closer to them here instead of going to [place] or [place]. I told them I would look into SNFs that would potentially accept newer traches, but also told them that this was very few that would care for that. They voiced ok with this. I asked them if it would be ok if I send out a referral to both [facility] and [facility] to see if they might be able to take Jhonathan if we would go that direction. Family was fine with exploring this route. I did see Lindsay from [facility] here in house, updated her to Jhonathan and his case. She was going to stop by his chart and gather all that she needed to get the referral process started. I also gathered information off the chart to fax over to Maureen at [facility] as well. Let family know I would leave a note on the chart to see if Dr. Marvin would be ok with having Pallative Care come on board for extra support, but shared with them that sometimes, he wasn't open to having them on board with his cases so if they didn't see Pallative Care, I would come back and talk with them again. Family did voice frustrations to me about having [facility] doctors on the case and it feeling like "none of them communicate or agree on things. One comes in and tells us to just wait and see what happens, the other tells us that we need to start thinking of a plan and next step and the other says, he probably won't make it out of here so we should start thinking about that." I told them that I was sorry to hear about all of this, but I would try to visit with doctors about trying to get on the same page or try to have a family meeting with all of them present. Family was fine with this. Let them know if they had any questions to contact me and I would be happy to assist them. I ran into Dr. Marvin in the [facility], asked if he would be ok with having Pallative Care come on board to help family with questions and naviate through the baker from what all the different physicians were telling them. Dr. Marvin states that," We don't need another person coming on board who doesn't know the case. I have spent lots of time with the family and if they have any questions, they can direct those to me. We don't need more people on this case making it more complicated right now." From this, I gather that he will not be ordering Pallative Care so I will continue to follow and assist and help family determine the next step for Jhonathan and his care here.
--- NOTE | 2016-12-23 16:59 | NUR ---
D: RESPIRATORY FAILURE I: V2OO, ALBUTEROL MDI R: BREATH SOUNDS SLIGHTLY COARSE TO DIMINISHED AND CLEAR, SXN-SMALL/MODERATE THICK CREAM/YELLOW, ET TUBE SECURE, CUFF AT MINIMAL OCCLUSIVE PRESSURE, IN CPAP 5/ PS 8 ALL SHIFT, OCCASIONAL PERIODS OF RR INCREASED TO 30-33 OTHERWISE TOLERATES WELL, ETCO2 31-35 P: CONTINUE CURRENT THERAPY
--- NOTE | 2016-12-23 17:03 | NUR ---
Patient remains intubated without sedation.Opens eyes to voice/spontaneously tracks movement in room. Squeezes with right hand but does not follow commands to release or able to give thumbs up. Slight spontaneous movement in upper right and bilateral lower extremities. No movement noted in left upper extremity. Withdraws in all four extremities.SR-sT with HR 90-120. Max temp 102.6, tylenol given and cooling blanket started, ice packs placed to bialteral axilla. SBP 130-140's. ICP 7-11. ICP/ventric remain intact,only opened ventric to check for patency. CPP 70-100's. LUngs ascultaed slighly coarse-clear/diminished. Has been in CPAP since before shift change, SPO2>93%. Etco2 26-37. Active bowel sounds, BMX1 moderate. Promote conintues at 80ml/h. Resiudals: 80-100-230.BCx2 and UC done today. Replaced K iwth 40meq KCL and D%W with 40meq KCLx1 liter at 100ml/h. Infectious disease consulted.Accuchecks q4h, treated x3. May be up in chair. Follow up: Continue to monitor. Hold on CHATA for now.
--- NOTE | 2016-12-24 04:54 | NUR ---
Significant Event: Patient alert, opens eyes spontaneously and to voice. Withdraws in all extemeties. No commands followed. Trackes people in room with eyes. No comlications with ICP/Ventric. SR-ST-SA. BP stable, levophed started this shift for approximately 3.5hours to keep CPP >75, currently off. CPAP/AC on vent. Bowel sounds active, no bm this shift. Tolerating TF well. Carranza intact, adequate UOP. No skin changes. Follow up: Continue.
[2016-12-24 05:04] LABS: ALK PHOS 79 IU/L (33-138); ALT 52 IU/L (12-78); AST 47 IU/L (10-40); BLOOD UREA NITROGEN 14 mg/dL (6-24); CALCIUM 7.6 mg/dL (8.5-10.5); CHLORIDE 108 mMol/L (96-110); CO2 32 mMol/L (22-32); CREATININE 0.3 mg/dL (0.6-1.3); ESTIMATED GFR (MDRD EQUATION) > 60
[2016-12-24 05:08] LABS: MAGNESIUM 2.3 mg/dL (1.8-2.6); PHOSPHORUS 2.7 mg/dL (2.5-4.9)
[2016-12-24 05:14] LABS: ALBUMIN 1.7 gm/dL (3.5-5.0); ANION GAP 8.9 (10.0-19.0); POTASSIUM 2.9 mMol/L (3.7-5.1); SODIUM 146 mMol/L (135-145); TOTAL BILIRUBIN 0.9 mg/dL (0.0-1.5)
--- NOTE | 2016-12-24 05:18 | NUR ---
Patient started the shift in CPAP/PS 12/16. He was changed back to AC at 2230. At 0430 he was put back into CPAP. On CPAP the patient is getting tidal volumes of 400-700 with respiratory rates in the mid teens to mid 20's. The patient remained on an FIO2 of 30%. Breath sounds have been clear and diminished for the most part. Suctioning small to moderate thick yellow. Will continue to monitor.
[2016-12-24 05:21] LABS: HEMOGLOBIN 8.8 g/dL (11.0-16.0); MCH 28.9 pg (27.0-34.0); MCV 91.8 fl (83.0-98.0); MPV 10.3 fl (9.4-12.4); RBC 3.05 M/uL (3.50-5.50); RDW-CV 18.6 % (11.9-14.6); WBC 4.8 K/uL (4.0-11.0)
[2016-12-24 05:25] LABS: MCHC 31.4 gm/dL (32.0-36.5)
[2016-12-24 05:26] LABS: PLATELET COUNT 72 K/uL (150-450)
[2016-12-24 06:03] LABS: BANDED NEUTROPHIL # 1.1 K/uL (0.0-0.1); BANDED NEUTROPHILS % 22 %; LYMPHOCYTE # 0.7 K/uL (0.8-4.0); LYMPHOCYTE % 14 %; MONOCYTE # 0.1 K/uL (0.0-1.0); SEGMENTED NEUTROPHIL # 2.9 K/uL (1.4-9.0); SEGMENTED NEUTROPHIL % 61 %
--- NOTE | 2016-12-24 12:00 | NUR ---
Diabetes center note: 0900 Continue current insulin regimen of Levemir insulin 60 units daily, and regular aggressive sliding scale. FBS this a.m. was 129
--- NOTE | 2016-12-24 13:29 | NUR ---
Call from Mike' daughter this morning still voicing frusterations about difference in opinions between MDs and there not really being a plan for dismissal. She is frusterated that they are not talking to one another and all of them tell them different things. Provided support to her and listened to her talk. She did ask if there was a patient advocate that she could also talk with. Informed her that we didn't have just one patient advocate, that each floor in a way had one. I told her I would talk with REROLLER HAND Meredith Hinojosa to see if she would be willing to come in and talk with them to see if we could get things figured out. Daughter was fine with this. No other questions, needs or concerns. CM to continue to follow and assist.
--- NOTE | 2016-12-24 18:36 | NUR ---
D: SUBDURAL HEMATOMA I: DUONEB R: PT WAS EXTUBATED @ 14:30 TO A 4 LPM NC, WEANED TO 2 LPM, BS SL COARSE T/O, PT HAS A WEAK NON-PRODUCTIVE COUGH, INCREASED AERATION POST TX P: CONT TO WEAN O2 TOLERATES
--- NOTE | 2016-12-24 18:54 | NUR ---
PATIENT OPENS EYES SPONTANEOUSLY AND TO VOICE. PUPILS EQUAL AND REACTIVE. PATIENT TRACKS WITH EYES. PATIENT OCCASIONALLY NODS YES/NO APPROPRIATELY. L) ICP VENTRIC SITES IN PLACE. NO DRAINAGE AROUND SITES. ICP RANGE 5-15. VENTRIC REMAIN CLOSED AT ALL TIMES. PATIENT OCCASIONALLY FOLLOWS COMMANDS IN R) UPPER EXTREMITY. PATIENT MOVES R) UPPER EXTREMITY SPONTANEOUSLY. PATIENT WITHDRAWS TO PAIN IN R) UPPER EXTREMITY. PATIENT WITHDRAWS TO PAIN IN L) UPPER EXTREMITY. PATIENT OBSERVED MOVING L) UPPER EXTREMITY SPONTANEOUSLY. PATIENT OBSERVED MOVING BILAT LOWER EXTREMITITES SPONTANEOUSLY. PATIENT WITHDRAWS TO PAIN IN BILAT LOWER EXTREMITIES. PATIENT HAS BEEN IN SINUS RHYTHM, OCCASIONALLY TACHY INTO 110S. BP STABLE, SBP>90 AND MAP<65. CPP 50-100 RANGE. CPP<100 MOMENTARILY X2, WHEN BP RECHECKED, CPP <100, DR VILLAVICENCIO AWARE. EDEMA PRESENT. MAX TEMP OF 99.9. PATIENT EXTUBATED AT 1430 TO 4L NASAL CANNULA, SATS 90-100S. RR WITHIN NORMAL. SPONT COUGH, OCCASIONALLY PRODUCTIVE. BOWEL SOUNDS ACTIVE, 2 LARGE BM TODAY. TF OFF. DOBHOFF R) NARE. CLAMPED. LAST BLOOD SUGAR 75. ADEQUATE URINE OUTPUT PER FELICIANO. FOLLOW UP: CONTINUE TO MONITOR BLOOD SUGAR, CARDIO, RESP, AND NEURO STATUS
[2016-12-25 04:28] LABS: ALK PHOS 64 IU/L (33-138); ALT 48 IU/L (12-78); AST 52 IU/L (10-40); BLOOD UREA NITROGEN 9 mg/dL (6-24); CALCIUM 7.7 mg/dL (8.5-10.5); CHLORIDE 106 mMol/L (96-110); CO2 32 mMol/L (22-32); CREATININE 0.2 mg/dL (0.6-1.3); ESTIMATED GFR (MDRD EQUATION) > 60; MAGNESIUM 2.3 mg/dL (1.8-2.6); PHOSPHORUS 2.9 mg/dL (2.5-4.9); SODIUM 144 mMol/L (135-145)
[2016-12-25 04:31] LABS: ALBUMIN 1.6 gm/dL (3.5-5.0); ANION GAP 8.9 (10.0-19.0); POTASSIUM 2.9 mMol/L (3.7-5.1); TOTAL BILIRUBIN 0.7 mg/dL (0.0-1.5)
[2016-12-25 05:04] LABS: HEMATOCRIT 27.3 % (33.0-50.0); HEMOGLOBIN 8.7 g/dL (11.0-16.0); MCH 29.1 pg (27.0-34.0); MCHC 31.9 gm/dL (32.0-36.5); MCV 91.3 fl (83.0-98.0); MPV 11.5 fl (9.4-12.4); RBC 2.99 M/uL (3.50-5.50); RDW-CV 18.9 % (11.9-14.6); WBC 4.4 K/uL (4.0-11.0)
[2016-12-25 05:16] LABS: PLATELET COUNT 75 K/uL (150-450)
--- NOTE | 2016-12-25 05:16 | NUR ---
pt drowsy but will open eyes to voice, folows commands to right side, withdraws to the left. tracks. Lungs clear to coarse. dobhoff clamped. 2 liters uop this shift, D50 GIVEN X4 . LOWEST BLOOD SUGAR WAS 46. LEVEMIR WAS HELD. INSULIN SS CHANGED TO MILD FROM AGGRESSIVE. ACCUCHECKS CHANGED TO Q 4H. PT STARTED ON D10 AT 40 ML/H PT HAS 3 LOOSE STOOLS BUT WAS C DIFF NEGATIVE. OCCLUDED PORTS OF CENTRAL LINE WERE CATH LOGAN AND NOW ALL HAVAE GOOD BLOOD RETURN. PT UP TO CHAIR WITH LIFT DOBHOFF REMAINED CLAMPED
[2016-12-25 06:00] LABS: ABSOLUTE NEUTROPHIL CT (ANC) 3.4 K/uL (1.4-9.0); BANDED NEUTROPHIL # 0.8 K/uL (0.0-0.1); BANDED NEUTROPHILS % 19 %; LYMPHOCYTE # 0.8 K/uL (0.8-4.0); LYMPHOCYTE % 19 %; MONOCYTE # 0.1 K/uL (0.0-1.0); SEGMENTED NEUTROPHIL # 2.6 K/uL (1.4-9.0); SEGMENTED NEUTROPHIL % 58 %
--- NOTE | 2016-12-25 07:51 | NUR ---
Diabetes consult: Patient appearing on the hypoglycemic report with blood sugar of 64. Insulin regimen is being adjusted with LEvemir being held and a change from aggressive to mild with correction scale. The patient is being given IVF's with Dextrose at this time. No further recommendation. Will continue to follow.
--- NOTE | 2016-12-25 10:49 | NUR ---
A - NUTRITION FOLLOW-UP. EXTUBATED 12/24. ICP/VENTRIC, VENTRIC CLOSED AT THIS TIME. DIARRHEA, C-DIFF NEGATIVE. LABS: K+ 2.9, CREA 0.2, ALB 1.6, CRP 15.2. NEW MEDS: SOLUCORTEF, MILD SSI. DIET: DOBHOFF PLACED, WILL RESTART TF SOON PER RN. WAS GETTING PROMOTE AT 80ML/HR, TOLERATED WELL. NOT STARTING PO DIET YET PER RN. EST NEEDS: [id number] KCAL, 97-124 GRAMS PROTEIN, FLUID NEEDS: 1ML/KCAL D - INADEQUATE ORAL INTAKE RELATED TO NOT SAFE TO FEED ORALLY SECONDARY TO ALTERED MENTAL STATUS EVIDENCED BY NEED FOR ENTERAL NUTRITION. I - RECOMMEND CHANGING TUBE FEEDING FORMULA TO OSMOLITE 1.5 AT 60ML/HR WITH 40ML/HR WATER FLUSHES TO PROVIDE 2160 KCAL, 95 GRAMS PROTEIN, 1097ML FREE WATER. M/E - GOAL: PT WILL CONTINUE TO TOLERATE ENTERAL NUTRITION AND MEET >75% OF PT NEEDS IN 3-5 DAYS. WEAN TF ONCE ABLE TO START ORAL DIET.
--- NOTE | 2016-12-25 14:17 | NUR ---
Significant Event: Alert, tracking. Follows commands on R) upper extremity, withdraws x4. Spontaneous movement of L) upper extremity. PERRLA. Nonverbal. ICP/ventric intact, closed. Generalized edema, weeping to R) upper arm. Carranza catheter intact, temp probe. Dobhoff intact, starting osmolite at 10 ml/hr to a goal of 60 ml/hr. KCL 60 meq IV being given. Lasix 20 mg IV given today. Up to chair today. Pericares provided. D50 25 ml given x2 for hypoglycemia. R) IJ infusing D10 at 40 ml/hr, intermittent antibiotics. Family at bedside. Follow up: monitor.
[2016-12-25 15:21] LABS: BILIRUBIN URINE NEGATIVE (NEGATIVE); BLOOD URINE 25 /UL (NEGATIVE); COLOR URINE YELLOW (YELLOW); GLUCOSE URINE NEGATIVE (NEGATIVE); KETONE URINE NEGATIVE (NEGATIVE); LEUKOCYTES URINE 25 /UL (NEGATIVE); NITRITE URINE NEGATIVE (NEGATIVE); PROTEIN URINE NEGATIVE (NEGATIVE); TURBIDITY URINE 1+ (CLEAR); UROBILINOGEN URINE NORMAL (NORMAL)
[2016-12-25 15:34] LABS: BACTERIA URINE MODERATE (NEGATIVE); EPITHELIAL URINE 0-2 #/HPF (NEGATIVE); HYALINE CAST URINE 0-2 #/LPF (NEGATIVE)
--- NOTE | 2016-12-26 04:54 | NUR ---
PT CONTINUES TO OPEN EYES SPONTANEOUSLY, FOLLOWS COMANDS IN RUE, OCCASIONALLY FOLLOWS COMMANDS IN RLE. WITHDRAWS X4, OCCASIONAL SPONTANEOUS MOVMENT NOTED TO BLE. PERRL. REMAINS NON-VERBAL. REMAINS ON 1L NC, SATS HIGH 90S. TF OFF AT 0000 FOR PEG PLACEMENT TODAY. UOP 1025 ML THIS SHIFT. FLUID BALANCE FOR LAST 24 HR -104 ML. SHIVA CALDERON RN
[2016-12-26 05:15] LABS: ALK PHOS 66 IU/L (33-138); ALT 46 IU/L (12-78); AST 46 IU/L (10-40); BLOOD UREA NITROGEN 9 mg/dL (6-24); CHLORIDE 102 mMol/L (96-110); CO2 32 mMol/L (22-32); MAGNESIUM 2.2 mg/dL (1.8-2.6); PHOSPHORUS 2.9 mg/dL (2.5-4.9); SODIUM 141 mMol/L (135-145); TOTAL PROTEIN 5.7 g/dL (6.0-8.4)
[2016-12-26 05:16] LABS: ALBUMIN 1.6 gm/dL (3.5-5.0); CALCIUM 7.4 mg/dL (8.5-10.5); CREATININE 0.4 mg/dL (0.6-1.3); ESTIMATED GFR (MDRD EQUATION) > 60; TOTAL BILIRUBIN 0.9 mg/dL (0.0-1.5)
[2016-12-26 05:32] LABS: HEMATOCRIT 26.3 % (33.0-50.0); HEMOGLOBIN 8.4 g/dL (11.0-16.0); MCHC 31.9 gm/dL (32.0-36.5); MCV 90.7 fl (83.0-98.0); MPV 10.6 fl (9.4-12.4); RDW-CV 19.3 % (11.9-14.6); WBC 3.8 K/uL (4.0-11.0)
[2016-12-26 05:38] LABS: PLATELET COUNT 81 K/uL (150-450)
[2016-12-26 06:26] LABS: LYMPHOCYTE # 0.7 K/uL (0.8-4.0); LYMPHOCYTE % 19 %; MONOCYTE # 0.2 K/uL (0.0-1.0); SEGMENTED NEUTROPHIL # 2.7 K/uL (1.4-9.0); SEGMENTED NEUTROPHIL % 71 %
[2016-12-26 06:27] LABS: ABSOLUTE NEUTROPHIL CT (ANC) 2.9 K/uL (1.4-9.0); BANDED NEUTROPHIL # 0.2 K/uL (0.0-0.1); BANDED NEUTROPHILS % 6 %
--- NOTE | 2016-12-26 14:56 | NUR ---
CONSULT RECEIVED FOR TUBE FEEDING GOALS. PEG PLACED TODAY. EST NUTR NEEDS: [id number] KCALS AND 97-124 GM PROTEIN. RECOMMEND PROMOTE AT A GOAL RATE OF 75 ML/HR. THIS WILL PROVIDE 1800 KCALS, 112 GM PROTEIN, AND 1510 ML FREE WATER.
--- NOTE | 2016-12-26 15:42 | NUR ---
TF CONSULT RECEIVED. PT HAD A PEG PLACED TODAY. RECOMMEND RESTARTING OSMOLITE 1.5; GOAL RATE IS 65 ML/HR. THIS WILL PROVIDE 2340 KCALS, 98 GM PROTEIN, AND 1189 ML FREE WATER. EST NUTR NEEDS: 1339-8107 KCALS AND 97-124 GM PROTEIN.
--- NOTE | 2016-12-26 16:21 | NUR ---
Social visit with Mike' family this morning. They are wanting to go foward with looking into LTACHs in the [place]. I let them know that Lindsay with [facility] was already looking over the referral I had her get when she was up here the other day and that I would fax one over to Maureen at [facility] as well. They were fine with this. Mike' wanted me to look into [facility] [place], but I let her know that with him being on three different IV Abxs, they weren't probably going to be able to take him. I called over to [facility] and was unable to reach Kinga. I will try to make contact with her first part of next week as I am out tomorrow. I did let them know that [facility] would probably say no and we should still look into LTACH options if they were ok with this. They all were. I faxed initial referral to Maureen at [facility]. I faxed continued review referral to Lindsay at [facility]. I haven't heard back from either one at this point, but will continue to follow up with them to see which one might be able to take. Families goal is to get Jhonathan back here closer to home when he is able to do so. No other questions, needs or concerns. CM to continue to follow and assist.
--- NOTE | 2016-12-26 19:35 | NUR ---
Significant Event:GI: PEG tube placed today. TF started 20 ml/hr at 1700. NEURO: Follows commands weakly and sporatically in RUE. PT/OT: Dangled at side of bed today. Up in chair for 4 hours this afternoon. Follow up: Increase TF to 65 ml/hr as tolerates
[2016-12-27 04:55] LABS: ALK PHOS 70 IU/L (33-138); ALT 41 IU/L (12-78); AST 44 IU/L (10-40); BLOOD UREA NITROGEN 12 mg/dL (6-24); CHLORIDE 102 mMol/L (96-110); CO2 32 mMol/L (22-32); CREATININE 0.6 mg/dL (0.6-1.3); ESTIMATED GFR (MDRD EQUATION) > 60; MAGNESIUM 2.1 mg/dL (1.8-2.6); PHOSPHORUS 2.4 mg/dL (2.5-4.9); SODIUM 142 mMol/L (135-145); TOTAL PROTEIN 5.7 g/dL (6.0-8.4)
[2016-12-27 04:57] LABS: ALBUMIN 1.6 gm/dL (3.5-5.0); ANION GAP 10.7 (10.0-19.0); CALCIUM 7.2 mg/dL (8.5-10.5); POTASSIUM 2.7 mMol/L (3.7-5.1); TOTAL BILIRUBIN 1.1 mg/dL (0.0-1.5)
[2016-12-27 05:00] LABS: EOSINOPHIL % 0.2 %; HEMATOCRIT 26.1 % (33.0-50.0); HEMOGLOBIN 8.4 g/dL (11.0-16.0); IMMATURE GRANULOCYTE # 0.1 K/uL (0.0-0.3); IMMATURE GRANULOCYTE % 1.3 %; LYMPHOCYTE # 1.1 K/uL (0.8-4.0); LYMPHOCYTE % 23.8 %; MCH 29.2 pg (27.0-34.0); MCHC 32.2 gm/dL (32.0-36.5); MCV 90.6 fl (83.0-98.0); MONOCYTE # 0.4 K/uL (0.0-1.0); MONOCYTE % 7.8 %; MPV 11.2 fl (9.4-12.4); NEUTROPHIL % 66.9 %; NRBC % 1.6 /100WBC (0-0.00); RBC 2.88 M/uL (3.50-5.50); RDW-CV 19.9 % (11.9-14.6); WBC 4.5 K/uL (4.0-11.0)
[2016-12-27 05:06] LABS: PLATELET COUNT 108 K/uL (150-450)
--- NOTE | 2016-12-27 05:26 | NUR ---
Significant Event: PATIENT FOLLOWS COMMANDS TO RUE ONLY, WITHDRAWS X4. OPENS EYES TO COMMAND. NONVERBAL. EXP WHEEZING IN KEILA. 2L O2. MOIST, LOOSE COUGH. OSM 1.5 RUNNING VIA PEG TUBE, MAX RESIDUAL OF 80. DOUBE LUMEN PICC PLACED TO LUE, FLUSHES WELL ET GOOD BLOOD RETURN. Follow up: TRANSFER TO NTU
--- NOTE | 2016-12-27 13:35 | NUR ---
A-NUTRITION F/U TRANSFER FROM ICU 12/26 PEG PLACED. TF RESTARTED; MINIMAL RESIDUALS. LAST BM 12/25. STAGE III PU TO L)BUTTOCK LABS: NA 142, K+ 2.7, GLU 223, BUN 12,C RT 0.6, ALB 1.6. ACCUCHECKS: 126-267 NO NEW MEDS SINCE LAST F/U DIET RX: NPO; OSMOLITE 1.5 AT 65 ML/HR; PROVIDING 2340 KCALS, 98 GM PROTEIN, AND 1189 ML FREE WATER +H2O FLUSHES. EST NUTR NEEDS: 4278-2602 KCALS AND 97-124 GM PROTEIN D-AT NUTRITION RISK W/DIFF. SWALLOWING R/T NEUROMUSCULAR DYSFUNCTION AEB NEED FOR EN, PEG PLACEMENT I-RECOMMEND CHANGING TF TO GLUCERNA 1.2 AT A GOAL RATE OF 70 ML/HR; THIS WILL PROVIDE 1680 KCALS, 101 GM PROTEIN, AND 1352 ML FREE WATER. M/E-GOAL: TF TO MEET NUTRIENT NEEDS 1)F/U TF, LABS, AND POC IN 3-4 DAYS 2)ASSIST NEEDED
--- NOTE | 2016-12-27 15:39 | NUR ---
Significant Event: Transferred from ICU at 1230. PT alert, tracks with eyes, non verbal, squeezes with r)hand, flaccid l)hand, wiggles toes. Sutures/audi intact to head. PICC patent to L)arm. Foot drop boots on. Tube feeding running at 65ml/hr, goal. Carranza patent. PT up to chair with lift. Follow up:
--- NOTE | 2016-12-28 04:00 | NUR ---
Significant Event: Patient is alert, drowsy at times. Opens eyes spontaneously and to voice. No s/s pain. Nonverbal. Does not follow commands consistently. Has slight movements at times. Bilateral foot drop boots. Elevated extremities. Repositioned Q2H. Open areas to coccyx/buttocks. Moisture barrier applied. Incontinent of loose stools. HR ST. Weaned to RA. Afebrile. Carranza intact draining yellow urine. Fragile skin. PICC to LUE with intermittent antibiotics. TF running at goal rate of 65 mL/hr with 200 mL water flushes. 2PA, full lift. Sutures and audi to head-open to air. Accucheks Q4H with mild SSI. SCDs in place. Bilateral limb alerts to arms. Generalized edema. RUE is weeping and more edematous. Unable to assess sensation or orientation. Pulses palpable. Follow up: reposition Q2H, neuro checks, monitor VS
[2016-12-28 05:03] LABS: ALK PHOS 84 IU/L (33-138); ALT 40 IU/L (12-78); AST 37 IU/L (10-40); BLOOD UREA NITROGEN 12 mg/dL (6-24); CALCIUM 7.5 mg/dL (8.5-10.5); CHLORIDE 105 mMol/L (96-110); CO2 31 mMol/L (22-32); CREATININE 0.6 mg/dL (0.6-1.3); ESTIMATED GFR (MDRD EQUATION) > 60; MAGNESIUM 2.3 mg/dL (1.8-2.6); SODIUM 143 mMol/L (135-145); TOTAL BILIRUBIN 0.9 mg/dL (0.0-1.5)
[2016-12-28 05:04] LABS: ALBUMIN 1.6 gm/dL (3.5-5.0); ANION GAP 9.7 (10.0-19.0); POTASSIUM 2.7 mMol/L (3.7-5.1)
[2016-12-28 05:09] LABS: HEMATOCRIT 28.5 % (33.0-50.0); HEMOGLOBIN 9.1 g/dL (11.0-16.0); MCH 29.4 pg (27.0-34.0); MCHC 31.9 gm/dL (32.0-36.5); MCV 92.2 fl (83.0-98.0); MPV 11.4 fl (9.4-12.4); RBC 3.09 M/uL (3.50-5.50); RDW-CV 20.9 % (11.9-14.6)
[2016-12-28 05:13] LABS: PLATELET COUNT 120 K/uL (150-450)
[2016-12-28 05:47] LABS: ABSOLUTE NEUTROPHIL CT (ANC) 4.3 K/uL (1.4-9.0); LYMPHOCYTE # 1.6 K/uL (0.8-4.0); LYMPHOCYTE % 27 %; MONOCYTE # 0.1 K/uL (0.0-1.0); SEGMENTED NEUTROPHIL # 4.3 K/uL (1.4-9.0); SEGMENTED NEUTROPHIL % 71 %
--- NOTE | 2016-12-28 11:19 | NUR ---
Spoke with charge Nurse, Macey, and she said we could work with Jhonathan but not to let his HR above 150. About an hour later, rapid response was called to room for patient. Based on unstable vitals and rapid response call today, will hold on PT today and check back tomorrow. Rupesh Matamoros, PT
--- NOTE | 2016-12-28 16:44 | NUR ---
Significant Event: alert. opens eyes spontaneously. nonverbal and does not follow commands. very slight movement to right hand and bilateral lower extremities. room air. peg tube for meds/feedings/flushes. double lumen PICC to left upper extremity with normal saline infusing at 100ml/hr x 1 liter. rapid response this morning for heart rate of 130-140s and respiratory rate of 28-32. MEWs 6. chest x ray done. 1 liter bolus of normal saline done. cardizem drip started at 5mg/H. Now at 2.5mg/hr. heart rate and respiratory rate have decreased to 100-110s and RR of 20-24. afebrile. pillai cath with 725 out. large loose bowel movement this shift. full lift with transfers. repositions side to side with two assist/lift sheet and wedges. 2 open areas on coccyx open to air. generalized edema. final hemacult done and is negative.
[2016-12-29 04:19] LABS: ALK PHOS 76 IU/L (33-138); ALT 38 IU/L (12-78); AST 41 IU/L (10-40); BLOOD UREA NITROGEN 12 mg/dL (6-24); CHLORIDE 110 mMol/L (96-110); CO2 30 mMol/L (22-32); CREATININE 0.5 mg/dL (0.6-1.3); ESTIMATED GFR (MDRD EQUATION) > 60; MAGNESIUM 2.1 mg/dL (1.8-2.6); PHOSPHORUS 2.2 mg/dL (2.5-4.9); POTASSIUM 3.3 mMol/L (3.7-5.1); TOTAL PROTEIN 5.2 g/dL (6.0-8.4)
[2016-12-29 04:22] LABS: ALBUMIN 1.4 gm/dL (3.5-5.0); ANION GAP 9.3 (10.0-19.0); SODIUM 146 mMol/L (135-145)
[2016-12-29 04:31] LABS: BASOPHIL % 0.2 %; EOSINOPHIL % 0.4 %; HEMATOCRIT 26.1 % (33.0-50.0); IMMATURE GRANULOCYTE # 0.1 K/uL (0.0-0.3); IMMATURE GRANULOCYTE % 2.1 %; LYMPHOCYTE # 1.6 K/uL (0.8-4.0); LYMPHOCYTE % 30.9 %; MCH 28.8 pg (27.0-34.0); MCHC 30.7 gm/dL (32.0-36.5); MCV 93.9 fl (83.0-98.0); MONOCYTE # 0.4 K/uL (0.0-1.0); MONOCYTE % 8.4 %; NRBC % 2.1 /100WBC (0-0.00); RBC 2.78 M/uL (3.50-5.50); RDW-CV 21.7 % (11.9-14.6); WBC 5.2 K/uL (4.0-11.0)
[2016-12-29 04:33] LABS: PLATELET COUNT 131 K/uL (150-450)
--- NOTE | 2016-12-29 07:25 | NUR ---
Significant Event: Physician called due to heart rate 120's. Metoprolol started and Cardizem discontinued. Patient opens eyes spontaneously and to sound. PERRLA 3.0. Does not follow commands and is non-verbal. 4+ edema to upper extremities and weeping. Tylenol given for 100.8 temperature. Carranza catheter patent with large output. Aloe applied to open area on buttocks. Incontinent of bowel x2 and frequent repositioning. Accuchecks q4h with s/s insulin. IV antibiotics q4h. Nurse draw this morning through L)PICC. Tachypnea 27+ respiration rate. Full lift 2 assist for transfers. [place] and sutures to head approximated with no drainage. Tube feed running continuous in PEG tube with scheduled flushes in eMAR. Follow up:
--- NOTE | 2016-12-29 16:53 | NUR ---
Significant Event: alert, non-verbal, opens eyes to verbal stimulation, doses most of shift, full lift up to chair. BUE edema, L)PICC patent, loose non-productive cough, lungs dim BLL, o2 0.5 l/nc, tolerates Osmolyte tube feeding 65ml/hr per PEG, 0 residual, 200ml H2O flushes, pillai patent, open areas x2 to coccyx, moisture barrier applied. tylenol x2, sutures/audi JOMAR D/I to head incisions, Follow up: accuchecks q4h,
[2016-12-30 03:35] LABS: ALK PHOS 92 IU/L (33-138); ALT 36 IU/L (12-78); AST 38 IU/L (10-40); BLOOD UREA NITROGEN 13 mg/dL (6-24); CALCIUM 7.5 mg/dL (8.5-10.5); CHLORIDE 110 mMol/L (96-110); CO2 31 mMol/L (22-32); CREATININE 0.5 mg/dL (0.6-1.3); ESTIMATED GFR (MDRD EQUATION) > 60; MAGNESIUM 2.3 mg/dL (1.8-2.6); PHOSPHORUS 2.2 mg/dL (2.5-4.9); POTASSIUM 3.3 mMol/L (3.7-5.1); TOTAL BILIRUBIN 0.9 mg/dL (0.0-1.5); TOTAL PROTEIN 5.7 g/dL (6.0-8.4)
[2016-12-30 03:43] LABS: ALBUMIN 1.5 gm/dL (3.5-5.0); ANION GAP 9.3 (10.0-19.0); SODIUM 147 mMol/L (135-145)
[2016-12-30 04:18] LABS: BASOPHIL % 0.2 %; EOSINOPHIL % 0.5 %; HEMOGLOBIN 8.7 g/dL (11.0-16.0); IMMATURE GRANULOCYTE # 0.2 K/uL (0.0-0.3); IMMATURE GRANULOCYTE % 2.9 %; LYMPHOCYTE # 1.6 K/uL (0.8-4.0); LYMPHOCYTE % 27.3 %; MCH 29.4 pg (27.0-34.0); MCHC 31.1 gm/dL (32.0-36.5); MCV 94.6 fl (83.0-98.0); MONOCYTE # 0.4 K/uL (0.0-1.0); MONOCYTE % 7.4 %; MPV 10.9 fl (9.4-12.4); NEUTROPHIL # (ANC) 3.6 K/uL (1.4-9.0); NEUTROPHIL % 61.7 %; NRBC % 3.4 /100WBC (0-0.00); RBC 2.96 M/uL (3.50-5.50); RDW-CV 22.3 % (11.9-14.6); WBC 5.8 K/uL (4.0-11.0)
[2016-12-30 04:20] LABS: PLATELET COUNT 152 K/uL (150-450)
--- NOTE | 2016-12-30 04:57 | NUR ---
Significant Event: Pt A&Ox1, non-verbal. Will open eyes to verbal stimulation. Full lift. NAMAN PICC DL, int ABx. Generalized edema. Has been running ST. Have also given x2 doses of labetolol overnight for BP's. Loose, non-productive cough. LS dim throughout. Carranza patent. Scrotum has swelling and redness, have propped up on towel. Nystatin cream to groin area. Full lift in and out of bed. Accuchecks q4, moderate scale. Currently receiving osmolite @ 65ml/hr with 200ml flush q6h. Sutures and audi remain C/D/I. No outward signs of pain. Will not allow you to do oral cares. Follow up: Continue with plan of care.
--- NOTE | 2016-12-30 11:36 | NUR ---
A - NUTRITION F/U. ACCUCHECKS 200-300'S. NA+ 147, K+ 3.3, GLU 249, BUN/PER DIEM REGISTERED NURSE 13/0.5, ALB 1.5. A/O X 1. NON-VERBAL. OSMOLITE 1.5 AT 65 ML/HR CONTS VIA PEG. D - DIFFICULTY SWALLOWING D/T WEAKNESS AEB LONG-TERM SUPPORT VIA PEG. I - GOAL: TO MEET NEEDS VIA EN. M/E - GOAL: IMPROVE BLOOD SUGARS. 1) REC CHANGE TF TO GLUCERNA 1.2 AT 70 ML/HR = 2016 KCALS, 101 GM PROTEIN, 1352 ML FREE H20. WILL F/U IN 3-5 DAYS.
--- NOTE | 2016-12-30 11:47 | NUR ---
Update called and faxed into Maureen at [facility] so she could continue to review and follow with Jhonathan's case. She states that from the initial referral, he looks like he would be a great LTACH canidate, she would just like and update from the weekend to make sure that they could still accept and then will get back to me after they review that information. While I was down on the NTU floor a rapid responce was called so I am unsure of when discharge will be at this time. CM to continue to follow and assist.
[2016-12-30 14:56] LABS: BICARBONATE 33.3 mmol/L (18.0-23.0); PCO2 39 mmHg (35-45); PO2 58 mmHg (80-90)
--- NOTE | 2016-12-30 19:04 | NUR ---
Significant Event: opens eyes spontaneously and turns head and watches staff/ family. is nonverbal and does not follow commands. spontaneously moves feet slightly and right hand slightly. tele with sinus tach. lung sounds coarse throughout- room air most shift, oxygen PRN for sats less than 90%. On 2 liters at this time. pillai cath. large loose incontinent BM. repositions side to side with lift sheet/wedge/pillows. Double lumen PICC to left upper arm. Saline locked between medications. Heart rate tachcardia and respiratory rates 24-32. Temperature 101.1 with initial assessment. Hourly vital signs per MEWS with rapid response called at 1020 for MEWs and hypoxemia. Orders rec'd for IV lasix and chest x ray. Dr. Marvin discussed code status with patients and family this shift. family and wish to continue to do all that can be done including transfering to ICU/CPR/intubation if necessary. Chest X ray per PE protocol done this aftn with results pending.
[2016-12-30 22:08] LABS: BASOPHIL % 0.3 %; EOSINOPHIL % 0.2 %; HEMATOCRIT 26.5 % (33.0-50.0); HEMOGLOBIN 8.2 g/dL (11.0-16.0); IMMATURE GRANULOCYTE # 0.1 K/uL (0.0-0.3); IMMATURE GRANULOCYTE % 1.9 %; LYMPHOCYTE # 1.7 K/uL (0.8-4.0); LYMPHOCYTE % 27.8 %; MCH 29.4 pg (27.0-34.0); MCHC 30.9 gm/dL (32.0-36.5); MONOCYTE # 0.5 K/uL (0.0-1.0); MONOCYTE % 7.5 %; MPV 10.4 fl (9.4-12.4); NEUTROPHIL # (ANC) 3.8 K/uL (1.4-9.0); NEUTROPHIL % 62.3 %; NRBC % 2.3 /100WBC (0-0.00); RBC 2.79 M/uL (3.50-5.50); RDW-CV 22.6 % (11.9-14.6); WBC 6.2 K/uL (4.0-11.0)
[2016-12-30 22:09] LABS: PLATELET COUNT 73 K/uL (150-450)
[2016-12-30 22:17] LABS: INR - (THERAPEUTIC) 1.12 (0.92-1.07); PROTIME 11.8 SECONDS (9.8-11.4)
[2016-12-31 02:16] LABS: BICARBONATE 32.7 mmol/L (18.0-23.0); PCO2 41 mmHg (35-45)
[2016-12-31 02:24] LABS: PO2 78 mmHg (80-90)
--- NOTE | 2016-12-31 04:54 | NUR ---
Significant Event: The patient is Alert, Drowsy at times. Will track at times. Withdrawls to painful stimuli. Nonverbal. Up with Full Lift, Strict q2h Turns. Pupils are 3mm and Brisk. Generalized Edema. No S/S of Pain. MEWS score this shift ranged from 3-4, MD aware. Head sutured and stapled. Generalized bruising to body. Open sores to bottom, aloe vesta applied. PEG tube in place in the Left Abdomen. TF infusing at 65ml/hr with 200ml water flushes QID. Carranza draining yellow urine. PICC Line to the Left arm. Heparin gtt started this shift, currently infusing at 1400 units/hr. Accu checks Q4H. Gave the patient 20mEq Of Lasix x2 this shift. Replaced Potassium through his PEG tube a total of 80mEq Given. HR up into the 130's, Stat EKG ordered, Dr Lin stated patient was in A-FLUTTER order for 5mg of IV Lopressor given, HR back down into the 90's after. The patient is on BIPAP while Sleeping. Incontinent of BM. Follow up:
[2016-12-31 04:57] LABS: ALK PHOS 79 IU/L (33-138); ALT 32 IU/L (12-78); AST 31 IU/L (10-40); BLOOD UREA NITROGEN 14 mg/dL (6-24); CHLORIDE 108 mMol/L (96-110); CO2 32 mMol/L (22-32); CREATININE 0.6 mg/dL (0.6-1.3); ESTIMATED GFR (MDRD EQUATION) > 60; MAGNESIUM 2.2 mg/dL (1.8-2.6); PHOSPHORUS 2.7 mg/dL (2.5-4.9); POTASSIUM 3.7 mMol/L (3.7-5.1); TOTAL BILIRUBIN 0.8 mg/dL (0.0-1.5); TOTAL PROTEIN 5.5 g/dL (6.0-8.4)
[2016-12-31 04:58] LABS: ALBUMIN 1.4 gm/dL (3.5-5.0); ANION GAP 10.7 (10.0-19.0); BASOPHIL % 0.2 %; CALCIUM 7.3 mg/dL (8.5-10.5); EOSINOPHIL % 0.4 %; HEMOGLOBIN 8.9 g/dL (11.0-16.0); IMMATURE GRANULOCYTE # 0.2 K/uL (0.0-0.3); IMMATURE GRANULOCYTE % 2.7 %; LYMPHOCYTE # 2.2 K/uL (0.8-4.0); MCH 29.3 pg (27.0-34.0); MCHC 30.7 gm/dL (32.0-36.5); MCV 95.4 fl (83.0-98.0); MONOCYTE # 0.6 K/uL (0.0-1.0); MONOCYTE % 7.8 %; MPV 11.4 fl (9.4-12.4); NEUTROPHIL % 61.9 %; NRBC % 3.1 /100WBC (0-0.00); RBC 3.04 M/uL (3.50-5.50); SODIUM 147 mMol/L (135-145); WBC 8.1 K/uL (4.0-11.0)
[2016-12-31 05:00] LABS: PLATELET COUNT 199 K/uL (150-450)
[2016-12-31 07:53] LABS: BICARBONATE 34.3 mmol/L (18.0-23.0); PCO2 42 mmHg (35-45); PO2 103 mmHg (80-90)
--- NOTE | 2016-12-31 12:10 | NUR ---
Called and talked with Maureen at [facility], , gave her a verbal update on Jhonathan. She tells me at this point they are still looking at him and to fax an update to her on Friday or and we will go from there. No other questions, needs or concerns at this time. Updated family that I was keeping [facility] updated, they were fine with this. Also let MUKUND Farah, MUKUND Jolly, Ad Higuera and Dr. Marvin all know I was keeping Maureen at [facility] updated as well.
--- NOTE | 2016-12-31 16:14 | NUR ---
Significant Event: patient is nonverbal. does squeeze right hand at times slightly to command. moves head and watches people. no s/s of pain. cpap at night. room air during the day. lung sounds clear/diminished. continues sinus tachycardia. respiratory rate 24-32. incontinent of bowels. pillai cath with clear/yellow output. generalized edema. weeping to right upper extremity. repositions side to side with two assist. full lift with transfers. IVC filter placed this shift. Left NTU at 1245 and returned to NTU at 1415. DSG to right side of groin C/D/I and area soft. accuchecks Q 4 hours. Tube feeds and water flushes resumed after procedure. Heparin drip stopped at 1400 units/hr. Dr. Burnette to clarify if heparin drip is to be resumed.
[2017-01-01 03:39] LABS: ALK PHOS 79 IU/L (33-138); ALT 28 IU/L (12-78); ANION GAP 11.2 (10.0-19.0); AST 27 IU/L (10-40); BLOOD UREA NITROGEN 15 mg/dL (6-24); CHLORIDE 108 mMol/L (96-110); CO2 29 mMol/L (22-32); CREATININE 0.6 mg/dL (0.6-1.3); ESTIMATED GFR (MDRD EQUATION) > 60; MAGNESIUM 2.3 mg/dL (1.8-2.6); PHOSPHORUS 3.5 mg/dL (2.5-4.9); POTASSIUM 3.2 mMol/L (3.7-5.1); SODIUM 145 mMol/L (135-145); TOTAL PROTEIN 5.5 g/dL (6.0-8.4)
[2017-01-01 03:42] LABS: ALBUMIN 1.8 gm/dL (3.5-5.0); CALCIUM 7.3 mg/dL (8.5-10.5); TOTAL BILIRUBIN 1.2 mg/dL (0.0-1.5)
[2017-01-01 03:48] LABS: BASOPHIL % 0.3 %; EOSINOPHIL % 0.2 %; HEMATOCRIT 26.3 % (33.0-50.0); IMMATURE GRANULOCYTE # 0.1 K/uL (0.0-0.3); IMMATURE GRANULOCYTE % 2.2 %; LYMPHOCYTE # 1.6 K/uL (0.8-4.0); LYMPHOCYTE % 24.7 %; MONOCYTE # 0.5 K/uL (0.0-1.0); MONOCYTE % 7.5 %; MPV 11.3 fl (9.4-12.4); NEUTROPHIL # (ANC) 4.2 K/uL (1.4-9.0); NEUTROPHIL % 65.1 %; NRBC % 1.7 /100WBC (0-0.00); RBC 2.71 M/uL (3.50-5.50); RDW-CV 23.4 % (11.9-14.6); WBC 6.4 K/uL (4.0-11.0)
[2017-01-01 03:50] LABS: HEMOGLOBIN 7.8 g/dL (11.0-16.0); MCH 28.8 pg (27.0-34.0); MCHC 29.7 gm/dL (32.0-36.5)
[2017-01-01 03:51] LABS: PLATELET COUNT 168 K/uL (150-450)
--- NOTE | 2017-01-01 04:16 | NUR ---
Significant Event: Patient non-verbal. Does not follow commands this shift. Moves upper extremities spontaneously at times. Witnessed minimal spontaneous movement to bilateral toes, but mostly just respond to stimuli. Opens eyes to voice at times. Take blood pressure in LLE. SBP's from 90s-140s this shift. Runs a temp 99.8. Lungs clear and dim on room air. Bipap at night. Generalized edema. Tachypneic and Tachycardic. Incontinent of bowel. Carranza intact. LUE PICC running heparin currently at 1500 units. D5 in water at 50 ml/hr. Peg tube intact running Osmolite at 65 ml/hr with 200 ml water flushes. Accuchecks q4. Turn q2. Follow up: Monitor B/P. Monitor LOC.
[2017-01-01 10:58] LABS: HEMOGLOBIN 8.3 g/dL (11.0-16.0)
--- NOTE | 2017-01-01 15:22 | NUR ---
Called/faxed in update to Maureen at [facility] today. She is going to review the information and see if we can work on getting Jhonathan there towards the end of this week. CM to continue to follow and assist.
--- NOTE | 2017-01-01 16:50 | NUR ---
Significant Event: opens eyes spontaneously and to voice. moves head and watches family/staff. wiggles right hand slightly on command. minimal spontaneous movement to left hand and lower extremities. continues to be in sinus tach with heart rate 100-130. respiratory rate 24-32. highest temperature 100.2. tube feedings and flushes. NPO. frequent oral cares. suction PRN. lung sounds clear/diminished. harsh occasional cough. edematous throughout with upper body greater than lower extemities. pillai cath with 1375 out. double lumen PICC to left upper arm with heparin drip infusing at 1600units/hr. accuchecks Q 4 hours. Next PTTHP at 1800. Full lift with transfers.
[2017-01-02 03:23] LABS: ALK PHOS 71 IU/L (33-138); ALT 22 IU/L (12-78); ANION GAP 11.5 (10.0-19.0); AST 21 IU/L (10-40); BLOOD UREA NITROGEN 14 mg/dL (6-24); CHLORIDE 108 mMol/L (96-110); CO2 27 mMol/L (22-32); CREATININE 0.5 mg/dL (0.6-1.3); ESTIMATED GFR (MDRD EQUATION) > 60; MAGNESIUM 2.2 mg/dL (1.8-2.6); PHOSPHORUS 2.5 mg/dL (2.5-4.9); POTASSIUM 3.5 mMol/L (3.7-5.1); SODIUM 143 mMol/L (135-145); TOTAL PROTEIN 5.1 g/dL (6.0-8.4)
[2017-01-02 03:27] LABS: ALBUMIN 1.8 gm/dL (3.5-5.0); CALCIUM 7.2 mg/dL (8.5-10.5); TOTAL BILIRUBIN 0.9 mg/dL (0.0-1.5)
[2017-01-02 03:30] LABS: BASOPHIL % 0.3 %; EOSINOPHIL % 0.3 %; HEMATOCRIT 23.4 % (33.0-50.0); IMMATURE GRANULOCYTE # 0.2 K/uL (0.0-0.3); LYMPHOCYTE # 1.6 K/uL (0.8-4.0); LYMPHOCYTE % 27.4 %; MCV 97.1 fl (83.0-98.0); MONOCYTE # 0.5 K/uL (0.0-1.0); MONOCYTE % 8.8 %; MPV 11.3 fl (9.4-12.4); NEUTROPHIL # (ANC) 3.4 K/uL (1.4-9.0); NEUTROPHIL % 59.2 %; NRBC % 2.4 /100WBC (0-0.00); RBC 2.41 M/uL (3.50-5.50); RDW-CV 23.5 % (11.9-14.6); WBC 5.8 K/uL (4.0-11.0)
[2017-01-02 03:34] LABS: HEMOGLOBIN 7.1 g/dL (11.0-16.0); MCH 29.5 pg (27.0-34.0); MCHC 30.3 gm/dL (32.0-36.5); PLATELET COUNT 165 K/uL (150-450)
--- NOTE | 2017-01-02 04:15 | NUR ---
Significant Event: PATIENT DROWSY. OPENS EYES TO VERBAL AND PAINFUL STIMULI. MOVES ALL EXTREMITIES TO PAINFUL STIMULI. POSSIBLY SAW RIGHT ARM MOVE SPONATNEOUSLY. PERRLA. NONVERBAL. UP FULL LIFT. LUNGS WHEEZY THROUGHOUT ON ROOM AIR - BIPAP AT NIGHT. TACHYCARDIC IN THE 100S-110S. SBP RANGED FROM 106-126. HIGHEST TEMP 100.1 - TYLENOL GIVEN AND TEMP CAME DOWN TO 99.1. TACHYPNEIC 25-28. PEG TUBE RUNNING TUBE FEED AT 65ML/HR. ONLY RESIDUAL AT 0300 WAS 80ML. IV INTAKE 973. TUBE FEED INTAKE 500. FLUSH INTAKE 400. OUTPUT IN FELICIANO 2300. ACCUCHECKS [id number], RANGES UPPER 200S TO LOWER 300S. OPEN AREAS ON COCCYX - TURN Q2, ALOE VISTA APPLIED. DOUBLE LUMEN PICC TO LEFT UPPER ARM RUNNING INTERMITTENT ANTIBIOTICS AND VIMPAT. aLSO RUNNING HEPARIN AT 1600 UNITS/HR. NEXT PTTHP AT 0600. LIMB ALERT TO RIGHT ARM FOR BLOOD CLOT. LIMB ALERT TO LEFT ARM FOR PICC - ORDER WRITTEN THAT IT IS OK TO DRAW LAB FROM LOWER LEFT ARM. Follow up: MRI TODAY
--- NOTE | 2017-01-02 08:56 | NUR ---
A - NUTRITION F/U. A/O X 1. NON-VERBAL. K+ 3.5, GLU 283, BUN/SALES F[employer]OR TEAM LEADER 14/0.5, AL B 1.8. ACCUCHECKS 200-300S. ORDER FOR STEROID NOTED. PT W/ 1-2+ EDEMA T/O. O/A'S TO COCCYX. OSMOLITE 1.5 AT 65 ML/HR = 2350 KCALS, 98 GM PROTEIN, 1189 ML FREE H20. D - DIFFICULTY SWALLOWING R/T WEAKNESS AEB NEED FOR EN VIA PEG. I - GOAL: CONT TO MEET PT NEEDS VIA EN. M/E - CONSIDER CHANGING TF TO GLUCERNA 1.2 AT 70 ML/HR FOR BETTER BLOOD SUGAR CONTROL. WILL F/U IN 4-6 DAYS.
--- NOTE | 2017-01-02 13:25 | NUR ---
Lindsay from [facility] was here this morning and gathered updated information off of Mike' chart and was also able to sit and visit with Mike' family as well (son and ). Lindsay tells me that the visit went well and family wants to go with them. I told her I would talk more with family later today and also visit with the daughters as they were woods players in the case as well and then let her know which one they wanted to go with, either [facility] in [place] or [facility] in [place]. Lindsay was fine with this. Talked with Ad Higuera, he tells me that he is not for sure when Jhonathan will be ready to go as he still has a lot of medical issues going on. CM to continue to follow and assist.
--- NOTE | 2017-01-02 17:27 | NUR ---
Significant Event:VSS, MEWS SCORE CONTINUES AT 4. PEERL AT 3MM, PT AROUSES TO PAINFUL STIMULI, OPEN EYES AND MOVES R ARM SPONTANEOUSLY. DANGLED ON EDGE OF BED WITH PT STAFF, POSITIONED FREQUENTLY. HGB 7.1, TX ONE UNIT OF BLOOD, TYLENOL 1000MG AND BENADRYL 25MG PRE TRANSFUSION, AND LASIX 20MG IV POST TRANSFUSION. LUNGS CLEAR/DIMINISHED. REMAINS ON RA. HEPARIN GTT CONTINUES AT 1500 UNITS/HR. PTTHP 77 AT 1230. NEXT ONE DUE AT 0030. PICC LINE INTACT TO LUE. LG LOOSE BM, NEED 3 STOOLS FOR HEMETEST. FELICIANO INTACT. TF CHANGED TO GLUCERNA AT 70ML/HR PER PEG WITH 200ML H2O FLUSHES. ACCUCHECKS Q 4 HOURS. Follow up:MONITOR, CM WORKING WITH FAMILY FOR PLACEMENT LTACH.
[2017-01-02 18:45] LABS: HEMOGLOBIN 9.2 g/dL (11.0-16.0)
[2017-01-02 18:51] LABS: HEMATOCRIT 28.9 % (33.0-50.0)
[2017-01-03 01:10] LABS: HEMATOCRIT 28.7 % (33.0-50.0); HEMOGLOBIN 8.9 g/dL (11.0-16.0)
[2017-01-03 05:33] LABS: ALK PHOS 81 IU/L (33-138); ALT 25 IU/L (12-78); AST 28 IU/L (10-40); BLOOD UREA NITROGEN 14 mg/dL (6-24); CALCIUM 7.7 mg/dL (8.5-10.5); CHLORIDE 109 mMol/L (96-110); CO2 27 mMol/L (22-32); CREATININE 0.4 mg/dL (0.6-1.3); ESTIMATED GFR (MDRD EQUATION) > 60; MAGNESIUM 2.3 mg/dL (1.8-2.6); PHOSPHORUS 2.9 mg/dL (2.5-4.9); POTASSIUM 3.5 mMol/L (3.7-5.1); TOTAL PROTEIN 5.3 g/dL (6.0-8.4)
[2017-01-03 05:40] LABS: ALBUMIN 1.6 gm/dL (3.5-5.0); ANION GAP 14.5 (10.0-19.0); SODIUM 147 mMol/L (135-145)
[2017-01-03 05:53] LABS: HEMATOCRIT 28.6 % (33.0-50.0); HEMOGLOBIN 8.7 g/dL (11.0-16.0); MCH 28.8 pg (27.0-34.0); MCHC 30.4 gm/dL (32.0-36.5); MCV 94.7 fl (83.0-98.0); MPV 10.6 fl (9.4-12.4); RDW-CV 24.4 % (11.9-14.6); WBC 7.4 K/uL (4.0-11.0)
[2017-01-03 05:59] LABS: PLATELET COUNT 205 K/uL (150-450); RBC 3.02 M/uL (3.50-5.50)
[2017-01-03 06:16] LABS: PROTIME 11.5 SECONDS (9.1-10.7)
[2017-01-03 06:17] LABS: INR - (THERAPEUTIC) 1.09 (0.89-1.05)
[2017-01-03 06:57] LABS: ABSOLUTE NEUTROPHIL CT (ANC) 5.5 K/uL (1.4-9.0); BANDED NEUTROPHIL # 0.8 K/uL (0.0-0.1); BANDED NEUTROPHILS % 11 %; LYMPHOCYTE # 1.5 K/uL (0.8-4.0); LYMPHOCYTE % 20 %; MONOCYTE # 0.3 K/uL (0.0-1.0); SEGMENTED NEUTROPHIL # 4.7 K/uL (1.4-9.0); SEGMENTED NEUTROPHIL % 63 %
--- NOTE | 2017-01-03 07:12 | NUR ---
Significant Event: Patient non-verbal. Perrla. No s/s of pain. Will open eyes to voice and turn head to voice. Moves head side to side and moves upper extremities spontaneously at times. Withdraws to pain in all. Lungs clear on room air during the day. Wears Bipap at night. Bowels active. LG bm this shift. Carranza intact. PICC to LUE. Heparin running at 1500 units. DVT in right arm, so take b/p in LLE. Generalized edema. Open areas to coccyx and sacrum. Turn q2. Feeding tube running Glucerna at 70 ml/hr with 200 ml flushes. Moderate sliding scale. Q4 accuchecks. Intermittent ABX. Follow up: Continue to monitor until LTACH placement.
--- NOTE | 2017-01-03 12:15 | NUR ---
Social visit with Mike' family this morning. They are still talking about which one they want to go with, either [facility] or [facility]. I let them know that they needed to contact Lindsay at [facility] and Maureen at [facility] to get any final questions answered that they had and then make a decision on which one they wanted by [address] if and Dr[address] Burnette rounded and said that Jhonathan could go, I would be able to proceed with placement as soon as later today or Friday. Family states that they will do this and then let me know before 1500 today. Updated RN Macey to this. CM to continue to follow and assist.
[2017-01-03 16:29] LABS: PCO2 39 mmHg (35-45); PO2 64 mmHg (80-90)
[2017-01-03 17:08] LABS: BILIRUBIN URINE NEGATIVE (NEGATIVE); BLOOD URINE 10 /UL (NEGATIVE); GLUCOSE URINE NEGATIVE (NEGATIVE); KETONE URINE NEGATIVE (NEGATIVE); LEUKOCYTES URINE 25 /UL (NEGATIVE); NITRITE URINE NEGATIVE (NEGATIVE); PROTEIN URINE 30 mg/dL (NEGATIVE); SPEC GRAVITY URINE 1.015 (1.003-1.035); UROBILINOGEN URINE 4 mg/dL (NORMAL)
[2017-01-03 17:13] LABS: COLOR URINE YELLOW (YELLOW); TURBIDITY URINE CLEAR (CLEAR)
[2017-01-03 17:15] LABS: BACTERIA URINE NEGATIVE (NEGATIVE); EPITHELIAL URINE NEGATIVE #/HPF (NEGATIVE); MUCUS URINE 1+ (NEGATIVE); RBC URINE RARE #/HPF (NEGATIVE); YEAST URINE FEW (NEGATIVE)
--- NOTE | 2017-01-03 17:35 | NUR ---
Significant Event:PT IS NONVERBAL DOES SEEM TO TRACK WITH EYES. WITHDRAWS TO PAIN. DID SEE SOME SPONTANOUS MOVMENT IN R) ARM. PERRLA. LUNG SOUNDS AND CLEAR AND DIMINISHED. HE DOES HAVE NONPRODUCTIVE COUGH. WHEN SUCTIONED GET OUT SMALL AMOUNT OF CREAM COLORED SPUTUM. 4+ EDEMA. PEG. TF RUNNING HAS QID H2O FLUSHES. ACTIVE BS. XLG BM TODAY. BP TO L) LOWER ARM. R) ARM HAS DVT. HEPARIN GTT RUNNING. NEXT PTTHP AT 2220. Q4H ACCU CHECKS. IV RUNNING. ON IVATB. LEVAQUIN STARTED. CXR AND ABG DONE. 20 KCL GIVEN. CARDIOLOGY CONSULT DUE TO TACHYCARDIA. FAMILY AT BEDSIDE. Follow up:
--- NOTE | 2017-01-03 19:31 | NUR ---
pharmacy assistant Hue stated lasix gtt and dextrose could be run together
--- NOTE | 2017-01-03 22:11 | NUR ---
Patient is non-verbal. Withdraws to pain in all extremities, moves right upper arm spontaneously at times. Perrl. Responds to voice. Will follow voice and seem to track, but does not follow commands. Lungs slightly coarse throughout on bipap. Patient's vitals at 1845- b/p 134/61, T-97.7, 99%-Bipap, 107-HR, R-29. Patient's MEWS have been running 4-5, MD aware. PICC to left upper arm, double lumen running fluids, lasix drip, albumin, and heparin upon transfer. Intermittent ABX. Carranza catheter intact, not to be replaced per MD order. Generalized edema throughout. Open sores to coccyx and sacrum. Patient transferred to ICU around [address] Marvin to room 6206. Report given to MUKUND Duncan.
--- NOTE | 2017-01-04 05:01 | NUR ---
Significant Event: NO SIGNIFICANT NEURO CHANGES DURING SHIFT. HR'S 90'S-100'S. SBP 120'S-150'S. 3-4+ EDEMA BILATERAL ARMS AND LEGS. AFEBILE. LASIX GTT CONTINUES. BIPAP AT 21%. O2 SATS GREATER THAN 93%. NO BM DURING SHIFT. HYPERACTIVE BS. FELICIANO TO DD WITH ADEQ UOP. NO PRNS GIVEN. TRANSFERRED FOR POSSIBLE CENTRAL LINE IN AM. ONLY DOUBLE LUMEN PICC, CAN'T PLACE IV'S DUE TO DVT R) ARM AND MULT GTT'S. Follow up: LINEPLACEMENT. D5W TURNED OFF?
[2017-01-04 05:04] LABS: ALBUMIN 2.6 gm/dL (3.5-5.0); ALK PHOS 97 IU/L (33-138); ALT 28 IU/L (12-78); ANION GAP 15.1 (10.0-19.0); AST 36 IU/L (10-40); BLOOD UREA NITROGEN 14 mg/dL (6-24); CALCIUM 7.8 mg/dL (8.5-10.5); CHLORIDE 103 mMol/L (96-110); CO2 29 mMol/L (22-32); CREATININE 0.6 mg/dL (0.6-1.3); ESTIMATED GFR (MDRD EQUATION) > 60; MAGNESIUM 2.1 mg/dL (1.8-2.6); PHOSPHORUS 2.5 mg/dL (2.5-4.9); POTASSIUM 4.1 mMol/L (3.7-5.1); SODIUM 143 mMol/L (135-145); TOTAL PROTEIN 6.3 g/dL (6.0-8.4)
[2017-01-04 05:06] LABS: HEMATOCRIT 28.7 % (33.0-50.0); HEMOGLOBIN 8.8 g/dL (11.0-16.0); MCH 28.9 pg (27.0-34.0); MCHC 30.7 gm/dL (32.0-36.5); MCV 94.4 fl (83.0-98.0); MPV 11.6 fl (9.4-12.4); RBC 3.04 M/uL (3.50-5.50); RDW-CV 24.5 % (11.9-14.6); TOTAL BILIRUBIN 1.5 mg/dL (0.0-1.5); WBC 7.3 K/uL (4.0-11.0)
[2017-01-04 05:10] LABS: PLATELET COUNT 153 K/uL (150-450)
[2017-01-04 05:35] LABS: INR - (THERAPEUTIC) 1.13 (0.92-1.07); PROTIME 11.9 SECONDS (9.8-11.4)
[2017-01-04 05:43] LABS: ABSOLUTE NEUTROPHIL CT (ANC) 5.3 K/uL (1.4-9.0); BANDED NEUTROPHIL # 0.9 K/uL (0.0-0.1); BANDED NEUTROPHILS % 12 %; LYMPHOCYTE # 1.6 K/uL (0.8-4.0); LYMPHOCYTE % 22 %; MONOCYTE # 0.4 K/uL (0.0-1.0); SEGMENTED NEUTROPHIL # 4.5 K/uL (1.4-9.0); SEGMENTED NEUTROPHIL % 61 %
--- NOTE | 2017-01-04 15:18 | NUR ---
Significant Event: PT alert at times, opens eyes, tracks, does not follow commands, spontaneously moves L)arm, head. VSS, slightly tachy-low 100's. Tmax of 99.1. BM x1 this shift. Bipap on at night, room air during day. Lasix gtt at 2.5/hr, great output. Heparing gtt. PICC patent to L)arm. PT repositioned frequently. Family at bedside. Follow up:
--- NOTE | 2017-01-04 15:30 | NUR ---
Pt continued on BIPAP this AM on 21% Fio2. Lung sounds clear/diminished more diminished bases. Bipap off around 1210 to room air. Tolerated well.
[2017-01-04 19:37] LABS: HEMATOCRIT 26.4 % (33.0-50.0); HEMOGLOBIN 8.3 g/dL (11.0-16.0); MCH 29.5 pg (27.0-34.0); MCHC 31.4 gm/dL (32.0-36.5); MPV 11.2 fl (9.4-12.4); RBC 2.81 M/uL (3.50-5.50); RDW-CV 24.2 % (11.9-14.6)
[2017-01-04 19:40] LABS: PLATELET COUNT 212 K/uL (150-450)
[2017-01-04 19:57] LABS: INR - (THERAPEUTIC) 1.24 (0.92-1.07); PROTIME 13.1 SECONDS (9.8-11.4)
[2017-01-04 20:00] LABS: PTT 79 SECONDS (25-32)
[2017-01-04 20:11] LABS: ABSOLUTE NEUTROPHIL CT (ANC) 5.6 K/uL (1.4-9.0); BANDED NEUTROPHIL # 0.8 K/uL (0.0-0.1); BANDED NEUTROPHILS % 11 %; LYMPHOCYTE # 0.8 K/uL (0.8-4.0); LYMPHOCYTE % 12 %; MONOCYTE # 0.6 K/uL (0.0-1.0); SEGMENTED NEUTROPHIL # 4.8 K/uL (1.4-9.0); SEGMENTED NEUTROPHIL % 69 %
[2017-01-05 03:44] LABS: BASOPHIL % 0.2 %; EOSINOPHIL % 0.3 %; HEMATOCRIT 24.5 % (33.0-50.0); IMMATURE GRANULOCYTE # 0.3 K/uL (0.0-0.3); IMMATURE GRANULOCYTE % 4.2 %; LYMPHOCYTE # 1.9 K/uL (0.8-4.0); LYMPHOCYTE % 28.4 %; MCV 92.8 fl (83.0-98.0); MONOCYTE # 0.6 K/uL (0.0-1.0); MONOCYTE % 8.6 %; MPV 10.2 fl (9.4-12.4); NEUTROPHIL # (ANC) 3.9 K/uL (1.4-9.0); NEUTROPHIL % 58.3 %; NRBC % 1.8 /100WBC (0-0.00); RBC 2.64 M/uL (3.50-5.50); RDW-CV 23.9 % (11.9-14.6); WBC 6.6 K/uL (4.0-11.0)
[2017-01-05 03:46] LABS: HEMOGLOBIN 7.6 g/dL (11.0-16.0); MCH 28.8 pg (27.0-34.0)
[2017-01-05 03:47] LABS: PLATELET COUNT 157 K/uL (150-450)
[2017-01-05 04:00] LABS: INR - (THERAPEUTIC) 1.21 (0.92-1.07); PROTIME 12.7 SECONDS (9.8-11.4)
--- NOTE | 2017-01-05 04:34 | NUR ---
Significant Event: Drowsy, but opens eyes to sound. Tracks. Pupils 3mm and brisk. Does not follow commands. Spontaneous movement noted in upper extremities. Withdraws to pain x4 extremities. Nonverbal. VSS. Carranza drained 2190 ml urine. Severiano blood noted in BM. Occult blood in stool +. Heparin and coumadin stopped. 2 units FFP transfused. GoLytely given via PEG tube in preparation for EGD/colonoscopy in AM. 2 lg liquid stools, bloody with clots since starting GoLytely. Hyperactive bowel sounds. No s/s of pain. Follow up: EGD/Colonoscopy. Monitor Hgb.
[2017-01-05 05:54] LABS: ALBUMIN 2.6 gm/dL (3.5-5.0); ALK PHOS 69 IU/L (33-138); ALT 27 IU/L (12-78); ANION GAP 13.6 (10.0-19.0); AST 32 IU/L (10-40); BLOOD UREA NITROGEN 13 mg/dL (6-24); CALCIUM 7.6 mg/dL (8.5-10.5); CHLORIDE 99 mMol/L (96-110); CO2 32 mMol/L (22-32); CREATININE 0.5 mg/dL (0.6-1.3); ESTIMATED GFR (MDRD EQUATION) > 60; MAGNESIUM 2.1 mg/dL (1.8-2.6); POTASSIUM 2.6 mMol/L (3.7-5.1); SODIUM 142 mMol/L (135-145); TOTAL BILIRUBIN 1.5 mg/dL (0.0-1.5)
[2017-01-05 05:57] LABS: HEMATOCRIT 24.7 % (33.0-50.0)
[2017-01-05 06:00] LABS: HEMOGLOBIN 7.7 g/dL (11.0-16.0)
[2017-01-05 08:06] LABS: ALBUMIN 2.6 gm/dL (3.5-5.0); ANION GAP 12.5 (10.0-19.0); BLOOD UREA NITROGEN 12 mg/dL (6-24); CALCIUM 7.5 mg/dL (8.5-10.5); CHLORIDE 99 mMol/L (96-110); CO2 33 mMol/L (22-32); CREATININE 0.4 mg/dL (0.6-1.3); ESTIMATED GFR (MDRD EQUATION) > 60; PHOSPHORUS 3.1 mg/dL (2.5-4.9); SODIUM 142 mMol/L (135-145)
[2017-01-05 08:07] LABS: POTASSIUM 2.5 mMol/L (3.7-5.1)
[2017-01-05 17:53] LABS: HEMATOCRIT 25.1 % (33.0-50.0)
[2017-01-05 17:56] LABS: HEMOGLOBIN 7.8 g/dL (11.0-16.0)
--- NOTE | 2017-01-05 19:10 | NUR ---
Significant Event: NEURO: Patient alert, tracking, following commands in right hand. Moves lower extremities with slight stimulation. CARDIO: Afebrile. HR 90s-100s. SBP 90s-110s. Lasix gtt at 2.5 mg/h. GI: EGD clear. Colonoscopy showed diverticulitis, no active bleeding. RESP: 2L NC. SaO2 93% Follow up: Coumadin and Heparin on hold per Dr. Marvin
[2017-01-05 21:44] LABS: HEMATOCRIT 24.4 % (33.0-50.0)
[2017-01-05 21:45] LABS: HEMOGLOBIN 7.5 g/dL (11.0-16.0)
--- NOTE | 2017-01-06 05:09 | NUR ---
NONVERBAL. EYES OPEN SPONTANEOUS AND FOLLOWS YOU IN ROOM. SHUCKER R) HAND AND WIGGLES R) TOES. L) WEAKER. FOOT DROP BOOTS. FELICIANO. LASIX GTT. KCL REPLACED IV. PICC L) UPPER ARM. PEG TUBE 70ML/HR FEED WITH 200ML H2O FLUSHES. NO BM. TURN 2QHR.
[2017-01-06 05:25] LABS: ALBUMIN 2.3 gm/dL (3.5-5.0); ALK PHOS 78 IU/L (33-138); ALT 28 IU/L (12-78); ANION GAP 13.4 (10.0-19.0); AST 35 IU/L (10-40); BLOOD UREA NITROGEN 12 mg/dL (6-24); CALCIUM 7.6 mg/dL (8.5-10.5); CHLORIDE 105 mMol/L (96-110); CO2 29 mMol/L (22-32); CREATININE 0.5 mg/dL (0.6-1.3); ESTIMATED GFR (MDRD EQUATION) > 60; POTASSIUM 3.4 mMol/L (3.7-5.1); SODIUM 144 mMol/L (135-145); TOTAL BILIRUBIN 1.3 mg/dL (0.0-1.5); TOTAL PROTEIN 5.7 g/dL (6.0-8.4)
[2017-01-06 05:35] LABS: MAGNESIUM 2.3 mg/dL (1.8-2.6); PHOSPHORUS 2.9 mg/dL (2.5-4.9)
[2017-01-06 05:44] LABS: BASOPHIL % 0.3 %; EOSINOPHIL % 0.3 %; HEMATOCRIT 25.5 % (33.0-50.0); IMMATURE GRANULOCYTE # 0.1 K/uL (0.0-0.3); IMMATURE GRANULOCYTE % 2.2 %; LYMPHOCYTE # 1.6 K/uL (0.8-4.0); LYMPHOCYTE % 27.6 %; MCH 29.2 pg (27.0-34.0); MCHC 30.2 gm/dL (32.0-36.5); MCV 96.6 fl (83.0-98.0); MONOCYTE # 0.6 K/uL (0.0-1.0); MONOCYTE % 9.4 %; MPV 11.2 fl (9.4-12.4); NEUTROPHIL # (ANC) 3.5 K/uL (1.4-9.0); NEUTROPHIL % 60.2 %; NRBC % 2.4 /100WBC (0-0.00); PLATELET COUNT 151 K/uL (150-450); RBC 2.64 M/uL (3.50-5.50); WBC 5.9 K/uL (4.0-11.0)
[2017-01-06 05:49] LABS: INR - (THERAPEUTIC) 1.06 (0.92-1.07); PROTIME 11.1 SECONDS (9.8-11.4)
[2017-01-06 05:51] LABS: HEMOGLOBIN 7.7 g/dL (11.0-16.0); PTT 30 SECONDS (25-32)
[2017-01-06 12:43] LABS: BLOOD UREA NITROGEN 13 mg/dL (6-24); CALCIUM 7.5 mg/dL (8.5-10.5); CHLORIDE 106 mMol/L (96-110); CO2 27 mMol/L (22-32); CREATININE 0.6 mg/dL (0.6-1.3); ESTIMATED GFR (MDRD EQUATION) > 60; SODIUM 142 mMol/L (135-145)
--- NOTE | 2017-01-06 16:33 | NUR ---
Significant Event: VITALS STABLE WITH MAX TYMPANIC TEMP 99.5. ON RA DURING DAY WITH BIPAP ON DURING NIGHT AT 21% FIO2. LUNGS CLEAR/DIM. LASIX GTT DC'D AND CHANGED TO PO DAILY. KCL 40MEQ IV GIVEN THIS AM WITH POST-BMP SHOWING K+ LEVEL 4.0. HEPARIN GTT STARTED WITHOUT BOLUS AT 1300 UNITS/HR WITH NEXT PTTHP AT 1700. IV ATB CONTINUED AND VIMPAT DC'D. PICC TO L) UPPER ARM. GLUCERNA TF AT GOAL OF 70ML/HR WITH H2O FLUSHES OF 200ML GIVEN SCHEDULED QID. PATIENT TOLERATING WELL. NO SIGNS OF PAIN. NON-VERBAL. FOLLOWS STAFF AND FAMIL;Y WITH HIS EYES, MOVING HIS HEAD AROUND. NO SPONTANEOUS RESPONSE NOR GRASPING OF HANDS OR WIGGLING OF TOES BILATERALLY TODAY. 3+ EDEMA CONTINUES TO RUE. LARGE BM TODAY. FELICIANO TO DD WITH 1300ML UOP. NO NON-VERBAL SIGNS OF PAIN. Follow up: LABS AND EKG IN AM. COUMADIN TO RESTART TOMORROW. TURN Q2HR. NEURO Q4HR. CONT TO MONITOR PER PLAN OF CARE
--- NOTE | 2017-01-07 05:42 | NUR ---
Significant Event: PATIENT IS NON VERBAL, UNABLE TO GRASP OR WIGGLE TOES. HE DOES MOVE HIS HEAD BACK AND FORTH AND FOLLOWS STAFF/FAMILY WITH HIS EYES. FELICIANO TO DD. PICC TO LEFT UPPER ARM. CATHFLO USED LAST NIGHT DUE TO NO BLOOD RETURN. ACCU CHECKS ARE Q4H MOD SCALE. HEPARIN DRIP AT 1400U/HR. NEXT PTTHP THIS A.M. WITH LABS.OPEN AREAS ON BOTTOM. PLAN TO RESTART COUMADIN TODAY. EKG TODAY. FOOT DROP BOOTS BILATERALLY IN PLACE. CALL MD IF HBG IS LESS THAN 7.0. Follow up:
[2017-01-07 05:46] LABS: BASOPHIL % 0.3 %; EOSINOPHIL % 0.3 %; HEMATOCRIT 25.6 % (33.0-50.0); IMMATURE GRANULOCYTE # 0.1 K/uL (0.0-0.3); IMMATURE GRANULOCYTE % 1.4 %; LYMPHOCYTE % 29.1 %; MCH 29.3 pg (27.0-34.0); MCHC 30.5 gm/dL (32.0-36.5); MCV 96.2 fl (83.0-98.0); MONOCYTE # 0.6 K/uL (0.0-1.0); MONOCYTE % 8.6 %; MPV 11.1 fl (9.4-12.4); NEUTROPHIL # (ANC) 4.2 K/uL (1.4-9.0); NEUTROPHIL % 60.3 %; NRBC % 2.4 /100WBC (0-0.00); RBC 2.66 M/uL (3.50-5.50); RDW-CV 25.1 % (11.9-14.6); WBC 6.9 K/uL (4.0-11.0)
[2017-01-07 05:50] LABS: HEMOGLOBIN 7.8 g/dL (11.0-16.0); PLATELET COUNT 163 K/uL (150-450)
[2017-01-07 06:05] LABS: INR - (THERAPEUTIC) 1.08 (0.92-1.07); PROTIME 11.4 SECONDS (9.8-11.4)
[2017-01-07 06:10] LABS: ALK PHOS 85 IU/L (33-138); ALT 28 IU/L (12-78); ANION GAP 10.3 (10.0-19.0); AST 32 IU/L (10-40); BLOOD UREA NITROGEN 13 mg/dL (6-24); CALCIUM 7.6 mg/dL (8.5-10.5); CHLORIDE 103 mMol/L (96-110); CO2 29 mMol/L (22-32); CREATININE 0.6 mg/dL (0.6-1.3); ESTIMATED GFR (MDRD EQUATION) > 60; MAGNESIUM 2.3 mg/dL (1.8-2.6); PHOSPHORUS 3.1 mg/dL (2.5-4.9); POTASSIUM 3.3 mMol/L (3.7-5.1); SODIUM 139 mMol/L (135-145); TOTAL BILIRUBIN 1.3 mg/dL (0.0-1.5); TOTAL PROTEIN 5.5 g/dL (6.0-8.4)
[2017-01-07 15:02] LABS: HEMATOCRIT 20.6 % (33.0-50.0)
[2017-01-07 15:04] LABS: HEMOGLOBIN 6.4 g/dL (11.0-16.0)
--- NOTE | 2017-01-07 18:50 | NUR ---
Significant event: Alert. Has been responding to some questions with yes/no- speech is muffled. Grasps with right hand, no grasp with left, but has used left hand to scratch his nose a few times. Does not wiggle toes or moves legs. Will turn head and open eyes to verbal sound, will not track finger with eyes. Pupils reactive to light. On RA. Lung sounds expiratory wheezes this AM, clear/dim this afternoon. Has 3+ edema to RUE, 2+ LUE, 1-2+ lower extremities. Carranza patent, yellow clear-lasix gtt started today, has had 2,200 ml UOP. Albumin given x 3 doses. Amiodarone gtt initiated, HR's were 90-120's, now 80-90's. BP 120-160's. Patient had oni blood stool x 2 large at 1030, heparin gtt off and notified . Red tag study done, stat H/H- 1 unit of PRBC given, to recheck HH at 2130 tonight. Proamitine also given. KCL replacement today. Peg tube residual 90-100 ml-no blood present. Family in with patient. Follow Up: Monitor HH, GI status
[2017-01-07 21:58] LABS: HEMATOCRIT 22.7 % (33.0-50.0)
[2017-01-07 22:01] LABS: HEMOGLOBIN 7.1 g/dL (11.0-16.0)
[2017-01-08 01:35] LABS: HEMATOCRIT 23.3 % (33.0-50.0); HEMOGLOBIN 7.4 g/dL (11.0-16.0)
--- NOTE | 2017-01-08 04:32 | NUR ---
Significant Event: AT START OF SHIFT PATIENT OPENED HIS EYES TO LOUD VERBAL STIMULI, DID NOT TRACK OR FOLLOW COMMANDS AND DID NOT MOVE ANY EXTREMETIES. AROUND THE 3RD ASSESSMENT HE BEGAN TO OPEN HIS EYES SOON SOMEONE ENTERED THE ROOM AND BEGAN TO FLAIL HIS LEFT ARM AND MOVE HIS HEAD OFTEN. HE SPEECH IS STILL GARBLED AND UNABLE TO ASSESS ORIENTATION. HE HAS NOT EVEN VOICED AN AUDIBLE YES OR NO THE DAY SHIFT STATED HE DID. SBP'S HAVE BEEN CONSISTANTLY AROUND THE 160'S WITH HR 80-90'S. LASIX CONTINUES AT 10 MG HOUR AND HE HAD 5,500 ML UOP DURING SHIFT. AMIODARONE AT 0.5 MG/HR TO RUN CONTINUOUSLY. ACCUCHECK Q4 HOURS. FAINT CRACKLES HEARD IN BASES. LAST HBG 7.4 AT 0130. TUBE FEED AT 70 ML/HR, 200 H20 ML FLUSH Q 6 HOURS. HE DID HAVE 2 BLOODY STOOLS DURING SHIFT (SMALL TO MODERATE). Follow up: CONTINUE TO MONITOR NEURO STATUS, HGB.
[2017-01-08 05:42] LABS: ANION GAP 11.1 (10.0-19.0); BLOOD UREA NITROGEN 14 mg/dL (6-24); CALCIUM 7.8 mg/dL (8.5-10.5); CHLORIDE 99 mMol/L (96-110); CO2 33 mMol/L (22-32); CREATININE 0.7 mg/dL (0.6-1.3); ESTIMATED GFR (MDRD EQUATION) > 60; PHOSPHORUS 3.1 mg/dL (2.5-4.9); POTASSIUM 3.1 mMol/L (3.7-5.1); SODIUM 140 mMol/L (135-145)
[2017-01-08 05:47] LABS: BASOPHIL % 0.3 %; EOSINOPHIL % 0.3 %; HEMOGLOBIN 8.9 g/dL (11.0-16.0); IMMATURE GRANULOCYTE # 0.1 K/uL (0.0-0.3); IMMATURE GRANULOCYTE % 0.8 %; LYMPHOCYTE # 1.5 K/uL (0.8-4.0); LYMPHOCYTE % 22.8 %; MCH 30.3 pg (27.0-34.0); MCHC 31.7 gm/dL (32.0-36.5); MCV 95.6 fl (83.0-98.0); MONOCYTE # 0.6 K/uL (0.0-1.0); MONOCYTE % 9.1 %; MPV 10.7 fl (9.4-12.4); NEUTROPHIL # (ANC) 4.2 K/uL (1.4-9.0); NEUTROPHIL % 66.7 %; NRBC % 2.7 /100WBC (0-0.00); PLATELET COUNT 144 K/uL (150-450); RBC 2.94 M/uL (3.50-5.50); RDW-CV 23.4 % (11.9-14.6); WBC 6.4 K/uL (4.0-11.0)
[2017-01-08 05:50] LABS: HEMATOCRIT 28.1 % (33.0-50.0)
[2017-01-08 05:51] LABS: INR - (THERAPEUTIC) 1.08 (0.92-1.07); PROTIME 11.4 SECONDS (9.8-11.4)
--- NOTE | 2017-01-08 13:52 | NUR ---
A-NUTRITION F/U 01/07-3+ EDEMA TO LUE, 2+ EDEMA LUE, 1-2+ EDEMA TO BLE; LASIX BEING GIVEN OA'S TO BOTTOM. (+)BM W/BLOOD. EARLER EGD WAS CLEAR AND COLONSCOPY SHOWED DIVERTICULITIS W/NO ACTIVE BLEEDING. (+)BS; RESIDUALS 0-90 ML. LABS: NA 140, K+ 3.1, GLU 196, BUN 14, BLACK BELT 0.7, ALB 3.0 (UP FROM 2.0). ACCUCHECKS 95-24 MEDS: PREVACID, LASIX DIET RX: NPO; 70 ML/HR GLUCERNA 1.2. PROVIDING 2016 KCALS, 101 GM PROTEIN, AND 1352 ML FREE WATER + H2O FLUSHES (200 ML EVERY 6 HOURS). EST NUTR NEEDS: [id number] KCALS AND 97-124 GM PROTEIN D-AT NUTRITION RISK W/DIFF. SWALLOWING R/T WEAKNESS AEB LONG-TERM ENTERAL NUTRITION VIA PEG I-TF CHANGED TO GLUCERNA 1.2 ON 01/02 AND IS AT GOAL RATE. M/E-TF TO MEET NUTR. NEEDS 1)F/U TF, GI, AND POC IN 5-7 DAYS 2)ASSIST NEEDED
--- NOTE | 2017-01-08 14:52 | NUR ---
Updates were given to both Elvia at [facility] and Lindsay at [facility]. I called and talked with both daughter Wendy and daughter Tania re:possible dismissal as soon as or Friday of this week, so we were needing a decision on which facility they would like to proceed with. When I was talking with Tania on the phone, she states to me that "we still have some questions that we would like to ask both Elvia and Lindsay before we make a decision." We had talked last week about family getting in contact with Maureen and Lindsay at that time, but family has not done that yet. Tania tells me that "Everyone just got busy so we hadn't gotten to that yet." I let her know that family needed to call and get their questions answered today and then give me an answer by the end of the day today or first thing tomorrow morning. I also let Tania and Wendy both know that their mom was here when Elvia and Lindsay stopped up and their mom wants to now go with [facility]. They were all going to talk as a family this afternoon and then let me know the decision. is fine with Jhonathan going to [facility] tomorrow, but per MUKUND Prieto, Jhonathan is still on a lasix and amiodarone drip, which [facility] requires him to be off of for 24 hours before they will accept. MUKUND Prieto was going to check with to see when this drip could be discontinued and then let me know. As of now the soonest dismissal would be would be Friday as he has to be off those drips for 24 hours. I plan on meeting this afternoon again with family to make sure that they are all in agreement with [facility] and I will then updated all parties needed at that time. CM to continue to follow and assist.
[2017-01-08 15:35] LABS: BILIRUBIN URINE NEGATIVE (NEGATIVE); BLOOD URINE NEGATIVE /UL (NEGATIVE); COLOR URINE YELLOW (YELLOW); GLUCOSE URINE NEGATIVE (NEGATIVE); KETONE URINE NEGATIVE (NEGATIVE); LEUKOCYTES URINE NEGATIVE /UL (NEGATIVE); NITRITE URINE NEGATIVE (NEGATIVE); PROTEIN URINE NEGATIVE (NEGATIVE); TURBIDITY URINE CLEAR (CLEAR); UROBILINOGEN URINE NORMAL (NORMAL)
--- NOTE | 2017-01-08 17:49 | NUR ---
Significant event: Alert. In afternoon patient started to verbalize more, at times able to understand, but most of the time is mumbled/garbled. EKG SR with PAC's. Changed dressing to R) FA skin tear. Carranza exchanged today, UA and UC done per ID order. Nafcillin will continue until 01/12/17; levaquin and diflucan d/c'd. Lasix gtt continues, had 3,000 ml UOP. SBP 150-160's this AM, have been 120-140's this afternoon. Red tag study was negative. Had 2 black/bloody BM's. Replaced K+- 40 KCL IV and 40 liquid KCL through PEG x 3 dose (currently given 2 doses). K+ checked at 1600 was 4.2. Grasping families hands, but would not always grasp RN's when asked. No movement to lower extremities. Follow Up: Continue current POC
[2017-01-09 05:04] LABS: BASOPHIL % 0.3 %; EOSINOPHIL % 0.3 %; HEMATOCRIT 25.1 % (33.0-50.0); IMMATURE GRANULOCYTE # 0.1 K/uL (0.0-0.3); LYMPHOCYTE # 2.3 K/uL (0.8-4.0); LYMPHOCYTE % 24.6 %; MCH 30.9 pg (27.0-34.0); MCHC 31.5 gm/dL (32.0-36.5); MONOCYTE # 0.8 K/uL (0.0-1.0); MPV 10.6 fl (9.4-12.4); NEUTROPHIL # (ANC) 5.9 K/uL (1.4-9.0); NEUTROPHIL % 64.8 %; NRBC % 3.1 /100WBC (0-0.00); RBC 2.56 M/uL (3.50-5.50); WBC 9.2 K/uL (4.0-11.0)
--- NOTE | 2017-01-09 05:10 | NUR ---
Significant Event: PATIENT REMAINS DISORIENTED. FAMILY REPORTED HE STATED FORMED WORDS AND SAID HE WAS IN PAIN, THEY ALSO REPORTED HE GRASPED HANDS. DURING ALL MY ASSESSMENTS I NEVER HEARD A FORMED WORD, HE DID NOT TRACK OR GRASP HANDS. HE DOES FLAIL HIS UPPER EXTREMETIES AT TIMES BUT NO MOVEMENT TO BLLE. I DID GIVE 5 MG OXYCODONE PER FAMILY REQUEST AT 2054. LASIX GTT WAS TURNED OFF AT 0100 DUE TO CONSECUTIVE SBP'S BELOW 110. ALL OTHER VSS, BIPAP HS WITH 21%FI02. LUNGS DO HAVE CRACKLES IN RIGHT LOWER BASE. FELICIANO HAD 2250 UOP. TUBE FEEDING AT 70 ML HR, 200 ML H20 FLUSHES VIA PEG TUBE. Follow up:
[2017-01-09 05:18] LABS: HEMOGLOBIN 7.9 g/dL (11.0-16.0)
[2017-01-09 05:19] LABS: PLATELET COUNT 191 K/uL (150-450)
[2017-01-09 05:21] LABS: ALBUMIN 2.7 gm/dL (3.5-5.0); ANION GAP 10.8 (10.0-19.0); BLOOD UREA NITROGEN 20 mg/dL (6-24); CALCIUM 8.1 mg/dL (8.5-10.5); CHLORIDE 97 mMol/L (96-110); CREATININE 0.7 mg/dL (0.6-1.3); ESTIMATED GFR (MDRD EQUATION) > 60; PHOSPHORUS 3.5 mg/dL (2.5-4.9); POTASSIUM 3.8 mMol/L (3.7-5.1); SODIUM 139 mMol/L (135-145)
[2017-01-09 05:22] LABS: CO2 35 mMol/L (22-32)
[2017-01-09 05:36] LABS: INR - (THERAPEUTIC) 1.04 (0.92-1.07); PROTIME 10.9 SECONDS (9.8-11.4)
--- NOTE | 2017-01-09 10:51 | NUR ---
7255 left with daughter Wendy to see if family had come to an agreement re:which facility they would like for Jhonathan to go to for LTACH needs either [facility] or [facility]. No call back from her at this point. Will continue to try to reach family and then see what their decision is. I will also update MDs, RNs and LTACH facilities as well. CM to continue to follow and assist.
--- NOTE | 2017-01-09 17:22 | NUR ---
Significant Event:Up in chair for 1 1/2 hrs. tolerated well. Family here off and on. Lasix and Amiodarone gtt off. Lasix IVP and Amiodarone po given. Patient more verbal today, asked where was and answered how many children he had. Denies pain. LS clear & diminished. BT (+) had 2 loose maroon stools shift. Peg in place and infusing TF as ordered no residuals. Scrotum red and slightly excoriated. Bruising to coccyx and blanches. Nurse draw has PICC line. Follow up:[facility] tomorrow at 11 am.
--- NOTE | 2017-01-10 05:03 | NUR ---
Significant event: responds to voice but has been unable to answer any questions. turn side to side every 2 hours and as needed. Aloe Santee applied to Bottom each time as there is an open area. No BM this shift. Carranza intact with 1150ml UOP. Peg tube in place with tube feed runnig at goal rate of 70ml/hr. Plan is to discharge to [facility] today at 1100.
[2017-01-10 06:18] LABS: BASOPHIL % 0.4 %; EOSINOPHIL % 0.4 %; HEMATOCRIT 24.2 % (33.0-50.0); IMMATURE GRANULOCYTE # 0.1 K/uL (0.0-0.3); IMMATURE GRANULOCYTE % 1.4 %; LYMPHOCYTE % 25.1 %; MCV 102.1 fl (83.0-98.0); MONOCYTE # 0.8 K/uL (0.0-1.0); MONOCYTE % 9.8 %; MPV 10.5 fl (9.4-12.4); NEUTROPHIL % 62.9 %; RBC 2.37 M/uL (3.50-5.50); RDW-CV 24.6 % (11.9-14.6); WBC 7.9 K/uL (4.0-11.0)
[2017-01-10 06:22] LABS: HEMOGLOBIN 7.2 g/dL (11.0-16.0); MCH 30.4 pg (27.0-34.0); MCHC 29.8 gm/dL (32.0-36.5); PLATELET COUNT 130 K/uL (150-450)
[2017-01-10 06:36] LABS: INR - (THERAPEUTIC) 1.21 (0.92-1.07); PROTIME 12.7 SECONDS (9.8-11.4)
[2017-01-10 06:58] LABS: ANION GAP 11.3 (10.0-19.0); CALCIUM 8.2 mg/dL (8.5-10.5); CHLORIDE 98 mMol/L (96-110); CO2 34 mMol/L (22-32); POTASSIUM 4.3 mMol/L (3.7-5.1); SODIUM 139 mMol/L (135-145)
[2017-01-10 06:59] LABS: BLOOD UREA NITROGEN 21 mg/dL (6-24); CREATININE 0.7 mg/dL (0.6-1.3); ESTIMATED GFR (MDRD EQUATION) > 60
--- NOTE | 2017-01-10 11:41 | NUR ---
Called down to EMS, talked with Sarah, clarified that there would be an ambulance crew ready to go at 1100 to take Jhonathan to [facility]. Sarah tells me that [facility] will be here at 1100 to pick him up. was reminded to call in the MD to MD report and he tells me that it was done earlier this morning. Discharge orders were completed by and and faxed over to [facility], before Jhonathan left. RN to RN report was called in before he left by RN Alma Delia Smith. Family was in the room and I answered a few last minute questions for them and they were planning on leaving a bit before [address] the [address] and meet Jhonathan at [facility] when he got there. I updated Maureen,[phone], to all of this. She tells me that he will be going into room 230 and family can come to either the North or the South entrance and someone will be there that can help them find [facility] room at [facility]. Maureen did ask that all of his radiology information was sent on a disk with him so I did talk about this with resource and she phoned down to radiology and a disk was made and sent with Jhonathan in his dismissal packet. No other questions, needs or concerns. CM to continue to follow and assist.
--- NOTE | 2017-01-10 12:28 | NUR ---
PATIENT ALERT, AWAKES TO VOICE. NON-VERBAL, FOLLOWS STAFF AROUND IN ROOM WITH EYES, WILL SAY FEW WORDS AT TIMES, HASN'T SPOKEN TO NURSE TODAY. ATTEMPTED TO STAND A BEDSIDE WITH PHYSICAL THERAPY TODAY. VSS ON ROOM AIR, WEARS HOME CPAP @ NIGHT. PT. DOESN'T SEEM TO BE IN ANY PAIN. DUAL LUMEN PICC LINE TO LEFT UPPER ARM, FLUSHES WITH GOOD BLOOD RETURN, DRESSING NEEDS CHANGED TOMORROW. PT. IS A FULL LIFT, REPOSITIONS Q2HR IN BED. LEFT WRIST IV REMOVED WITHOUT DIFFICULTLY. FAMILY HERE IN ROOM. FELICIANO INTACT WITH 925ml OUT BEFORE D/C, CATH CARES DONE TODAY. INCISIONS TO HEAD ARE HEALING/SCABBED OVER. PEG INTACT, HAS GLUCERNA @ 70mL/HR WITH 200mL WATER FLUSHES TID. 3+EDEMA REMAINS TO RIGHT ARM. REPORT GIVEN TO MUKUND KEYS AT [facility].
== END 2017-01-10 11:10 | DRG 25 ==
LOC: GMED 14:18 → GNTU 16:42 → GICU 16:42 → GNTU 12-27 12:28 → GICU 01-03 21:26 → GPCU 01-05 20:15
PROVIDERS: Anesthesiology; Anesthesiology Critical Care Medicine; Emergency Medicine; Family Medicine; Internal Medicine; Internal Medicine Geriatric Medicine; Internal Medicine Interventional Cardiology; Nurse Practitioner Family; ADMIT Neurological Surgery
PROC: 05HN33Z Insertion of Infusion Device into Left Internal Jugular Vein, Percutaneous Approach (ICD-10-PCS; principal; 2016-12-11)
PROC: 4A133B1 Monitoring of Arterial Pressure, Peripheral, Percutaneous Approach (ICD-10-PCS; principal; 2016-12-11)
PROC: 4A133J1 Monitoring of Arterial Pulse, Peripheral, Percutaneous Approach (ICD-10-PCS; principal; 2016-12-11)
PROC: 30233R1 Transfusion of Nonautologous Platelets into Peripheral Vein, Percutaneous Approach (ICD-10-PCS; 2016-12-12)
PROC: 00C40ZZ Extirpation of Matter from Intracranial Subdural Space, Open Approach (ICD-10-PCS; 2016-12-12)
PROC: 30233N1 Transfusion of Nonautologous Red Blood Cells into Peripheral Vein, Percutaneous Approach (ICD-10-PCS; 2016-12-12)
PROC: 30233R1 Transfusion of Nonautologous Platelets into Peripheral Vein, Percutaneous Approach (ICD-10-PCS; 2016-12-14)
PROC: 00C40ZZ Extirpation of Matter from Intracranial Subdural Space, Open Approach (ICD-10-PCS; 2016-12-15)
PROC: 009630Z Drainage of Cerebral Ventricle with Drainage Device, Percutaneous Approach (ICD-10-PCS; 2016-12-15)
PROC: 30233R1 Transfusion of Nonautologous Platelets into Peripheral Vein, Percutaneous Approach (ICD-10-PCS; 2016-12-16)
PROC: 30233R1 Transfusion of Nonautologous Platelets into Peripheral Vein, Percutaneous Approach (ICD-10-PCS; 2016-12-19)
PROC: 30233N1 Transfusion of Nonautologous Red Blood Cells into Peripheral Vein, Percutaneous Approach (ICD-10-PCS; 2016-12-22)
PROC: 02HV33Z Insertion of Infusion Device into Superior Vena Cava, Percutaneous Approach (ICD-10-PCS; 2016-12-22)
PROC: 30233R1 Transfusion of Nonautologous Platelets into Peripheral Vein, Percutaneous Approach (ICD-10-PCS; 2016-12-22)
PROC: 0DH63UZ Insertion of Feeding Device into Stomach, Percutaneous Approach (ICD-10-PCS; 2016-12-26)
PROC: 06H03DZ Insertion of Intraluminal Device into Inferior Vena Cava, Percutaneous Approach (ICD-10-PCS; 2016-12-31)
PROC: 30233N1 Transfusion of Nonautologous Red Blood Cells into Peripheral Vein, Percutaneous Approach (ICD-10-PCS; 2017-01-02)
PROC: 0DJD8ZZ Inspection of Lower Intestinal Tract, Via Natural or Artificial Opening Endoscopic (ICD-10-PCS; 2017-01-05)
PROC: 0DJ08ZZ Inspection of Upper Intestinal Tract, Via Natural or Artificial Opening Endoscopic (ICD-10-PCS; 2017-01-05)
DX: I62.01 Nontraumatic acute subdural hemorrhage (principal); R65.21 Severe sepsis with septic shock; A41.01 Sepsis due to Methicillin susceptible Staphylococcus aureus; I26.99 Other pulmonary embolism without acute cor pulmonale; J96.01 Acute respiratory failure with hypoxia; G92 Toxic encephalopathy; K57.31 Diverticulosis of large intestine without perforation or abscess with bleeding; D61.818 Other pancytopenia; G40.909 Epilepsy, unspecified, not intractable, without status epilepticus; I48.0 Paroxysmal atrial fibrillation; T81.4XXA Infection following a procedure, initial encounter; N39.0 Urinary tract infection, site not specified; D62 Acute posthemorrhagic anemia; I62.03 Nontraumatic chronic subdural hemorrhage; I10 Essential (primary) hypertension; E11.65 Type 2 diabetes mellitus with hyperglycemia; D69.6 Thrombocytopenia, unspecified; D72.825 Bandemia; E83.51 Hypocalcemia; W19.XXXA Unspecified fall, initial encounter; K29.70 Gastritis, unspecified, without bleeding; J44.9 Chronic obstructive pulmonary disease, unspecified; I50.9 Heart failure, unspecified; G47.33 Obstructive sleep apnea (adult) (pediatric); D64.9 Anemia, unspecified; F32.9 Major depressive disorder, single episode, unspecified; Z79.01 Long term (current) use of anticoagulants; Z85.46 Personal history of malignant neoplasm of prostate; Z86.718 Personal history of other venous thrombosis and embolism; Z87.891 Personal history of nicotine dependence; G93.2 Benign intracranial hypertension; Z79.4 Long term (current) use of insulin; E87.6 Hypokalemia
CPT/HCPCS: A9270; A9560; A9577; C1751; C1763; C1880; C9113; C9132; C9254; G0237; J0282; J0692; J0713; J1100; J1120; J1450; J1568; J1644; J1720; J1940; J1953; J1956; J2060; J2270; J2370; J2720; J2997; J3010; J3370; J3475; J3480; J7030; J7040; J7050; J7060; P9016; P9017; P9035; P9045; P9047; P9058; Q2009; Q9967

== ENCOUNTER → 2016-12-11 | Outpatient (CLI) | payer MEDICARE, BC | END | disposition disaster alternative care site (69) | LOC: GAMB 13:52 | DX: R41.82 Altered mental status, unspecified (principal) | CPT/HCPCS: A0425; A0427 ==

== ENCOUNTER → 2017-04-23 | Outpatient (CLI) | payer OTHER, MEDICARE, BC ==
[~2017-04-23] MED LIST changes: +CLEOCIN HCL300 MG PO; +DULCOLAX10 MG R; +ELAVIL25 MG PO; +MILK OF MA400 MG/5 M PO; +TYLENOL325 MG PO
[2017-04-23 13:12] LABS: CALCIUM 8.7 mg/dL (8.5-10.5)
== END ==
LOC: LGSOS 12:45
PROVIDERS: Internal Medicine Interventional Cardiology
DX: I10 Essential (primary) hypertension (principal)